=== PATIENT | male | born 1950 | race Caucasian/White ===

== ENCOUNTER → 2020-06-23 10:06 | Outpatient (BNVA) | payer OTHER, MEDICARE, SELFPAY | PROVIDERS: PCP Family Medicine; Visit Provider Internal Medicine Endocrinology, Diabetes & Metabolism | DX: E11.65 Type 2 diabetes mellitus with hyperglycemia (principal); E11.21 Type 2 diabetes mellitus with diabetic nephropathy; E11.42 Type 2 diabetes mellitus with diabetic polyneuropathy; Z79.4 Long term (current) use of insulin; E78.5 Hyperlipidemia, unspecified; I10 Essential (primary) hypertension; E66.3 Overweight | CPT/HCPCS: 82947 ==

== ENCOUNTER → 2020-07-08 10:27 | Outpatient (BNVA) | payer OTHER, MEDICARE, SELFPAY | PROVIDERS: PCP Family Medicine; Referring Provider Family Medicine; Visit Provider Hospitalist | DX: Z76.89 Persons encountering health services in other specified circumstances (principal) ==

== ENCOUNTER → 2020-08-26 10:03 | Outpatient (BNVA) | payer OTHER, MEDICARE, SELFPAY | PROVIDERS: PCP Family Medicine; Visit Provider Internal Medicine Cardiovascular Disease | DX: I25.10 Atherosclerotic heart disease of native coronary artery without angina pectoris (principal); I10 Essential (primary) hypertension | CPT/HCPCS: 93005 ==

== ENCOUNTER 2020-08-26 11:45 | Outpatient (REF) | payer OTHER, MEDICARE, SELFPAY ==
[2020-08-26 14:54] LABS: Prostate Specific Antigen < 0.05 ng/mL (<0.05-4.0)
== END 2020-08-26 11:46 | disposition home or self-care (01) ==
LOC: HO.10HDL 11:45
PROVIDERS: Visit Provider Urology
DX: C61 Malignant neoplasm of prostate (principal)
CPT/HCPCS: 36415; 84153

== ENCOUNTER → 2020-09-24 09:38 | Outpatient (BNVA) | payer OTHER, MEDICARE, SELFPAY | PROVIDERS: PCP Family Medicine; Visit Provider Internal Medicine Endocrinology, Diabetes & Metabolism ==

== ENCOUNTER → 2020-12-23 14:05 | Outpatient (BNVA) | payer OTHER, MEDICARE, SELFPAY | PROVIDERS: PCP Family Medicine; Visit Provider Hospitalist ==

== ENCOUNTER → 2021-02-26 11:00 | Outpatient (BNVA) | payer OTHER, MEDICARE, SELFPAY | PROVIDERS: PCP Family Medicine; Visit Provider Urology | DX: N32.81 Overactive bladder (principal); C61 Malignant neoplasm of prostate | CPT/HCPCS: 51798 ==

== ENCOUNTER 2021-03-30 14:15 | Observation (INO) | payer OTHER, MEDICARE, SELFPAY ==
[2021-03-30] VITALS (8 sets, daily range): BP systolic 103–163; BP diastolic 55–81; PULSE 78–113; RESP 16–22; TEMP 36.3–36.8; O2SAT 94–98; BMI 25.2
--- NOTE | ~2021-03-30 | CT_ITS ---
EXAMINATION: CT HEAD WITHOUT CONTRAST CLINICAL INFORMATION: Altered mental status. COMPARISON: MR brain noncontrast 10/12/2018 TECHNIQUE: Contiguous axial imaging was performed from the skull base to vertex without intravenous administration of contrast. Additional 2-D coronal and sagittal reformatted images are generated on the CT workstation and uploaded to PACS. This CT examination was performed using dose optimization techniques as appropriate, variously including the following: *Automated exposure control *Adjustment of mA and/or kV according to patient size (this includes techniques or standardized protocols for targeted exams where dose is matched to indication/reason for exam; i.e. extremities or head) *Use of iterative reconstruction technique DLP: 735 mGy-cm FINDINGS: There is no intracranial hemorrhage, hematoma, or extra-axial fluid collection. The ventricles are normal in size. There is no hydrocephalus, edema, or mass effect. The vásquez-white matter differentiation appears symmetric. There is no visible acute territorial infarct or mass lesion. The calvarium appears intact. There is no pneumocephalus or orbital emphysema. The visualized sinuses and middle ears and mastoid air cells show no significant mucosal thickening. There are no air-fluid levels. CT/CT head/brain wo con IMPRESSION: No acute intracranial abnormality.
--- NOTE | ~2021-03-30 | US_ITS ---
EXAMINATION: US EXTRACRANIAL CAROTID DUPLEX, BILATERAL CLINICAL INFORMATION: Dizziness COMPARISON: None TECHNIQUE: Real-time ultrasound and Doppler techniques (integrating B-mode 2-D vascular images, Doppler spectral analysis and color-flow Doppler imaging) were utilized to interrogate the extracranial carotid arteries, the vertebral arteries and proximal subclavian arteries bilaterally. The degree of stenosis is determined by criteria similar to NASCET. FINDINGS: Right Side: 1. There is calcified atherosclerotic plaque seen in the bifurcation/proximal ICA region. 2. The common carotid artery PSV proximally is 56.0 cm/s and distally 108 cm/s. 3. The proximal internal carotid artery velocities are 139 cm/s systolic and 17.3 cm/s diastolic. 4. The proximal external carotid artery PSV is 63.4 cm/s. 5. The vertebral artery shows antegrade flow. 6. The subclavian artery waveforms are normal. Left Side: 1. There is calcified atherosclerotic plaque seen in the bifurcation/proximal ICA region. 2. The common carotid artery PSV proximally is 76.8 cm/s and distally 68.6 cm/s. 3. The proximal internal carotid artery velocities are 141.1 cm/s systolic and 15.6 cm/s diastolic. 4. The proximal external carotid artery PSV is 80.7 cm/s. 5. The vertebral artery shows antegrade flow. 6. The subclavian artery waveforms are normal. US/US carotid duplex BI IMPRESSION: 1. RIGHT: Minimal, non-hemodynamically significant stenosis of the proximal right internal carotid artery corresponding to a 0-49% stenosis by velocity criteria. 2. LEFT: Moderate, hemodynamically significant stenosis of the proximal left internal carotid artery corresponding to a 50-79% stenosis by velocity criteria.
--- NOTE | ~2021-03-30 | XR_ITS ---
EXAMINATION: XR CHEST CLINICAL INFORMATION: Altered mental status COMPARISON: 12/17/2019 TECHNIQUE: 2 views of the chest were obtained. FINDINGS: The cardiomediastinal silhouette is within normal limits and stable compared to prior. No vascular congestion or edema. No focal consolidation or effusion. Tiny calcified granuloma left lung base unchanged. Mild degenerative changes in the spine. XR/XR chest 2V IMPRESSION: Stable chest x-ray. No acute findings.
--- NOTE | 2021-03-30 15:02 | ECG_ITS ---
Test Reason : AMS Blood Pressure : / mmHG Vent. Rate : 101 BPM Atrial Rate : 101 BPM P-R Int : 184 ms QRS Dur : 082 ms QT Int : 342 ms P-R-T Axes : 077 070 072 degrees QTc Int : 443 ms Sinus tachycardia Abnormal ECG When compared with ECG of 18-FEB-2020 10:10, Heart rate has increased Referred By: Rosa Grubbs Electronically Signed By:LAURA GARCIA
--- NOTE | 2021-03-30 15:04 | ED_ITS ---
HPI - Altered Mental Status General Chief Complaint: Altered Mental Status Stated Complaint: CONFUSED DIZZY Time Seen by Provider: 03/30/21 14:42 Source: patient and family Mode of arrival: ambulatory Limitations: no limitations History of Present Illness HPI narrative: 70-year-old male with a past medical history of insulin-dependent diabetes, hypertension, coronary artery disease with 5 stents on Plavix, COPD, h yperlipidemia here with complaints of confusion and dizziness. Per patient he has had dizziness for several days. Per the at around 10:00 the patient was found to be staring into the distance and was incontinent of urine. She denies any shaking activity. She tells me for approximately 1 hour the patient seemed confused and not himself. She tells me since being here the patient does seem to be at his baseline. The patient reports dizziness which is described as feeling like his body is off balance. He denies any vision changes. No headache or neck pain. He does have some speech difficulty which his and him tell me is not a new thing and his secondary to his Parkinson's disease. Denies weakness, paresthesias.. No chest or abdominal pain. H/o juvenile epilepsy. Related Data Home Medications Medication Instructions Recorded Confirmed pramipexole 0.25 mg tablet 0.25 mg PO TID 06/19/20 12/23/20 carbidopa 25 mg-levodopa 100 mg 1 tab PO QID 06/23/20 12/05/20 tablet aspirin 81 mg tablet,delayed 81 mg PO DAILY 08/26/20 12/23/20 release (Adult Low Dose Aspirin) cholecalciferol (vitamin D3) 10 10 mcg PO DAILY 08/26/20 12/23/20 mcg (400 unit) capsule vitamin B complex (B 1 tab PO DAILY 08/26/20 12/23/20 Complex-Vitamin B12) gabapentin 300 mg capsule 300 mg PO DAILY 12/23/20 12/23/20 memantine 10 mg tablet 10 mg PO DAILY 12/23/20 12/23/20 trazodone 100 mg tablet 100 mg PO BEDTIME 12/23/20 12/23/20 Previous Rx's Medication Instructions Recorded umeclidinium 62.5 mcg-vilanterol 1 inh INHALATION DAILY #60 ea 06/17/20 25 mcg/actuation powdr for inhalation (Anoro Ellipta) insulin glargine 100 unit/mL (3 45 unit SUBCUT BEDTIME 90 Days #45 09/24/20 mL) subcutaneous pen ml dulaglutide 1.5 mg/0.5 mL 1.5 mg SUBCUT QWEEK 90 Days #6.5 ml 11/06/20 subcutaneous pen injector (Trulicity) clopidogrel 75 mg tablet 75 mg PO DAILY #90 tab 12/12/20 metformin 500 mg tablet,extended 1,000 mg PO BID 90 Days #360 tab 01/02/21 release 24 hr fluticasone propionate 50 2 spray INTRANASAL BID 90 Days #3 01/06/21 mcg/actuation nasal ea spray,suspension montelukast 10 mg tablet 10 mg PO QPM #90 tab 02/22/21 tamsulosin 0.4 mg capsule 0.4 mg PO BEDTIME 30 Days #30 cap 02/26/21 rosuvastatin 40 mg tablet 40 mg PO DAILY 90 Days #90 tab 03/16/21 solifenacin 10 mg tablet 10 mg PO DAILY 90 Days #90 tab 03/17/21 metoprolol succinate 25 mg 25 mg PO DAILY 30 Days #30 tab 03/24/21 tablet,extended release 24 hr Allergies Allergy/AdvReac Type Severity Reaction Status Date / Time Iodinated Contrast Media Allergy Mild RASH AT IV Verified 03/24/21 10:30 [CONTRAST, IV] SITE. BENEDRYL GIVEN WITH GOOD EFFECT Review of Systems Review of Systems: Yes all other systems are reviewed and are negative Constitutional: Constitutional: Reports no additional constitutional complaints, Denies body ache(s), Denies chills, Denies fever(s), Denies headache(s) and Denies weakness Eyes: Eyes: Reports no additional eye complaints and Denies change in vision ENT: Reports system reviewed and no additional complaints, except as documented, Reports dizziness, Denies headache(s), Denies nasal congestion, Denies nasal discharge and Denies neck pain Cardiovascular: Cardiovascular: Reports no additional cardiovascular complaints, Denies chest pain, Denies leg edema and Denies dyspnea Respiratory: Respiratory: Reports no additional respiratory complaints, Denies cough and Denies dyspnea Gastrointestinal: Gastrointestinal: Reports no additional gastrointestinal complaints, Denies abdominal pain, Denies diarrhea, Denies nausea and Denies vomiting Genitourinary: Genitourinary: Denies urinary incontinence Musculoskeletal: Musculoskeletal: Reports no additional musculoskeletal complaints, Denies back pain, Denies arthralgias, Denies joint swelling, Denies neck pain, Denies numbness and Denies tingling Integumentary/Breasts: Skin/Breast: Reports system reviewed and no additional complaints, except as docu and Denies rash Neurologic: Reports system reviewed and no additional complaints, except as do cumented, Denies Abnormal speech present, Reports dizziness, Denies headache(s), Denies numbness, Denies tingling and Denies weakness PMF Past Medical History Attestation statement: The following information was validated with the patient. Source: old records reviewed and nursing notes reviewed Medical History CAD (coronary artery disease) COPD (chronic obstructive pulmonary disease) Diabetes type 2, uncontrolled Diabetic nephropathy associated with type 2 diabetes mellitus Diabetic polyneuropathy associated with type 2 diabetes mellitus Dyslipidemia Dyspnea 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 long-term (current) use of insulin Overweight (BMI 25.0-29.9) Surgical History History of prostate surgery Hx of cardiac cath Hx of cataract surgery Hx of colonoscopy Stented coronary artery Family History Family History Father Sudden cardiac CVD (cardiovascular disease) Mother Hx of heart surgery CVD (cardiovascular disease) Social History Social History Household Members: Spouse Housing: House Alcohol intake: never Patient Tobacco Use Status: Never used Tobacco Advance Directives: Yes Advance Directives Information Provided: Yes Advance Directives on File: No Current occupational status: retired Physical Exam Vital Signs: Vital Signs: Last Vital Signs Temp 97.5 F 03/30/21 14:25 Pulse 90 03/30/21 16:46 Resp 16 03/30/21 16:46 BP 126/61 03/30/21 16:46 Pulse Ox 96 03/30/21 16:46 Body Mass Index 25.2 Const: Orientation/consciousness: oriented to person, oriented to place and oriented to time Limitations: no limitations HENMT: Head: Yes normal to inspection Ears: hearing grossly normal bilaterally General nose exam: Normal external nose present Face and sinus: Yes normal facial exam Mouth: Normal oral and palatal mucosa present Throat: Yes posterior oropharynx normal Eyes: General: appearance normal, both eyes and all related structures Pupils: Equal, round and reactive pupils present Neck: Neck: Yes normal visual inspection Chest: Chest palpation & inspection: normal inspection of the chest Resp: Effort & Inspection: normal respiratory effort Auscultation: clear to auscultation bilaterally Cardio: Rate: regular rate Rhythm: regular rhythm Peripheral pulses: Peripheral pulses 2+ throughout GI: Inspection: Yes normal to inspection Palpation (GI): Soft to palpation and nontender Auscultation: normal bowel sounds Back/Spine/Pelvis: Thoracic/Lumbar Spine: thoracic and lumbar spine normal to inspection Skin: General skin exam: no rashes or lesions noted Neuro: Other: requires frequent re-direction for task performance General: oriented to person, oriented to place, oriented to time, moves all extremities, Normal light touch and pain sensation and Unable to assess gait Cranial ne rves: Yes CN's II-XII intact bilaterally, Yes Equal, round and reactive pupils present, Yes Bilaterally intact EOM present, Yes Nystagmus not present, Yes Normal facial strength present and Yes Midline tongue present Cognition (Neuro): normal cognition Speech: No Abnormal speech present Gait exam (Neuro): Unable to assess gait Motor exam (neuro): 5/5 motor strength present throughout Sensory Exam: Normal double simultaneous stimulation for sensation Coordination: [id number] test normal and [id number] test normal Extrem: General: Yes normal to inspection NIH Stroke Scale Internal: Initial- Upon Arrival Level of Consciousness: Alert Level of Consciousness Questions: Answers both questions correctly Level of Consciousness Commands: Performs both tasks correctly Best Gaze: Normal Visual: No visual loss Facial Palsy: Normal Motor Arm (Right): No drift Motor Arm (Left): No drift Motor Leg (Right): No drift Motor Leg (Left): No drift Limb Ataxia: Present in two limbs (difficult to assess as patient unable to ambulate d/t dizziness ) Sensory: Normal Best Language: No aphasia Dysarthia: Normal Extinction and Inattention: No abnormality Score: 2 Course Course Course Narrative: 70-year-old male here with complaints of dizziness for the last few days with an episode of confusion today in which he was confused for about an hour was less responsive to family and had incontinence of urine. On arrival to the emergency department he is complaining of dizziness and unsteady gait. His family seems to think he is more at his baseline and is less confused than he was earlier. He has a history of seizures as a child but has not had a seizure since then. He is not on any antiepileptics. He does have a history of Parkinson's disease with some speech difficulty at baseline but no history of dementia or confusion or similar episodes. Unable to ambulate patient due to his complaints of dizziness. Otherwise his neurological exam is normal. He does require frequent redirection as he seems forgetful of tasks asked of this patient. Hemodynamically stable. Will check labs, EKG, chest x-ray, CT head, UA. 1745-labs are unremarkable. The patient's EKG are negative so low concern for ACS. Patient's chest x-ray and a CT of the head are negative. The patient has a very unsteady gait and is unable to ambulate due to complaints of dizziness and unsteadiness. He has had these symptoms for 2 days. Consider cerebellar infarct. Should be admitted for MRI. Not a tPA candidate as he is outside of the window based on the length of his symptoms and additionally he is on Plavix. The patient also had an episode of decreased responsiveness and incontinence today with some confusion after this. ?absent seizure versus TIA. These symptoms seem to have resolved. I did discuss the case with . He tells me the patient will be admitted to the night team service at 7pm. MDM - Altered Mental Status MDM Narrative Medical decision making narrative: Consider cerebellar infarct with complaints of dizziness and unsteady gait-not in window for tpa additionally on plavix less likely acs with negative troponin and ekg Consider absent seizure vs tia today with episode of decreased responsiveness today, urinary incontinence with confusion following episode. Medical Records Attestation: I reviewed the patient's medical records. Lab Data Attestation: I reviewed the patient's lab results. Result diagrams: 03/30/21 15:22 03/30/21 15:22 Labs: Lab Results 03/30/21 03/30/21 03/30/21 Range/Units 15:22 15:22 15:22 WBC 13.7 H (4.8-10.8) X10*3/uL RBC 4.12 L (4.60-5.80) X10*6/uL Hgb 12.6 L (14.0-18.0) g/dl Hct 38.1 L (42-52) % MCV 92.5 (80-98) fL MCH 30.6 (27.0-33.0) pg MCHC 33.1 (31.0-36.0) g/dl RDW 13.3 (11.0-16.0) % Plt Count 194 (160-400) X10*3/uL MPV 10.2 (9.4-12.4) fL Immature Gran % (Auto) 0.4 (0.0-0.4) % Neut % (Auto) 86.6 H (45-73) % Lymph % (Auto) 3.1 L (20-40) % [place] % (Auto) 9.7 (2-11) % Eos % (Auto) 0.1 (0-4) % Baso % (Auto) 0.1 (0-2) % Lymph # (Auto) 0.4 L (1.2-4.9) X10*3/uL [place] # (Auto) 1.3 H (0.1-1.2) X10*3/uL Eos # (Auto) 0.0 (0.0-0.4) X10*3/uL Baso # (Auto) 0.0 (0.0-0.2) X10*3/uL Abs Immat Gran (auto) 0.06 H (0.00-0.03) X10*3/uL Absolute Neuts (auto) 11.8 H (2.0-8.3) X10*3/uL Absolute Nucleated RBC 0.000 (0.0-0.012) X10*3/uL Nucleated RBC % (auto) 0.0 (0.0-0.2) /100WBC PT 12.3 (9.9-13.0) SEC INR 1.1 (0.9-1.1) APTT 32.4 (24.1-38.0) SEC Sodium (135-145) mmol/L Potassium (3.3-5.1) mmol/L Chloride (96-108) mmol/L Carbon Dioxide (22-29) mmol/L Anion Gap (12-20) BUN (9-16) mg/dL Creatinine (0.5-1.4) mg/dL Estim Creat Clear Calc Estimated GFR Random Glucose (60-115) mg/dL Calcium (8.4-10.2) mg/dL Phosphorus 2.9 (2.7-4.5) mg/dL Magnesium 2.2 (1.6-2.6) mg/dL Total Creatine Kinase (38-174) U/L Troponin I High Sens (<3.5-35.0) ng/L TSH 1.09 (0.32-4.0) uIU/mL Urine Color Urine Appearance Urine pH (5.0-8.0) Ur Specific [place] (1.005-1.025) Urine Protein (NEG-TRACE) MG/DL Urine Glucose (UA) (NEG) MG/DL Urine Ketones (NEG) MG/DL Urine Blood (NEG) Urine Nitrite (NEG) Ur Leukocyte Esterase (NEG) Urine RBC (0) /HPF Urine WBC (0-4) /HPF Ur Squamous Epith Cells /LPF Urine Bacteria /LPF COVID-19 (SEMAJ) (Negative) COVID-19 Clin Com 03/30/21 03/30/21 03/30/21 Range/Units 15:22 15:22 15:22 WBC (4.8-10.8) X10*3/uL RBC (4.60-5.80) X10*6/uL Hgb (14.0-18.0) g/dl Hct (42-52) % MCV (80-98) fL MCH (27.0-33.0) pg MCHC (31.0-36.0) g/dl RDW (11.0-16.0) % Plt Count (160-400) X10*3/uL MPV (9.4-12.4) fL Immature Gran % (Auto) (0.0-0.4) % Neut % (Auto) (45-73) % Lymph % (Auto) (20-40) % [place] % (Auto) (2-11) % Eos % (Auto) (0-4) % Baso % (Auto) (0-2) % Lymph # (Auto) (1.2-4.9) X10*3/uL [place] # (Auto) (0.1-1.2) X10*3/uL Eos # (Auto) (0.0-0.4) X10*3/uL Baso # (Auto) (0.0-0.2) X10*3/uL Abs Immat Gran (auto) (0.00-0.03) X10*3/uL Absolute Neuts (auto) (2.0-8.3) X10*3/uL Absolute Nucleated RBC (0.0-0.012) X10*3/uL Nucleated RBC % (auto) (0.0-0.2) /100WBC PT (9.9-13.0) SEC INR (0.9-1.1) APTT (24.1-38.0) SEC Sodium 140 (135-145) mmol/L Potassium 4.1 (3.3-5.1) mmol/L Chloride 107 (96-108) mmol/L Carbon Dioxide 22 (22-29) mmol/L Anion Gap 15 (12-20) BUN 24 H (9-16) mg/dL Creatinine 1.50 H (0.5-1.4) mg/dL Estim Creat Clear Calc 42.5 Estimated GFR 47 Random Glucose 94 (60-115) mg/dL Calcium 9.9 (8.4-10.2) mg/dL Phosphorus (2.7-4.5) mg/dL Magnesium (1.6-2.6) mg/dL Total Creatine Kinase 234 H (38-174) U/L Troponin I High Sens 4.8 (<3.5-35.0) ng/L TSH (0.32-4.0) uIU/mL Urine Color Urine Appearance Urine pH (5.0-8.0) Ur Specific [place] (1.005-1.025) Urine Protein (NEG-TRACE) MG/DL Urine Glucose (UA) (NEG) MG/DL Urine Ketones (NEG) MG/DL Urine Blood (NEG) Urine Nitrite (NEG) Ur Leukocyte Esterase (NEG) Urine RBC (0) /HPF Urine WBC (0-4) /HPF Ur Squamous Epith Cells /LPF Urine Bacteria /LPF COVID-19 (SEMAJ) Negative (Negative) COVID-19 Clin Com See Note 03/30/21 Range/Units 15:22 WBC (4.8-10.8) X10*3/uL RBC (4.60-5.80) X10*6/uL Hgb (14.0-18.0) g/dl Hct (42-52) % MCV (80-98) fL MCH (27.0-33.0) pg MCHC (31.0-36.0) g/dl RDW (11.0-16.0) % Plt Count (160-400) X10*3/uL MPV (9.4-12.4) fL Immature Gran % (Auto) (0.0-0.4) % Neut % (Auto) (45-73) % Lymph % (Auto) (20-40) % [place] % (Auto) (2-11) % Eos % (Auto) (0-4) % Baso % (Auto) (0-2) % Lymph # (Auto) (1.2-4.9) X10*3/uL [place] # (Auto) (0.1-1.2) X10*3/uL Eos # (Auto) (0.0-0.4) X10*3/uL Baso # (Auto) (0.0-0.2) X10*3/uL Abs Immat Gran (auto) (0.00-0.03) X10*3/uL Absolute Neuts (auto) (2.0-8.3) X10*3/uL Absolute Nucleated RBC (0.0-0.012) X10*3/uL Nucleated RBC % (auto) (0.0-0.2) /100WBC PT (9.9-13.0) SEC INR (0.9-1.1) APTT (24.1-38.0) SEC Sodium (135-145) mmol/L Potassium (3.3-5.1) mmol/L Chloride (96-108) mmol/L Carbon Dioxide (22-29) mmol/L Anion Gap (12-20) BUN (9-16) mg/dL Creatinine (0.5-1.4) mg/dL Estim Creat Clear Calc Estimated GFR Random Glucose (60-115) mg/dL Calcium (8.4-10.2) mg/dL Phosphorus (2.7-4.5) mg/dL Magnesium (1.6-2.6) mg/dL Total Creatine Kinase (38-174) U/L Troponin I High Sens (<3.5-35.0) ng/L TSH (0.32-4.0) uIU/mL Urine Color YELLOW Urine Appearance CLEAR Urine pH 6.0 (5.0-8.0) Ur Specific [place] 1.010 (1.005-1.025) Urine Protein 2+ H (NEG-TRACE) MG/DL Urine Glucose (UA) NEG (NEG) MG/DL Urine Ketones NEG (NEG) MG/DL Urine Blood 1+ H (NEG) Urine Nitrite NEG (NEG) Ur Leukocyte Esterase NEG (NEG) Urine RBC 1-4 (0) /HPF Urine WBC 0-2 (0-4) /HPF Ur Squamous Epith Cells TRACE /LPF Urine Bacteria TRACE /LPF COVID-19 (SEMAJ) (Negative) COVID-19 Clin Com Imaging Data Chest x-ray: Attestation: I personally reviewed and interpreted this imaging study as follows: Radiologist's impression: [address] [id number] XRay Report Signed Patient: Nir Leon MR#: [id number] : 1950 Acct:[id number] Age/Sex: 70 / M ADM Date: 03/30/21 Loc: .ED Attending Dr: Ordering Physician: Rosa Grubbs NP Date of Service: 03/30/21 Procedure(s): XR chest 2V Accession Number(s): [id number] cc: Rosa Grubbs NP~ EXAMINATION: XR CHEST CLINICAL INFORMATION: Altered mental status COMPARISON: 12/17/2019 TECHNIQUE: 2 views of the chest were obtained. FINDINGS: The cardiomediastinal silhouette is within normal limits and stable compared to prior. No vascular congestion or edema. No focal consolidation or effusion. Tiny calcified granuloma left lung base unchanged. Mild degenerative changes in the spine. XR/XR chest 2V IMPRESSION: Stable chest x-ray. No acute findings. CT scan - head: Attestation: I personally reviewed and interpreted this imaging study as follows: Radiologist's impression: FINDINGS: There is no intracranial hemorrhage, hematoma, or extra-axial fluid collection.? The ventricles are normal in size. There is no hydrocephalus, edema, or mass effect.? The vásquez-white matter differentiation appears symmetric.? There is no visible acute territorial infarct or mass lesion. The calvarium appears intact. There is no pneumocephalus or orbital emphysema.? The visualized sinuses and middle ears and mastoid air cells show no significant mucosal thickening. There are no air-fluid levels. CT/CT head/brain wo con IMPRESSION: No acute intracranial abnormality. ECG Data ECG #1: Attestation: I personally reviewed and interpreted this ECG as follows: ECG interpretation date: 03/30/21 ECG interpretation time: 15:33 Interpretation: Sinus tachycardia with a rate of 101, normal Pr, normal QRS, QTC Discharge Plan Discharge Clinical Impression: Dizziness Patient Disposition: Admitted As Inpatient Prescriptions: No Action Anoro Ellipta 62.5-25 mcg/actuation blister with device 1 inh inhalation DAILY Qty: 60 RF: 3 Trulicity 1.5 mg/0.5 mL pen injector 1.5 mg subcut QWEEK 90 Days Qty: 6.5 RF: 1 clopidogrel 75 mg tablet 75 mg PO DAILY Qty: 90 RF: 1 metformin 500 mg tablet extended release 24 hr 1,000 mg PO BID 90 Days Qty: 360 RF: 1 fluticasone propionate 50 mcg/actuation spray,suspension 2 spray intranasal BID 90 Days Qty: 3 RF: 4 montelukast 10 mg tablet 10 mg PO QPM Qty: 90 RF: 3 rosuvastatin 40 mg tablet 40 mg PO DAILY 90 Days Qty: 90 RF: 0 solifenacin 10 mg tablet 10 mg PO DAILY 90 Days Qty: 90 RF: 0 pramipexole 0.25 mg tablet 0.25 mg PO TID RF: 0 metoprolol succinate 25 mg tablet extended release 24 hr 25 mg PO DAILY 30 Days Qty: 30 RF: 1 carbidopa-levodopa 25-100 mg tablet 1 tab PO QID RF: 0 insulin glargine 100 unit/mL (3 mL) insulin pen 45 unit subcut BEDTIME 90 Days Qty: 45 RF: 1 aspirin [Adult Low Dose Aspirin] 81 mg tablet,delayed release (DR/EC) 81 mg PO DAILY RF: 0 vitamin B complex [B Complex-Vitamin B12] Tablet 1 tab PO DAILY RF: 0 cholecalciferol (vitamin D3) 10 mcg (400 unit) capsule 10 mcg PO DAILY RF: 0 tamsulosin 0.4 mg capsule 0.4 mg PO BEDTIME 30 Days Qty: 30 RF: 1 gabapentin 300 mg capsule 300 mg PO DAILY RF: 0 memantine 10 mg tablet 10 mg PO DAILY RF: 0 trazodone 100 mg tablet 100 mg PO BEDTIME RF: 0
[2021-03-30 15:31] LABS: MANUAL DIFF FLAG NO
[2021-03-30 15:34] LABS: Basophils Percent Auto 0.1 % (0-2); Eosinophils Percent Auto 0.1 % (0-4); Hematocrit 38.1 % (42-52); Hemoglobin 12.6 g/dl (14.0-18.0); Imm Gran Abs Auto 0.06 X10*3/uL (0.00-0.03); Imm Gran Pct Auto 0.4 % (0.0-0.4); Lymphocytes Absolute Auto 0.4 X10*3/uL (1.2-4.9); Lymphocytes Percent Auto 3.1 % (20-40); Mean Corpuscular HGB Conc 33.1 g/dl (31.0-36.0); Mean Corpuscular Hemoglobin 30.6 pg (27.0-33.0); Mean Corpuscular Volume 92.5 fL (80-98); Mean Platelet Volume 10.2 fL (9.4-12.4); Monocytes Absolute Auto 1.3 X10*3/uL (0.1-1.2); Monocytes Percent Auto 9.7 % (2-11); Neutrophils Absolute Auto 11.8 X10*3/uL (2.0-8.3); Neutrophils Percent Auto 86.6 % (45-73); Platelet Count 194 X10*3/uL (160-400); Red Blood Count 4.12 X10*6/uL (4.60-5.80); Red Cell Distribution Width 13.3 % (11.0-16.0); White Blood Count 13.7 X10*3/uL (4.8-10.8)
[2021-03-30 15:46] LABS: INTERNATIONAL NORM RATIO 1.1 (0.9-1.1); Prothrombin Time 12.3 SEC (9.9-13.0)
[2021-03-30 15:48] LABS: Anion Gap 15 (12-20); Blood Urea Nitrogen 24 mg/dL (9-16); Calcium 9.9 mg/dL (8.4-10.2); Carbon Dioxide 22 mmol/L (22-29); Chloride 107 mmol/L (96-108); Creatinine Clr Calc Pharmacy 42.5; Estimated Glomerular Filt Rate 47; Glucose Random 94 mg/dL (60-115); Magnesium 2.2 mg/dL (1.6-2.6); Partial Thromboplastin Time 32.4 SEC (24.1-38.0); Phosphorus 2.9 mg/dL (2.7-4.5); Potassium 4.1 mmol/L (3.3-5.1); Sodium 140 mmol/L (135-145)
[2021-03-30 15:53] LABS: Troponin-I High Sensitivity 4.8 ng/L (<3.5-35.0)
[2021-03-30 15:54] LABS: Stroke Lab Use COMPLETE
[2021-03-30 15:55] LABS: COVID-19 Test Negative (Negative)
[2021-03-30 16:04] LABS: Glucose Urine UA NEG (NEG); Leukocyte Esterase Urine NEG (NEG); Nitrite Urine NEG (NEG); UACC Culture Trigger NO; Urine Blood 1+ (NEG); Urine Ketones NEG (NEG); Urine Protein 2+ MG/DL (NEG-TRACE)
[2021-03-30 16:09] LABS: Appearance Urine CLEAR; Color Urine YELLOW; Thyroid Stimulating Hormone 1.09 uIU/mL (0.32-4.0)
[2021-03-30] MEDS: 0.9 % Sodium Chloride 1,000 ML 999 ML IV (16:26)
[2021-03-30 16:49] LABS: Bacteria Urine TRACE /LPF; Squamous Epithelial Cell Urine TRACE /LPF; WBC Urine 0-2 /HPF (0-4)
[2021-03-30 18:33] LABS: Glucose, Whole Blood 86 mg/dL (60-115)
--- NOTE | 2021-03-30 19:44 | P.HPHOSP_ITS ---
History of Present Illness Date of Service: 03/30/21 Chief Complaint: Dizziness 70-year-old male with a past medical history of hypertension, hyperlipidemia, diabetes, coronary artery disease, diabetic neuropathy, Parkinson disease, COPD presented to the hospital with a chief complaint of dizziness/confusion. Patient currently alert or oriented x3. Reports that he had dizziness this morning; still feels dizzy. Denies any fall. Denies any loss of consciousness. Denies any symptoms of room spinning. Patient reported has intermittent episodes of urinary incontinence and has been scheduled for outpatient cystoscopy. Denies any signs of infection. Reports he is unsteady on the gait. Patient reports that he takes gabapentin for long time and does not think it is contributing to his current symptoms. Denies any chest pain palpitations. Denies any fever chills cough. Denies any GI or symptoms. Review of all other systems is negative except mentioned above ER course: Per ER team patient's exam was nonfocal; EKG was nonischemic; CT head showed no acute findings; chest x-ray showed no evidence of pneumonia. Gait was unsteady; labs were essentially benign. Admitted to the hospital for further management. [facility] Medical History CAD (coronary artery disease) COPD (chronic obstructive pulmonary disease) Diabetes type 2, uncontrolled Diabetic nephropathy associated with type 2 diabetes mellitus Diabetic polyneuropathy associated with type 2 diabetes mellitus Dyslipidemia Dyspnea 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 jail (current) use of insulin Overweight (BMI 25.0-29.9) Family History Father Sudden cardiac CVD (cardiovascular disease) Mother Hx of heart surgery CVD (cardiovascular disease) Surgical History History of prostate surgery Hx of cardiac cath Hx of cataract surgery Hx of colonoscopy Stented coronary artery Social History Household Members: Spouse Housing: House Alcohol intake: never Patient Tobacco Use Status: Never used Tobacco Advance Directives: Yes Advance Directives Information Provided: Yes Advance Directives on File: No Current occupational status: retired Meds Allergies Allergy/AdvReac Type Severity Reaction Status Date / Time Iodinated Contrast Media Allergy Mild RASH AT IV Verified 03/24/21 10:30 [CONTRAST, IV] SITE. BENEDRYL GIVEN WITH GOOD EFFECT Active Medications: Current Medications Generic Name Dose Route Start Last Admin Trade Name Trav PRN Reason Stop Dose Admin Aspirin 81 mg 03/31/21 09:00 Aspirin Enteric Coated 81 Mg Tablet.Dr PO DAILY [facility] Carbidopa/Levodopa 1 tab 03/31/21 09:00 Carbidopa/Levodopa 25/100 Tablet PO TID@0900,1200,1600 [facility] Carbidopa/Levodopa 1 tab 03/30/21 21:00 Carbidopa/Levodopa Cr 50/200 Tablet.Er PO BEDTIME [facility] Clopidogrel Bisulfate 75 mg 03/31/21 16:00 Clopidogrel Bisulfate 75 Mg Tablet PO DAILY@1600 [facility] Dextrose 25 gm 03/30/21 19:41 Dextrose 50 % 25 Gm/50 Ml Vial IVPUSH Q15M PRN per Hypoglycemia Standing Ord. Protocol Fluticasone Propionate 1 spray 03/30/21 19:39 Fluticasone Propionate Nasal 16 Gm [place] NOSTRIL-B BID PRN Allergy Symptoms Gabapentin 300 mg 03/30/21 21:00 Gabapentin 300 Mg Capsule PO BEDTIME [facility] Glucose 15 gm 03/30/21 19:41 Glucose Gel 15 Gm Gel..Gram. PO Q15M PRN per Hypoglycemia Standing Ord. Protocol Insulin Glargine 30 unit 03/30/21 21:00 Insulin Glargine,Hum.Rec.Anlog 100 Unit/Ml 10 Ml Vial SUBCUT BEDTIME [facility] Insulin Human Lispro 0 unit 03/30/21 21:00 Insulin Lispro 100 Unit/Ml 3 Ml Vial SUBCUT QIDACHS [facility] Protocol Memantine 10 mg 03/31/21 09:00 Memantine Hcl 10 Mg Tablet PO DAILY [facility] Metoprolol Succinate 25 mg 03/31/21 09:00 Metoprolol Succinate Er 25 Mg Tab.Er.24h PO DAILY [facility] Protocol Montelukast Sodium 10 mg 03/30/21 19:45 Montelukast Sodium 10 Mg Tablet PO QPM [facility] Non-Formulary Medication 40 mg 03/30/21 21:00 Rosuvastatin PO BEDTIME [facility] Non-Formulary Medication 10 mg 03/31/21 09:00 Solifenacin PO DAILY [facility] Pharmacy Consult 1 each 03/30/21 17:11 Consult Rx Perform Med Rec MISCELLANE ONCE PRN Consult order Pramipexole Dihydrochloride 0.25 mg 03/30/21 21:00 Pramipexole Di-Hcl 0.25 Mg Tablet PO TID [facility] Tamsulosin HCl 0.4 mg 03/30/21 21:00 Tamsulosin Hcl 0.4 Mg Capsule PO BEDTIME [facility] Trazodone HCl 100 mg 03/30/21 21:00 Trazodone Hcl 100 Mg Tablet PO BEDTIME [facility] Vitamin D 10 mcg 03/31/21 09:00 Cholecalciferol (Vitamin D3) 10 Mcg Tablet PO DAILY [facility] Home Medications Medication Instructions Recorded Confirmed Last Taken Type pramipexole 0.25 mg tablet 0.25 mg PO TID 06/19/20 03/30/21 03/30/21 History carbidopa 25 mg-levodopa 100 mg 1 tab PO TID@0900,1200,1600 06/23/20 03/30/21 03/30/21 History tablet aspirin 81 mg tablet,delayed 81 mg PO DAILY 08/26/20 03/30/21 03/30/21 History release (Adult Low Dose Aspirin) cholecalciferol (vitamin D3) 10 10 mcg PO DAILY 08/26/20 03/30/21 03/29/21 History mcg (400 unit) capsule vitamin B complex (B 1 tab PO DAILY 08/26/20 03/30/21 03/30/21 History Complex-Vitamin B12) gabapentin 300 mg capsule 300 mg PO BEDTIME 12/23/20 03/30/21 03/30/21 History memantine 10 mg tablet 10 mg PO DAILY 12/23/20 03/30/21 03/30/21 History trazodone 100 mg tablet 100 mg PO BEDTIME 12/23/20 03/30/21 03/30/21 History carbidopa ER 50 mg-levodopa 200 mg 1 tab PO BEDTIME 03/30/21 03/30/21 03/29/21 History tablet,extended release clopidogrel 75 mg tablet 75 mg PO DAILY@1600 03/30/21 03/30/21 03/30/21 History dulaglutide 1.5 mg/0.5 mL 1.5 mg SUBCUT SA 03/30/21 03/30/21 03/28/21 History subcutaneous pen injector (Trulicity) fluticasone propionate 50 1 spray INTRANASAL BID PRN 03/30/21 03/30/2103/30/21 History mcg/actuation nasal spray,suspension insulin glargine 100 unit/mL (3 40 unit SUBCUT BEDTIME 03/30/21 03/30/21 03/29/21 History mL) subcutaneous pen rosuvastatin 40 mg tablet 40 mg PO BEDTIME 03/30/21 03/30/21 03/30/21 History Physical Exam Vital Signs and Narrative: Vital Signs: Last Vital Signs Temp 97.6 F 03/30/21 18:22 Pulse 83 03/30/21 18:22 Resp 22 H 03/30/21 18:22 BP 133/70 03/30/21 18:22 Pulse Ox 98 03/30/21 18:22 Body Mass Index 25.2 Gen: Appears be in no acute distress HEENT: NCAT, Moist mucosa. Pulmonary: Vesicular breath sounds, fair air entry CVS: Normal S1-S2 Abdomen: BS+, Soft, Nontender Extremities: Warm well perfused Neuro: Alert and awake. Results Labs CBC and Chem 7: 03/30/21 15:22 03/30/21 15:22 Labs: Laboratory Results - last 24 hr 03/30/21 03/30/21 03/30/21 15:22 15:22 15:22 MCV 92.5 MCH 30.6 MCHC 33.1 RDW 13.3 Plt Count 194 MPV 10.2 Immature Gran % (Auto) 0.4 Neut % (Auto) 86.6 H Lymph % (Auto) 3.1 L Taylor % (Auto) 9.7 Eos % (Auto) 0.1 Baso % (Auto) 0.1 Lymph # (Auto) 0.4 L Taylor # (Auto) 1.3 H Eos # (Auto) 0.0 Baso # (Auto) 0.0 Abs Immat Gran (auto) 0.06 H Absolute Neuts (auto) 11.8 H Absolute Nucleated RBC 0.000 Nucleated RBC % (auto) 0.0 PT 12.3 INR 1.1 APTT 32.4 Anion Gap Estim Creat Clear Calc Estimated GFR POC Glucose Random Glucose Calcium Phosphorus 2.9 Magnesium 2.2 Total Creatine Kinase Troponin I High Sens TSH 1.09 Urine Color Urine Appearance Urine pH Ur Specific [place] Urine Protein Urine Glucose (UA) Urine Ketones Urine Blood Urine Nitrite Ur Leukocyte Esterase Urine RBC Urine WBC Ur Squamous Epith Cells Urine Bacteria COVID-19 (SEMAJ) COVID-19 Clin Com 03/30/21 03/30/21 03/30/21 15:22 15:22 15:22 MCV MCH MCHC RDW Plt Count MPV Immature Gran % (Auto) Neut % (Auto) Lymph % (Auto) Taylor % (Auto) Eos % (Auto) Baso % (Auto) Lymph # (Auto) Taylor # (Auto) Eos # (Auto) Baso # (Auto) Abs Immat Gran (auto) Absolute Neuts (auto) Absolute Nucleated RBC Nucleated RBC % (auto) PT INR APTT Anion Gap 15 Estim Creat Clear Calc 42.5 Estimated GFR 47 POC Glucose Random Glucose 94 Calcium 9.9 Phosphorus Magnesium Total Creatine Kinase 234 H Troponin I High Sens 4.8 TSH Urine Color Urine Appearance Urine pH Ur Specific [place] Urine Protein Urine Glucose (UA) Urine Ketones Urine Blood Urine Nitrite Ur Leukocyte Esterase Urine RBC Urine WBC Ur Squamous Epith Cells Urine Bacteria COVID-19 (SEMAJ) Negative COVID-19 Clin Com See Note 03/30/21 03/30/21 15:22 18:27 MCV MCH MCHC RDW Plt Count MPV Immature Gran % (Auto) Neut % (Auto) Lymph % (Auto) Taylor % (Auto) Eos % (Auto) Baso % (Auto) Lymph # (Auto) Taylor # (Auto) Eos # (Auto) Baso # (Auto) Abs Immat Gran (auto) Absolute Neuts (auto) Absolute Nucleated RBC Nucleated RBC % (auto) PT INR APTT Anion Gap Estim Creat Clear Calc Estimated GFR POC Glucose 86 Random Glucose Calcium Phosphorus Magnesium Total Creatine Kinase Troponin I High Sens TSH Urine Color YELLOW Urine Appearance CLEAR Urine pH 6.0 Ur Specific [place] 1.010 Urine Protein 2+ H Urine Glucose (UA) NEG Urine Ketones NEG Urine Blood 1+ H Urine Nitrite NEG Ur Leukocyte Esterase NEG Urine RBC 1-4 Urine WBC 0-2 Ur Squamous Epith Cells TRACE Urine Bacteria TRACE COVID-19 (SEMAJ) COVID-19 Clin Com Imaging Radiologist's Impressions: Impressions Chest X-Ray 03/30/21 15:01 IMPRESSION: Stable chest x-ray. No acute findings. Head CT 03/30/21 15:01 IMPRESSION: No acute intracranial abnormality. Assessment and Plan (1) Dizziness: Status: Acute 70-year-old male with a past medical history of hypertension, hyperlipidemia, diabetes, diabetic neuropathy, coronary artery disease, Parkinso n disease, COPD presented to the hospital with a chief complaint of dizziness/confusion/unsteady gait/episode of urinary incontinence. Dizziness/unsteady gait: Patient also had an episode of brief decreased responsiveness. Currently improved. But continued to have dizziness. CT head showed no acute findings Exam grossly nonfocal Cannot obtain CT angio head and neck as patient is allergic to contrast. Will defer to the further recommendations -Neurology in regarding MRI brain/MRA head and neck. Fall precautions Orthostatic vitals Telemetry Cycle cardiac enzymes Echocardiogram Urinary incontinence: Patient reports he has intermittent episodes of urinary incontinence and has been scheduled for outpatient follow-up for cystoscopy. Diabetes: Insulin sliding scalePlus Lantus 30 units. Monitor fingerstick glucose. 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/hyperlipidemia: Continue home medications. History of Parkinson disease: Continue home carbidopa levodopa; pramipexole 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: Continue home metoprolol. Hyperlipidemia: Continue home dose of statin DVT prophylaxis: SCD boots Code status: Full code Quality Stroke Does the patient have a stroke diagnosis?: No VTE Prior VTE?: No VTE Risk Level:: Medical - moderate - high VTE Device Contraindication: N/A - Device Ordered VTE Drug Contraindication: Treatment Not Indicated
[2021-03-30 20:18] LABS: Glucose, Whole Blood 137 mg/dL (60-115)
[2021-03-30 20:52] LABS: Troponin-I High Sensitivity 4.7 ng/L (<3.5-35.0)
[2021-03-30] MEDS: Tamsulosin HCL 0.4 MG CAPSULE PO (20:57)
[2021-03-30] MEDS: Montelukast Sodium 10 MG TABLET PO (20:57)
[2021-03-30] MEDS: traZODone HCL 100 MG TABLET PO (20:57)
[2021-03-30] MEDS: Insulin Glargine,Hum.rec.anlog 100 UNIT/ML 10 ML VIAL 30 UNIT SUBCUT (20:58)
[2021-03-30] MEDS: Atorvastatin Calcium 80 MG TABLET PO (20:58)
[2021-03-30] MEDS: Gabapentin 300 MG CAPSULE PO (20:58)
[2021-03-30] MEDS: Carbidopa/Levodopa CR 50/200 TABLET.ER 1 TAB PO (21:00)
[2021-03-30] MEDS: Pramipexole Di-HCL 0.25 MG TABLET PO (21:00)
[2021-03-31] VITALS (11 sets, daily range): BP systolic 120–205; BP diastolic 60–88; PULSE 75–90; RESP 16–20; TEMP 36.1–36.6; O2SAT 96–98
[2021-03-31 00:02] LABS: Glucose, Whole Blood 95 mg/dL (60-115)
[2021-03-31 06:06] LABS: MANUAL DIFF FLAG NO
[2021-03-31 06:14] LABS: Basophils Percent Auto 0.2 % (0-2); Eosinophils Absolute Auto 0.2 X10*3/uL (0.0-0.4); Eosinophils Percent Auto 2.9 % (0-4); Hematocrit 36.4 % (42-52); Imm Gran Abs Auto 0.02 X10*3/uL (0.00-0.03); Imm Gran Pct Auto 0.2 % (0.0-0.4); Lymphocytes Absolute Auto 1.2 X10*3/uL (1.2-4.9); Lymphocytes Percent Auto 13.8 % (20-40); Mean Corpuscular Hemoglobin 30.5 pg (27.0-33.0); Mean Corpuscular Volume 92.6 fL (80-98); Mean Platelet Volume 10.4 fL (9.4-12.4); Monocytes Absolute Auto 0.8 X10*3/uL (0.1-1.2); Monocytes Percent Auto 9.6 % (2-11); Neutrophils Absolute Auto 6.2 X10*3/uL (2.0-8.3); Neutrophils Percent Auto 73.3 % (45-73); Platelet Count 190 X10*3/uL (160-400); Red Blood Count 3.93 X10*6/uL (4.60-5.80); Red Cell Distribution Width 13.7 % (11.0-16.0); White Blood Count 8.4 X10*3/uL (4.8-10.8)
[2021-03-31 06:31] LABS: Anion Gap 10 (12-20); Blood Urea Nitrogen 24 mg/dL (9-16); Calcium 9.4 mg/dL (8.4-10.2); Carbon Dioxide 24 mmol/L (22-29); Chloride 108 mmol/L (96-108); Creatinine Clr Calc Pharmacy 52.2; Estimated Glomerular Filt Rate 59; Glucose Random 90 mg/dL (60-115); Potassium 3.9 mmol/L (3.3-5.1); Sodium 138 mmol/L (135-145)
[2021-03-31 07:07] LABS: Glucose, Whole Blood 99 mg/dL (60-115)
--- NOTE | 2021-03-31 07:30 | CA_ITS ---
Transthoracic Echocardiogram Patient (Last, First, Middle): Nir Leon A Gender: Male Date of : 1950 Age: 70 Procedure Date: 03/31/2021 Procedure Type: Transthoracic Echocardiogram Location: [facility] [place] Height: 167.64 cm Weight: 70.76 kg BSA: 1.80 m2 Heart Rate: bpm BP: 125 / 65 mmHg Fretted Instrument Maker Hand: Yumiko MD: Yordy Savage MD Basket Sorter: Tim Moreno MD Symptoms: dizziness Study Quality: Good ECG Rhythm: Sinus Conclusions: - 1. Normal LV systolic function with impaired relaxation filling pattern 2. Normal cardiac valvular Doppler 3. No gross pericardial effusion Findings Left Ventricle Normal left ventricular size, thickness, and systolic function. The visually estimated ejection fraction is between 55-60%. Spectral Doppler is indicative of an impaired relaxation filling pattern. E/E prime ratio is between 8 and 15 consistent with indeterminate filling pressures. Wall Motion Rest Echo Findings The basal inferior segment is hypokinetic. All other scored wall segments showed normal motion. Right Ventricle Normal right ventricular cavity size and systolic function. Atria The left atrium is normal in size. There is a mobile atrial septum noted. There is no evidence of interatrial shunt. The right atrium is normal in size. Aortic Valve The aortic valve structure and function is likely normal. There is no aortic valve stenosis. There is no aortic valve regurgitation. Mitral Valve Normal mitral valve structure and function. There is trace mitral valve regurgitation. There is no mitral valve stenosis. Pulmonic Valve The pulmonic valve was not well visualized. Tricuspid Valve Likely normal tricuspid valve structure and function. Tricuspid regurgitation envelope is inadequate for calculation of right ventricular systolic pressure. Great Vessels All visible segments of the aorta are normal in size. The pulmonary artery was not well visualized. Venous The inferior vena cava is normal in size and collapses greater than 50% with inspiration. Pericardium/Pleural There is no evidence of pericardial effusion. Prior Study Comparison No significant change compared to prior study dated: 02/27/2020. Measurements 2D Linear Measurements RVIDd: 3.10 RVIDd Index: 1.72 IVSd: 1.16 0.6-0.9/0.6-1.0 cm LVIDd: 4.19 3.9-5.3/4.2-5.9 cm LVIDd Index: 2.33 2.4-3.2/2.2-3.1 cm/m2 LVIDs: 3.25 2.0-3.6 cm LVPWd: 1.34 0.7-1.1 cm Ao Root: 2.70 2.1-3.5 cm LA Diam: 3.70 2.7-3.8/3.0-4.0 cm LAIDs Index: 2.06 1.5-2.3 cm/m2 LV Mass: 234.89 67-162/88-224 g LV Mass Index: 130.50 43-95/49-115 g/m2 LVOT Diam: 2.10 3.0+(-)1.3 cm 2D Systolic Function EF 4C: 44.80 >55% EF 2C: 62.80 >55% Mitral Valve MV Pk E: 0.68 MV PK A: 0.59 MV Decel Time: 211.00 E/A: 1.20 E'Lateral: 5.87 E'Medial: 6.31 E/E' Med: 10.80 E/E' Lat: 11.60 PHT: 74.00 MVA PHT: 2.97 Decel Mcdowell: 2.31 Aortic Valve AoV Pk Jesu: 1.45 AoV Mn Jesu: 1.01 AoV VTI: 0.30 AoV Pk Grad: 8.00 Aov Mn Grad: 5.00 DIONE Cont.VTI: 2.14 LVOT LVOT Pk Jesu: 0.83 LVOT Mn Jesu: 0.55 LVOT VTI: 0.19 LVOT Pk Grad: 3.00 LVOT Mn Grad: 1.00 LVOT Diam: 2.10 LVOT Area: 3.46 Diastolic Function MV Pk E: 0.68 MV Pk A: 0.59 E/A: 1.20 E'Medial: 6.31 E/E' Med: 10.80 E' Laterial: 5.87 E/E' Lat: 11.60 Right Ventricle TAPSE (mm): 25.00 TVS' Jesu: 11.10 Tricuspid Valve RA Press: 3.00 Great Vessels Aorta Ao Root-2D: 2.70 2.0-3.7 cm Ao Asc: 2.70 2.1-3.4 cm Updated in Other Vendor System with Status of Final Tim Moreno MD electronically signed on 03/31/2021 11:44:20 AM with status of Final
--- NOTE | 2021-03-31 09:01 | MHC.CM.PN ---
Patient came in with c/o dizziness/confusion; CM met with Patient at bedside and addressed the TAN (Also addressed TAN with /HCP/Sherita @ [phone]) providing the Patient with the original, per Sherita's request and placing a copy on the chart. Patient lives in a house with his and Meeoby-ia-Hlw and he requires no DME to assist with mobility. Patient's goal is to return home/no services and CM has initiated and will follow for dc planning.PCP is Dr. Deonte Claudio.
[2021-03-31] MEDS: Cholecalciferol (Vitamin D3) 10 MCG TABLET PO (09:05)
[2021-03-31] MEDS: Metoprolol Succinate ER 25 MG TAB.ER.24H PO (09:05)
[2021-03-31] MEDS: Pramipexole Di-HCL 0.25 MG TABLET PO ×3 (09:05→21:32)
[2021-03-31] MEDS: Tolterodine Tartrate LA 4 MG CAP.ER.24H PO (09:05)
[2021-03-31] MEDS: Memantine HCl 10 MG TABLET PO (09:05)
[2021-03-31] MEDS: Aspirin Enteric Coated 81 MG TABLET.DR PO (09:05)
[2021-03-31] MEDS: 0.9 % Sodium Chloride Flush 3 ML SYRINGE IVFLUSH ×4 (09:06→21:38)
[2021-03-31] MEDS: Carbidopa/Levodopa 25/100 TABLET 1 TAB PO ×3 (09:07→16:16)
[2021-03-31] MEDS: Fluticasone Propionate Nasal 16 GM SPRAY 1 SPRAY NOSTRIL-B (10:10)
[2021-03-31] MEDS: Acetaminophen 325 MG TABLET 650 MG PO ×3 (10:11→22:29)
[2021-03-31 11:01] LABS: Glucose, Whole Blood 159 mg/dL (60-115)
[2021-03-31] MEDS: Insulin Lispro 100 UNIT/ML 3 ML VIAL SUBCUT ×3 (11:58→21:32)
--- NOTE | 2021-03-31 12:06 | PM.NEUROCN ---
History of Present Illness Data of Consult Service Date: 03/31/21 Primary Care Provider: Deonte Claudio MD HPI Reason for consult: Lightheaded dizziness for the last few days and slightly unsteady gait This is a 70-year-old man with a history of hypertension, hyperlipidemia, coronary artery disease, COPD and diabetic neuropathy who was diagnosed with parkinsonism in the end of [address] Dudley because of some decrease in facial expression and stooped posture he and are possibly slightly decreased arm swing on one side. At no point did he develop any tremors or rigidity. He was started on carbidopa levodopa which she has continuued to take 25 100 3 times a day and carbidopa levodopa CR 50/200 at bedtime, along with pramipexole 0.25 mg daily. He also has mild cognitive problems and was on memantine 10 mg twice a day.He is now admitted with a few days of lightheaded dizziness without vertigo or falls. At times there is a question of whether he is confused. His gait it's not as good and steady as it was. Sometimes he has urinary incontinence and is scheduled to see a urologist. Review of Systems Review of Systems: Yes all other systems are reviewed and are negative Constitutional: Constitutional: Reports no additional constitutional complaints, Denies body ache(s), Denies chills, Denies fever(s), Denies headache(s) and Denies weakness Eyes: Eyes: Reports no additional eye complaints and Denies change in vision ENT: Reports system reviewed and no additional complaints, except as documented, Reports dizziness, Denies headache(s), Denies nasal congestion, Denies nasal discharge and Denies neck pain Cardiovascular: Cardiovascular: Reports no additional cardiovascular complaints, Denies chest pain, Denies leg edema and Denies dyspnea Respiratory: Respiratory: Reports no additional respiratory complaints, Denies cough and Denies dyspnea Gastrointestinal: Gastrointestinal: Reports no additional gastrointestinal complaints, Denies abdominal pain, Denies diarrhea, Denies nausea and Denies vomiting Genitourinary: Genitourinary: Denies urinary incontinence Musculoskeletal: Musculoskeletal: Reports no additional musculoskeletal complaints, Denies back pain, Denies arthralgias, Denies joint swelling, Denies neck pain, Denies numbness and Denies tingling Integumentary/Breasts: Skin/Breast: Reports system reviewed and no additional complaints, except as docu and Denies rash Neurologic: Reports system reviewed and no additional complaints, except as documented, Denies Abnormal speech present, Reports dizziness, Denies headache(s), Denies numbness, Denies tingling and Denies weakness PMFSH Past Medical History Medical History CAD (coronary artery disease) COPD (chronic obstructive pulmonary disease) Diabetes type 2, uncontrolled Diabetic nephropathy associated with type 2 diabetes mellitus Diabetic polyneuropathy associated with type 2 diabetes mellitus Dyslipidemia Dyspnea 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 Overweight (BMI 25.0-29.9) Family History Family History Father Sudden cardiac CVD (cardiovascular disease) Mother Hx of heart surgery CVD (cardiovascular disease) Surgical History Surgical History History of prostate surgery Hx of cardiac cath Hx of cataract surgery Hx of colonoscopy Stented coronary artery Social History Social History Household Members: Spouse Housing: House Do you presently have visiting nurse or other home services: No Alcohol intake: never Patient Tobacco Use Status: Never used Tobacco Use of substances other than those prescribed or required for medical reasons: No Currently Displaying Signs/Symptoms of Drug Intoxication Withdrawal: No Have you been hit, kicked, punched, or otherwise hurt by someone within the past year? If so, by whom?: No Do you feel safe in your current relationship?: Yes Is there a partner from a previous relationship who is making you feel unsafe now?: No Are you made to feel afraid or neglected: No Advance Directives: Yes Advance Directives Information Provided: Yes Advance Directives on File: No Advance Directives Date on File: 03/31/21 Do you have thoughts of harming others: None Do you have a plan to hurt others: No Plan Recently lost weight without trying: Yes How much weight loss: 2-13 pounds Eating poorly because of decreased appetite: Yes Nutrition screen score: 4 Nutrition Risks: No Nutritional Risk Poor oral hygiene: No service: Yes Current occupational status: retired Meds Allergies Allergy/AdvReac Type Severity Reaction Status Date / Time Iodinated Contrast Media Allergy Mild RASH AT IV Verified 03/24/21 10:30 [CONTRAST, IV] SITE. BENEDRYL GIVEN WITH GOOD EFFECT Active Medications: Current Medications Generic Name Dose Route Start Last Admin Trade Name Trav PRN Reason Stop Dose Admin Acetaminophen 650 mg 03/30/21 19:41 03/31/21 10:11 Acetaminophen 325 Mg Tablet PO 650 mg Q6H PRN Administration Pain, Mild (Pain Scale 1-3) Aspirin 81 mg 03/31/21 09:00 03/31/21 09:05 Aspirin Enteric Coated 81 Mg Tablet.Dr PO 81 mg DAILY FANNY Administration Atorvastatin Calcium 80 mg 03/30/21 21:00 03/30/21 20:58 Atorvastatin Calcium 80 Mg Tablet PO 80 mg BEDTIME FANNY Administration Carbidopa/Levodopa 1 tab 03/31/21 09:00 03/31/21 11:58 Carbidopa/Levodopa 25/100 Tablet PO 1 tab TID@0900,1200,1600 FANNY Administration Carbidopa/Levodopa 1 tab 03/30/21 21:00 03/30/21 21:00 Carbidopa/Levodopa Cr 50/200 Tablet.Er PO 1 tab BEDTIME FANNY Administration Clopidogrel Bisulfate 75 mg 03/31/21 16:00 Clopidogrel Bisulfate 75 Mg Tablet PO DAILY@1600 FANNY Dextrose 25 gm 03/30/21 19:41 Dextrose 50 % 25 Gm/50 Ml Vial IVPUSH Q15M PRN per Hypoglycemia Standing Ord. Protocol Fluticasone Propionate 1 spray 03/30/21 19:39 03/31/21 10:10 Fluticasone Propionate Nasal 16 Gm [place] NOSTRIL-B 1 spray BID PRN Administration Allergy Symptoms Gabapentin 300 mg 03/30/21 21:00 03/30/21 20:58 Gabapentin 300 Mg Capsule PO 300 mg BEDTIME FANNY Administration Glucose 15 gm 03/30/21 19:41 Glucose Gel 15 Gm Gel..Gram. PO Q15M PRN per Hypoglycemia Standing Ord. Protocol Insulin Glargine 30 unit 03/30/21 21:00 03/30/21 20:58 Insulin Glargine,Hum.Rec.Anlog 100 Unit/Ml 10 Ml Vial SUBCUT 30 unit BEDTIME FANNY Administration Insulin Human Lispro 0 unit 03/30/21 21:00 03/31/21 11:58 Insulin Lispro 100 Unit/Ml 3 Ml Vial SUBCUT 2 unit QIDACHS FANNY Administration Protocol Melatonin 6 mg 03/30/21 19:41 Melatonin 3 Mg Tablet PO BEDTIME PRN Insomnia Melatonin 3 mg 03/31/21 11:08 Melatonin 3 Mg Tablet PO BEDTIME PRN Insomnia Memantine 10 mg 03/31/21 09:00 03/31/21 09:05 Memantine Hcl 10 Mg Tablet PO 10 mg DAILY FANNY Administration Metoprolol Succinate 25 mg 03/31/21 09:00 03/31/21 09:05 Metoprolol Succinate Er 25 Mg Tab.Er.24h PO 25 mg DAILY FANNY Administration Protocol Montelukast Sodium 10 mg 03/30/21 21:00 03/30/21 20:57 Montelukast Sodium 10 Mg Tablet PO 10 mg BEDTIME [facility] Administration Pharmacy Consult 1 each 03/30/21 17:11 Consult Rx Perform Med Rec MISCELLANE ONCE PRN Consult order Pramipexole Dihydrochloride 0.25 mg 03/31/21 12:00 03/31/21 11:59 Pramipexole Di-Hcl 0.25 Mg Tablet PO 0.25 mg TID@0900,1200,1600 [facility] Administration Sodium Chloride 3 ml 03/31/21 00:00 03/31/21 09:06 0.9 % Sodium Chloride Flush 3 Ml Syringe IVFLUSH 3 ml QSHIFT [facility] Administration Tamsulosin HCl 0.4 mg 03/30/21 21:00 03/30/21 20:57 Tamsulosin Hcl 0.4 Mg Capsule PO 0.4 mg BEDTIME FANNY Administration Tolterodine Tartrate 4 mg 03/31/21 09:00 03/31/21 09:05 Tolterodine Tartrate La 4 Mg Cap.Er.24h PO 4 mg DAILY FANNY Administration Vitamin D 10 mcg 03/31/21 09:00 03/31/21 09:05 Cholecalciferol (Vitamin D3) 10 Mcg Tablet PO 10 mcg DAILY FANNY Administration Home Medications Medication Instructions Recorded Confirmed Last Taken Type pramipexole 0.25 mg tablet 0.25 mg PO TID 06/19/20 03/30/21 03/30/21 History carbidopa 25 mg-levodopa 100 mg 1 tab PO TID@0900,1200,1600 06/23/20 03/30/21 03/30/21 History tablet aspirin 81 mg tablet,delayed 81 mg PO DAILY 01/03/30/21 03/30/21 History release (Adult Low Dose Aspirin) cholecalciferol (vitamin D3) 10 10 mcg PO DAILY 08/26/20 03/30/21 03/29/21 History mcg (400 unit) capsule vitamin B complex (B 1 tab PO DAILY 08/26/20 03/30/21 03/30/21 History Complex-Vitamin B12) gabapentin 300 mg capsule 300 mg PO BEDTIME 12/23/20 03/30/21 03/30/21 History memantine 10 mg tablet 10 mg PO DAILY 12/23/20 03/30/21 03/30/21 History trazodone 100 mg tablet 100 mg PO BEDTIME 12/23/20 03/30/21 03/30/21 History carbidopa ER 50 mg-levodopa 200 mg 1 tab PO BEDTIME 03/30/21 03/30/21 03/29/21 History tablet,extended release clopidogrel 75 mg tablet 75 mg PO DAILY@1600 03/30/21 03/30/21 03/30/21 History dulaglutide 1.5 mg/0.5 mL 1.5 mg SUBCUT SA 03/30/21 03/30/21 03/28/21 History subcutaneous pen injector (Trulicity) fluticasone propionate 50 1 spray INTRANASAL BID PRN 03/30/21 03/30/21 03/30/21 History mcg/actuation nasal spray,suspension insulin glargine 100 unit/mL (3 40 unit SUBCUT BEDTIME 03/30/21 03/30/21 03/29/21 History mL) subcutaneous pen rosuvastatin 40 mg tablet 40 mg PO BEDTIME 03/30/21 03/30/21 03/30/21 History Physical Exam Vital Signs: Vital Signs: Last Vital Signs Temp 97.3 F 03/31/21 11:21 Pulse 75 03/31/21 11:21 Resp 20 03/31/21 11:21 BP 171/78 H 03/31/21 11:21 Pulse Ox 96 03/31/21 11:21 Body Mass Index 25.2 Const: Orientation/consciousness: oriented to person, oriented to place and oriented to time Limitations: no limitations HENMT: Head: Yes normal to inspection Ears: hearing grossly normal bilaterally General nose exam: Normal external nose present Face and sinus: Yes normal facial exam Mouth: Normal oral and palatal mucosa present Throat: Yes posterior oropharynx normal Eyes: General: appearance normal, both eyes and all related structures Pupils: Equal, round and reactive pupils present Neck: Neck: Yes normal visual inspection Chest: Chest palpation & inspection: normal inspection of the chest Resp: Effort & Inspection: normal respiratory effort Auscultation: clear to auscultation bilaterally Cardio: Rate: regular rate Rhythm: regular rhythm Peripheral pulses: Peripheral pulses 2+ throughout GI: Inspection: Yes normal to inspection Palpation (GI): Soft to palpation and nontender Auscultation: normal bowel sounds Back/Spine/Pelvis: Thoracic/Lumbar Spine: thoracic and lumbar spine normal to inspection Skin: General skin exam: no rashes or lesions noted Neuro: Other: requires frequent re-direction for task performance General: oriented to person, oriented to place, oriented to time, moves all extremities, Normal light touch and pain sensation and Unable to assess gait Cranial nerves: Yes CN's II-XII intact bilaterally, Yes Equal, round and reactive pupils present, Yes Bilaterally intact EOM present, Yes Nystagmus not present, Yes Normal facial strength present and Yes Midline tongue present Cognition (Neuro): normal cognition Speech: No Abnormal speech present Gait exam (Neuro): Normal gait present (Slightly stooped posture with reasonably good arm swing and stride. ) and Unable to assess gait Motor exam (neuro): 5/5 motor strength present throughout Sensory Exam: Normal double simultaneous stimulation for sensation Coordination: [id number] test normal and [id number] test normal Extrem: General: Yes normal to inspection Results Labs CBC & Chem 7: 03/31/21 05:57 03/31/21 05:57 Labs: Short CBC 03/30/21 03/31/21 Range/Units 15:22 05:57 WBC 13.7 H 8.4 (4.8-10.8) X10*3/uL Hgb 12.6 L 12.0 L (14.0-18.0) g/dl Hct 38.1 L 36.4 L (42-52) % Plt Count 194 190 (160-400) X10*3/uL BMP 03/30/21 03/31/21 15:22 05:57 Sodium 140 138 Potassium 4.1 3.9 Chloride 107 108 Carbon Dioxide 22 24 BUN 24 H 24 H Creatinine 1.50 H 1.22 Calcium 9.9 9.4 Cardiac Enzymes 03/30/21 Range/Units 15:22 Total Creatine Kinase 234 H (38-174) U/L Urine 03/30/21 Range/Units 15:22 Urine Color YELLOW Urine Appearance CLEAR Urine pH 6.0 (5.0-8.0) Ur Specific [place] 1.010 (1.005-1.025) Urine Protein 2+ H (NEG-TRACE) MG/DL Urine Glucose (UA) NEG (NEG) MG/DL Assessment and Plan (1) Dizziness: Status: Acute Nonvertiginous lightheaded dizziness. Rule out orthostatic hypotension. Rule out side effects of medications. Rule out cerebrovascular disease. Recommendation: Check blood pressure sitting and standing for orthostatic hypotension. Carotid Doppler. Cardiac monitoring. We'll discontinue carbidopa levodopa CR 50/200 at bedtime and reduce pramipexole to 0.25 milligrams twice a day (2) Parkinsonism: Status: Acute Reduced dose of his parkinsonian medications as recommended above. Outpatient followup with Dr. Dudley 70-year-old male with a past medical history of hypertension, hyperlipidemia, diabetes, diabetic neuropathy, coronary artery disease, Parkinson disease, COPD presented to the hospital with a chief complaint of dizziness/confusion/unsteady gait/episode of urinary incontinence. Dizziness/unsteady gait: Patient also had an episode of brief decreased responsiveness. Currently improved. But continued to have dizziness. CT head showed no acute findings Exam grossly nonfocal Cannot obtain CT angio head and neck as patient is allergic to contrast. Will defer to the further recommendations -Neurology in regarding MRI brain/MRA head and neck. Fall precautions Orthostatic vitals Telemetry Cycle cardiac enzymes Echocardiogram Urinary incontinence: Patient reports he has intermittent episodes of urinary incontinence and has been scheduled for outpatient follow-up for cystoscopy. Diabetes: Insulin sliding scalePlus Lantus 30 units. Monitor fingerstick glucose. 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/hyperlipidemia: Continue home medications. History of Parkinson disease: Continue home carbidopa levodopa; pramipexole 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: Continue home metoprolol. Hyperlipidemia: Continue home dose of statin DVT prophylaxis: SCD boots Code status: Full code Procedures Date of Service Date of Service: 03/31/21
--- NOTE | 2021-03-31 12:21 | P.PNIM_ITS ---
Subjective Subjective Date of Service: 03/31/21 Interval History: no further episodes today Cardiovascular Cardiovascular: Reports no additional cardiovascular complaints Respiratory Respiratory: Reports no additional respiratory complaints Physical Exam Vital Signs: Vital Signs: Last Vital Signs Temp 97.3 F 03/31/21 11:21 Pulse 75 03/31/21 11:21 Resp 20 03/31/21 11:21 BP 171/78 H 03/31/21 11:21 Pulse Ox 96 03/31/21 11:21 Body Mass Index 25.2 General: AO X 3, no acute distress Resp: CTA bilateral CVS: S1,S2,RRR GI: soft, non tender, non distended Neuro: bradykinesia Psych: appropriate affect Objective Data Current Medications Generic Name Dose Route Start Last Admin Trade Name Freq PRN Reason Stop Dose Admin Acetaminophen 650 mg 03/30/21 19:41 03/31/21 10:11 Acetaminophen 325 Mg Tablet PO 650 mg Q6H PRN Administration Pain, Mild (Pain Scale 1-3) Aspirin 81 mg 03/31/21 09:00 03/31/21 09:05 Aspirin Enteric Coated 81 Mg Tablet. PO 81 mg DAILY FANNY Administration Atorvastatin Calcium 80 mg 03/30/21 21:00 03/30/21 20:58 Atorvastatin Calcium 80 Mg Tablet PO 80 mg BEDTIME FANNY Administration Carbidopa/Levodopa 1 tab 03/31/21 09:00 03/31/21 11:58 Carbidopa/Levodopa 25/100 Tablet PO 1 tab TID@0900,1200,1600 FANNY Administration Carbidopa/Levodopa 1 tab 03/30/21 21:00 03/30/21 21:00 Carbidopa/Levodopa Cr 50/200 Tablet.Er PO 1 tab BEDTIME FANNY Administration Clopidogrel Bisulfate 75 mg 03/31/21 16:00 Clopidogrel Bisulfate 75 Mg Tablet PO DAILY@1600 FANNY Dextrose 25 gm 03/30/21 19:41 Dextrose 50 % 25 Gm/50 Ml Vial IVPUSH Q15M PRN per Hypoglycemia Standing Ord. Protocol Fluticasone Propionate 1 spray 03/30/21 19:39 03/31/21 10:10 Fluticasone Propionate Nasal 16 Gm [place] NOSTRIL-B 1 spray BID PRN Administration Allergy Symptoms Gabapentin 300 mg 03/30/21 21:00 03/30/21 20:58 Gabapentin 300 Mg Capsule PO 300 mg BEDTIME FANNY Administration Glucose 15 gm 03/30/21 19:41 Glucose Gel 15 Gm Gel..Gram. PO Q15M PRN per Hypoglycemia Standing Ord. Protocol Insulin Glargine 30 unit 03/30/21 21:00 03/30/21 20:58 Insulin Glargine,Hum.Rec.Anlog 100 Unit/Ml 10 Ml Vial SUBCUT 30 unit BEDTIME FANNY Administration Insulin Human Lispro 0 unit 03/30/21 21:00 03/31/21 11:58 Insulin Lispro 100 Unit/Ml 3 Ml Vial SUBCUT 2 unit QIDACHS FANNY Administration Protocol Melatonin 6 mg 03/30/21 19:41 Melatonin 3 Mg Tablet PO BEDTIME PRN Insomnia Melatonin 3 mg 03/31/21 11:08 Melatonin 3 Mg Tablet PO BEDTIME PRN Insomnia Memantine 10 mg 03/31/21 09:00 03/31/21 09:05 Memantine Hcl 10 Mg Tablet PO 10 mg DAILY FANNY Administration Metoprolol Succinate 25 mg 03/31/21 09:00 03/31/21 09:05 Metoprolol Succinate Er 25 Mg Tab.Er.24h PO 25 mg DAILY FANNY Administration Protocol Montelukast Sodium 10 mg 03/30/21 21:00 03/30/21 20:57 Montelukast Sodium 10 Mg Tablet PO 10 mg BEDTIME FANNY Administration Pharmacy Consult 1 each 03/30/21 17:11 Consult Rx Perform Med Rec MISCELLANE ONCE PRN Consult order Pramipexole Dihydrochloride 0.25 mg 03/31/21 12:00 03/31/21 11:59 Pramipexole Di-Hcl 0.25 Mg Tablet PO 0.25 mg TID@0900,1200,1600 FANNY Administration Sodium Chloride 3 ml 03/31/21 00:00 03/31/21 09:06 0.9 % Sodium Chloride Flush 3 Ml Syringe IVFLUSH 3 ml QSHIFT FANNY Administration Tamsulosin HCl 0.4 mg 03/30/21 21:00 03/30/21 20:57 Tamsulosin Hcl 0.4 Mg Capsule PO 0.4 mg BEDTIME FANNY Administration Tolterodine Tartrate 4 mg 03/31/21 09:00 03/31/21 09:05 Tolterodine Tartrate La 4 Mg Cap.Er.24h PO 4 mg DAILY FANNY Administration Vitamin D 10 mcg 03/31/21 09:00 03/31/21 09:05 Cholecalciferol (Vitamin D3) 10 Mcg Tablet PO 10 mcg DAILY FANNY Administration Labs CBC & Chem 7: 03/31/21 05:57 03/31/21 05:57 Labs: Laboratory Results - last 24 hr 03/30/21 03/30/21 03/30/21 15:22 15:22 15:22 MCV 92.5 MCH 30.6 MCHC 33.1 RDW 13.3 Plt Count 194 MPV 10.2 Immature Gran % (Auto) 0.4 Neut % (Auto) 86.6 H Lymph % (Auto) 3.1 L [place] % (Auto) 9.7 Eos % (Auto) 0.1 Baso % (Auto) 0.1 Lymph # (Auto) 0.4 L [place] # (Auto) 1.3 H Eos # (Auto) 0.0 Baso # (Auto) 0.0 Abs Immat Gran (auto) 0.06 H Absolute Neuts (auto) 11.8 H Absolute Nucleated RBC 0.000 Nucleated RBC % (auto) 0.0 PT 12.3 INR 1.1 APTT 32.4 Anion Gap Estim Creat Clear Calc Estimated GFR POC Glucose Random Glucose Calcium Phosphorus 2.9 Magnesium 2.2 Total Creatine Kinase Troponin I High Sens TSH 1.09 Urine Color Urine Appearance Urine pH Ur Specific [place] Urine Protein Urine Glucose (UA) Urine Ketones Urine Blood Urine Nitrite Ur Leukocyte Esterase Urine RBC Urine WBC Ur Squamous Epith Cells Urine Bacteria COVID-19 (SEMAJ) COVID-19 Clin Com 03/30/21 03/30/21 03/30/21 15:22 15:22 15:22 MCV MCH MCHC RDW Plt Count MPV Immature Gran % (Auto) Neut % (Auto) Lymph % (Auto) [place] % (Auto) Eos % (Auto) Baso % (Auto) Lymph # (Auto) [place] # (Auto) Eos # (Auto) Baso # (Auto) Abs Immat Gran (auto) Absolute Neuts (auto) Absolute Nucleated RBC Nucleated RBC % (auto) PT INR APTT Anion Gap 15 Estim Creat Clear Calc 42.5 Estimated GFR 47 POC Glucose Random Glucose 94 Calcium 9.9 Phosphorus Magnesium Total Creatine Kinase 234 H Troponin I High Sens 4.8 TSH Urine Color Urine Appearance Urine pH Ur Specific [place] Urine Protein Urine Glucose (UA) Urine Ketones Urine Blood Urine Nitrite Ur Leukocyte Esterase Urine RBC Urine WBC Ur Squamous Epith Cells Urine Bacteria COVID-19 (SEMAJ) Negative COVID-19 Clin Com See Note 03/30/21 03/30/21 03/30/21 15:22 18:27 20:11 MCV MCH MCHC RDW Plt Count MPV Immature Gran % (Auto) Neut % (Auto) Lymph % (Auto) [place] % (Auto) Eos % (Auto) Baso % (Auto) Lymph # (Auto) [place] # (Auto) Eos # (Auto) Baso # (Auto) Abs Immat Gran (auto) Absolute Neuts (auto) Absolute Nucleated RBC Nucleated RBC % (auto) PT INR APTT Anion Gap Estim Creat Clear Calc Estimated GFR POC Glucose 86 137 H Random Glucose Calcium Phosphorus Magnesium Total Creatine Kinase Troponin I High Sens TSH Urine Color YELLOW Urine Appearance CLEAR Urine pH 6.0 Ur Specific [place] 1.010 Urine Protein 2+ H Urine Glucose (UA) NEG Urine Ketones NEG Urine Blood 1+ H Urine Nitrite NEG Ur Leukocyte Esterase NEG Urine RBC 1-4 Urine WBC 0-2 Ur Squamous Epith Cells TRACE Urine Bacteria TRACE COVID-19 (SEMAJ) COVID-[employer] 03/30/21 03/30/21 03/31/21 20:26 23:57 05:57 MCV 92.6 MCH 30.5 MCHC 33.0 RDW 13.7 Plt Count 190 MPV 10.4 Immature Gran % (Auto) 0.2 Neut % (Auto) 73.3 H Lymph % (Auto) 13.8 L [place] % (Auto) 9.6 Eos % (Auto) 2.9 Baso % (Auto) 0.2 Lymph # (Auto) 1.2 [place] # (Auto) 0.8 Eos # (Auto) 0.2 Baso # (Auto) 0.0 Abs Immat Gran (auto) 0.02 Absolute Neuts (auto) 6.2 Absolute Nucleated RBC 0.000 Nucleated RBC % (auto) 0.0 PT INR APTT Anion Gap Estim Creat Clear Calc Estimated GFR POC Glucose 95 Random Glucose Calcium Phosphorus Magnesium Total Creatine Kinase Troponin I High Sens 4.7 TSH Urine Color Urine Appearance Urine pH Ur Specific [place] Urine Protein Urine Glucose (UA) Urine Ketones Urine Blood Urine Nitrite Ur Leukocyte Esterase Urine RBC Urine WBC Ur Squamous Epith Cells Urine Bacteria COVID-19 (SEMAJ) COVID-19 [employer] 03/31/21 03/31/21 03/31/21 05:57 07:02 10:54 MCV MCH MCHC RDW Plt Count MPV Immature Gran % (Auto) Neut % (Auto) Lymph % (Auto) [place] % (Auto) Eos % (Auto) Baso % (Auto) Lymph # (Auto) [place] # (Auto) Eos # (Auto) Baso # (Auto) Abs Immat Gran (auto) Absolute Neuts (auto) Absolute Nucleated RBC Nucleated RBC % (auto) PT INR APTT Anion Gap 10 L Estim Creat Clear Calc 52.2 Estimated GFR 59 POC Glucose 99 159 H Random Glucose 90 Calcium 9.4 Phosphorus Magnesium Total Creatine Kinase Troponin I High Sens TSH Urine Color Urine Appearance Urine pH Ur Specific [place] Urine Protein Urine Glucose (UA) Urine Ketones Urine Blood Urine Nitrite Ur Leukocyte Esterase Urine RBC Urine WBC Ur Squamous Epith Cells Urine Bacteria COVID-19 (SEMAJ) COVID-19 Clin Com Assessment and Plan (1) Dizziness: Status: Acute Assessment and Plan: 70M presented with staring spells staring spells likely toxic encephalopathy from medications dc sinemet 50 at bedtime, decreased pramiprexole per neuro recs carotid doppler orthostatics stop trazodone tele urinary incontinence outpatient DM insulin CAD DAPL, statin Quality Stroke Does the patient have a stroke diagnosis?: No VTE Prior VTE?: No VTE Risk Level:: Medical - moderate - high VTE Device Contraindication: N/A - Device Ordered VTE Drug Contraindication: Treatment Not Indicated
--- NOTE | 2021-03-31 15:30 | PC.NURSE ---
Pt refusing bed alarm. Pt stated he has had no more episodes of dizziness. Camera left in room to monitor patients safety
[2021-03-31 16:10] LABS: Glucose, Whole Blood 155 mg/dL (60-115)
[2021-03-31] MEDS: Clopidogrel Bisulfate 75 MG TABLET PO (16:16)
[2021-03-31 20:00] LABS: Glucose, Whole Blood 155 mg/dL (60-115)
[2021-03-31] MEDS: Tamsulosin HCL 0.4 MG CAPSULE PO (21:32)
[2021-03-31] MEDS: Melatonin 3 MG TABLET 6 MG PO (21:32)
[2021-03-31] MEDS: Montelukast Sodium 10 MG TABLET PO (21:32)
[2021-03-31] MEDS: Gabapentin 300 MG CAPSULE PO (21:32)
[2021-03-31] MEDS: Atorvastatin Calcium 80 MG TABLET PO (21:32)
[2021-03-31] MEDS: Insulin Glargine,Hum.rec.anlog 100 UNIT/ML 10 ML VIAL 30 UNIT SUBCUT (21:36)
[2021-04-01] VITALS (7 sets, daily range): BP systolic 123–171; BP diastolic 72–86; PULSE 80–85; RESP 16–20; TEMP 36.1–36.4; O2SAT 96–97
[2021-04-01] MEDS: Acetaminophen 325 MG TABLET 650 MG PO (04:05)
[2021-04-01] MEDS: oxyCODONE HCl Immed Release 5 MG TABLET PO (06:45)
[2021-04-01 07:52] LABS: Glucose, Whole Blood 122 mg/dL (60-115)
--- NOTE | 2021-04-01 10:16 | P.DS_ITS ---
DS: Providers Provider Date of Service: 04/01/21 Date of admission: 03/30/21 19:41 Primary care physician: Deonte Claudio MD Consults: 03/30/21 19:39 Consult to Neurology Routine Consulting Provider: [facility] Reason for consultation: dizziness/unsteady gait/ urine incontinance DS: Diagnosis Discharge Diagnosis (1) Dizziness: Status: Acute DS: Medications Discharge Medications Home Medications: Home Medications Medication Instructions Recorded Confirmed carbidopa 25 mg-levodopa 100 mg 1 tab PO TID@0900,1200,1600 06/23/20 03/30/21 tablet aspirin 81 mg tablet,delayed 81 mg PO DAILY 08/26/20 03/30/21 release (Adult Low Dose Aspirin) cholecalciferol (vitamin D3) 10 10 mcg PO DAILY 08/26/20 03/30/21 mcg (400 unit) capsule vitamin B complex (B 1 tab PO DAILY 08/26/20 03/30/21 Complex-Vitamin B12) gabapentin 300 mg capsule 300 mg PO BEDTIME 12/23/20 03/30/21 memantine 10 mg tablet 10 mg PO DAILY 12/23/20 03/30/21 clopidogrel 75 mg tablet 75 mg PO DAILY@1600 03/30/21 03/30/21 dulaglutide 1.5 mg/0.5 mL 1.5 mg SUBCUT SA 03/30/21 03/30/21 subcutaneous pen injector (Trulicity) fluticasone propionate 50 1 spray INTRANASAL BID PRN 03/30/21 03/30/21 mcg/actuation nasal spray,suspension insulin glargine 100 unit/mL (3 40 unit SUBCUT BEDTIME 03/30/21 03/30/21 mL) subcutaneous pen rosuvastatin 40 mg tablet 40 mg PO BEDTIME 03/30/21 03/30/21 Previous Rx's Medication Instructions Recorded umeclidinium 62.5 mcg-vilanterol 1 inh INHALATION DAILY #60 ea 06/17/20 25 mcg/actuation powdr for inhalation (Anoro Ellipta) metformin 500 mg tablet,extended 1,000 mg PO BID 90 Days #360 tab 01/02/21 release 24 hr montelukast 10 mg tablet 10 mg PO QPM #90 tab 02/22/21 tamsulosin 0.4 mg capsule 0.4 mg PO BEDTIME 30 Days #30 cap 02/26/21 solifenacin 10 mg tablet 10 mg PO DAILY 90 Days #90 tab 03/17/21 metoprolol succinate 25 mg 25 mg PO DAILY 30 Days #30 tab 03/24/21 tablet,extended release 24 hr pramipexole 0.25 mg tablet 0.25 mg PO BID #0 tab 04/01/21 DS: Summary Hospital Course Hospital Course: Patient was admitted for staring spells. This was likely toxic encephalopathy from his medications. He was seen by neurology recommended discontinuing his 50 mg Sinemet at bedtime and decreasing his pramipexole to b.i.d. down from t.i.d. we have also discontinued his nighttime trazodone. He had no further spells and appears to be more awake. Orthostatics were negative. Left-sided 50-79% stenosis, this will be treated with dual antiplatelet and statin therapy the patient is already on. Right-sided showed 0-49%. Patient is now back to baseline will be discharged home. He will follow up outpatient with Neurology. Time Spent with Patient Time attestation: Total time spent providing and/or coordinating discharge services: Discharge coordination time: Greater than 30 minutes Quality: Stroke Does the patient have a stroke diagnosis?: No Physical Exam Vital Signs: Vital Signs: Last Vital Signs Temp 97 F 04/01/21 03:57 Pulse 80 04/01/21 04:10 Resp 16 04/01/21 03:57 BP 171/79 H 04/01/21 04:10 Pulse Ox 97 04/01/21 03:57 Body Mass Index 25.2 General: AO X 3, no acute distress Resp: CTA bilateral CVS: S1,S2,RRR GI: soft, non tender, non distended Neuro: bradykinesia Psych: appropriate affect DS: Data Data Completed and Pending Labs on day of discharge: Laboratory Results - last 24 hr 03/31/21 03/31/21 03/31/21 10:54 16:02 19:49 POC Glucose 159 H 155 H 155 H 04/01/21 07:21 POC Glucose 122 H Discharge Plan Discharge Patient Disposition: Home, Self-Care Discharge Diagnosis: toxic encephalopathy Referrals: Deonte Claudio MD [Primary Care Provider] - 1 Week Stephan Mcguire MD [Physician] - 1 Week Discharge Medications: Continued Anoro Ellipta 62.5-25 mcg/actuation blister with device 1 inh inhalation DAILY Qty: 60 RF: 3 metformin 500 mg tablet extended release 24 hr 1,000 mg PO BID 90 Days Qty: 360 RF: 1 montelukast 10 mg tablet 10 mg PO QPM Qty: 90 RF: 3 solifenacin 10 mg tablet 10 mg PO DAILY 90 Days Qty: 90 RF: 0 clopidogrel 75 mg tablet 75 mg PO DAILY@1600 RF: 0 fluticasone propionate 50 mcg/actuation spray,suspension 1 spray intranasal BID PRN (Reason: Allergy Symptoms) RF: 0 rosuvastatin 40 mg tablet 40 mg PO BEDTIME RF: 0 insulin glargine 100 unit/mL (3 mL) insulin pen 40 unit subcut BEDTIME RF: 0 Trulicity 1.5 mg/0.5 mL pen injector 1.5 mg subcut SA RF: 0 metoprolol succinate 25 mg tablet extended release 24 hr 25 mg PO DAILY 30 Days Qty: 30 RF: 1 carbidopa-levodopa 25-100 mg tablet 1 tab PO TID@0900,1200,1600 RF: 0 aspirin [Adult Low Dose Aspirin] 81 mg tablet,delayed release (DR/EC) 81 mg PO DAILY RF: 0 vitamin B complex [B Complex-Vitamin B12] Tablet 1 tab PO DAILY RF: 0 cholecalciferol (vitamin D3) 10 mcg (400 unit) capsule 10 mcg PO DAILY RF: 0 tamsulosin 0.4 mg capsule 0.4 mg PO BEDTIME 30 Days Qty: 30 RF: 1 gabapentin 300 mg capsule 300 mg PO BEDTIME RF: 0 memantine 10 mg tablet 10 mg PO DAILY RF: 0 Changed pramipexole 0.25 mg tablet 0.25 mg PO BID Qty: 0 RF: 0 Discontinued carbidopa-levodopa 50-200 mg tablet extended release 1 tab PO BEDTIME RF: 0 trazodone 100 mg tablet 100 mg PO BEDTIME RF: 0 Discharge Orders: Discharge Order (Routine); Ordered 04/01/21 Ordered By: Yeyo Machado Diet: advance to usual diet Activity on Discharge: As tolerated Stand Alone Forms: Patient Portal Discharge page Care Plan Goals: reocvery Health Concerns: staring spells Plan of Treatment: adjust medications as directed, follow up with neuro Assessment: see above
[2021-04-01] MEDS: Aspirin Enteric Coated 81 MG TABLET.DR PO (10:18)
[2021-04-01] MEDS: 0.9 % Sodium Chloride Flush 3 ML SYRINGE IVFLUSH (10:18)
[2021-04-01] MEDS: Memantine HCl 10 MG TABLET PO (10:19)
[2021-04-01] MEDS: Cholecalciferol (Vitamin D3) 10 MCG TABLET PO (10:19)
[2021-04-01] MEDS: Metoprolol Succinate ER 25 MG TAB.ER.24H PO (10:19)
[2021-04-01] MEDS: Pramipexole Di-HCL 0.25 MG TABLET PO (10:19)
[2021-04-01] MEDS: Tolterodine Tartrate LA 4 MG CAP.ER.24H PO (10:20)
[2021-04-01] MEDS: Carbidopa/Levodopa 25/100 TABLET 1 TAB PO (10:21)
--- NOTE | 2021-04-01 10:22 | MHC.CM.PN ---
Patient has been medically cleared for dc to home today, no services.
[2021-04-01] MEDS: Albuterol Sulfate (0.083%) 2.5 MG/3 ML VIAL.NEB INHALE (11:01)
[2021-04-01 11:33] LABS: Glucose, Whole Blood 193 mg/dL (60-115)
--- NOTE | 2021-04-01 12:42 | PC.NURSE ---
Skin assessment completed today. No skin issues noted at this time. Will continue to monitor.
== END 2021-04-01 13:45 | disposition home or self-care (01) ==
LOC: HO.ED 18:01 → HO.EDOVER 19:55 → HO.IMC 23:24
PROVIDERS: Nurse Practitioner Family; Admitting Provider Hospitalist; Emergency Provider Emergency Medicine; PCP Family Medicine; Visit Provider Internal Medicine
DX: R42 Dizziness and giddiness (principal); G20 Parkinson's disease; R41.82 Altered mental status, unspecified; G92 Toxic encephalopathy; I10 Essential (primary) hypertension; E78.5 Hyperlipidemia, unspecified; I25.10 Atherosclerotic heart disease of native coronary artery without angina pectoris; J44.9 Chronic obstructive pulmonary disease, unspecified; E11.40 Type 2 diabetes mellitus with diabetic neuropathy, unspecified; E11.65 Type 2 diabetes mellitus with hyperglycemia; R32 Unspecified urinary incontinence; Z20.822 Contact with and (suspected) exposure to COVID-19; Z91.041 Radiographic dye allergy status; Z79.4 Long term (current) use of insulin; Z79.899 Other long term (current) drug therapy
CPT/HCPCS: 36415; 70450; 71046; 80048; 81001; 81003; 82550; 82947; 83735; 84100; 84443; 84484; 85025; 85610; 85730; 87635; 93005; 93306; 93880; 94640; 96361; 96374; 99219; 99285

== ENCOUNTER 2021-04-06 16:41 | Emergency (ER) | payer OTHER, MEDICARE, SELFPAY ==
[2021-04-06 17:31] VITALS: BP 146/79; PULSE 100; RESP 20; TEMP 37.2; O2SAT 95; BMI 26.4
--- NOTE | 2021-04-06 18:58 | ED_ITS ---
HPI - General Adult General Chief complaint: General Medical Stated complaint: confusion Time Seen by Provider: 04/06/21 18:58 Source: patient and family Mode of arrival: ambulatory Limitations: no limitations History of Present Illness HPI narrative: Patient is 70 years old with history of hypertension, hyperlipide britni, coronary artery disease, COPD, diabetic neuropathy and Parkinson disease was seen here on 03/31 for staring episode and confusion seen by neurologist diagnose symptoms secondary to medication side effect advised to stop Sinemet in the nighttime and reduce pramipaxole and stop trazodone brought by his for increased confusion since AM today unable to sleep for last few days feels very anxious restless Related Data Home Medications Medication Instructions Recorded Confirmed carbidopa 25 mg-levodopa 100 mg 1 tab PO TID@0900,1200,1600 06/23/20 03/30/21 tablet aspirin 81 mg tablet,delayed 81 mg PO DAILY 08/26/20 03/30/21 release (Adult Low Dose Aspirin) cholecalciferol (vitamin D3) 10 10 mcg PO DAILY 08/26/20 03/30/21 mcg (400 unit) capsule vitamin B complex (B 1 tab PO DAILY 08/26/20 03/30/21 Complex-Vitamin B12) gabapentin 300 mg capsule 300 mg PO BEDTIME 12/23/20 03/30/21 memantine 10 mg tablet 10 mg PO DAILY 12/23/20 03/30/21 clopidogrel 75 mg tablet 75 mg PO DAILY@1600 03/30/21 03/30/21 dulaglutide 1.5 mg/0.5 mL 1.5 mg SUBCUT SA 03/30/21 03/30/21 subcutaneous pen injector (Trulicity) fluticasone propionate 50 1 spray INTRANASAL BID PRN 03/30/21 03/30/21 mcg/actuation nasal spray,suspension insulin glargine 100 unit/mL (3 40 unit SUBCUT BEDTIME 03/30/21 03/30/21 mL) subcutaneous pen rosuvastatin 40 mg tablet 40 mg PO BEDTIME 03/30/21 03/30/21 Previous Rx's Medication Instructions Recorded umeclidinium 62.5 mcg-vilanterol 1 inh INHALATION DAILY #60 ea 06/17/20 25 mcg/actuation powdr for inhalation (Anoro Ellipta) metformin 500 mg tablet,extended 1,000 mg PO BID 90 Days #360 tab 01/02/21 release 24 hr montelukast 10 mg tablet 10 mg PO QPM #90 tab 02/22/21 tamsulosin 0.4 mg capsule 0.4 mg PO BEDTIME 30 Days #30 cap 02/26/21 solifenacin 10 mg tablet 10 mg PO DAILY 90 Days #90 tab 03/17/21 metoprolol succinate 25 mg 25 mg PO DAILY 30 Days #30 tab 03/24/21 tablet,extended release 24 hr pramipexole 0.25 mg tablet 0.25 mg PO BID #0 tab 04/01/21 Allergies Allergy/AdvReac Type Severity Reaction Status Date / Time Iodinated Contrast Media Allergy Mild RASH AT IV Verified 03/24/21 10:30 [CONTRAST, IV] SITE. BENEDRYL GIVEN WITH GOOD EFFECT Review of Systems Review of Systems: Constitutional : No Weight loss, No Fever, No Chills ENT/Mouth : No sore throat, No Rhinorrhea Eyes: No Eye Pain, No Swelling Cardiovascular : No Chest Pain, no palpitations Respiratory : No Cough, No Sputum, no shortness of breath Gastrointestinal : no Nausea, No Vomiting, No Diarrhea, No abdominal Pain, no black stools Genitourinary : No Dysuria, No Urinary Frequency Musculoskeletal : No joint pain, No Myalgias, No Joint Swelling Skin : No Skin Lesions, No rash Neuro : No Weakness, No Numbness, No Dizziness, No Headache Psych : No Anxiety/Panic, No Depression Heme/Lymph: No Bruising, No Lymphadenopathy Endocrine : No Polyuria, No Polydipsia All other systems reviewed and are negative [facility] Past Medical History Medical History CAD (coronary artery disease) COPD (chronic obstructive pulmonary disease) Diabetes type 2, uncontrolled Diabetic nephropathy associated with type 2 diabetes mellitus Diabetic polyneuropathy associated with type 2 diabetes mellitus Dyslipidemia Dyspnea 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 Overweight (BMI 25.0-29.9) Surgical History History of prostate surgery Hx of cardiac cath Hx of cataract surgery Hx of colonoscopy Stented coronary artery Family History Family History Father Sudden cardiac CVD (cardiovascular disease) Mother Hx of heart surgery CVD (cardiovascular disease) Social History Social History Household Members: Spouse Housing: House Do you presently have visiting nurse or other home services: No Alcohol intake: never Patient Tobacco Use Status: Never used Tobacco Advance Directives: Yes Advance Directives Information Provided: No Advance Directives on File: No Advance Directives Date on File: 03/31/21 service: Yes Current occupational status: retired Physical Exam Vital Signs: Vital Signs: Last Vital Signs Temp 99.0 F 04/06/21 17:31 Pulse 100 04/06/21 17:31 Resp 20 04/06/21 17:31 BP 146/79 H 04/06/21 17:31 Pulse Ox 95 04/06/21 17:31 Body Mass Index 26.4 Appearance: Alert. Oriented X3. Feels foggy in his mind,No acute distress. Anxious Eyes: PERRLA, No Nystagmus ENT: Pharynx normal. Oral Mucosa moist Neck: Normal inspection. Neck supple. CVS: Normal heart rate and rhythm. Pulses normal. Respiratory: No respiratory distress. Equal air entry bilateral, no wheezing/rales/rhonchi Abdomen: Soft and nontender. Bowel sounds are present, no mass palpable, no CVA tenderness Skin: Skin warm and dry. Normal skin color. Normal skin turgor. Extremities: No lower extremity edema. No calf tenderness Neuro: Oriented X 3. No motor deficit. No sensory deficit.No cerebellar signs , cranial nerves II-XII intact Medical Decision Making MDM Narrative Medical decision making narrative: Patient with confusion used to be on trazodone which was stopped few days ago unable to sleep and feels very restless no focal deficit noticed will restart patient's trazodone advised to see the neurologist as scheduled in next 2 days patient's creatinine is slightly elevated was given 1 L of IV fluids Lab Data Lab results reviewed: Yes I reviewed the patient's lab results. Result diagrams: 04/06/21 19:42 04/06/21 19:42 Labs: Lab Results 04/06/21 04/06/21 04/06/21 Range/Units 19:42 19:42 19:42 WBC 8.4 (4.8-10.8) X10*3/uL RBC 4.33 L (4.60-5.80) X10*6/uL Hgb 13.4 L (14.0-18.0) g/dl Hct 40.2 L (42-52) % MCV 92.8 (80-98) fL MCH 30.9 (27.0-33.0) pg MCHC 33.3 (31.0-36.0) g/dl RDW 13.3 (11.0-16.0) % Plt Count 249 D (160-400) X10*3/uL MPV 9.6 (9.4-12.4) fL Immature Gran % (Auto) 0.5 H (0.0-0.4) % Neut % (Auto) 71.7 (45-73) % Lymph % (Auto) 14.2 L (20-40) % [place] % (Auto) 11.9 H (2-11) % Eos % (Auto) 1.3 (0-4) % Baso % (Auto) 0.4 (0-2) % Lymph # (Auto) 1.2 (1.2-4.9) X10*3/uL [place] # (Auto) 1.0 (0.1-1.2) X10*3/uL Eos # (Auto) 0.1 (0.0-0.4) X10*3/uL Baso # (Auto) 0.0 (0.0-0.2) X10*3/uL Abs Immat Gran (auto) 0.04 H (0.00-0.03) X10*3/uL Absolute Neuts (auto) 6.0 (2.0-8.3) X10*3/uL Absolute Nucleated RBC 0.000 (0.0-0.012) X10*3/uL Nucleated RBC % (auto) 0.0 (0.0-0.2) /100WBC Sodium 141 (135-145) mmol/L Potassium 4.2 (3.3-5.1) mmol/L Chloride 107 (96-108) mmol/L Carbon Dioxide 25 (22-29) mmol/L Anion Gap 13 (12-20) BUN 21 H (9-16) mg/dL Creatinine 1.46 H (0.5-1.4) mg/dL Estim Creat Clear Calc 45.2 Estimated GFR 48 Random Glucose 112 (60-115) mg/dL Calcium 9.8 (8.4-10.2) mg/dL Magnesium 2.3 (1.6-2.6) mg/dL Total Bilirubin 0.4 (0.0-1.0) mg/dL AST 16 (5-37) U/L ALT 33 (0-40) U/L Alkaline Phosphatase 87 (39-117) U/L Ammonia 34 (13-55) umol/L Total Protein 7.5 (6.5-8.0) g/dL Albumin 4.5 (3.5-5.0) g/dL Urine Color Urine Appearance Urine pH (5.0-8.0) Ur Specific [place] (1.005-1.025) Urine Protein (NEG-TRACE) MG/DL Urine Glucose (UA) (NEG) MG/DL Urine Ketones (NEG) MG/DL Urine Blood (NEG) Urine Nitrite (NEG) Ur Leukocyte Esterase (NEG) Urine RBC (0) /HPF Urine WBC (0-4) /HPF Ur Squamous Epith Cells /LPF Urine Bacteria /LPF Urine Mucus /LPF 04/06/21 Range/Units 21:13 WBC (4.8-10.8) X10*3/uL RBC (4.60-5.80) X10*6/uL Hgb (14.0-18.0) g/dl Hct (42-52) % MCV (80-98) fL MCH (27.0-33.0) pg MCHC (31.0-36.0) g/dl RDW (11.0-16.0) % Plt Count (160-400) X10*3/uL MPV (9.4-12.4) fL Immature Gran % (Auto) (0.0-0.4) % Neut % (Auto) (45-73) % Lymph % (Auto) (20-40) % [place] % (Auto) (2-11) % Eos % (Auto) (0-4) % Baso % (Auto) (0-2) % Lymph # (Auto) (1.2-4.9) X10*3/uL [place] # (Auto) (0.1-1.2) X10*3/uL Eos # (Auto) (0.0-0.4) X10*3/uL Baso # (Auto) (0.0-0.2) X10*3/uL Abs Immat Gran (auto) (0.00-0.03) X10*3/uL Absolute Neuts (auto) (2.0-8.3) X10*3/uL Absolute Nucleated RBC (0.0-0.012) X10*3/uL Nucleated RBC % (auto) (0.0-0.2) /100WBC Sodium (135-145) mmol/L Potassium (3.3-5.1) mmol/L Chloride (96-108) mmol/L Carbon Dioxide (22-29) mmol/L Anion Gap (12-20) BUN (9-16) mg/dL Creatinine (0.5-1.4) mg/dL Estim Creat Clear Calc Estimated GFR Random Glucose (60-115) mg/dL Calcium (8.4-10.2) mg/dL Magnesium (1.6-2.6) mg/dL Total Bilirubin (0.0-1.0) mg/dL AST (5-37) U/L ALT (0-40) U/L Alkaline Phosphatase (39-117) U/L Ammonia (13-55) umol/L Total Protein (6.5-8.0) g/dL Albumin (3.5-5.0) g/dL Urine Color YELLOW Urine Appearance CLEAR Urine pH 7.0 (5.0-8.0) Ur Specific [place] 1.015 (1.005-1.025) Urine Protein 2+ H (NEG-TRACE) MG/DL Urine Glucose (UA) NEG (NEG) MG/DL Urine Ketones NEG (NEG) MG/DL Urine Blood 1+ H (NEG) Urine Nitrite NEG (NEG) Ur Leukocyte Esterase NEG (NEG) Urine RBC 0-2 (0) /HPF Urine WBC 0-2 (0-4) /HPF Ur Squamous Epith Cells TRACE /LPF Urine Bacteria NONE /LPF Urine Mucus TRACE /LPF Discharge Plan Discharge Clinical Impression: Acute confusion Patient Disposition: Home, Self-Care Instructions: Altered Mental Status (ED) Additional Instructions: Patient confusion is likely from anxiety/Parkinson disease ? Early dementia Continue trazodone for now for sleep and relaxation and follow with neurologist as scheduled about medication Prescriptions: No Action Anoro Ellipta 62.5-25 mcg/actuation blister with device 1 inh inhalation DAILY Qty: 60 RF: 3 metformin 500 mg tablet extended release 24 hr 1,000 mg PO BID 90 Days Qty: 360 RF: 1 montelukast 10 mg tablet 10 mg PO QPM Qty: 90 RF: 3 solifenacin 10 mg tablet 10 mg PO DAILY 90 Days Qty: 90 RF: 0 clopidogrel 75 mg tablet 75 mg PO DAILY@1600 RF: 0 fluticasone propionate 50 mcg/actuation spray,suspension 1 spray intranasal BID PRN (Reason: Allergy Symptoms) RF: 0 rosuvastatin 40 mg tablet 40 mg PO BEDTIME RF: 0 insulin glargine 100 unit/mL (3 mL) insulin pen 40 unit subcut BEDTIME RF: 0 Trulicity 1.5 mg/0.5 mL pen injector 1.5 mg subcut SA RF: 0 pramipexole 0.25 mg tablet 0.25 mg PO BID Qty: 0 RF: 0 metoprolol succinate 25 mg tablet extended release 24 hr 25 mg PO DAILY 30 Days Qty: 30 RF: 1 carbidopa-levodopa 25-100 mg tablet 1 tab PO TID@0900,1200,1600 RF: 0 aspirin [Adult Low Dose Aspirin] 81 mg tablet,delayed release (DR/EC) 81 mg PO DAILY RF: 0 vitamin B complex [B Complex-Vitamin B12] Tablet 1 tab PO DAILY RF: 0 cholecalciferol (vitamin D3) 10 mcg (400 unit) capsule 10 mcg PO DAILY RF: 0 tamsulosin 0.4 mg capsule 0.4 mg PO BEDTIME 30 Days Qty: 30 RF: 1 gabapentin 300 mg capsule 300 mg PO BEDTIME RF: 0 memantine 10 mg tablet 10 mg PO DAILY RF: 0
--- NOTE | 2021-04-06 19:42 | PC.NURSE ---
PT TO ROOM, CHG INTO GOWN AND AWAITING FOR MD'S EVAL. IV PLACED TO LAC, LABS DRAWN TO LAB. AT BEDSIDE WITH PT. PT DENIES ANY COMPLAINTS AT THIS TIME. WILL CONTINUE TO MONITOR PT.
[2021-04-06 19:57] LABS: MANUAL DIFF FLAG NO
[2021-04-06 19:58] LABS: Basophils Percent Auto 0.4 % (0-2); Eosinophils Absolute Auto 0.1 X10*3/uL (0.0-0.4); Eosinophils Percent Auto 1.3 % (0-4); Hematocrit 40.2 % (42-52); Hemoglobin 13.4 g/dl (14.0-18.0); Imm Gran Abs Auto 0.04 X10*3/uL (0.00-0.03); Imm Gran Pct Auto 0.5 % (0.0-0.4); Lymphocytes Absolute Auto 1.2 X10*3/uL (1.2-4.9); Lymphocytes Percent Auto 14.2 % (20-40); Mean Corpuscular HGB Conc 33.3 g/dl (31.0-36.0); Mean Corpuscular Hemoglobin 30.9 pg (27.0-33.0); Mean Corpuscular Volume 92.8 fL (80-98); Mean Platelet Volume 9.6 fL (9.4-12.4); Monocytes Percent Auto 11.9 % (2-11); Neutrophils Percent Auto 71.7 % (45-73); Platelet Count 249 X10*3/uL (160-400); Red Blood Count 4.33 X10*6/uL (4.60-5.80); Red Cell Distribution Width 13.3 % (11.0-16.0); White Blood Count 8.4 X10*3/uL (4.8-10.8)
[2021-04-06 20:05] LABS: Ammonia 34 umol/L (13-55)
[2021-04-06 20:17] LABS: Alanine Aminotransferase 33 U/L (0-40); Albumin Level 4.5 g/dL (3.5-5.0); Alkaline Phosphatase 87 U/L (39-117); Anion Gap 13 (12-20); Aspartate Amino Transferase 16 U/L (5-37); Bilirubin Total 0.4 mg/dL (0.0-1.0); Blood Urea Nitrogen 21 mg/dL (9-16); Calcium 9.8 mg/dL (8.4-10.2); Carbon Dioxide 25 mmol/L (22-29); Chloride 107 mmol/L (96-108); Creatinine Clr Calc Pharmacy 45.2; Estimated Glomerular Filt Rate 48; Glucose Random 112 mg/dL (60-115); Magnesium 2.3 mg/dL (1.6-2.6); Potassium 4.2 mmol/L (3.3-5.1); Sodium 141 mmol/L (135-145); Total Protein 7.5 g/dL (6.5-8.0)
[2021-04-06 21:33] LABS: Glucose Urine UA NEG (NEG); Leukocyte Esterase Urine NEG (NEG); Nitrite Urine NEG (NEG); Specific Gravity - Urine 1.015 (1.005-1.025); UACC Culture Trigger NO; Urine Blood 1+ (NEG); Urine Ketones NEG (NEG); Urine Protein 2+ MG/DL (NEG-TRACE)
[2021-04-06 21:38] LABS: Appearance Urine CLEAR; Color Urine YELLOW
[2021-04-06 22:01] LABS: Mucus Urine TRACE /LPF; RBC Urine 0-2 /HPF (0); Squamous Epithelial Cell Urine TRACE /LPF; WBC Urine 0-2 /HPF (0-4)
[2021-04-06] MEDS: 0.9 % Sodium Chloride 1,000 ML 999 ML IVCONT (22:08)
[2021-04-06] MEDS: LORazepam 2 MG/ML VIAL 1 MG IVPUSH (22:08)
--- NOTE | 2021-04-06 23:26 | PC.NURSE ---
1ST ENCOUNTER WITH PATIENT FOR DC PURPOSES. PT AWAKE, ALERT AND INTERACTIVE WITH FAMILY. ORIENTED TO NAME/PLACE. SKIN WARM AND DRY. RESP UNLABORED. DENIES N/V. NO C/O PAIN. PT AMBULATORY TO BR WITH FAMILY MEMBER. GAIT STEADY. PLAN IS FOR DC HOME AND F/U WITH NEURO. PT AND FAMILY MEMBER AWARE AND AGREEABLE TO PLAN.
== END 2021-04-06 23:31 | disposition home or self-care (01) ==
PROVIDERS: Emergency Provider Internal Medicine; PCP Family Medicine
DX: R41.0 Disorientation, unspecified (principal); G20 Parkinson's disease; I10 Essential (primary) hypertension; E11.9 Type 2 diabetes mellitus without complications; E78.5 Hyperlipidemia, unspecified; Z79.02 Long term (current) use of antithrombotics/antiplatelets; Z79.4 Long term (current) use of insulin; Z79.82 Long term (current) use of aspirin; Z79.899 Other long term (current) drug therapy
CPT/HCPCS: 36415; 80053; 81001; 82140; 83735; 85025; 96361; 96374; 99283; 99284; J2060

== ENCOUNTER → 2021-04-09 10:48 | Outpatient (BNVA) | payer OTHER, MEDICARE, SELFPAY | PROVIDERS: PCP Family Medicine; Visit Provider Urology | DX: R35.1 Nocturia (principal); C61 Malignant neoplasm of prostate | CPT/HCPCS: 52000 ==

== ENCOUNTER 2021-04-20 10:24 | Outpatient (REF) | payer OTHER, MEDICARE, SELFPAY ==
[2021-04-20 10:34] VITALS: BMI 26.1
[2021-04-20 10:35] VITALS: BP 149/83; PULSE 97; RESP 16; TEMP 36.3; O2SAT 97
== END 2021-04-20 10:25 | disposition home or self-care (01) ==
LOC: HO.MS 10:24
PROVIDERS: PCP Family Medicine; Visit Provider Ophthalmology
DX: L98.9 Disorder of the skin and subcutaneous tissue, unspecified (principal); Z53.8 Procedure and treatment not carried out for other reasons; Z96.1 Presence of intraocular lens; I10 Essential (primary) hypertension; G20 Parkinson's disease; J44.9 Chronic obstructive pulmonary disease, unspecified; E11.9 Type 2 diabetes mellitus without complications; Z79.4 Long term (current) use of insulin; Z79.899 Other long term (current) drug therapy; Z79.51 Long term (current) use of inhaled steroids; Z87.891 Personal history of nicotine dependence

== ENCOUNTER 2021-04-27 07:18 | Outpatient (REF) | payer OTHER, MEDICARE, SELFPAY ==
--- NOTE | ~2021-04-27 | XR_ITS ---
EXAMINATION: XR HIP, RIGHT CLINICAL INFORMATION: Pain COMPARISON: None TECHNIQUE: Two views of the right hip. FINDINGS: Bone alignment is normal. No fracture or dislocation is seen. The joint space is normal. There is a small soft tissue ossification or calcification adjacent to the greater trochanter. There is a penile implant. Soft tissues are otherwise normal. XR/XR hip RT min 2V IMPRESSION: Small soft tissue calcification or ossification adjacent to the greater trochanter otherwise unremarkable exam.
== END 2021-04-27 07:19 | disposition home or self-care (01) ==
LOC: HO.HOSX 07:18
PROVIDERS: Visit Provider Physician Assistant
DX: M54.16 Radiculopathy, lumbar region (principal)
CPT/HCPCS: 73502

== ENCOUNTER 2021-05-05 10:54 | Outpatient (REF) | payer OTHER, MEDICARE, SELFPAY ==
[2021-05-05 14:16] LABS: Anion Gap 14 (12-20); Blood Urea Nitrogen 22 mg/dL (9-16); Calcium 9.9 mg/dL (8.4-10.2); Carbon Dioxide 24 mmol/L (22-29); Chloride 104 mmol/L (96-108); Estimated Glomerular Filt Rate 41; Glucose Random 89 mg/dL (60-115); Potassium 4.7 mmol/L (3.3-5.1); Sodium 137 mmol/L (135-145)
[2021-05-05 14:28] LABS: Estimated Average Glucose 126 mg/dL
== END 2021-05-05 10:55 | disposition home or self-care (01) ==
LOC: HO.WFDLDS 10:54
PROVIDERS: PCP Family Medicine; Visit Provider Family Medicine
DX: Z00.00 Encounter for general adult medical examination without abnormal findings (principal); E11.65 Type 2 diabetes mellitus with hyperglycemia
CPT/HCPCS: 36415; 80048; 83036

== ENCOUNTER → 2021-05-12 10:19 | Outpatient (BNVA) | payer OTHER, MEDICARE, SELFPAY | PROVIDERS: PCP Family Medicine; Visit Provider Urology ==

== ENCOUNTER 2021-05-13 07:31 | Day surgery (SDC) | payer OTHER, MEDICARE, SELFPAY ==
[2021-04-10 07:36] LABS: Alpha Fetoprotein 1.2 ng/mL (<6.1)
[2021-05-06 09:37] VITALS: BMI 26.4
[2021-05-06 14:49] VITALS: BMI 25.8
--- NOTE | 2021-05-12 09:27 | HO.ANESPROP2 ---
Documented by User: Dilcia Andrade NP 05/12/21 09:35 HPI - Anesthesia Eval Consult details Narrative: 70yo M for Upper Endoscopy and Colonoscopy 03/20[place] [facility] [place]iness r/t med toxicity and dehydration. Resolved with med adjustment by neurology. DAPT for CAD (s/t 2015) and carotid ds (ok to hold per cardiology) [facility] Active Problems Active Problems: All Active Problems (Updated 05/05/21 @ 10:22 by Karsten Chilel) Right hip pain (Acute) Lumbar radiculopathy (Acute) Nocturia more than twice per night (Acute) Dizziness (Acute) Parkinsonism (Acute) Essential hypertension (Acute) Prostate cancer (Acute) Chest pain (Acute) Bronchitis (Acute) Constipation (Acute) Overactive bladder (Acute) Insomnia (Acute) CAD (coronary artery disease) (Acute) Dyspnea (Acute) COPD (chronic obstructive pulmonary disease) (Acute) Overweight (BMI 25.0-29.9) (Acute) 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 (Acute) Dyslipidemia (Acute) Diabetic polyneuropathy associated with type 2 diabetes mellitus (Acute) Diabetic nephropathy associated with type 2 diabetes mellitus (Acute) MCC (current) use of insulin (Acute) Irritation of right ear (Acute) Diabetes type 2, uncontrolled (Acute) Past Medical History Medical History CAD (coronary artery disease) COPD (chronic obstructive pulmonary disease) Diabetes type 2, uncontrolled Diabetic nephropathy associated with type 2 diabetes mellitus Diabetic polyneuropathy associated with type 2 diabetes mellitus Dyslipidemia Dyspnea 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 Overweight (BMI 25.0-29.9) Family History Family History Father Sudden cardiac CVD (cardiovascular disease) Mother Hx of heart surgery CVD (cardiovascular disease) Surgical History Surgical History History of cystoscopy (~04/09/21) History of prostate surgery Hx of cardiac cath Hx of cataract surgery Hx of colonoscopy Stented coronary artery Social History Social History Household Members: Spouse Housing: House Do you presently have visiting nurse or other home services: No Alcohol intake: never Patient Tobacco Use Status: Never used Tobacco Use of substances other than those prescribed or required for medical reasons: No Are you DNR?: No Advance Directives: Yes Advance Directives Information Provided: No (on file) Advance Directives on File: Yes Advance Directives Date on File: 03/31/21 service: Yes Current occupational status: retired Current occupation: rt handed Meds Allergies Allergy/AdvReac Type Severity Reaction Status Date / Time Iodinated Contrast Media Allergy Intermediate RASH AT IV Verified 05/12/21 10:21 [CONTRAST, IV] SITE. BENEDRYL GIVEN WITH GOOD EFFECT Home Medications Medication Instructions Recorded Confirmed Last Taken Type carbidopa 25 mg-levodopa 100 mg 1 tab PO TID@0900,1200,1600 06/23/20 05/12/21 03/30/21 History tablet aspirin 81 mg tablet,delayed 81 mg PO DAILY 08/26/20 05/12/21 03/30/21 History release (Adult Low Dose Aspirin) cholecalciferol (vitamin D3) 10 10 mcg PO DAILY 08/26/20 05/12/21 03/29/21 History mcg (400 unit) capsule vitamin B complex (B 1 tab PO DAILY 08/26/20 05/12/21 03/30/21 History Complex-Vitamin B12) gabapentin 300 mg capsule 300 mg PO BEDTIME 12/23/20 05/12/21 03/30/21 History memantine 10 mg tablet 10 mg PO DAILY 12/23/20 05/12/21 03/30/21 History clopidogrel 75 mg tablet 75 mg PO DAILY@1600 03/30/21 05/12/21 03/30/21 History fluticasone propionate 50 1 spray INTRANASAL BID PRN 03/30/21 05/12/21 03/30/21 History mcg/actuation nasal spray,suspension rosuvastatin 40 mg tablet 40 mg PO BEDTIME 03/30/21 05/12/21 03/30/21 History blood sugar diagnostic (FreeStyle #10 ea 04/09/21 05/12/21 Unknown History Lite Strips) carbidopa ER 50 mg-levodopa 200 mg 1 tab PO BEDTIME 04/09/21 05/12/21 Unknown History tablet,extended release Exam Exam Date and Time: May 12, [id number] Height,Weight and Vital Signs: Height 5 ft 6 in Weight 72.575 kg Pertinent Lab Results Pertinent Lab Results: Laboratory Tests 04/07/21 15:00 Alpha Fetoprotein 1.2 Laboratory Tests 04/06/21 05/05/21 19:42 11:05 WBC 8.4 RBC 4.33 L Hgb 13.4 L Hct 40.2 L Plt Count 249 D Sodium 137 Potassium 4.7 Chloride 104 Carbon Dioxide 24 BUN 22 H Creatinine 1.69 H Narrative Narrative: EKG 03/2021 Vent. Rate : 101 BPM ? ? Atrial Rate : 101 BPM ?? P-R Int : 184 ms? QRS Dur : 082 ms ? ? QT Int : 342 ms ? ? ? P-R-T Axes : 077 070 072 degrees ?? QTc Int : 443 ms ? Sinus tachycardia Abnormal ECG When compared with ECG of 18-FEB-2020 10:10, Heart rate has increased ? ECHO 03/2021 Conclusions: - 1. Normal LV systolic function with impaired relaxation filling pattern? 2. Normal cardiac valvular Doppler ? 3. No gross pericardial effusion ? ? ? US carotid duplex BI 03/2021 IMPRESSION: 1. RIGHT: Minimal, non-hemodynamically significant stenosis of the proximal right internal carotid artery corresponding to a 0-49% stenosis by velocity criteria. ? 2. LEFT: Moderate, hemodynamically significant stenosis of the proximal left internal carotid artery corresponding to a 50-79% stenosis by velocity criteria. ? 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 Overweight (BMI 25.0-29.9) Functional capacity: independent ambulation Family History Family History Father Sudden cardiac CVD (cardiovascular disease) Mother Hx of heart surgery CVD (cardiovascular disease) Surgical History Surgical History History of cystoscopy (~04/09/21) History of prostate surgery Hx of cardiac cath Hx of cataract surgery Hx of colonoscopy Stented coronary artery History of Problems with Anesthesia: No Social History Social History Household Members: Spouse Housing: House Do you presently have visiting nurse or other home services: No Alcohol intake: never Patient Tobacco Use Status: Never used Tobacco Use of substances other than those prescribed or required for medical reasons: No Are you DNR?: No Advance Directives: Yes Advance Directives Information Provided: No (on file) Advance Directives on File: Yes Advance Directives Date on File: 03/31/21 service: Yes Current occupational status: retired Current occupation: rt handed Meds Allergies Allergy/AdvReac Type Severity Reaction Status Date / Time Iodinated Contrast Media Allergy Intermediate RASH AT IV Verified 05/12/21 10:21 [CONTRAST, IV] SITE. BENEDRYL GIVEN WITH GOOD EFFECT Home Medications Medication Instructions Recorded Confirmed Last Taken Type carbidopa 25 mg-levodopa 100 mg 1 tab PO TID@0900,1200,1600 06/23/20 05/12/21 03/30/21 History tablet aspirin 81 mg tablet,delayed 81 mg PO DAILY 08/26/20 05/12/21 03/30/21 History release (Adult Low Dose Aspirin) cholecalciferol (vitamin D3) 10 10 mcg PO DAILY 08/26/20 05/12/21 03/29/21 History mcg (400 unit) capsule vitamin B complex (B 1 tab PO DAILY 08/26/20 05/12/21 03/30/21 History Complex-Vitamin B12) gabapentin 300 mg capsule 300 mg PO BEDTIME 12/23/20 05/12/21 03/30/21 History memantine 10 mg tablet 10 mg PO DAILY 12/23/20 05/12/21 03/30/21 History clopidogrel 75 mg tablet 75 mg PO DAILY@1600 03/30/21 05/12/21 03/30/21 History fluticasone propionate 50 1 spray INTRANASAL BID PRN 03/30/21 05/12/21 03/30/21 History mcg/actuation nasal spray,suspension rosuvastatin 40 mg tablet 40 mg PO BEDTIME 03/30/21 05/12/21 03/30/21 History blood sugar diagnostic (Ludwinyle #10 ea 04/09/21 05/12/21 Unknown History Lite Strips) carbidopa ER 50 mg-levodopa 200 mg 1 tab PO BEDTIME 04/09/21 05/12/21 Unknown History tablet,extended release Exam Airway Mallampati Class: II TM Dist: >3cm Neck ROM: Full Heart: RRR Lungs: CTA Assessment and Plan Final Anesthetic Review History of Problems with Anesthesia: No
[2021-05-13 07:54] LABS: Glucose, Whole Blood 86 mg/dL (60-115)
[2021-05-13] MEDS: Lactated Ringers 1,000 ML 100 ML IVCONT (08:02)
[2021-05-13] MEDS: Sodium Phosphate,Mono-Dibasic 133 ML ENEMA PR (08:02)
[2021-05-13 08:07] VITALS: BP 186/97; PULSE 83; RESP 20; TEMP 36.3; O2SAT 97
[2021-05-13 09:33] VITALS: BP 153/66; PULSE 76; RESP 16; TEMP 36.2; O2SAT 98
--- NOTE | 2021-05-13 09:38 | PM.OP ---
Brief Operative Note Date of Service: 05/13/21 Pre-op diagnosis: GERD, Change in Bowel habits Post-op diagnosis: other (Hiatal hernia, GERD, Gastritis, Diverticulosis) Procedure: EGD with biopsies, Colonoscopy to the cecum Surgeon: Jay Francis Anesthesia: MAC Was an Computer Systems Design Analyst used for this Procedure?: No Estimated blood loss (mL): 3.0 Pathology: other (A. Gastric antrum B. EG JUnction at 39cm) Condition: stable Disposition: PACU
[2021-05-13 09:48] VITALS: BP 133/76; PULSE 77; RESP 17; TEMP 36.2; O2SAT 98
--- NOTE | 2021-05-13 10:15 | HO.POSTANES ---
Post Anesthesia Evaluation Post Anesthesia Evaluation Vital Signs: Vital Signs Temp Pulse Resp BP Pulse Ox 05/13/21 09:48 97.2 F 77 17 133/76 98 05/13/21 09:33 97.2 F 76 16 153/66 H 98 05/13/21 08:07 97.4 F 83 20 186/97 H 97 Anesthesia: Monitored Mental Status: Awake Pain Control: Satisfactory Nausea/Vomiting: None Hydration: Adequate Anesthesia-Related Issues: No Anes. Related Issues
--- NOTE | 2021-05-13 20:59 | OP_ITS ---
SURGEON: Jay Francis MD INDICATIONS: The patient presents for evaluation of gastroesophageal reflux, change in bowel habits, and constipation. Full consent has been obtained from him for both procedures, including risks of bleeding and perforation. PREOPERATIVE DIAGNOSIS: POSTOPERATIVE DIAGNOSIS: PROCEDURE PERFORMED: Esophagogastroduodenoscopy with biopsies and colonoscopy to cecum. ESTIMATED BLOOD LOSS: COMPLICATIONS: ANESTHESIA: Monitored anesthesia care. ASSISTANTS: SPECIMENS: PREOPERATIVE DIAGNOSES: Gastroesophageal reflux, change in bowel habits, and constipation. POSTOPERATIVE DIAGNOSES: Gastroesophageal reflux, change in bowel habits, constipation, small hiatal hernia, gastritis, diverticulosis, and internal hemorrhoids. DESCRIPTION OF PROCEDURE: The patient was placed in the left lateral decubitus position. The Olympus video gastroscope was passed in the posterior oropharynx and upper esophagus under direct vision. The scope was passed slowly into the distal esophagus. The gastroesophageal junction appeared at 39 cm. This area was notable for some erythema, a single 5 mm erosion, and some friability. There was no gross evidence of Velasquez's esophagus, ulceration, nor mass. The scope entered into the stomach. There was a small hiatal hernia. The scope was advanced to the pylorus and the duodenum was cannulated to the descending portion. The duodenum including the bulb appeared normal without mass or ulceration. The scope was withdrawn back in the stomach. The gastric antrum and body had some changes of erythema and edema, but no erosions or ulceration. There was good peristalsis. Biopsies were obtained from the antrum. The scope was retroflexed visualizing the proximal stomach carefully, which appeared normal, without any mass or ulceration, other than some mild changes of gastritis. The scope was straightened and withdrawn back to the esophagus. Biopsies were obtained at the EG junction at 39 cm. Proximal to this, the esophageal mucosa appeared normal. The scope was withdrawn from the patient. He was turned around for the colonoscopy. The digital rectal exam revealed no abnormalities. The Olympus video pediatric colonoscope was entered into the rectum and advanced easily to the cecum. Once in the cecum, I did identify cecal pouch with appendiceal orifice and a normal-appearing ileocecal valve. There were small areas of retained pill fragments, but the remainder of the cecum was well visualized and appeared normal. The scope was slowly withdrawn assessing all mucosal surfaces carefully. Preparation was good for the most part throughout the colon, although there was some small areas of liquid stool with some solid stool component. However, the majority of the prep was very good. I did not visualize any sign of polyps, colitis, nor angiodysplasia. There was a mild amount of sigmoid diverticulosis. In the rectum, scope was retroflexed visualizing small internal hemorrhoids, but no other pathology. The rectal mucosa appeared normal. The scope was straightened and withdrawn from the patient. He tolerated the procedure well and was returned to recovery area in stable condition. IMPRESSION: 1. Gastroesophageal reflux, reflux esophagitis. 2. Small hiatal hernia. 3. Gastritis. 4. Diverticulosis. 5. Internal hemorrhoids. PLAN: The results of the biopsies will be checked. I would recommend a repeat colonoscopy in 10 years for further screening. He was advised to use omeprazole on a daily basis rather than just p.r.n. He was also advised to use MiraLAX at least once or twice a day to help decrease his constipation. He was advised to resume his aspirin and clopidogrel by tomorrow. He was advised to see me in several months for a followup visit as well. MD YADI Calderon/YASMANY / [id number]
== END 2021-05-13 10:45 | disposition home or self-care (01) ==
PROVIDERS: PCP Family Medicine; Visit Provider Internal Medicine
PROC: (CPT 45378; principal; 2021-05-13 07:30)
DX: K59.00 Constipation, unspecified (principal); R19.4 Change in bowel habit; K57.30 Diverticulosis of large intestine without perforation or abscess without bleeding; K64.8 Other hemorrhoids; K21.9 Gastro-esophageal reflux disease without esophagitis; K29.70 Gastritis, unspecified, without bleeding; K44.9 Diaphragmatic hernia without obstruction or gangrene; I10 Essential (primary) hypertension; E11.9 Type 2 diabetes mellitus without complications; J44.9 Chronic obstructive pulmonary disease, unspecified; I25.10 Atherosclerotic heart disease of native coronary artery without angina pectoris; Z79.4 Long term (current) use of insulin; Z79.82 Long term (current) use of aspirin; Z79.899 Other long term (current) drug therapy; Z86.19 Personal history of other infectious and parasitic diseases
CPT/HCPCS: 45378; 43239; 36415; 82105; 82947; 88305; 88342

== ENCOUNTER → 2021-05-20 10:42 | Outpatient (BNVA) | payer OTHER, MEDICARE, SELFPAY | PROVIDERS: PCP Family Medicine; Visit Provider Nurse Practitioner Gerontology | DX: E11.65 Type 2 diabetes mellitus with hyperglycemia (principal); E11.21 Type 2 diabetes mellitus with diabetic nephropathy; E11.42 Type 2 diabetes mellitus with diabetic polyneuropathy; E78.5 Hyperlipidemia, unspecified; I10 Essential (primary) hypertension; E66.3 Overweight; Z79.4 Long term (current) use of insulin | CPT/HCPCS: 82947 ==

== ENCOUNTER → 2021-06-05 11:41 | Outpatient (BNVA) | payer OTHER, MEDICARE, SELFPAY | PROVIDERS: PCP Family Medicine; Visit Provider Nurse Practitioner Gerontology ==

== ENCOUNTER → 2021-06-15 10:07 | Outpatient (BNVA) | payer OTHER, MEDICARE, SELFPAY | PROVIDERS: PCP Family Medicine; Visit Provider Internal Medicine | DX: M70.61 Trochanteric bursitis, right hip (principal) | CPT/HCPCS: 20610; J3300 ==

== ENCOUNTER → 2021-07-02 09:39 | Outpatient (BNVA) | payer OTHER, MEDICARE, SELFPAY | PROVIDERS: PCP Family Medicine; Visit Provider Hospitalist | DX: J44.9 Chronic obstructive pulmonary disease, unspecified (principal); R06.00 Dyspnea, unspecified ==

== ENCOUNTER 2021-07-17 12:07 | Outpatient (REF) | payer OTHER, MEDICARE, SELFPAY ==
[2021-07-17 13:02] LABS: Ammonia 30 umol/L (13-55)
[2021-07-17 13:10] LABS: Alanine Aminotransferase 42 U/L (0-40); Albumin Level 4.2 g/dL (3.5-5.0); Alkaline Phosphatase 101 U/L (39-117); Anion Gap 10 (12-20); Aspartate Amino Transferase 101 U/L (5-37); Bilirubin Total 0.4 mg/dL (0.0-1.0); Blood Urea Nitrogen 24 mg/dL (9-16); Calcium 9.8 mg/dL (8.4-10.2); Carbon Dioxide 23 mmol/L (22-29); Chloride 107 mmol/L (96-108); Estimated Glomerular Filt Rate 43; Glucose Random 105 mg/dL (60-115); Sodium 136 mmol/L (135-145); Total Protein 6.8 g/dL (6.5-8.0)
[2021-07-17 13:14] LABS: Appearance Urine CLEAR; Color Urine YELLOW; Glucose Urine UA NEG (NEG); Leukocyte Esterase Urine NEG (NEG); Nitrite Urine NEG (NEG); Specific Gravity - Urine 1.015 (1.005-1.025); Urine Blood 3+ (NEG); Urine Ketones NEG (NEG); Urine Protein 2+ MG/DL (NEG-TRACE)
[2021-07-17 13:23] LABS: Amorphous Sediment Urine TRACE /LPF; Squamous Epithelial Cell Urine TRACE /LPF
[2021-07-17 13:24] LABS: RBC Urine 0-2 /HPF (0); WBC Urine 0 /HPF (0-4)
[2021-07-17 13:29] LABS: TSH reflex Free T4 1.76 uIU/mL (0.32-4.0)
== END 2021-07-17 12:08 | disposition home or self-care (01) ==
LOC: HO.WFDLDS 12:07
PROVIDERS: Visit Provider Family Medicine
DX: R41.0 Disorientation, unspecified (principal)
CPT/HCPCS: 36415; 80053; 81001; 82140; 84443

== ENCOUNTER → 2021-09-08 12:52 | Outpatient (BNVA) | payer OTHER, MEDICARE, SELFPAY | PROVIDERS: PCP Family Medicine; Visit Provider Hospitalist ==

== ENCOUNTER → 2021-09-25 09:24 | Outpatient (BNVA) | payer MEDICARE, OTHER, SELFPAY | PROVIDERS: PCP Family Medicine; Visit Provider Nurse Practitioner Gerontology | DX: Z13.89 Encounter for screening for other disorder (principal) | CPT/HCPCS: Q3014 ==

== ENCOUNTER → 2021-10-02 10:19 | Outpatient (BNVA) | payer OTHER, MEDICARE, SELFPAY | PROVIDERS: PCP Family Medicine; Referring Provider Family Medicine; Visit Provider Internal Medicine Cardiovascular Disease | DX: I25.119 Atherosclerotic heart disease of native coronary artery with unspecified angina pectoris (principal) | CPT/HCPCS: 93005; 99212 ==

== ENCOUNTER → 2021-10-12 12:16 | Outpatient (REF) | payer OTHER, MEDICARE, SELFPAY | LOC: HO.SL 12:16 | PROVIDERS: PCP Family Medicine; Visit Provider Hospitalist | DX: G47.33 Obstructive sleep apnea (adult) (pediatric) (principal) | CPT/HCPCS: 95806 ==

== ENCOUNTER → 2021-10-20 08:31 | Outpatient (REF) | payer OTHER, MEDICARE, SELFPAY ==
--- NOTE | ~2021-10-20 | NM_ITS ---
Lexiscan Myocardial perfusion study Indication: Chest pain, assess for coronary disease and ischemia Technique: The patient was brought in for a Lexiscan perfusion study on 10/20/2021 and was injected 0.4 mg of Lexiscan intravenously. Within a minute of this injection 25 mCi of sestamibi was given intravenously. Images were obtained using the SPECT gamma camera interlaced with the gating device. Images were obtained in supine position. Resting perfusion study was performed on 10/21/2021. Patient was administered 25 mCi of sestamibi intravenously at rest. Images were then obtained in supine position. Total DLP 111mGy-cm. Images were processed with the software and compared side to side in short axis, horizontal long axis and vertical long axis views. Findings: Raw acquisition was reviewed. Both arms are by the patient's side. The stress perfusion study showed mildly diminished tracer uptake along the inferolateral wall. With CT attenuation correction, there is good improvement suggesting diaphragmatic attenuation artifact. The gated study shows normal LV systolic function with calculated LVEF of 70%. LV cavity is normal in size. The gated study shows normal wall thickening and contraction of segments. Resting study shows diminished tracer uptake along the inferior/inferolateral wall. There is improvement with CT attenuation correction, suggestive of diaphragmatic attenuation artifact. Gating at rest reveals normal wall motion with ejection fraction at 43%, but visually appears higher. The findings are consistent with no clear reversible defects. Fixed inferior/inferolateral defect suspected to be from diaphragmatic attenuation artifact. NM/NM oleg perf SPECT rest & str Impression: 1. Myocardial perfusion imaging study shows no definitive evidence of any ischemia or infarction. Likely normal perfusion. 2. Gated LVEF is 70% during stress. Resting LVEF 43% but visually appears higher. Correlate with echocardiogram. 3. Transient ischemic dilatation not present. EKG component of the test reported separately.
--- NOTE | 2021-10-20 08:41 | CA_ITS ---
Acquisition Time: 2021-10-20 09:24:40 Total Exercise Time: 00:02:00 Test Indications: CAD Medications: SEE CHART Protocol: LEXISCAN Max HR: 109 BPM 72% of Pred: 151 BPM Max BP: 138/078 mmHG Max Work Load: 1.0 METS Pharmacological stress test with Lexiscan injection, while sitting and kicking his legs, without anginal symptoms, without arrythmia, with normotensive response to injection, with nondiagnostic EKG for ischemia. Nuclear images pending. Test review with Dr Arenas. Referred By: Tim Moreno Overread By: MAXIMILIAN NARVAEZ
[2021-10-20 09:51] LABS: Estimated Average Glucose 151 mg/dL; Hemoglobin A1c % 6.9 %
[2021-10-20 10:02] LABS: Alanine Aminotransferase 14 U/L (0-40); Albumin Level 4.3 g/dL (3.5-5.0); Alkaline Phosphatase 95 U/L (39-117); Anion Gap 16 (12-20); Aspartate Amino Transferase 19 U/L (5-37); Bilirubin Total 0.4 mg/dL (0.0-1.0); Blood Urea Nitrogen 29 mg/dL (9-16); Calcium 10.1 mg/dL (8.4-10.2); Carbon Dioxide 23 mmol/L (22-29); Chloride 105 mmol/L (96-108); Cholesterol 108 mg/dL; Estimated Glomerular Filt Rate 43; Glucose Fasting 188 mg/dL (60-99); HDL Cholesterol 41 mg/dL; LDL Cholesterol Calculated 42 mg/dl; Potassium 4.6 mmol/L (3.3-5.1); Sodium 139 mmol/L (135-145); Triglycerides 126 mg/dL
[2021-10-20 10:34] LABS: Prostate Specific Antigen < 0.05 ng/mL (<0.05-4.0)
[2021-10-20 12:23] LABS: Creatinine Urine 102.23 mg/dL; Microalbum/Creatinine Ratio Ur 47.9 ug/mg cr
[2021-10-21 16:01] LABS: LDL Cholesterol Direct 43 mg/dL (<100)
[2021-10-22 14:08] LABS: Vitamin D 25-OH Total 52.1 ng/mL (>30)
== END ==
LOC: HO.CARD 08:31
PROVIDERS: Urology; Absent Provider Nurse Practitioner Gerontology; PCP Family Medicine; Visit Provider Internal Medicine Cardiovascular Disease
DX: I20.9 Angina pectoris, unspecified (principal); E11.42 Type 2 diabetes mellitus with diabetic polyneuropathy; E11.65 Type 2 diabetes mellitus with hyperglycemia; E55.9 Vitamin D deficiency, unspecified; R35.1 Nocturia
CPT/HCPCS: 36415; 78452; 80053; 80061; 82043; 82306; 83036; 83721; 84153; 93017; A9500; J0280; J2785

== ENCOUNTER → 2021-10-29 13:54 | Outpatient (BNVA) | payer OTHER, MEDICARE, SELFPAY | PROVIDERS: PCP Family Medicine; Visit Provider Hospitalist | DX: Z13.89 Encounter for screening for other disorder (principal) ==

== ENCOUNTER → 2021-11-04 13:32 | Outpatient (BNVA) | payer OTHER, MEDICARE, SELFPAY | PROVIDERS: PCP Family Medicine; Referring Provider Family Medicine; Visit Provider Nurse Practitioner Family | DX: Z13.89 Encounter for screening for other disorder (principal) ==

== ENCOUNTER → 2021-11-10 08:27 | Outpatient (BNVA) | payer OTHER, MEDICARE, SELFPAY | PROVIDERS: PCP Family Medicine; Visit Provider Urology | DX: N32.81 Overactive bladder (principal); C61 Malignant neoplasm of prostate | CPT/HCPCS: 51798 ==

== ENCOUNTER → 2021-11-19 11:06 | Outpatient (BNVA) | payer OTHER, MEDICARE, SELFPAY | PROVIDERS: PCP Family Medicine; Visit Provider Surgery Vascular Surgery | DX: Z13.89 Encounter for screening for other disorder (principal) ==

== ENCOUNTER 2021-11-25 14:46 | Outpatient (REF) | payer OTHER, MEDICARE, SELFPAY ==
--- NOTE | ~2021-11-25 | US_ITS ---
EXAMINATION: US EXTRACRANIAL CAROTID DUPLEX, BILATERAL CLINICAL INFORMATION: This is a 71-year-old male with bilateral carotid artery disease. COMPARISON: Comparison is made to a previous study dated 03/31/2021 which demonstrated 0-49% right internal carotid artery stenosis and 50-79% left internal carotid artery stenosis. TECHNIQUE: Real-time ultrasound and Doppler techniques (integrating B-mode 2-D vascular images, Doppler spectral analysis and color-flow Doppler imaging) were utilized to interrogate the extracranial carotid arteries, the vertebral arteries and proximal subclavian arteries bilaterally. The degree of stenosis is determined by criteria similar to NASCET. FINDINGS: Right Side: 1. There is mild atherosclerotic plaque seen in the bifurcation/proximal ICA region. 2. The common carotid artery PSV proximally is 67 cm/s and distally 61 cm/s. 3. The proximal internal carotid artery velocities are 52 cm/s systolic and 11 cm/s diastolic. 4. The proximal external carotid artery PSV is 153 cm/s. 5. The vertebral artery shows antegrade flow. 6. The subclavian artery waveforms are normal. Left Side: 1. There is minimal atherosclerotic plaque seen in the bifurcation/proximal ICA region. 2. The common carotid artery PSV proximally is 81 cm/s and distally 77 cm/s. 3. The proximal internal carotid artery velocities are 42 cm/s systolic and 15 cm/s diastolic. 4. The proximal external carotid artery PSV is 168 cm/s. 5. The vertebral artery shows antegrade flow. 6. The subclavian artery waveforms are normal. US/US carotid duplex BI IMPRESSION: 1. RIGHT: Minimal, non-hemodynamically significant stenosis of the proximal right internal carotid artery corresponding to a 0-49% stenosis by velocity criteria. 2. LEFT: Minimal, non-hemodynamically significant stenosis of the proximal left internal carotid artery corresponding to a 0-49% stenosis by velocity criteria. 3. The category severity of disease appears less severe when compared to the previous study dated 03/31/2021.
== END 2021-11-25 14:47 | disposition home or self-care (01) ==
LOC: HO.US 14:46
PROVIDERS: Visit Provider Surgery Vascular Surgery
DX: I65.22 Occlusion and stenosis of left carotid artery (principal); R42 Dizziness and giddiness
CPT/HCPCS: 93880

== ENCOUNTER 2021-12-07 13:42 | Emergency (ER) | payer OTHER, MEDICARE, SELFPAY ==
--- NOTE | 2021-12-07 | ECG_ITS ---
Test Reason : CHEST PAIN Blood Pressure : / mmHG Vent. Rate : 081 BPM Atrial Rate : 081 BPM P-R Int : 196 ms QRS Dur : 082 ms QT Int : 360 ms P-R-T Axes : 081 062 067 degrees QTc Int : 418 ms Normal sinus rhythm Anterior infarct (cited on or before 07-DEC-2021) Abnormal ECG When compared with ECG of 30-MAR-2021 15:33, No significant change was found Referred By: Generic ED Physician Electronically Signed By:HARLEY ALVAREZ MD
--- NOTE | ~2021-12-07 | US_ITS ---
EXAMINATION: US ABDOMEN LIMITED, gallbladder only CLINICAL INFORMATION: Abdominal pain.. COMPARISON: None TECHNIQUE: Real-time imaging of the gallbladder. FINDINGS: GALLBLADDER: Normal. The gallbladder is physiologically distended without evidence of stones, sludge, polyps, wall thickening or pericholecystic fluid. Positive ultrasound Chen's sign. COMMON BILE DUCT: Normal in caliber measuring 0.4 cm in diameter. US/US abdomen limited IMPRESSION: Normal ultrasound of the gallbladder. No bile duct dilatation.
--- NOTE | ~2021-12-07 | US_ITS ---
EXAMINATION: ULTRASOUND RIGHT LOWER QUADRANT CLINICAL INFORMATION: Right lower quadrant pain. Abdominal pain COMPARISON: None. TECHNIQUE: Grayscale ultrasound, color Doppler performed right lower quadrant. FINDINGS: The appendix is not seen. Appendicitis cannot be excluded. No focal fluid collection. No inflammatory change. There are fluid-filled bowel loops with peristalsis. Right kidney is normal. No fluid in Morison's pouch. US/US appendix IMPRESSION: The appendix is not identified. Appendicitis cannot be excluded. No focal inflammatory change.
--- NOTE | ~2021-12-07 | XR_ITS ---
EXAMINATION: XR CHEST CLINICAL INFORMATION: Chest pain COMPARISON: Chest x-ray 03/30/2021. CT of chest 04/06/2017 TECHNIQUE: 2 views of the chest were obtained. FINDINGS: Biapical pleural parenchymal thickening. Faint nodular opacity left lung apex measuring about 1 cm projecting over the anterior right second rib. This is similar to the prior chest x-ray of 03/30/2021, chronic finding. No acute airspace disease. No pleural effusion or pneumothorax. Heart size is normal. There are vascular calcifications of thoracic aorta. Cardiac and mediastinal contours are normal. Multilevel degenerative spondylosis spine. XR/XR chest 2V IMPRESSION: No acute abnormality of chest.
[2021-12-07 13:48] VITALS: BP 133/67; PULSE 87; RESP 18; TEMP 36.4; O2SAT 97; BMI 26.6
[2021-12-07 14:10] LABS: MANUAL DIFF FLAG NO
[2021-12-07 14:12] LABS: Basophils Percent Auto 0.3 % (0-2); Eosinophils Absolute Auto 0.2 X10*3/uL (0.0-0.4); Eosinophils Percent Auto 2.6 % (0-4); Hematocrit 35.6 % (42.0-52.0); Hemoglobin 11.8 g/dl (14.0-18.0); Imm Gran Abs Auto 0.03 X10*3/uL (0.00-0.03); Imm Gran Pct Auto 0.4 % (0.0-0.4); Mean Corpuscular HGB Conc 33.1 g/dl (31.0-36.0); Mean Corpuscular Hemoglobin 30.5 pg (27.0-33.0); Mean Platelet Volume 10.4 fL (9.4-12.4); Monocytes Absolute Auto 0.7 X10*3/uL (0.1-1.2); Monocytes Percent Auto 9.7 % (2-11); Neutrophils Absolute Auto 5.6 x10*3/uL (2.0-8.3); Platelet Count 196 X10*3/uL (160-400); Red Blood Count 3.87 X10*6/uL (4.60-5.80); Red Cell Distribution Width 13.4 % (11.0-16.0); White Blood Count 7.6 X10*3/uL (4.8-10.8)
--- NOTE | 2021-12-07 14:17 | ECG_ITS ---
Test Reason : REPEAT Blood Pressure : / mmHG Vent. Rate : 083 BPM Atrial Rate : 083 BPM P-R Int : 192 ms QRS Dur : 082 ms QT Int : 358 ms P-R-T Axes : 070 061 075 degrees QTc Int : 420 ms Normal sinus rhythm Possible Anterior infarct (cited on or before 07-DEC-2021) Abnormal ECG When compared with ECG of 07-DEC-2021 13:51, No significant change was found Referred By: Rosa Grubbs Electronically Signed By:HARLEY ALVAREZ MD
--- NOTE | 2021-12-07 14:21 | ED.CHESTPAIN ---
HPI - Chest Pain General Chief Complaint: Chest Pain Stated Complaint: Chest pain Time Seen by Provider: 12/07/21 14:14 Source: patient and family Limitations: no limitations History of Present Illness HPI narrative: 70-year-old male with a past medical history of insulin-dependent diabetes, hypertension, coronary artery disease with 5 stents on Plavix, COPD, hyperlipidemia here with chest pain which began around 12 30 while the patient was walking outside. Tells me he started to feel hot all over, nauseous and felt short of breath. He tells me he sat down and took nitroglycerin x3 which improved his pain. He tells me he has a history of exertional chest pain and does take nitroglycerin at times. Tells me he normally uses it about once a month. However he does not normally require 3 doses of nitroglycerin for improvement of his pain. This made him worried today and brought him into the emergency department. On arrival he is pain free. He does tell me that at 12:00 o'clock this afternoon he did eat [place] rice and pork which was quite greasy and fatty. He does report that he has some nausea and upper abdominal discomfort. Related Data Home Medications Medication Instructions Recorded Confirmed carbidopa 25 mg-levodopa 100 mg 1 tab PO TID@0900,1200,1600 06/23/20 11/06/21 tablet aspirin 81 mg tablet,delayed 81 mg PO DAILY 08/26/20 11/06/21 release (Adult Low Dose Aspirin) vitamin B complex (B 1 tab PO DAILY 08/26/20 11/06/21 Complex-Vitamin B12) fluticasone propionate 50 1 spray INTRANASAL BID PRN 03/30/21 11/06/21 mcg/actuation nasal spray,suspension cholecalciferol (vitamin D3) 25 25 mcg PO DAILY 05/20/21 11/06/21 mcg (1,000 unit) capsule blood sugar diagnostic (FreeStyle #10 ea 06/05/21 11/06/21 Lite Strips) fluoride (sodium) 1.1 % dental gel PO 06/05/21 11/06/21 (Sodium Fluoride 5000 Dry Mouth) gabapentin 300 mg capsule 300 mg PO DAILY 09/08/21 11/06/21 pramipexole 0.25 mg tablet 0.25 mg PO BID 09/08/21 11/06/21 solifenacin 10 mg tablet 10 mg PO DAILY 10/26/21 11/06/21 carbidopa ER 50 mg-levodopa 200 mg 1 tab PO BEDTIME 11/10/21 tablet,extended release gabapentin 100 mg capsule mg PO 11/10/21 trazodone 50 mg tablet 75 mg PO BEDTIME 11/10/21 Previous Rx's Medication Instructions Recorded montelukast 10 mg tablet 10 mg PO QPM #90 tab 04/27/21 lidocaine 5 % topical patch 1 patch TOPICAL DAILY 30 Days #30 05/05/21 (Lidoderm) ea umeclidinium 62.5 mcg-vilanterol 1 inh INHALATION DAILY #60 ea 07/02/21 25 mcg/actuation powdr for inhalation (Anoro Ellipta) albuterol sulfate 2.5 mg (3 mL) INHALATION BID 30 08/18/21 Days #180 ml trazodone 100 mg tablet 100 mg PO BEDTIME #90 tab 09/21/21 dulaglutide 1.5 mg/0.5 mL 1.5 mg (0.5 mL) SUBCUT SA #6 ml 09/25/21 subcutaneous pen injector (Trulicity) insulin glargine 100 unit/mL (3 20 unit (0.2 mL) SUBCUT QPM 90 09/25/21 mL) subcutaneous pen (Lant #30 ml Solostar U-100 Insulin) nitroglycerin 0.4 mg sublingual 0.4 mg SUBLINGUAL Q5M PRN #20 tab 10/02/21 tablet tamsulosin 0.4 mg capsule 0.4 mg PO BEDTIME 90 Days #90 cap 10/26/21 clopidogrel 75 mg tablet 75 mg PO DAILY #90 tab 11/06/21 metoprolol succinate 25 mg 25 mg PO DAILY #90 tab 11/06/21 tablet,extended release 24 hr rosuvastatin 40 mg tablet 40 mg PO BEDTIME 90 Days #90 tab 11/06/21 mirabegron 25 mg tablet,extended 25 mg PO DAILY 30 Days #30 tab 11/10/21 release 24 hr (Myrbetriq) amlodipine 2.5 mg tablet 2.5 mg PO QPM #90 tab 11/23/21 metformin 500 mg tablet,extended 500 mg PO BID #180 tab 11/26/21 release 24 hr Allergies Allergy/AdvReac Type Severity Reaction Status Date / Time Iodinated Contrast Media Allergy Intermediate RASH AT IV Verified 11/19/21 11:11 [CONTRAST, IV] SITE. BENEDRYL GIVEN WITH GOOD EFFECT adhesive tape AdvReac Rash Verified 11/19/21 11:11 Review of Systems Review of Systems: Yes all other systems are reviewed and are negative Constitutional: Constitutional: Reports no additional constitutional complaints, Denies body ache(s), Denies chills, Reports excessive sweating, Denies fever(s), Denies headache(s) and Denies weakness Eyes: Eyes: Reports no additional eye complaints and Denies change in vision ENT: Reports system reviewed and no additional complaints, except as documented, Denies dizziness, Denies headache(s), Denies nasal congestion, Denies nasal discharge and Denies neck pain Cardiovascular: Cardiovascular: Reports no additional cardiovascular complaints, Reports chest pain, Denies leg edema and Reports dyspnea Respiratory: Respiratory: Reports no additional respiratory complaints, Denies cough and Reports dyspnea Gastrointestinal: Gastrointestinal: Reports no additional gastrointestinal complaints, Reports abdominal pain, Denies diarrhea, Reports nausea and Denies vomiting Genitourinary: Genitourinary: Denies urinary incontinence Musculoskeletal: Musculoskeletal: Reports no additional musculoskeletal complaints, Denies back pain, Denies arthralgias, Denies joint swelling, Denies neck pain, Denies numbness and Denies tingling Integumentary/Breasts: Skin/Breast: Reports system reviewed and no additional complaints, except as docu and Denies rash Neurologic: Reports system reviewed and no additional complaints, except as documented, Denies Abnormal speech present, Denies dizziness, Denies headache(s), Denies numbness, Denies tingling and Denies weakness Endocrine: Endocrine: Reports excessive sweating PMFSH Past Medical History Attestation statement: The following information was validated with the patient. Source: old records reviewed and nursing notes reviewed Medical History CAD (coronary artery disease) Carotid artery disease COPD (chronic obstructive pulmonary disease) Diabetes type 2, uncontrolled (~1999) Diabetic nephropathy associated with type 2 diabetes mellitus Diabetic polyneuropathy associated with type 2 diabetes mellitus Dyslipidemia Dyspnea History of hepatitis C History of [place] (myocardial infarction) History of prostate cancer (~2017) 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 [facility] (current) use of insulin Nocturnal hypoxia Overweight (BMI 25.0-29.9) Stented coronary artery Surgical History History of cataract surgery (~2019) History of colonoscopy History of cystoscopy (~2020) History of esophagogastroduodenoscopy (EGD) History of heart artery stent History of prostatectomy Hx of cardiac cath Family History Family History Father Sudden cardiac CVD (cardiovascular disease) Mother Hx of heart surgery CVD (cardiovascular disease) Social History Social History Household Members: Spouse Housing: House Do you presently have visiting nurse or other home services: No Alcohol intake: former Patient Tobacco Use Status: Former Tobacco user e-Cigarette/Vaping Use: Never Used Second Hand Smoke Exposure: No Advance Directives: Yes Advance Directives on File: Yes Advance Directives Date on File: 03/31/21 service: Yes Current occupational status: retired Current occupation: rt handed Current occupational exposures/hazards: No Cognitive needs: No Hearing needs: No Vision needs: Yes (reading glasses) Physical Exam Vital Signs: Vital Signs: Last Vital Signs Temp 98.6 F 12/07/21 14:58 Pulse 86 12/07/21 14:58 Resp 18 12/07/21 14:58 BP 136/81 12/07/21 14:58 Pulse Ox 98 12/07/21 14:58 BMI result Body Mass Index 26.6 Const: General: cooperative, healthy appearing, comfortable and no acute distress Orientation/consciousness: patient oriented x3 Limitations: no limitations HEENT: Head: Yes normal to inspection Ears: hearing grossly normal bilaterally and TM's normal bilaterally General nose exam: Normal external nose present Face and sinus: Yes normal facial exam Mouth: Normal oral and palatal mucosa present Throat: Yes posterior oropharynx normal, Yes tonsils normal and Yes uvula midline Eyes: General: appearance normal, both eyes and all related structures Pupils: Equal, round and reactive pupils present Neck: Neck: Yes normal visual inspection, Yes full ROM, Yes no lymphadenopathy and Yes no meningeal signs Chest: Chest palpation & inspection: normal inspection of the chest Resp: Effort & Inspection: normal respiratory effort Auscultation: clear to auscultation bilaterally Cardio: Rate: regular rate Rhythm: regular rhythm Peripheral pulses: Peripheral pulses 2+ throughout GI: Inspection: Yes normal to inspection Palpation (GI): Soft to palpation and Tenderness to palpation present (GI) (TTP epigastric/RUQ) Auscultation: normal bowel sounds Back/Spine/Pelvis: Thoracic/Lumbar Spine: thoracic and lumbar spine normal to inspection Skin: General skin exam: no rashes or lesions noted Neuro: General: patient oriented x3, no meningeal signs, no focal motor deficits and normal sensation to monofilament Cranial nerves: Yes Equal, round and reactive pupils present Cognition (Neuro): normal cognition Speech: No Abnormal speech present Gait exam (Neuro): Normal gait present Motor exam (neuro): 5/5 motor strength present throughout Extrem: General: Yes normal to inspection, Yes no pedal edema and Yes no calf tenderness Course Course Course Narrative: 71 year old male here with episode of exertional chest pain with associated nausea, diaphoresis and shortness of breath which improved with nitro. Will need labs, EKG, CXR, covid screen -this did occur after eating some fatty/greasy foods for lunch. Has some mild upper AP to palp with no rebound or guarding. Will obtain abdominal US. 1540-Reviewed cardiology notes from last visit 11/04/21 -History of CAD with multivessel PCI.? On dual anti-platelet therapy.?Has complained of intermittent CP. Nuclear stress test on 10/21/2021 showing no infarct or ischemia, EF 70% with stress and 43% with rest however looked higher.? Last echo done 03/31/2021 showed EF 55-60%, no valve abnormalities and basal inferior hypokinesis.? Reevaluation(s) Reevaluation #1: Serial EKGs show no ischemic changes. Troponin x2 are unremarkable. Additional labs are normal. Chest x-ray shows no acute finding. Gallbladder visualized on ultrasound and is unremarkable. Patient feels better. He has had no pain since being here in the chest. I did discuss his case with Dr. Moreno. He feels like the patient can be managed outpatient on his anti-anginal therapies and does not need admission. I spoke to the patient his . I recommended the return for any change in his symptoms or persistent symptoms. Reviewed worrisome signs and symptoms of when to return to the emergency department. Comfortable discharge home. Time: 18:00 MDM - Chest Pain MDM Narrative Medical decision making narrative: acs, acute ro, pancreatitis, gerd Medical Records Data Attestation: I reviewed the patient's medical records. Lab Data Attestation: I reviewed the patient's lab results. Result diagrams: 12/07/21 14:03 12/07/21 14:03 Labs: Lab Results 12/07/21 12/07/21 12/07/21 Range/Units 14:03 14:03 14:03 WBC 7.6 (4.8-10.8) X10*3/uL RBC 3.87 L (4.60-5.80) X10*6/uL Hgb 11.8 L (14.0-18.0) g/dl Hct 35.6 L (42.0-52.0) % MCV 92.0 (80.0-98.0) fL MCH 30.5 (27.0-33.0) pg MCHC 33.1 (31.0-36.0) g/dl RDW 13.4 (11.0-16.0) % Plt Count 196 (160-400) X10*3/uL MPV 10.4 (9.4-12.4) fL Immature Gran % (Auto) 0.4 (0.0-0.4) % Neut % (Auto) 74.0 H (45-73) % Lymph % (Auto) 13.0 L (20-40) % [place] % (Auto) 9.7 (2-11) % Eos % (Auto) 2.6 (0-4) % Baso % (Auto) 0.3 (0-2) % Lymph # (Auto) 1.0 L (1.2-4.9) X10*3/uL [place] # (Auto) 0.7 (0.1-1.2) X10*3/uL Eos # (Auto) 0.2 (0.0-0.4) X10*3/uL Baso # (Auto) 0.0 (0.0-0.2) X10*3/uL Abs Immat Gran (auto) 0.03 (0.00-0.03) X10*3/uL Absolute Neuts (auto) 5.6 (2.0-8.3) x10*3/uL Absolute Nucleated RBC 0.000 (0.0-0.012) X10*3/uL Nucleated RBC % (auto) 0.0 (0.0-0.2) /100WBC Sodium 136 (135-145) mmol/L Potassium 4.4 (3.3-5.1) mmol/L Chloride 102 (96-108) mmol/L Carbon Dioxide 25 (22-29) mmol/L Anion Gap 13 (12-20) BUN 27 H (9-16) mg/dL Creatinine 1.53 H (0.5-1.4) mg/dL Estim Creat Clear Calc 41.1 Estimated GFR 45 Random Glucose 171 H D (60-115) mg/dL Calcium 9.5 (8.4-10.2) mg/dL Magnesium 1.8 (1.6-2.6) mg/dL Total Bilirubin 0.2 (0.0-1.0) mg/dL Direct Bilirubin 0.2 (0.0-0.5) mg/dL AST 23 (5-37) U/L ALT 34 (0-40) U/L Alkaline Phosphatase 121 H D (39-117) U/L Troponin I High Sens < 3.5 (<3.5-35.0) ng/L Total Protein 6.7 (6.5-8.0) g/dL Albumin 4.1 (3.5-5.0) g/dL Lipase 10 (8-78) U/L COVID-19 (SEMAJ) (Negative) COVID-19 Clin Com 12/07/21 12/07/21 Range/Units 16:36 17:09 WBC (4.8-10.8) X10*3/uL RBC (4.60-5.80) X10*6/uL Hgb (14.0-18.0) g/dl Hct (42.0-52.0) % MCV (80.0-98.0) fL MCH (27.0-33.0) pg MCHC (31.0-36.0) g/dl RDW (11.0-16.0) % Plt Count (160-400) X10*3/uL MPV (9.4-12.4) fL Immature Gran % (Auto) (0.0-0.4) % Neut % (Auto) (45-73) % Lymph % (Auto) (20-40) % [place] % (Auto) (2-11) % Eos % (Auto) (0-4) % Baso % (Auto) (0-2) % Lymph # (Auto) (1.2-4.9) X10*3/uL [place] # (Auto) (0.1-1.2) X10*3/uL Eos # (Auto) (0.0-0.4) X10*3/uL Baso # (Auto) (0.0-0.2) X10*3/uL Abs Immat Gran (auto) (0.00-0.03) X10*3/uL Absolute Neuts (auto) (2.0-8.3) x10*3/uL Absolute Nucleated RBC (0.0-0.012) X10*3/uL Nucleated RBC % (auto) (0.0-0.2) /100WBC Sodium (135-145) mmol/L Potassium (3.3-5.1) mmol/L Chloride (96-108) mmol/L Carbon Dioxide (22-29) mmol/L Anion Gap (12-20) BUN (9-16) mg/dL Creatinine (0.5-1.4) mg/dL Estim Creat Clear Calc Estimated GFR Random Glucose (60-115) mg/dL Calcium (8.4-10.2) mg/dL Magnesium (1.6-2.6) mg/dL Total Bilirubin (0.0-1.0) mg/dL Direct Bilirubin (0.0-0.5) mg/dL AST (5-37) U/L ALT (0-40) U/L Alkaline Phosphatase (39-117) U/L Troponin I High Sens < 3.5 (<3.5-35.0) ng/L Total Protein (6.5-8.0) g/dL Albumin (3.5-5.0) g/dL Lipase (8-78) U/L COVID-19 (SEMAJ) Negative (Negative) COVID-19 Clin Com See Note Imaging Data Chest x-ray: Attestation: I personally reviewed and interpreted this imaging study as follows: Radiologist's impression: [address] [address] XRay Report Signed Patient: Nir Leon MR#: [id number] : 1950 Acct:[id number] Age/Sex: 71 / M ADM Date: 12/07/21 Loc: HO.ED Attending Dr: Ordering Physician: Rosa Grubbs NP Date of Service: 12/07/21 Procedure(s): XR chest 2V Accession Number(s): [id number] cc: Rosa Grubbs SALVAGE GRINDER~ EXAMINATION: XR CHEST CLINICAL INFORMATION: Chest pain COMPARISON: Chest x-ray 03/30/2021. CT of chest 04/06/2017 TECHNIQUE: 2 views of the chest were obtained. FINDINGS: Biapical pleural parenchymal thickening. Faint nodular opacity left lung apex measuring about 1 cm projecting over the anterior right second rib. This is similar to the prior chest x-ray of 03/30/2021, chronic finding. No acute airspace disease. No pleural effusion or pneumothorax. Heart size is normal. There are vascular calcifications of thoracic aorta. Cardiac and mediastinal contours are normal. Multilevel degenerative spondylosis spine. XR/XR chest 2V IMPRESSION: No acute abnormality of chest. US - abdomen: Attestation: I personally reviewed and interpreted this imaging study as follows: Radiologist's impression: FINDINGS: GALLBLADDER: Normal. The gallbladder is physiologically distended without evidence of stones, sludge, polyps, wall thickening or pericholecystic fluid. Positive ultrasound Chen's sign. COMMON BILE DUCT: Normal in caliber measuring 0.4 cm in diameter. US/US abdomen limited IMPRESSION: Normal ultrasound of the gallbladder. No bile duct dilatation. ECG Data ECG #1: Attestation: I personally reviewed and interpreted this ECG as follows: ECG interpretation date: 12/07/21 ECG interpretation time: 13:51 Interpretation: Normal sinus rhythm with rate of 81, normal SD, normal QRS, normal QT 1416-repeat unchanged with normal sinus rhythm with rate 83, normal SD, normal QRS, normal QT Discharge Plan Discharge Clinical Impression: Chest pain Patient Disposition: Home, Self-Care Instructions: Chest Pain (DC) Additional Instructions: Your blood work, EKG and imaging looked reassuring. We have determined your low risk at this time. We did discuss her case with her area director of home health sales and he recommended following up with him in the office. Please use her nitroglycerin as needed. Do not hesitate to return or seek additional care or any chest pain, or change in symptoms Prescriptions: No Action montelukast 10 mg tablet 10 mg PO QPM Qty: 90 3RF albuterol sulfate 2.5 mg /3 mL (0.083 %) solution for nebulization 2.5 mg inhalation BID 30 Days Qty: 180 11RF trazodone 100 mg tablet 100 mg PO BEDTIME Qty: 90 1RF tamsulosin 0.4 mg capsule 0.4 mg PO BEDTIME 90 Days Qty: 90 1RF amlodipine 2.5 mg tablet 2.5 mg PO QPM Qty: 90 3RF metformin 500 mg tablet extended release 24 hr 500 mg PO BID Qty: 180 2RF fluticasone propionate 50 mcg/actuation spray,suspension 1 spray intranasal BID PRN (Reason: Allergy Symptoms) 0RF lidocaine [Lidoderm] 5 % adhesive patch,medicated 1 patch topical DAILY 30 Days Qty: 30 2RF Rx Instructions: leave on most painful area for up to 12 hrs solifenacin 10 mg tablet 10 mg PO DAILY 0RF carbidopa-levodopa 25-100 mg tablet 1 tab PO TID@0900,1200,1600 0RF aspirin [Adult Low Dose Aspirin] 81 mg tablet,delayed release (DR/EC) 81 mg PO DAILY 0RF vitamin B complex [B Complex-Vitamin B12] Tablet 1 tab PO DAILY 0RF (DME) FreeStyle Lite Strips Strip See Rx Instructions ea Not Applicable TID Qty: 10 0RF Rx Instructions: As directed two times a day cholecalciferol (vitamin D3) 25 mcg (1,000 unit) capsule 25 mcg PO DAILY 0RF Anoro Ellipta 62.5-25 mcg/actuation blister with device 1 inh inhalation DAILY Qty: 60 11RF fluoride (sodium) [Sodium Fluoride 5000 Dry Mouth] 1.1 % gel PO 0RF Trulicity 1.5 mg/0.5 mL pen injector 1.5 mg subcut SA Qty: 6 2RF Lantus Solostar U-100 Insulin 100 unit/mL (3 mL) insulin pen 20 unit subcut QPM 90 Days Qty: 30 1RF nitroglycerin 0.4 mg tablet, sublingual 0.4 mg sublingual Q5M PRN (Reason: chest pain) Qty: 20 1RF Rx Instructions: do not exceed 3 doses per episode carbidopa-levodopa 50-200 mg tablet extended release 1 tab PO BEDTIME 0RF gabapentin 100 mg capsule PO 0RF trazodone 50 mg tablet 75 mg PO BEDTIME 0RF Myrbetriq 25 mg tablet extended release 24 hr 25 mg PO DAILY 30 Days Qty: 30 1RF pramipexole 0.25 mg tablet 0.25 mg PO BID 0RF gabapentin 300 mg capsule 300 mg PO DAILY 0RF clopidogrel 75 mg tablet 75 mg PO DAILY Qty: 90 3RF metoprolol succinate 25 mg tablet extended release 24 hr 25 mg PO DAILY Qty: 90 3RF rosuvastatin 40 mg tablet 40 mg PO BEDTIME 90 Days Qty: 90 3RF Referrals: Tim Moreno MD [Physician] - 5 days
[2021-12-07 14:35] LABS: Anion Gap 13 (12-20); Blood Urea Nitrogen 27 mg/dL (9-16); Calcium 9.5 mg/dL (8.4-10.2); Carbon Dioxide 25 mmol/L (22-29); Chloride 102 mmol/L (96-108); Creatinine Clr Calc Pharmacy 41.1; Estimated Glomerular Filt Rate 45; Glucose Random 171 mg/dL (60-115); Potassium 4.4 mmol/L (3.3-5.1); Sodium 136 mmol/L (135-145)
[2021-12-07 14:43] LABS: Troponin-I High Sensitivity < 3.5 ng/L (<3.5-35.0)
[2021-12-07 14:51] LABS: Alanine Aminotransferase 34 U/L (0-40); Albumin Level 4.1 g/dL (3.5-5.0); Alkaline Phosphatase 121 U/L (39-117); Aspartate Amino Transferase 23 U/L (5-37); Bilirubin Direct 0.2 mg/dL (0.0-0.5); Bilirubin Total 0.2 mg/dL (0.0-1.0); Magnesium 1.8 mg/dL (1.6-2.6); Total Protein 6.7 g/dL (6.5-8.0)
[2021-12-07 14:58] VITALS: BP 136/81; PULSE 86; RESP 18; TEMP 37; O2SAT 98
[2021-12-07 15:26] LABS: Lipase 10 U/L (8-78)
[2021-12-07 17:00] LABS: COVID-19 Test Negative (Negative); IDNOW Serial# 55D5AD1C
[2021-12-07 17:38] LABS: Troponin-I High Sensitivity < 3.5 ng/L (<3.5-35.0)
== END 2021-12-07 18:14 | disposition home or self-care (01) ==
PROVIDERS: Nurse Practitioner Family; Emergency Provider Emergency Medicine; PCP Family Medicine
DX: R07.9 Chest pain, unspecified (principal); I10 Essential (primary) hypertension; I25.10 Atherosclerotic heart disease of native coronary artery without angina pectoris; E11.9 Type 2 diabetes mellitus without complications; J44.9 Chronic obstructive pulmonary disease, unspecified; I25.2 Old myocardial infarction; Z79.02 Long term (current) use of antithrombotics/antiplatelets; Z79.4 Long term (current) use of insulin; Z95.5 Presence of coronary angioplasty implant and graft; Z20.822 Contact with and (suspected) exposure to COVID-19
CPT/HCPCS: 36415; 71046; 76705; 80048; 80076; 83690; 83735; 84484; 85025; 87635; 93005; 99284; 99285

== ENCOUNTER → 2021-12-10 09:57 | Outpatient (BNVA) | payer OTHER, MEDICARE, SELFPAY | PROVIDERS: PCP Family Medicine; Visit Provider Surgery Vascular Surgery | DX: I77.9 Disorder of arteries and arterioles, unspecified (principal) ==

== ENCOUNTER → 2022-01-19 13:35 | Outpatient (REF) | payer OTHER, MEDICARE, SELFPAY ==
--- NOTE | 2022-01-19 13:44 | CA_ITS ---
Transthoracic Echocardiogram Patient (Last, First, Middle): Nir Leon A Gender: Male Date of : 1950 Age: 71 Procedure Date: 01/19/2022 Procedure Type: Transthoracic Echocardiogram Location: OP Height: 167.64 cm Weight: 73.03 kg BSA: 1.82 m2 Heart Rate: 58 bpm BP: 138 / 64 mmHg Mucker [place]: BRODY Referring MD: Tim Moreno MD Propulsion Engineer: Tim Moreno MD Symptoms: R06.00 - Dyspnea, unspecified Study Quality: Adequate ECG Rhythm: Bradycardia Conclusions: - 1. Mildly reduced LV systolic function with impaired relaxation filling pattern 2. Normal cardiac valvular Doppler 3. No gross pericardial effusion Findings Left Ventricle Normal left ventricular cavity size. There is normal left ventricular wall thickness. The left ventricular systolic function is mildly decreased. The visually estimated ejection fraction is between 45-50%. Spectral Doppler is indicative of an impaired relaxation filling pattern. E/E prime ratio is between 8 and 15 consistent with indeterminate filling pressures. Wall Motion Rest Echo Findings The basal inferior and basal inferoseptal segments are hypokinetic. All other scored wall segments showed normal motion. Right Ventricle Normal right ventricular cavity size and systolic function. Atria The left atrium is normal in size. There is no evidence of interatrial shunt. The right atrium is normal in size. Aortic Valve The aortic valve structure and function is likely normal. There is no aortic valve stenosis. There is no aortic valve regurgitation. Mitral Valve Normal mitral valve structure and function. There is trace mitral valve regurgitation. There is no mitral valve stenosis. Pulmonic Valve The pulmonic valve was not well visualized. Tricuspid Valve Likely normal tricuspid valve structure and function. Tricuspid regurgitation envelope is inadequate for calculation of right ventricular systolic pressure. Normal right atrial pressure. Great Vessels All visible segments of the aorta are normal in size. The pulmonary artery was not well visualized. Venous The inferior vena cava is normal in size and collapses greater than 50% with inspiration. Pericardium/Pleural There is no evidence of pericardial effusion. Prior Study Comparison Changes noted compared to prior study dated: 03/31/2021. LV systolic function is mildly depressed Measurements 2D Linear Measurements IVSd: 1.09 0.6-0.9/0.6-1.0 cm LVIDd: 4.59 3.9-5.3/4.2-5.9 cm LVIDd Index: 2.52 2.4-3.2/2.2-3.1 cm/m2 LVIDs: 3.19 2.0-3.6 cm LVPWd: 0.85 0.7-1.1 cm LA Diam: 3.50 2.7-3.8/3.0-4.0 cm LAIDs Index: 1.92 1.5-2.3 cm/m2 LV Mass: 189.15 67-162/88-224 g LV Mass Index: 103.93 43-95/49-115 g/m2 LVOT Diam: 2.10 3.0+(-)1.3 cm 2D Systolic Function EF 4C: 53.00 >55% EF 2C: 31.40 >55% Mitral Valve MV Pk E: 0.82 MV PK A: 0.95 MV Decel Time: 199.00 E/A: 0.90 E'Lateral: 5.55 E'Medial: 6.42 E/E' Med: 12.80 E/E' Lat: 14.80 PHT: 58.00 MVA PHT: 3.79 Decel [place]: 4.13 Aortic Valve AoV Pk Jesu: 1.13 AoV Mn Jesu: 0.83 AoV VTI: 0.23 AoV Pk Grad: 5.00 Aov Mn Grad: 3.00 DIONE Cont.VTI: 2.20 LVOT LVOT Pk Jesu: 0.69 LVOT Mn Jesu: 0.51 LVOT VTI: 0.15 LVOT Pk Grad: 2.00 LVOT Mn Grad: 1.00 LVOT Diam: 2.10 LVOT Area: 3.46 Diastolic Function MV Pk E: 0.82 MV Pk A: 0.95 E/A: 0.90 E'Medial: 6.42 E/E' Med: 12.80 E' Laterial: 5.55 E/E' Lat: 14.80 Right Ventricle TAPSE (mm): 18.90 TVS' Jesu: 9.68 Tricuspid Valve RA Press: 3.00 Great Vessels Aorta Sinus of Valsalva: 2.90 2.0-3.5 cm Ao Asc: 2.70 2.1-3.4 cm Pulmonary Veins Pulm Vein S/D 1.80 Pulmonary Valve PV Pk Jesu: 1.08 Peak PV Grad: 5.00 Updated in Other Vendor System with Status of Final Tim Moreno MD electronically signed on 01/20/2022 4:34:16 PM with status of Final
== END ==
LOC: HO.CARD 13:35
PROVIDERS: Visit Provider Internal Medicine Cardiovascular Disease
DX: R06.00 Dyspnea, unspecified (principal)
CPT/HCPCS: 93306

== ENCOUNTER 2022-06-16 10:26 | Outpatient (REF) | payer OTHER, MEDICARE, SELFPAY ==
--- NOTE | ~2022-06-16 | XR_ITS ---
EXAMINATION: XR CHEST CLINICAL INFORMATION: R91.1 - Solitary pulmonary nodule COMPARISON: Chest radiographs 12/07/2021, 03/30/2021, 12/17/2019, 03/27/2019, CTA chest 04/06/2017. TECHNIQUE: 2 views of the chest were obtained. FINDINGS: There is a subtle opacity overlying the central apical upper lobe adjacent to the anterior second rib, similar to prior chest radiographs 12/07/2021 and 03/30/2021. There is old stable nodular pleural thickening left apex and a small calcified granuloma left base stable from CT chest 2017. The remainder the lungs are clear. There is no lobar or segmental airspace consolidation, groundglass opacity, or effusion. The heart is normal in size. The hilar and mediastinal contours and bony structures are unremarkable. XR/XR chest 2V IMPRESSION: 1. Subtle opacity central apical upper lobe similar to prior chest radiographs 12/07/2021 and 03/30/2021. 2. Old calcified granuloma left base and nodular pleural thickening left apex, similar to CT 2017.
[2022-06-16 12:08] LABS: Cholesterol 78 mg/dL; HDL Cholesterol 35 mg/dL; LDL Cholesterol Calculated 35 mg/dl; Triglycerides 42 mg/dL
[2022-06-16 12:35] LABS: Prostate Specific Antigen < 0.10 ng/mL (<0.05-4.0)
== END 2022-06-16 10:27 | disposition home or self-care (01) ==
LOC: HO.LAB 10:26
PROVIDERS: Absent Provider Internal Medicine Cardiovascular Disease; PCP Family Medicine; Visit Provider Urology
DX: N32.81 Overactive bladder (principal); R91.1 Solitary pulmonary nodule; I25.10 Atherosclerotic heart disease of native coronary artery without angina pectoris; Z12.5 Encounter for screening for malignant neoplasm of prostate
CPT/HCPCS: 36415; 71046; 80061; 84153

== ENCOUNTER 2022-07-14 13:41 | Outpatient (REF) | payer OTHER, MEDICARE, SELFPAY ==
[2022-07-14 18:00] LABS: Urine Cytology See Pathology rpt
== END 2022-07-14 13:42 | disposition home or self-care (01) ==
LOC: HO.LAB 13:41
PROVIDERS: Visit Provider Urology
DX: R31.29 Other microscopic hematuria (principal); C61 Malignant neoplasm of prostate; N32.81 Overactive bladder
CPT/HCPCS: 51798; 88112

== ENCOUNTER → 2022-08-30 13:42 | Outpatient (BNVA) | payer OTHER, MEDICARE, SELFPAY | PROVIDERS: PCP Family Medicine; Visit Provider Hospitalist | DX: Z13.89 Encounter for screening for other disorder (principal) ==

== ENCOUNTER → 2022-09-14 09:21 | Outpatient (BNVA) | payer OTHER, MEDICARE, SELFPAY | PROVIDERS: PCP Family Medicine; Referring Provider Family Medicine; Visit Provider Internal Medicine Cardiovascular Disease | DX: I25.10 Atherosclerotic heart disease of native coronary artery without angina pectoris (principal); I10 Essential (primary) hypertension; I42.9 Cardiomyopathy, unspecified | CPT/HCPCS: 93005 ==

== ENCOUNTER → 2022-10-01 10:07 | Outpatient (BNVA) | payer OTHER, MEDICARE, SELFPAY | PROVIDERS: PCP Family Medicine; Visit Provider Internal Medicine | DX: Z13.89 Encounter for screening for other disorder (principal) ==

== ENCOUNTER → 2022-10-12 14:09 | Outpatient (BNVA) | payer OTHER, MEDICARE, SELFPAY | PROVIDERS: PCP Family Medicine; Visit Provider Urology | DX: Z13.89 Encounter for screening for other disorder (principal) ==

== ENCOUNTER 2022-10-20 10:04 | Outpatient (REF) | payer OTHER, MEDICARE, SELFPAY ==
[2022-10-20 11:45] LABS: Appearance Urine Clear; Color Urine Yellow; Glucose Urine UA Negative (Negative); Leukocyte Esterase Urine Negative (Negative); Nitrite Urine Negative (Negative); UMIC TRIGGER UA YES; Urine Blood Negative (Negative); Urine Ketones Negative (Negative); Urine Protein 100 (2+) mg/dL (Neg-Trace)
[2022-10-20 11:48] LABS: MANUAL DIFF FLAG NO
[2022-10-20 11:53] LABS: Bacteria Urine None Seen (None Seen); Hyaline Casts Urine 0-2 /LPF (0-2); RBC Urine 0-2 /HPF (0-2); Squamous Epithelial Cell Urine 0-2 /HPF (0-2); WBC Urine 0-5 /HPF (0-5)
[2022-10-20 12:04] LABS: Basophils Percent Auto 0.3 % (0-2); Eosinophils Absolute Auto 0.2 X10*3/uL (0.0-0.4); Eosinophils Percent Auto 2.3 % (0-4); Hematocrit 39.4 % (42.0-52.0); Hemoglobin 12.8 g/dl (14.0-18.0); Imm Gran Abs Auto 0.04 X10*3/uL (0.00-0.03); Imm Gran Pct Auto 0.6 % (0.0-0.4); Lymphocytes Absolute Auto 1.3 X10*3/uL (1.2-4.9); Lymphocytes Percent Auto 19.5 % (20-40); Mean Corpuscular HGB Conc 32.5 g/dl (31.0-36.0); Mean Corpuscular Volume 92.3 fL (80.0-98.0); Mean Platelet Volume 10.5 fL (9.4-12.4); Monocytes Absolute Auto 0.8 X10*3/uL (0.1-1.2); Monocytes Percent Auto 12.4 % (2-11); Neutrophils Absolute Auto 4.3 x10*3/uL (2.0-8.3); Neutrophils Percent Auto 64.9 % (45-73); Platelet Count 209 X10*3/uL (160-400); Red Blood Count 4.27 X10*6/uL (4.60-5.80); Red Cell Distribution Width 13.5 % (11.0-16.0); White Blood Count 6.6 X10*3/uL (4.8-10.8)
[2022-10-20 12:12] LABS: Creatinine Urine 81.73 mg/dL
[2022-10-20 12:13] LABS: Microalbum/Creatinine Ratio Ur 122.3 ug/mg cr
[2022-10-20 12:53] LABS: Estimated Average Glucose 146 mg/dL; Hemoglobin A1c % 6.7 %
[2022-10-20 13:06] LABS: Alanine Aminotransferase 8 U/L (0-40); Albumin Level 4.1 g/dL (3.5-5.0); Alkaline Phosphatase 85 U/L (39-117); Anion Gap 16 (12-20); Aspartate Amino Transferase 20 U/L (5-37); Bilirubin Total 0.4 mg/dL (0.0-1.0); Blood Urea Nitrogen 32 mg/dL (9-16); Calcium 9.2 mg/dL (8.4-10.2); Carbon Dioxide 23 mmol/L (22-29); Chloride 106 mmol/L (96-108); Cholesterol 98 mg/dL; Estimated Glomerular Filt Rate 42; Glucose Random 105 mg/dL (60-115); HDL Cholesterol 38 mg/dL; LDL Cholesterol Calculated 47 mg/dl; Potassium 4.4 mmol/L (3.3-5.1); Sodium 141 mmol/L (135-145); TSH reflex Free T4 1.89 uIU/mL (0.32-4.0); Total Protein 6.5 g/dL (6.5-8.0); Triglycerides 69 mg/dL
[2022-10-20 16:05] LABS: Prostate Specific Antigen Scr < 0.10 ng/mL (<0.05-4.0)
== END 2022-10-20 10:05 | disposition home or self-care (01) ==
LOC: HO.WFDLDS 10:04
PROVIDERS: Visit Provider Family Medicine
DX: Z00.00 Encounter for general adult medical examination without abnormal findings (principal); Z12.5 Encounter for screening for malignant neoplasm of prostate; M48.062 Spinal stenosis, lumbar region with neurogenic claudication; R73.01 Impaired fasting glucose; I10 Essential (primary) hypertension; N19 Unspecified kidney failure
CPT/HCPCS: 36415; 80053; 80061; 81001; 82043; 83036; 84153; 84443; 85025

== ENCOUNTER → 2022-10-22 08:23 | Outpatient (BNVA) | payer OTHER, MEDICARE, SELFPAY | PROVIDERS: PCP Family Medicine; Visit Provider Internal Medicine | DX: M79.18 Myalgia, other site (principal); M54.16 Radiculopathy, lumbar region; M48.062 Spinal stenosis, lumbar region with neurogenic claudication | CPT/HCPCS: 20552; 20553; J2795 ==

== ENCOUNTER 2022-11-22 09:42 | Outpatient (REF) | payer OTHER, MEDICARE, SELFPAY ==
--- NOTE | ~2022-11-22 | XR_ITS ---
EXAMINATION: XR CHEST CLINICAL INFORMATION: J18.0 - Bronchopneumonia, unspecified organism COMPARISON: Chest radiographs 06/16/2022, 12/07/2021 TECHNIQUE: Chest is imaged in 2 frontal views and a lateral projection for a total of 3 views. FINDINGS: There is borderline hyperinflation similar to prior studies. No airspace consolidation or groundglass opacity or effusion. The costophrenic sulci are clear. Heart size normal. Vascularity normal. The hilar and mediastinal contours and visualized bony structures are unremarkable. XR/XR chest 2V IMPRESSION: Unremarkable examination.
== END 2022-11-22 09:43 | disposition home or self-care (01) ==
LOC: HO.XRAY 09:42
PROVIDERS: PCP Family Medicine; Visit Provider Hospitalist
DX: R91.1 Solitary pulmonary nodule (principal); J44.9 Chronic obstructive pulmonary disease, unspecified; R06.00 Dyspnea, unspecified; J18.0 Bronchopneumonia, unspecified organism
CPT/HCPCS: 71046

== ENCOUNTER 2022-12-31 10:00 | Outpatient (RCR) | payer OTHER, MEDICARE, SELFPAY ==
[2022-11-08 09:10] VITALS: BP 140/80; PULSE 78; O2SAT 96
--- NOTE | 2022-12-31 12:02 | MHC.PT.OD ---
[facility] [place] Office [place] Office [place] Office [address] Sourav Mcgregor 140 [facility] [phone] F: [phone] F: [phone] F: [phone] F: [phone] Physical Therapy Daily Note Diagnosis: R29.898 Other symptoms and signs involving the musculoskeletal system, R26.81 Unsteadiness on feet, Unsteadiness of feet, other symptoms and signs involving the musculoskeletal system, Parkinsons disease signed by Jaylon Montelongo date of script 10/29/22 Date of Surgery: Date of Evaluation: 11/08/22 Date of Treatment: 12/31/22 Treatments to Date: Cancellations to Date: No Shows to Date: Authorized Visits: 2 Insurance End Date: Precautions/ Contraindications:Fall risk, cardiac stent x5, DMII, HTN, expressive speech difficulties secondary to Parkinsons Subjective: Pt presents to office after not being seen since 11/23. Had episode of chest pain and was in the ER. Pt was seen by PCP yesterday (see notes). Pt expressing he is sleepy today Trazadone makes me sleep but doesn't take the pain away. Pt reports his appetite is poor. Upcoming appt with oncology on 01/21/23. Pt rates back pain as 10/10. No upcoming appt with pain management is noted in the system therapist to check with front desk monitor regarding this. Pain Score and Location: Objective Flowsheet: Tests & Measures Sp02 97%, HR 83 bpm, BP L UE 110/70mmHg Sp02 post therex: Sp02 98%, HR 84 bom, 98/78mmHG. [facility] [address] [place] [address] Primary Care Office Visit Signed with Sarai Patient: Nir Leon [facility]#: [id number] : 1950cct:[id number] Age/Sex: 72 / MADM/SER Date: 12/30/22 Loc: HO.HMGFMADM/SER Time:1022 Attending Provider: Deonte Claudio MD cc: Deonte Claudio MD~ ADDENDUM He will return in 1 month to follow-up chronic back pain from spinal stenosis. Followed by pain management and has MRI awaiting completion/failure of physical therapy. Currently treating with tramadol as we are avoiding NSAIDs due to CRF. Addendum Documented By:Deonte Claudio MD12/30/22 1201 Addendum Signed By:<Electronically signed by Deonte Claudio MD>12/30/22 1201 Vital Signs 12/30/22 10:38 Height 5 ft 6 in Weight 151 lb 2 oz BMI 24.4 BP 132/74 Blood Pressure Location Lt brachial Position Sitting Pulse 81 Pulse Source Pulse Oximeter Pulse Oximetry (%) 97 Oxygen Delivery Method Room Air Intake Visit Reasons: f/u back pain Intake Note: Patient is here with back pain follow up, and patient's would like to discuss concerns of losing memory, losing weight. Allergies Iodinated Contrast Media [CONTRAST, IV] Allergy (Intermediate, Verified 12/30/22 10:40) RASH AT IV SITE. BENEDRYL GIVEN WITH GOOD EFFECT adhesive tape Adverse Reaction (Verified 12/30/22 10:40) Rash Tobacco use date assessed: 10/20/22 Fall risk assessment: 1 Fall in past year HPI f/u back pain HPI Details Patient is here with back pain follow up, and patient's would like to discuss concerns of losing memory, losing weight. 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 Nocturnal hypoxia Overweight (BMI 25.0-29.9) Pulmonary nodule Stented coronary artery Surgical History History of cataract surgery (~2019) History of colonoscopy History of cystoscopy (~2020) History of esophagogastroduodenoscopy (EGD) History of heart artery stent History of prostatectomy Hx of cardiac cath Family History Father Sudden cardiac CVD (cardiovascular disease) Mother Hx of heart surgery CVD (cardiovascular disease) Social History Household Members: Spouse Housing: House Do you presently have visiting nurse or other home services: No Alcohol intake: former Patient Tobacco Use Status: Former Tobacco user e-Cigarette/Vaping Use: Never Used Second Hand Smoke Exposure: No Advance Directives Date on File: 03/31/21 service: Yes Current occupational status: retired Current occupation: rt handed Current occupational exposures/hazards: No Cognitive needs: No Hearing needs: No Vision needs: Yes (reading glasses) Questionnaire Thrive Questionnaire Date Thrive assessed: 03/24/21 ROXIE-7 AMB Questionnaire ROXIE-7 Date ROXIE - 7 assessed: 04/16/22 Source: Developed by Drs. Jay Raymond, Yamel Camacho, Jose Francisco Garcia and colleagues, with an educational jonathan from [employer]. Review of Systems Const Details: Weight loss Denies chills, Denies fatigue, Denies fever(s), Denies headache(s) and Denies weakness ENT Denies dizziness and Denies headache(s) Card Denies dyspnea Resp Denies cough, Denies dyspnea, Denies wheezing and Denies other (shortness of breath) Musc Denies numbness and Denies tingling Neuro Details: memory loss Denies dizziness, Denies headache(s), Denies numbness, Denies tingling and Denies weakness Psych Denies anxiety and Denies depression Endo Denies fatigue Aller/Immun Denies wheezing Physical exam (Primary Care) Vital Signs: Last Vital Signs Pulse 81 12/30/22 10:38 BP 132/74 12/30/22 10:38 Pulse Ox 97 12/30/22 10:38 Oxygen Delivery Method Room Air 12/30/22 10:38 BMI result Body Mass Index 24.4 Tobacco/Smoking Status: Tobacco use Status Tobacco use date assessed 10/20/22 12/30/22 10:42 Patient Tobacco Use Status Former Tobacco user 12/30/22 10:42 e-Cigarette/Vaping Use Never Used 12/30/22 10:42 Thrive Assessment: Date of Thrive Assessment Date Thrive assessed 03/24/21 12/30/22 10:42 Const General: well developed; No acute distress Nutritional Appearance: well nourished Orientation/consciousness: patient oriented x3 [facility] Head: Yes normocephalic and Yes atraumatic Eyes General: appearance normal, both eyes and all related structures Pupils: Equal, round and reactive pupils present EOM: EOMs intact bilaterally Resp Effort & Inspection: normal respiratory effort Neuro Other: Parkinsonian gait General: patient oriented x3 and gait normal Cranial nerves: Yes Equal, round and reactive pupils present Psych Affect: normal affect Assessment and Plan Assessment & Plan (1) Spinal stenosis: Code(s): M48.00 - Spinal stenosis, site unspecified Qualifiers: Neurogenic claudication status: with neurogenic claudication Spinal region: lumbar Qualified Code(s): M48.062 - Spinal stenosis, lumbar region with neurogenic claudication Plan: Ongoing pain from spinal stenosis. Followed by pain management and they are planning injection therapy but awaiting MRI. MRI is delayed as patient needs to have completed or failed 6 weeks of physical therapy. Patient has begun physical therapy but notes significant pain while doing this. He will continue for now. Patient notes that tramadol is helping. History of chronic renal failure so avoiding NSAIDs. Will refill script for tramadol. Follow-up with physical therapy and pain management. (2) Back pain: Code(s): M54.9 - Dorsalgia, unspecified Plan: As above (3) Parkinsonism: Code(s): G20 - Parkinson's disease Plan: Parkinsonism and is managed by Neurology at [facility] He notes worsening memory loss. Advised he follow-up with his neurologist. (4) Chronic renal failure: Code(s): N18.9 - Chronic kidney disease, unspecified Plan: Followed by Nephrology but his is afraid he likely for got to go to his last appointment. Asking the front office to look into this and reschedule if possible. (5) Weight loss, non-intentional: Code(s): R63.4 - Abnormal weight loss Plan: Unintentional weight loss of 20 lb over the last 4 months. Patient notes some lack of appetite or early satiety. Recent chest x-ray was unremarkable. Will give him a script for glucerna as he is diabetic. If he continues to lose weight, will refer to GI for further investigation (6) Chronic anemia: Code(s): D64.9 - Anemia, unspecified Plan: Referred to Hematology-Oncology Orders: Orders Prostate Specific Antigen 6 Months C61 - Malignant neoplasm of prostate Referrals Hematology & Oncology Referral D64.9 - Anemia, unspecified Medications: New nut.tx.gluc.intol,lac-free,soy (Glucerna Advance oral liquid) 1 ea PO DAILY 21,330 mL 3RF 90 days E11.9 - Type 2 diabetes mellitus without complications, I25.10 - Atherosclerotic heart disease of [place] coronary artery without angina pectoris, J44.9 - Chronic obstructive pulmonary disease, unspecified, R63.4 - Abnormal weight loss Refilled tramadol [employer] verified. Partial refill upon request. 50 mg PO DAILY 30 days PRN 20 tabs 0RF pain Coding Level of Care Code Est Pt Level 4 (34558) Diagnoses Spinal stenosis M48.062 Neurogenic claudication status: with neurogenic claudication Spinal region: lumbar Back pain M54.9 Parkinsonism G20 Chronic renal failure N18.9 Weight loss, non-intentional R63.4 Chronic anemia D64.9 Documented By:Deonte Claudio MD12/30/22 1036 Signed By:<Electronically signed by Deonte Claudio MD>12/30/22 1200 Emergency Department Note Signed Patient: Nir Leon [facility]#: [id number] : 3Acct:[id number] Age/Sex: 71 / MADM Date: 12/07/21 Loc: HO.ED Date of Service: Attending Dr: cc: Deonte Claudio MD~ HPI - Chest Pain General Chief Complaint: Chest Pain Stated Complaint: Chest pain Time Seen by Provider: 12/07/21 14:14 Source: patient and family Limitations: no limitations History of Present Illness HPI narrative: 70-year-old male with a past medical history of insulin-dependent diabetes, hypertension, coronary artery disease with 5 stents on Plavix, COPD, hyperlipidemia here with chest pain which began around 12 30 while the patient was walking outside. Tells me he started to feel hot all over, nauseous and felt short of breath. He tells me he sat down and took nitroglycerin x3 which improved his pain. He tells me he has a history of exertional chest pain and does take nitroglycerin at times. Tells me he normally uses it about once a month. However he does not normally require 3 doses of nitroglycerin for improvement of his pain. This made him worried today and brought him into the emergency department. On arrival he is pain free. He does tell me that at 12:00 o'clock this afternoon he did eat Serbian rice and pork which was quite greasy and fatty. He does report that he has some nausea and upper abdominal discomfort. Related Data Home Medications Medication Instructions Recorded Confirmed carbidopa 25 mg-levodopa 100 mg 1 tab PO TID@0900,1200,1600 06/23/20 11/06/21 tablet aspirin 81 mg tablet,delayed 81 mg PO DAILY 08/26/20 11/06/21 release (Adult Low Dose Aspirin) vitamin B complex (B 1 tab PO DAILY 08/26/20 11/06/21 Complex-Vitamin B12) fluticasone propionate 50 1 spray INTRANASAL BID PRN 03/30/21 11/06/21 mcg/actuation nasal spray,suspension cholecalciferol (vitamin D3) 25 25 mcg PO DAILY 05/20/21 11/06/21 mcg (1,000 unit) capsule blood sugar diagnostic (FreeStyle #10 ea 06/05/21 11/06/21 Lite Strips) fluoride (sodium) 1.1 % dental gel PO 06/05/21 11/06/21 (Sodium Fluoride 5000 Dry Mouth) gabapentin 300 mg capsule 300 mg PO DAILY 09/08/21 11/06/21 pramipexole 0.25 mg tablet 0.25 mg PO BID 09/08/21 11/06/21 solifenacin 10 mg tablet 10 mg PO DAILY 10/26/21 11/06/21 carbidopa ER 50 mg-levodopa 200 mg 1 tab PO BEDTIME 11/10/21 tablet,extended release gabapentin 100 mg capsule mg PO 11/10/21 trazodone 50 mg tablet 75 mg PO BEDTIME 11/10/21 Previous Rx's Medication Instructions Recorded montelukast 10 mg tablet 10 mg PO QPM #90 tab 04/27/21 lidocaine 5 % topical patch 1 patch TOPICAL DAILY 30 Days #30 05/05/21 (Lidoderm) ea umeclidinium 62.5 mcg-vilanterol 1 inh INHALATION DAILY #60 ea 07/02/21 25 mcg/actuation powdr for inhalation (Anoro Ellipta) albuterol sulfate 2.5 mg (3 mL) INHALATION BID 30 08/18/21 Days #180 ml trazodone 100 mg tablet 100 mg PO BEDTIME #90 tab 09/21/21 dulaglutide 1.5 mg/0.5 mL 1.5 mg (0.5 mL) SUBCUT SA #6 ml 09/25/21 subcutaneous pen injector (Trulicity) insulin glargine 100 unit/mL (3 20 unit (0.2 mL) SUBCUT QPM 90 09/25/21 mL) subcutaneous pen (Lantus Days #30 ml Solostar U-100 Insulin) nitroglycerin 0.4 mg sublingual 0.4 mg SUBLINGUAL Q5M PRN #20 tab 10/02/21 tablet tamsulosin 0.4 mg capsule 0.4 mg PO BEDTIME 90 Days #90 cap 10/26/21 clopidogrel 75 mg tablet 75 mg PO DAILY #90 tab 11/06/21 metoprolol succinate 25 mg 25 mg PO DAILY #90 tab 11/06/21 tablet,extended release 24 hr rosuvastatin 40 mg tablet 40 mg PO BEDTIME 90 Days #90 tab 11/06/21 mirabegron 25 mg tablet,extended 25 mg PO DAILY 30 Days #30 tab 11/10/21 release 24 hr (Myrbetriq) amlodipine 2.5 mg tablet 2.5 mg PO QPM #90 tab 11/23/21 metformin 500 mg tablet,extended 500 mg PO BID #180 tab 11/26/21 release 24 hr Allergies Allergy/AdvReac Type Severity Reaction Status Date / Time Iodinated Contrast Media Allergy Intermediate RASH AT IV Verified 11/19/21 11:11 [CONTRAST, IV] SITE. BENEDRYL GIVEN WITH GOOD EFFECT adhesive tape AdvReac Rash Verified 11/19/21 11:11 Review of Systems Review of Systems: Yes all other systems are reviewed and are negative Constitutional: Constitutional: Reports no additional constitutional complaints, Denies body ache(s), Denies chills, Reports excessive sweating, Denies fever(s), Denies headache(s) and Denies weakness Eyes: Eyes: Reports no additional eye complaints and Denies change in vision ENT: Reports system reviewed and no additional complaints, except as documented, Denies dizziness, Denies headache(s), Denies nasal congestion, Denies nasal discharge and Denies neck pain Cardiovascular: Cardiovascular: Reports no additional cardiovascular complaints, Reports chest pain, Denies leg edema and Reports dyspnea Respiratory: Respiratory: Reports no additional respiratory complaints, Denies cough and Reports dyspnea Gastrointestinal: Gastrointestinal: Reports no additional gastrointestinal complaints, Reports abdominal pain, Denies diarrhea, Reports nausea and Denies vomiting Genitourinary: Genitourinary: Denies urinary incontinence Musculoskeletal: Musculoskeletal: Reports no additional musculoskeletal complaints, Denies back pain, Denies arthralgias, Denies joint swelling, Denies neck pain, Denies numbness and Denies tingling Integumentary/Breasts: Skin/Breast: Reports system reviewed and no additional complaints, except as docu and Denies rash Neurologic: Reports system reviewed and no additional complaints, except as documented, Denies Abnormal speech present, Denies dizziness, Denies headache(s), Denies numbness, Denies tingling and Denies weakness Endocrine: Endocrine: Reports excessive sweating PMFSH Past Medical History Attestation statement: The following information was validated with the patient. Source: old records reviewed and nursing notes reviewed Medical History CAD (coronary artery disease) Carotid artery disease COPD (chronic obstructive pulmonary disease) Diabetes type 2, uncontrolled (~1999) Diabetic nephropathy associated with type 2 diabetes mellitus Diabetic polyneuropathy associated with type 2 diabetes mellitus Dyslipidemia Dyspnea History of hepatitis C History of ME (myocardial infarction) History of prostate cancer (~2016) 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 care home (current) use of insulin Nocturnal hypoxia Overweight (BMI 25.0-29.9) Stented coronary artery Surgical History History of cataract surgery (~2019) History of colonoscopy History of cystoscopy (~2020) History of esophagogastroduodenoscopy (EGD) History of heart artery stent History of prostatectomy Hx of cardiac cath Family History Family History Father Sudden cardiac CVD (cardiovascular disease) Mother Hx of heart surgery CVD (cardiovascular disease) Social History Social History Household Members: Spouse Housing: House Do you presently have visiting nurse or other home services: No Alcohol intake: former Patient Tobacco Use Status: Former Tobacco user e-Cigarette/Vaping Use: Never Used Second Hand Smoke Exposure: No Advance Directives: Yes Advance Directives on File: Yes Advance Directives Date on File: 03/31/21 service: Yes Current occupational status: retired Current occupation: rt handed Current occupational exposures/hazards: No Cognitive needs: No Hearing needs: No Vision needs: Yes (reading glasses) Physical Exam Vital Signs: Vital Signs: Last Vital Signs Temp 98.6 F 12/07/21 14:58 Pulse 86 12/07/21 14:58 Resp 18 12/07/21 14:58 BP 136/81 12/07/21 14:58 Pulse Ox 98 12/07/21 14:58 BMI result Body Mass Index 26.6 Const: General: cooperative, healthy appearing, comfortable and no acute distress Orientation/consciousness: patient oriented x3 Limitations: no limitations HEENT: Head: Yes normal to inspection Ears: hearing grossly normal bilaterally and TM's normal bilaterally General nose exam: Normal external nose present Face and sinus: Yes normal facial exam Mouth: Normal oral and palatal mucosa present Throat: Yes posterior oropharynx normal, Yes tonsils normal and Yes uvula midline Eyes: General: appearance normal, both eyes and all related structures Pupils: Equal, round and reactive pupils present Neck: Neck: Yes normal visual inspection, Yes full ROM, Yes no lymphadenopathy and Yes no meningeal signs Chest: Chest palpation & inspection: normal inspection of the chest Resp: Effort & Inspection: normal respiratory effort Auscultation: clear to auscultation bilaterally Cardio: Rate: regular rate Rhythm: regular rhythm Peripheral pulses: Peripheral pulses 2+ throughout GI: Inspection: Yes normal to inspection Palpation (GI): Soft to palpation and Tenderness to palpation present (GI) (TTP epigastric/RUQ) Auscultation: normal bowel sounds Back/Spine/Pelvis: Thoracic/Lumbar Spine: thoracic and lumbar spine normal to inspection Skin: General skin exam: no rashes or lesions noted Neuro: General: patient oriented x3, no meningeal signs, no focal motor deficits and normal sensation to monofilament Cranial nerves: Yes Equal, round and reactive pupils present Cognition (Neuro): normal cognition Speech: No Abnormal speech present Gait exam (Neuro): Normal gait present Motor exam (neuro): 5/5 motor strength present throughout Extrem: General: Yes normal to inspection, Yes no pedal edema and Yes no calf tenderness Course Course Course Narrative: 71 year old male here with episode of exertional chest pain with associated nausea, diaphoresis and shortness of breath which improved with nitro. Will need labs, EKG, CXR, covid screen -this did occur after eating some fatty/greasy foods for lunch. Has some mild upper AP to palp with no rebound or guarding. Will obtain abdominal US. 1540-Reviewed cardiology notes from last visit 11/04/21 -History of CAD with multivessel PCI.? On dual anti-platelet therapy.?Has complained of intermittent CP. Nuclear stress test on 10/21/2021 showing no infarct or ischemia, EF 70% with stress and 43% with rest however looked higher.? Last echo done 03/31/2021 showed EF 55-60%, no valve abnormalities and basal inferior hypokinesis.? Reevaluation(s) Reevaluation #1: Serial EKGs show no ischemic changes. Troponin x2 are unremarkable. Additional labs are normal. Chest x-ray shows no acute finding. Gallbladder visualized on ultrasound and is unremarkable. Patient feels better. He has had no pain since being here in the chest. I did discuss his case with Dr. Moreno. He feels like the patient can be managed outpatient on his anti-anginal therapies and does not need admission. I spoke to the patient his . I recommended the return for any change in his symptoms or persistent symptoms. Reviewed worrisome signs and symptoms of when to return to the emergency department. Comfortable discharge home. Time: 18:00 MDM - Chest Pain MDM Narrative Medical decision making narrative: acs, acute ro, pancreatitis, gerd Medical Records Data Attestation: I reviewed the patient's medical records. Lab Data Attestation: I reviewed the patient's lab results. Result diagrams: 12/07/21 14:03 12/07/21 14:03 Labs: Lab Results 12/07/21 12/07/21 12/07/21 Range/Units 14:03 14:03 14:03 WBC 7.6 (4.8-10.8) X10*3/uL RBC 3.87 L (4.60-5.80) X10*6/uL Hgb 11.8 L (14.0-18.0) g/dl Hct 35.6 L (42.0-52.0) % MCV 92.0 (80.0-98.0) fL MCH 30.5 (27.0-33.0) pg MCHC 33.1 (31.0-36.0) g/dl RDW 13.4 (11.0-16.0) % Plt Count 196 (160-400) X10*3/uL MPV 10.4 (9.4-12.4) fL Immature Gran % (Auto) 0.4 (0.0-0.4) % Neut % (Auto) 74.0 H (45-73) % Lymph % (Auto) 13.0 L (20-40) % [place] % (Auto) 9.7 (2-11) % Eos % (Auto) 2.6 (0-4) % Baso % (Auto) 0.3 (0-2) % Lymph # (Auto) 1.0 L (1.2-4.9) X10*3/uL [place] # (Auto) 0.7 (0.1-1.2) X10*3/uL Eos # (Auto) 0.2 (0.0-0.4) X10*3/uL Baso # (Auto) 0.0 (0.0-0.2) X10*3/uL Abs Immat Gran (auto) 0.03 (0.00-0.03) X10*3/uL Absolute Neuts (auto) 5.6 (2.0-8.3) x10*3/uL Absolute Nucleated RBC 0.000 (0.0-0.012) X10*3/uL Nucleated RBC % (auto) 0.0 (0.0-0.2) /100WBC Sodium 136 (135-145) mmol/L Potassium 4.4 (3.3-5.1) mmol/L Chloride 102 (96-108) mmol/L Carbon Dioxide 25 (22-29) mmol/L Anion Gap 13 (12-20) BUN 27 H (9-16) mg/dL Creatinine 1.53 H (0.5-1.4) mg/dL Estim Creat Clear Calc 41.1 Estimated GFR 45 Random Glucose 171 H D (60-115) mg/dL Calcium 9.5 (8.4-10.2) mg/dL Magnesium 1.8 (1.6-2.6) mg/dL Total Bilirubin 0.2 (0.0-1.0) mg/dL Direct Bilirubin 0.2 (0.0-0.5) mg/dL AST 23 (5-37) U/L ALT 34 (0-40) U/L Alkaline Phosphatase 121 H D (39-117) U/L Troponin I High Sens < 3.5 (<3.5-35.0) ng/L Total Protein 6.7 (6.5-8.0) g/dL Albumin 4.1 (3.5-5.0) g/dL Lipase 10 (8-78) U/L COVID-19 (SEMAJ) (Negative) COVID-19 Clin Com 12/07/21 12/07/21 Range/Units 16:36 17:09 WBC (4.8-10.8) X10*3/uL RBC (4.60-5.80) X10*6/uL Hgb (14.0-18.0) g/dl Hct (42.0-52.0) % MCV (80.0-98.0) fL MCH (27.0-33.0) pg MCHC (31.0-36.0) g/dl RDW (11.0-16.0) % Plt Count (160-400) X10*3/uL MPV (9.4-12.4) fL Immature Gran % (Auto) (0.0-0.4) % Neut % (Auto) (45-73) % Lymph % (Auto) (20-40) % [place] % (Auto) (2-11) % Eos % (Auto) (0-4) % Baso % (Auto) (0-2) % Lymph # (Auto) (1.2-4.9) X10*3/uL [place] # (Auto) (0.1-1.2) X10*3/uL Eos # (Auto) (0.0-0.4) X10*3/uL Baso # (Auto) (0.0-0.2) X10*3/uL Abs Immat Gran (auto) (0.00-0.03) X10*3/uL Absolute Neuts (auto) (2.0-8.3) x10*3/uL Absolute Nucleated RBC (0.0-0.012) X10*3/uL Nucleated RBC % (auto) (0.0-0.2) /100WBC Sodium (135-145) mmol/L Potassium (3.3-5.1) mmol/L Chloride (96-108) mmol/L Carbon Dioxide (22-29) mmol/L Anion Gap (12-20) BUN (9-16) mg/dL Creatinine (0.5-1.4) mg/dL Estim Creat Clear Calc Estimated GFR Random Glucose (60-115) mg/dL Calcium (8.4-10.2) mg/dL Magnesium (1.6-2.6) mg/dL Total Bilirubin (0.0-1.0) mg/dL Direct Bilirubin (0.0-0.5) mg/dL AST (5-37) U/L ALT (0-40) U/L Alkaline Phosphatase (39-117) U/L Troponin I High Sens < 3.5 (<3.5-35.0) ng/L Total Protein (6.5-8.0) g/dL Albumin (3.5-5.0) g/dL Lipase (8-78) U/L COVID-19 (SEMAJ) Negative (Negative) COVID-19 Clin Com See Note Imaging Data Chest x-ray: Attestation: I personally reviewed and interpreted this imaging study as follows: Radiologist's impression: [place] [id number] XRay Report Signed Patient: Nir Leon MR#: [id number] : 1950 Acct:[id number] Age/Sex: 71 / M ADM Date: 12/07/21 Loc: .ED Attending Dr: Ordering Physician: Rosa Grubbs NP Date of Service: 12/07/21 Procedure(s): XR chest 2V Accession Number(s): [id number] cc: Rosa Grubbs NP~ EXAMINATION: XR CHEST CLINICAL INFORMATION: Chest pain COMPARISON: Chest x-ray 03/30/2021. CT of chest 04/06/2017 TECHNIQUE: 2 views of the chest were obtained. FINDINGS: Biapical pleural parenchymal thickening. Faint nodular opacity left lung apex measuring about 1 cm projecting over the anterior right second rib. This is similar to the prior chest x-ray of 03/30/2021, chronic finding. No acute airspace disease. No pleural effusion or pneumothorax. Heart size is normal. There are vascular calcifications of thoracic aorta. Cardiac and mediastinal contours are normal. Multilevel degenerative spondylosis spine. XR/XR chest 2V IMPRESSION: No acute abnormality of chest. US - abdomen: Attestation: I personally reviewed and interpreted this imaging study as follows: Radiologist's impression: FINDINGS: GALLBLADDER: Normal. The gallbladder is physiologically distended without evidence of stones, sludge, polyps, wall thickening or pericholecystic fluid. Positive ultrasound Chen's sign. COMMON BILE DUCT: Normal in caliber measuring 0.4 cm in diameter. US/US abdomen limited IMPRESSION: Normal ultrasound of the gallbladder. No bile duct dilatation. ECG Data ECG #1: Attestation: I personally reviewed and interpreted this ECG as follows: ECG interpretation date: 12/07/21 ECG interpretation time: 13:51 Interpretation: Normal sinus rhythm with rate of 81, normal CA, normal QRS, normal QT 1416-repeat unchanged with normal sinus rhythm with rate 83, normal CA, normal QRS, normal QT Discharge Plan Discharge Clinical Impression: Chest pain Patient Disposition: Home, Self-Care Instructions: Chest Pain (DC) Additional Instructions: Your blood work, EKG and imaging looked reassuring. We have determined your low risk at this time. We did discuss her case with her documentation clerk and he recommended following up with him in the office. Please use her nitroglycerin as needed. Do not hesitate to return or seek additional care or any chest pain, or change in symptoms Prescriptions: No Action montelukast 10 mg tablet 10 mg PO QPM Qty: 90 3RF albuterol sulfate 2.5 mg /3 mL (0.083 %) solution for nebulization 2.5 mg inhalation BID 30 Days Qty: 180 11RF trazodone 100 mg tablet 100 mg PO BEDTIME Qty: 90 1RF tamsulosin 0.4 mg capsule 0.4 mg PO BEDTIME 90 Days Qty: 90 1RF amlodipine 2.5 mg tablet 2.5 mg PO QPM Qty: 90 3RF metformin 500 mg tablet extended release 24 hr 500 mg PO BID Qty: 180 2RF fluticasone propionate 50 mcg/actuation spray,suspension 1 spray intranasal BID PRN (Reason: Allergy Symptoms) 0RF lidocaine [Lidoderm] 5 % adhesive patch,medicated 1 patch topical DAILY 30 Days Qty: 30 2RF Rx Instructions: leave on most painful area for up to 12 hrs solifenacin 10 mg tablet 10 mg PO DAILY 0RF carbidopa-levodopa 25-100 mg tablet 1 tab PO TID@0900,1200,1600 0RF aspirin [Adult Low Dose Aspirin] 81 mg tablet,delayed release (DR/EC) 81 mg PO DAILY 0RF vitamin B complex [B Complex-Vitamin B12] Tablet 1 tab PO DAILY 0RF (DME) FreeStyle Lite Strips Strip See Rx Instructions ea Not Applicable TID Qty: 10 0RF Rx Instructions: As directed two times a day cholecalciferol (vitamin D3) 25 mcg (1,000 unit) capsule 25 mcg PO DAILY 0RF Anoro Ellipta 62.5-25 mcg/actuation blister with device 1 inh inhalation DAILY Qty: 60 11RF fluoride (sodium) [Sodium Fluoride 5000 Dry Mouth] 1.1 % gel PO 0RF Trulicity 1.5 mg/0.5 mL pen injector 1.5 mg subcut SA Qty: 6 2RF Lantus Solostar U-100 Insulin 100 unit/mL (3 mL) insulin pen 20 unit subcut QPM 90 Days Qty: 30 1RF nitroglycerin 0.4 mg tablet, sublingual 0.4 mg sublingual Q5M PRN (Reason: chest pain) Qty: 20 1RF Rx Instructions: do not exceed 3 doses per episode carbidopa-levodopa 50-200 mg tablet extended release 1 tab PO BEDTIME 0RF gabapentin 100 mg capsule PO 0RF trazodone 50 mg tablet 75 mg PO BEDTIME 0RF Myrbetriq 25 mg tablet extended release 24 hr 25 mg PO DAILY 30 Days Qty: 30 1RF pramipexole 0.25 mg tablet 0.25 mg PO BID 0RF gabapentin 300 mg capsule 300 mg PO DAILY 0RF clopidogrel 75 mg tablet 75 mg PO DAILY Qty: 90 3RF metoprolol succinate 25 mg tablet extended release 24 hr 25 mg PO DAILY Qty: 90 3RF rosuvastatin 40 mg tablet 40 mg PO BEDTIME 90 Days Qty: 90 3RF Referrals: Tim Moreno MD [Physician] - 5 days Dictated By:Rosa Grubbs [employer] SCENE TECHNICIAN Signed By:<Electronically signed by Rosa Grubbs>12/07/21 1801 <Electronically signed by Daija Hardy DO>12/07/21 1811 DD/ 1421 Exercises SCIFIT bike level 1.0 x 10 minutes for warm-up with BP assessed at end Supine LBTR with cues for pace,goals of exercise. Supine for hip abd/add with slide-board x 2 sets 10R. Cues and encouragement for daily activity, SL open book for gentle trunk rotation x 5R x 10 sec hold, review of bridge with cues for hip activation (sx in lumbar so this was stopped). Sit<>stand with UE/ chair support x 2 sets 5R. Max verbal and tactile cues for technique with movement. Pt expressing increased thirst the past few weeks (history of DM, did not eat, no blood sugar screening at home) Dr. Claudio's chief medical technologist checked his blood sugar per therapist request: 118 during session. Discussion about potential benefit in of walker/rollator to ease back pain and promote greater tolerance for walking. Pt trialed with RW in the office, reports he does not wish to use or does not feel he is ready for this. Pt wearing suspenders on his pants with some relief reported. [facility] [place] [address] [place] [id number] Office Visit Report Signed Patient: Nir Leon [facility]#: [id number] : [id number]:[id number] Age/Sex: 72 / MADM/SER Date: 11/22/22 Loc: HO.HPSADM/SER Time:941 Attending Provider: Levon Mathias MD cc: Deonte Claudio MD~ Intake Vital Signs 11/22/22 09:52 Height 5 ft 6 in Weight 160 lb BMI 25.8 BP 132/78 Blood Pressure Location Rt brachial Position Sitting Pulse 80 Pulse Source Pulse Oximeter Pulse Oximetry (%) 98 Oxygen Delivery Method Room Air Intake Visit Reasons: Dyspnea Repair Service Dispatcher Required: No Allergies Iodinated Contrast Media [CONTRAST, IV] Allergy (Intermediate, Verified 11/22/22 09:54) RASH AT IV SITE. BENEDRYL GIVEN WITH GOOD EFFECT adhesive tape Adverse Reaction (Verified 11/22/22 09:54) Rash HPI HPI Comments History of Present Illness Details The patient is a 72-year-old gentleman known COPD. He also has a history of Parkinson's disease and diabetes. He has been stable on his current respiratory regimen. He has good adherence with his respiratory medications. I will make sure to send mother refills that he needs. In the meantime he does have some dyspnea on exertion. Pjhj-xh-[id number] severity. Does get better with rest. We did talk about pulmonary rehabilitation. We did review his imaging studies including a chest x-ray he had over the summer of 2018 which was without any acute disease. Also, CT scan of the chest that was done in 2017 demonstrating emphysematous changes and no nodular or parenchymal disease noted. 07/08/2020 the patient is a telephone visit. Overall he has been doing well. He has been using the Anoro. However, the Co pays very high. He does complaint of dyspnea on exertion mild in severity. The medication does help him. He has not had to use his rescue inhaler in he has not required any prednisone at this time. He is being careful with the COVID-19 infections. At this point I am will start him on nebulized therapy. Will have to provide him with nebulizer supplies at this time. 12/23/2020 the patient is here for pulmonary follow-up visit. Overall the patient has doing well until the last week or so. He started developing worsening cough moderate severity. Associated with chest discomfort. He does get some relief with the chest discomfort when he uses the nebulized therapy. The chest discomfort he describes a pressure, bandlike sensation that of the chest. Usually moderate in severity. Usually clears after about 10 minutes. At this point he does not have the symptoms. Patient does not have any nitroglycerin at home. At this point will maximize his respiratory therapy and will treated for bronchitis. If the chest pain returns he should seek medical attention in case is cardiac. 07/02/2021 the patient is here for a pulmonary follow-up visit. Overall he is doing well from a respiratory status. Still dealing with significant back and hip discomfort. Is affecting his ability to function specially in the morning. Unfortunately he has been relying on ibuprofen at high doses. Patient now has some renal insufficiency. I emphasized to him that he should not be using the NSAIDs at this time. He will be following up with his primary care doctor regarding that issue. He continues on the Trelegy inhaler. At this point the patient has been doing very well. But, I do think that he will do better off the steroid inhaler component. Therefore I will switch him over to Anoro. 10/29/2021 the patient is here for a pulmonary follow-up visit. He still complaining of daytime drowsiness in addition to headaches. The patient does have a history of Parkinson's and also COPD. He did undergo home sleep study which was personally by me. It appears that he has AHI was only about 1 event per hour. However, he did desaturate for a significant period of time, maintaining a pulse ox below 88% for about 20 minutes. Explained to the patient that he does not have any evidence of any sleep apnea but it appears that he does have nocturnal hypoxemia due to his underlying COPD. At this moment the patient will benefit from oxygen supplementation. We will arrange for him to start oxygen therapy at 2 L while sleeping with local [employer] company. In the meantime continues on the Anoro with good effect. 05/19/2022 the patient is here for a pulmonary follow-up visit. Overall the patient is doing well from a respiratory status. He stopped using the Anoro has he does not needed at this time. He does have a rescue inhaler that he rarely uses either. He would like to hold off on his maintenance inhalers at this time. He does use the oxygen at nighttime with good effect. It appears that his Parkinson's is stable. He is eating well without any choking episodes. We did review his most recent chest x-ray from November 2021 demonstrating a pulmonary nodular opacity. At this point the patient will continue with the oxygen at nighttime and with his rescue inhaler. If he has any worsening respiratory symptoms he will call in order to reinstitute his maintenance inhaler. 08/30/2022 the patient is here for a pulmonary follow-up visit. He has multiple complaints. Has not having worsening sinus congestion. Having significant drainage greenish in color from the nose. Specially when he is taking a shower he notices significant amount of drainage. He has been having hard time using the oxygen because of the nasal congestion. The patient has tried gwgf-vff-zmvzlcz therapies without any significant improvement. On examination he does have significant purulent secretions left naris more than the right side. Significant erythema also noted. Therefore he will need antibiotics. In the meantime the patient also complains of dyspnea on exertion. In the last visit he went to stop his maintenance inhaler. I do believe that he benefits from being on a maintenance inhaler at this time. I will send Patti to see if this is effective for him. He also has his rescue inhaler that he can use as needed. He is noticing a little more disability as far as his walking. He is being careful not to follow-up because of his underlying Parkinson's. He tries to stay active. We also reviewed his last chest x-ray demonstrating calcified pulmonary nodule consistent with granuloma. If he has any worsening respiratory symptoms will further request additional imaging studies. 11/22/2022 the patient is here for a pulmonary follow-up visit. The patient recently started developing a cough and had at chest cold. Currently still a little bit better. Sometimes has a hard time expectorating. During the last visit when I saw him he was having issues with sinusitis and that is all better. He denies choking when he eats. He does have a weakened cough because of the Parkinson's. In addition to this he is using the oxygen at nighttime. The oxygen therapy is affecting beneficial. I did recommend that he use it every night specially since he has Parkinson's. He continues uses respiratory therapy. On examination he does have some rhonchi in the right lung base which is new for him. Seems to be isolated and I am concerned with micro aspirations and bronchopneumonia. Therefore I will have him get a chest x-ray. I did review the chest x-ray he had back in June that was relatively stable. Will go ahead and give him a course of azithromycin. The patient is no better if he gets worse he needs to call the office. 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 Nocturnal hypoxia Overweight (BMI 25.0-29.9) Pulmonary nodule Stented coronary artery Surgical History History of cataract surgery (~2019) History of colonoscopy History of cystoscopy (~2020) History of esophagogastroduodenoscopy (EGD) History of heart artery stent History of prostatectomy Hx of cardiac cath Family History Father Sudden cardiac CVD (cardiovascular disease) Mother Hx of heart surgery CVD (cardiovascular disease) Social History Household Members: Spouse Housing: House Do you presently have visiting nurse or other home services: No Alcohol intake: former Patient Tobacco Use Status: Former Tobacco user e-Cigarette/Vaping Use: Never Used Second Hand Smoke Exposure: No Advance Directives Date on File: 03/31/21 service: Yes Current occupational status: retired Current occupation: rt handed Current occupatonal exposures/hazards: No Cognitive needs: No Hearing needs: No Vision needs: Yes (reading glasses) Review of Systems Const Denies chills, Denies fatigue, Denies fever(s) and Denies headache(s) ENT Denies dizziness and Denies headache(s) Card Denies chest pain, Denies lightheadedness, Denies dyspnea and Denies other (Palpitations) Resp Reports change in phlegm color, Reports chest congestion, Reports cough, Denies dyspnea, Denies wheezing and Denies other ( shortness of breath) Neuro Details: Mild achiness and mildly unsteady gait Denies dizziness and Denies headache(s) Psych Details: Mild anxiety and difficulty sleeping Denies depression Endo Denies fatigue Aller/Immun Denies wheezing Physical Exam Vital Signs: Last Vital Signs Pulse 80 11/22/22 09:52 BP 132/78 11/22/22 09:52 Pulse Ox 98 11/22/22 09:52 Oxygen Delivery Method Room Air 11/22/22 09:52 BMI result Body Mass Index 25.8 Const General: cooperative, comfortable, no acute distress, alert, awake and well groomed Nutritional Appearance: thin and other (Frail appearing) Orientation/consciousness: patient oriented x3 Limitations: no limitations Neck Neck: Yes trachea midline, Yes supple and Yes no JVD Chest Chest palpation & inspection: normal inspection of the chest Resp Effort & Inspection: normal respiratory effort Auscultation: clear to auscultation bilaterally, no rales, rhonchi right lower, no wheezes and diminished lung sounds Cardio Jugular venous distension: no JVD Palpation: normal PMI Rate: regular rate Rhythm: regular rhythm Heart sounds: S1 normal heart sound present and S2 normal heart sound present GI Auscultation: normal bowel sounds Skin General skin exam: no rashes or lesions noted Neuro General: patient oriented x3 and no focal motor deficits Extrem General: Yes no clubbing, cyanosis or edema Assessment & Plan Assessment & Plan (1) COPD (chronic obstructive pulmonary disease): Code(s): J44.9 - Chronic obstructive pulmonary disease, unspecified Qualifiers: COPD type: chronic bronchitis Chronic bronchitis type: mixed simple and mucopurulent Qualified Code(s): J41.8 - Mixed simple and mucopurulent chronic bronchitis (2) Insomnia: Code(s): G47.00 - Insomnia, unspecified (3) Dyspnea: Code(s): R06.00 - Dyspnea, unspecified (4) Nocturnal hypoxia: Code(s): G47.34 - Idiopathic sleep related nonobstructive alveolar hypoventilation (5) Pulmonary nodule: Comment: based on CXR Code(s): R91.1 - Solitary pulmonary nodule (6) Bronchopneumonia: Code(s): J18.0 - Bronchopneumonia, unspecified organism Plan continue Wixela Fluticasone nasal spray Continue Trazodone 50mg Continue gabapentin Qhs continue oxygen 2L via nasal cannula while sleeping Start Azithromycin CXR PRANEETH as needed F/U 6 months Orders: Orders XR chest 2V Today J18.0 - Bronchopneumonia, unspecified organism Medications: New azithromycin 500 mg PO DAILY 5 days 5 tabs 0RF Coding Level of Care Code Est Pt Level 4 (84647 Diagnoses COPD (chronic obstructive pulmonary disease) J41.8 COPD type: chronic bronchitis Chronic bronchitis type: mixed simple and mucopurulent Insomnia G47.00 Dyspnea R06.00 Nocturnal hypoxia G47.34 Pulmonary nodule R91.1 Bronchopneumonia J18. Time Spent (min) 22 Documented By:Levon Mathias MD11/22/22 0996 Encouragement for walking routine, pt not open to use of walker to ease back pain at with ambulation at this time. Modalities Assessment: 12/31/22: Pt attends therapy today after not being seen since 11/23/22. Since that time, patient has been seen his PCP (was prescribed lidocaine patches for his back pt inquires about these being sent to [facility] on [address]- therapist spoke with Dr. Claudio re: this as no info is present in the chart when MA checked on it). Pt reports his biggest obstacle is not being able to walk prolonged distances (ie: in the grocery store, more than a block.) Pt expressing his pain is 10/10 central lower back. He is depressed re: his complex medical history. He reports decreased appetite, with concern for increased weight loss. Pt has plateaued status with PT. He has attended 3 sessions but has been given activities to ease flexibility, increased strength of trunk/LE with limited gains reported. Upon checking PCP notes, pt is advised to follow up with pain management. No follow up is noted in the system. Therapist assisted in calling pain management and was given a follow up with pain management for 01/07/23 at 10:[address] Montelongo. 11/23/22: Pt introduced to SL open book and seated trunk rotation with good tolerance. Pt verbalized some relief in his back pain post session but was hesistant to schedule any more appts in the office, he requested to trial things at home. Pt was offered information about a Parkinson's group which meets locally in the area to provide some support however pt deferred this. Pt noted to exhibit some expressive aphasia and verbalized increased word finding difficulties. Pt encouraged to make a follow up with PCP and was strongly encouraged to continue with PT at least once a week. Pt encouraged to follow up with PCP regarding concern for report of new sx. Pt is a pleasant RHD 72 y/o male with PMH significant for cardiac stent x5, Parkinson's disease, DMII, HTN, COPD, CAD, diabetic neuropathy related to type DMII, history of hepatitis C, history of ME, history of prostate CA 2017, hx cardiac cath referred to PT from DR. Montelongo for treatment of unsteadiness/Parkinson disease with history of back pain. Currently Mr. Leon, expresses he lacks any form of formal exercise regimen and is not currently expressing interest in participating in PT session. He came to the intake and was educated in the benefit of regular consistent exercise in effort to improve strength, balance, and back pain. Pt currently does not use any form of AD and verbalizes he is overwhelmed with his medical appts, cost of copayments ($40/visit for PT), and attendance in keeping up with these medical needs. Mr. Leon expresses a passion for swimming and a history of belonging to the [facility]. He was encouraged to consider involving/researching options for himself. The [facility] in [place] runs a Parkinsons group 1x/weekly and I intend to inform him of this at our next meeting. Pt exhibits tight HS, impaired strength of erector spinae, poor strength of hip extensors, impaired movement patterns, and decreased motor control,. He exhibits some degree of expressive aphasia related to his Parkinsons and has poor endurance. Pt was not very open to attendance in therapy despite therapist educating in the widespread benefits of such. Pt was agreeable to attending another appt with the therapist's encouragement in which we can review some options for self care/lumbar stabilization, flexibility options to ease his sx. Prognosis is fair based on level of complexity of diverse medical needs, his willingness/compliance to perform a HEP, and current status. PT Plan: Await plan from pain management, limited gains at this time. Pt encouraged to keep moving, keep exercising, performing slow gentle activities as tolerated. Short Term Goals: 1. Bed mobility MOD I. (IR: Rolling supine<>R SL MOD A x 1) 2. Strength bridge improvement by 4/5. (Poor bridge with report of back pain). 3. Complete scooting with good control L>R and R>L. 4. Increase HS flexibility by 25%. Prison Goals: 1. I HEP for self care, flexibility, management of back pain sx. 2. Good eccentric control during transfers. 3. Strength hip abd 5/5. 4. Encourage daily exercise program. Electronically signed by: Theodora Rob, PT, DPT
== END 2023-07-19 11:17 | disposition home or self-care (01) ==
LOC: HO.PTWFD 10:00
PROVIDERS: PCP Family Medicine; Visit Provider Internal Medicine
DX: R29.898 Other symptoms and signs involving the musculoskeletal system (principal); R26.81 Unsteadiness on feet
CPT/HCPCS: 97110; 97163; 97535

== ENCOUNTER 2023-01-06 10:25 | Outpatient (REF) | payer OTHER, MEDICARE, SELFPAY ==
--- NOTE | ~2023-01-06 | US_ITS ---
EXAMINATION: US EXTRACRANIAL CAROTID DUPLEX, BILATERAL CLINICAL INFORMATION: Carotid artery disease. COMPARISON: Carotid ultrasound 11/25/2021. TECHNIQUE: Real-time ultrasound and Doppler techniques (integrating B-mode 2-D vascular images, Doppler spectral analysis and color-flow Doppler imaging) were utilized to interrogate the extracranial carotid arteries, the vertebral arteries and proximal subclavian arteries bilaterally. The degree of stenosis is determined by criteria similar to NASCET. FINDINGS: Right Side: 1. There is mild atherosclerotic plaque seen in the bifurcation/proximal ICA region. 2. The common carotid artery PSV proximally is 59 cm/s and distally 56 cm/s. 3. The proximal internal carotid artery velocities are 52 cm/s systolic and 19 cm/s diastolic. 4. The proximal external carotid artery PSV is 94 cm/s. 5. The vertebral artery shows antegrade flow. 6. The subclavian artery waveforms are normal. Left Side: 1. There is mild atherosclerotic plaque seen in the bifurcation/proximal ICA region. 2. The common carotid artery PSV proximally is 69 cm/s and distally 75 cm/s. 3. The proximal internal carotid artery velocities are 58 cm/s systolic and 18 cm/s diastolic. 4. The proximal external carotid artery PSV is 113 cm/s. 5. The vertebral artery shows antegrade flow. 6. The subclavian artery waveforms are normal. US/US carotid duplex BI IMPRESSION: 1. RIGHT: Minimal, non-hemodynamically significant stenosis of the proximal right internal carotid artery corresponding to a 0-49% stenosis by velocity criteria. 2. LEFT: Minimal, non-hemodynamically significant stenosis of the proximal left internal carotid artery corresponding to a 0-49% stenosis by velocity criteria. 3. There is no change in the category severity of disease when compared to the previous study dated 11/25/2021.
== END 2023-01-06 10:26 | disposition home or self-care (01) ==
LOC: HO.US 10:25
PROVIDERS: Visit Provider Surgery Vascular Surgery
DX: I65.23 Occlusion and stenosis of bilateral carotid arteries (principal)
CPT/HCPCS: 93880

== ENCOUNTER → 2023-01-07 10:28 | Outpatient (BNVA) | payer OTHER, MEDICARE, SELFPAY | PROVIDERS: PCP Family Medicine; Visit Provider Internal Medicine | DX: M70.61 Trochanteric bursitis, right hip (principal) | CPT/HCPCS: 20610; J2795; J3301 ==

== ENCOUNTER 2023-01-15 00:16 | Emergency (ER) | payer OTHER, MEDICARE, SELFPAY ==
[2023-01-15 00:23] VITALS: BP 118/63; BP 126/60; PULSE 68; RESP 18; TEMP 35.5; O2SAT 100; O2SAT 99; BMI 24.2
[2023-01-15 00:39] LABS: Glucose, Whole Blood 127 mg/dL (60-115)
--- NOTE | 2023-01-15 00:39 | ECG_ITS ---
Test Reason : DIABETES Blood Pressure : / mmHG Vent. Rate : 069 BPM Atrial Rate : 069 BPM P-R Int : 192 ms QRS Dur : 090 ms QT Int : 412 ms P-R-T Axes : 079 067 074 degrees QTc Int : 441 ms Normal sinus rhythm Normal ECG When compared with ECG of 07-DEC-2021 14:16, No significant change was found Referred By: Afsaneh Blanchard Electronically Signed By:HARLEY ALVAREZ MD
[2023-01-15 01:02] LABS: Glucose, Whole Blood 122 mg/dL (60-115)
[2023-01-15 01:13] LABS: MANUAL DIFF FLAG NO
[2023-01-15 01:15] LABS: Basophils Percent Auto 0.2 % (0-2); Eosinophils Percent Auto 0.5 % (0-4); Hematocrit 34.2 % (42.0-52.0); Hemoglobin 11.4 g/dl (14.0-18.0); Imm Gran Abs Auto 0.02 X10*3/uL (0.00-0.03); Imm Gran Pct Auto 0.2 % (0.0-0.4); Lymphocytes Absolute Auto 0.4 X10*3/uL (1.2-4.9); Lymphocytes Percent Auto 4.9 % (20-40); Mean Corpuscular HGB Conc 33.3 g/dl (31.0-36.0); Mean Corpuscular Hemoglobin 30.2 pg (27.0-33.0); Mean Corpuscular Volume 90.5 fL (80.0-98.0); Mean Platelet Volume 10.4 fL (9.4-12.4); Monocytes Absolute Auto 0.7 X10*3/uL (0.1-1.2); Monocytes Percent Auto 8.3 % (2-11); Neutrophils Absolute Auto 7.2 x10*3/uL (2.0-8.3); Neutrophils Percent Auto 85.9 % (45-73); Platelet Count 201 X10*3/uL (160-400); Red Blood Count 3.78 X10*6/uL (4.60-5.80); Red Cell Distribution Width 14.5 % (11.0-16.0); White Blood Count 8.4 X10*3/uL (4.8-10.8)
[2023-01-15 01:25] LABS: Lactic Acid 1.5 mmol/L (0.5-2.0)
[2023-01-15 01:30] LABS: Alanine Aminotransferase 117 U/L (0-40); Albumin Level 3.4 g/dL (3.5-5.0); Alkaline Phosphatase 78 U/L (39-117); Anion Gap 12 (12-20); Aspartate Amino Transferase 213 U/L (5-37); Bilirubin Total 0.5 mg/dL (0.0-1.0); Blood Urea Nitrogen 43 mg/dL (9-16); Calcium 9.4 mg/dL (8.4-10.2); Carbon Dioxide 19 mmol/L (22-29); Chloride 109 mmol/L (96-108); Creatinine Clr Calc Pharmacy 28.1; Estimated Glomerular Filt Rate 30; Glucose Random 130 mg/dL (60-115); Potassium 3.4 mmol/L (3.3-5.1); Sodium 137 mmol/L (135-145); Total Protein 5.9 g/dL (6.5-8.0)
[2023-01-15 01:34] LABS: Prothrombin Time 11.4 SEC (10.0-13.1)
--- NOTE | 2023-01-15 01:34 | ED.GENADULT ---
HPI - General Adult General Chief complaint: Recheck/Abnormal Lab/Rx Stated complaint: hypoglycemia; recovered Time Seen by Provider: 01/15/23 00:39 Source: family Mode of arrival: EMS History of Present Illness HPI narrative: 72-year-old male who has been significantly declining over the past few months, the history is provided primarily by the and daughter who were at bedside. Patient was diagnosed with Parkinson's in 2017, has CAD and is had prostate cancer with undetectable PSA levels over the past year. He is brought in tonight by EMS when family found him with a point of care of 30 with a noted that he was unresponsive. 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 Patient has been in consistent decline since September with unintentional weight loss likely secondary to decrease in caloric intake due to poor appetite. Related Data Home Medications Medication Instructions Recorded Confirmed carbidopa 25 mg-levodopa 100 mg 1 tab PO TID@0900,1200,1600 06/23/20 01/07/23 tablet aspirin 81 mg tablet,delayed 81 mg PO DAILY 08/26/20 01/07/23 release (Adult Low Dose Aspirin) vitamin B complex (B 1 tab PO DAILY 08/26/20 01/07/23 Complex-Vitamin B12 tablet) cholecalciferol (vitamin D3) 25 25 mcg PO DAILY 05/20/21 01/07/23 mcg (1,000 unit) capsule blood sugar diagnostic (FreeStyle #10 ea 06/05/21 10/20/22 Lite Strips) pramipexole 0.25 mg tablet 0.25 mg PO BID 09/08/21 01/07/23 carbidopa ER 50 mg-levodopa 200 mg 1 tab PO BEDTIME 11/10/21 01/07/23 tablet,extended release trazodone 50 mg tablet 50 mg PO BEDTIME 03/16/22 01/07/23 fluoride (sodium) 1.1 % dental PO 04/16/22 01/07/23 paste amlodipine 2.5 mg tablet 2.5 mg PO DAILY 10/12/22 01/07/23 nebulizers 11/22/22 Previous Rx's Medication Instructions Recorded nitroglycerin 0.4 mg sublingual 0.4 mg sublingual Q5M PRN chest 10/02/21 tablet pain #20 tabs metformin 500 mg tablet,extended 500 mg PO BID #180 tabs 11/26/21 release 24 hr omeprazole 20 mg capsule,delayed 20 mg PO DAILY 90 days #90 caps 04/16/22 release rosuvastatin 40 mg tablet 40 mg PO BEDTIME 90 days #90 tabs 04/23/22 albuterol sulfate 90 mcg/actuation 2 inh inhalation Q6H PRN shortness 05/19/22 aerosol inhaler of breath or wheezing 30 days #18 grams insulin glargine 100 unit/mL (3 20 unit (0.2 mL) subcut QPM #30 mL 06/11/22 mL) subcutaneous pen (Lantus Solostar U-100 Insulin) montelukast 10 mg tablet 10 mg PO QPM #90 tabs 06/17/22 pen needle, diabetic 32 gauge x #100 ea 07/19/22 (BD Ultra-Fine Estefany Pen Needle) clopidogrel 75 mg tablet 75 mg PO DAILY #90 tabs 08/03/22 tamsulosin 0.4 mg capsule 0.4 mg PO BEDTIME 90 days #90 caps 08/03/22 albuterol sulfate 2.5 mg/3 mL 2.5 mg (3 mL) inhalation BID #180 08/30/22 (0.083 %) solution for nebulization mL fluticasone 250 mcg-salmeterol 50 1 inh inhalation Q12H 30 days #60 08/30/22 mcg/dose blistr powdr for ea inhalation (Wixela Inhub) fluticasone propionate 50 2 spray intranasal DAILY Allergy 08/30/22 mcg/actuation nasal Symptoms 30 days #16 grams spray,suspension gabapentin 300 mg capsule 600 mg PO DAILY 90 days #180 caps 10/20/22 dulaglutide 1.5 mg/0.5 mL 1.5 mg (0.5 mL) subcut SA #6 mL 11/15/22 subcutaneous pen injector ([facility]) metoprolol succinate 25 mg 25 mg PO DAILY #90 tabs 12/20/22 tablet,extended release 24 hr solifenacin 10 mg tablet 10 mg PO DAILY 90 days #90 tabs 12/20/22 nut.tx.gluc.intol,lac-free,soy 1 ea PO DAILY 90 days #21,330 mL 06/01/23 (Glucerna Advance oral liquid) lidocaine 5 % topical patch 1 patch topical DAILY 30 days #30 12/31/22 (Lidoderm) ea Allergies Allergy/AdvReac Type Severity Reaction Status Date / Time Iodinated Contrast Media Allergy Intermediate RASH AT IV Verified 01/07/23 10:32 [CONTRAST, IV] SITE. BENEDRYL GIVEN WITH GOOD EFFECT ibuprofen Allergy Rash Verified 01/15/23 00:22 adhesive tape AdvReac Rash Verified 01/07/23 10:32 Review of Systems Review of Systems: Yes Unobtainable due to mental condition [facility] Past Medical History Source: nursing notes reviewed Medical History Anemia Bronchopneumonia CAD (coronary artery disease) Carotid artery disease COPD (chronic obstructive pulmonary disease) Diabetes type 2, uncontrolled (~1999) Diabetic nephropathy associated with type 2 diabetes mellitus Diabetic polyneuropathy associated with type 2 diabetes mellitus Dyslipidemia Dyspnea History of hepatitis C History of GA (myocardial infarction) History of prostate cancer (~2016) 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 Nocturnal hypoxia Overweight (BMI 25.0-29.9) Pulmonary nodule Stented coronary artery Surgical History History of cataract surgery (~2019) History of colonoscopy History of cystoscopy (~2020) History of esophagogastroduodenoscopy (EGD) History of heart artery stent History of prostatectomy Hx of cardiac cath Family History Family History Father Sudden cardiac CVD (cardiovascular disease) Mother Hx of heart surgery CVD (cardiovascular disease) Social History Social History Household Members: Spouse Housing: House Do you presently have visiting nurse or other home services: No Alcohol intake: former Patient Tobacco Use Status: Former Tobacco user e-Cigarette/Vaping Use: Never Used Second Hand Smoke Exposure: No Advance Directives: Yes Advance Directives Information Provided: Yes Advance Directives on File: No Advance Directives Date on File: 03/31/21 service: Yes Current occupational status: retired Current occupation: rt handed Current occupational exposures/hazards: No Cognitive needs: No Hearing needs: No Vision needs: Yes (reading glasses) Physical Exam ED Vital Signs: Vital Signs - 24 hr 01/15/23 00:23 01/15/23 01:35 01/15/23 01:45 Temperature 95.9 F L 96.3 F L 97.6 F Pulse Rate 68 Respiratory Rate 18 Blood Pressure 118/63 Pulse Oximetry 99 Oxygen Delivery Method Room Air BMI result Body Mass Index 24.2 VITAL SIGNS: Reviewed. GENERAL: Well developed, well nourished, in no acute distress. HEAD: Normocephalic/atraumatic EYES: PERRLA, EOMI EARS: Ext canals without abnormality NOSE: Nares patent bilateral OROPHARYNX: no oral lesions noted, posterior pharynx clear NECK: Supple, no adenopathy LUNGS: Normal breath sounds. No adventitious sounds or accessory muscle use. SpO2<99> CARDIOVASCULAR: Regular rate and rhythm without noted murmurs, no JVD or lower extremity edema. ABDOMEN: Soft, non-tender, non-distended with bowel sounds. MUSCULOSKELETAL: No tenderness, deformities, or effusions noted on gross inspection. EXTREMITIES: No cyanosis, clubbing or edema. SKIN: Inspection of the skin reveals no rashes NEUROLOGIC: Drowsy but arousable and oriented x 2. Strength and sensation to light touch were grossly intact x 4. Medications Administered Generic Name Dose Route Start Last Admin Trade Name Freq PRN Reason Stop Dose Admin Sodium Chloride 1,000 mls @ 999 mls/hr 01/15/23 01:45 01/15/23 01:40 Ns IV 01/15/23 02:45 999 mls/hr .Q1H1M FANNY Administration Medical Decision Making Medical Decision Making MDM Narrative: 72-year-old male who is been experiencing significant decline since the of the year but as per family at bedside who provide all of the history this has really escalated since the part november. The states that he is not eating much, I had an extensive conversation regarding had a list of verses hospice services given his significant Parkinson and cognitive decline. The states that he would not want to have any alternative nutritional support such is IVs, peg tube/gastrostomy tube. The family is not interested in placing him in a prison at this time. The is seems very adamant that she prefers to have him at home and that they will seek coordination with Dr. Claudio for palliative but more than likely hospice services. I discussed with the that he should not be given any insulin at this time as it is very likely he is not ingesting enough calories and he would likely experience another bout of low blood sugar. On review of all investigations I do note that there is an HOMERO which is new in this is likely reflective poor p.o. intake. Hematologic indices are chronically stable, chemistries demonstrated acute on chronic renal failure with a mild acidosis. At this time I will give patient 1 L of IV fluids. On re-evaluation patient is far more alert from accidental overuse of insulin. Family encouraged to keep an eye on him and is very involved in his care. He is otherwise stable for discharge to home. Differential Diagnosis Please see the discussion above Lab Data Please see the discussion above 01/15/23 01:07 01/15/23 01:07 Labs: Lab Results 01/15/23 01/15/23 01/15/23 Range/Units 00:36 00:58 01:06 WBC (4.8-10.8) X10*3/uL RBC (4.60-5.80) X10*6/uL Hgb (14.0-18.0) g/dl Hct (42.0-52.0) % MCV (80.0-98.0) fL MCH (27.0-33.0) pg MCHC (31.0-36.0) g/dl RDW (11.0-16.0) % Plt Count (160-400) X10*3/uL MPV (9.4-12.4) fL Immature Gran % (Auto) (0.0-0.4) % Neut % (Auto) (45-73) % Lymph % (Auto) (20-40) % [place] % (Auto) (2-11) % Eos % (Auto) (0-4) % Baso % (Auto) (0-2) % Lymph # (Auto) (1.2-4.9) X10*3/uL [place] # (Auto) (0.1-1.2) X10*3/uL Eos # (Auto) (0.0-0.4) X10*3/uL Baso # (Auto) (0.0-0.2) X10*3/uL Abs Immat Gran (auto) (0.00-0.03) X10*3/uL Absolute Neuts (auto) (2.0-8.3) x10*3/uL Absolute Nucleated RBC (0.0-0.012) X10*3/uL Nucleated RBC % (auto) (0.0-0.2) /100WBC PT (10.0-13.1) SEC INR (0.9-1.1) Sodium (135-145) mmol/L Potassium (3.3-5.1) mmol/L Chloride (96-108) mmol/L Carbon Dioxide (22-29) mmol/L Anion Gap (12-20) BUN (9-16) mg/dL Creatinine (0.5-1.4) mg/dL Estim Creat Clear Calc Estimated GFR POC Glucose 127 H 122 H (60-115) mg/dL Random Glucose (60-115) mg/dL Lactic Acid 1.5 (0.5-2.0) mmol/L Calcium (8.4-10.2) mg/dL Total Bilirubin (0.0-1.0) mg/dL AST (5-37) U/L ALT (0-40) U/L Alkaline Phosphatase (39-117) U/L Total Protein (6.5-8.0) g/dL Albumin (3.5-5.0) g/dL Urine Color Urine Appearance Urine pH (5.0-9.0) Ur Specific [place] (1.005-1.025) Urine Protein (Neg-Trace) mg/dL Urine Glucose (UA) (Negative) mg/dL Urine Ketones (Negative) mg/dL Urine Blood (Negative) Urine Nitrite (Negative) Ur Leukocyte Esterase (Negative) 01/15/23 01/15/23 01/15/23 Range/Units 01:07 01:07 01:24 WBC 8.4 (4.8-10.8) X10*3/uL RBC 3.78 L (4.60-5.80) X10*6/uL Hgb 11.4 L (14.0-18.0) g/dl Hct 34.2 L (42.0-52.0) % MCV 90.5 (80.0-98.0) fL MCH 30.2 (27.0-33.0) pg MCHC 33.3 (31.0-36.0) g/dl RDW 14.5 (11.0-16.0) % Plt Count 201 (160-400) X10*3/uL MPV 10.4 (9.4-12.4) fL Immature Gran % (Auto) 0.2 (0.0-0.4) % Neut % (Auto) 85.9 H (45-73) % Lymph % (Auto) 4.9 L (20-40) % [place] % (Auto) 8.3 (2-11) % Eos % (Auto) 0.5 (0-4) % Baso % (Auto) 0.2 (0-2) % Lymph # (Auto) 0.4 L (1.2-4.9) X10*3/uL [place] # (Auto) 0.7 (0.1-1.2) X10*3/uL Eos # (Auto) 0.0 (0.0-0.4) X10*3/uL Baso # (Auto) 0.0 (0.0-0.2) X10*3/uL Abs Immat Gran (auto) 0.02 (0.00-0.03) X10*3/uL Absolute Neuts (auto) 7.2 (2.0-8.3) x10*3/uL Absolute Nucleated RBC 0.000 (0.0-0.012) X10*3/uL Nucleated RBC % (auto) 0.0 (0.0-0.2) /100WBC PT 11.4 (10.0-13.1) SEC INR 1.0 (0.9-1.1) Sodium 137 (135-145) mmol/L Potassium 3.4 D (3.3-5.1) mmol/L Chloride 109 H (96-108) mmol/L Carbon Dioxide 19 L (22-29) mmol/L Anion Gap 12 (12-20) BUN 43 H (9-16) mg/dL Creatinine 2.20 H (0.5-1.4) mg/dL Estim Creat Clear Calc 28.1 Estimated GFR 30 POC Glucose (60-115) mg/dL Random Glucose 130 H (60-115) mg/dL Lactic Acid (0.5-2.0) mmol/L Calcium 9.4 (8.4-10.2) mg/dL Total Bilirubin 0.5 (0.0-1.0) mg/dL AST 213 H (5-37) U/L ALT 117 H (0-40) U/L Alkaline Phosphatase 78 (39-117) U/L Total Protein 5.9 L (6.5-8.0) g/dL Albumin 3.4 L (3.5-5.0) g/dL Urine Color Urine Appearance Urine pH (5.0-9.0) Ur Specific [place] (1.005-1.025) Urine Protein (Neg-Trace) mg/dL Urine Glucose (UA) (Negative) mg/dL Urine Ketones (Negative) mg/dL Urine Blood (Negative) Urine Nitrite (Negative) Ur Leukocyte Esterase (Negative) 01/15/23 Range/Units 01:52 WBC (4.8-10.8) X10*3/uL RBC (4.60-5.80) X10*6/uL Hgb (14.0-18.0) g/dl Hct (42.0-52.0) % MCV (80.0-98.0) fL MCH (27.0-33.0) pg MCHC (31.0-36.0) g/dl RDW (11.0-16.0) % Plt Count (160-400) X10*3/uL MPV (9.4-12.4) fL Immature Gran % (Auto) (0.0-0.4) % Neut % (Auto) (45-73) % Lymph % (Auto) (20-40) % [place] % (Auto) (2-11) % Eos % (Auto) (0-4) % Baso % (Auto) (0-2) % Lymph # (Auto) (1.2-4.9) X10*3/uL [place] # (Auto) (0.1-1.2) X10*3/uL Eos # (Auto) (0.0-0.4) X10*3/uL Baso # (Auto) (0.0-0.2) X10*3/uL Abs Immat Gran (auto) (0.00-0.03) X10*3/uL Absolute Neuts (auto) (2.0-8.3) x10*3/uL Absolute Nucleated RBC (0.0-0.012) X10*3/uL Nucleated RBC % (auto) (0.0-0.2) /100WBC PT (10.0-13.1) SEC INR (0.9-1.1) Sodium (135-145) mmol/L Potassium (3.3-5.1) mmol/L Chloride (96-108) mmol/L Carbon Dioxide (22-29) mmol/L Anion Gap (12-20) BUN (9-16) mg/dL Creatinine (0.5-1.4) mg/dL Estim Creat Clear Calc Estimated GFR POC Glucose (60-115) mg/dL Random Glucose (60-115) mg/dL Lactic Acid (0.5-2.0) mmol/L Calcium (8.4-10.2) mg/dL Total Bilirubin (0.0-1.0) mg/dL AST (5-37) U/L ALT (0-40) U/L Alkaline Phosphatase (39-117) U/L Total Protein (6.5-8.0) g/dL Albumin (3.5-5.0) g/dL Urine Color Yellow Urine Appearance Clear Urine pH 6.0 (5.0-9.0) Ur Specific [place] 1.010 (1.005-1.025) Urine Protein 100 (2+) H (Neg-Trace) mg/dL Urine Glucose (UA) Negative (Negative) mg/dL Urine Ketones Negative (Negative) mg/dL Urine Blood Large (3+) H (Negative) Urine Nitrite Negative (Negative) Ur Leukocyte Esterase Negative (Negative) Independent Interpretation I performed an independent interpretation of an: EKG Interpretation: Normal sinus rhythm, HR-69, no STEMI, NH/QRS/QTC is within normal limits. External Record Review External record reviewed: Office record and Prior outpatient labs Discharge Plan Discharge Clinical Impression: Cognitive decline, Parkinson's disease, Acute on chronic renal failure, Malnutrition, Hypoglycemia Patient Disposition: Home, Self-Care Instructions: Chronic Kidney Disease (ED), Parkinson Disease (ED), Malnutrition (DC) Additional Instructions: 1. Resume all home medications as prescribed. 2. Keep all appointments as scheduled. 3. Recommend holding off on insulin until patient increases caloric intake. Return to the ER for any worsening symptoms. Prescriptions: No Action metformin 500 mg tablet extended release 24 hr 500 mg PO BID Qty: 180 2RF rosuvastatin 40 mg tablet 40 mg PO BEDTIME 90 Days Qty: 90 3RF insulin glargine [Lantus Solostar U-100 Insulin] 100 unit/mL (3 mL) insulin pen 20 unit subcut QPM Qty: 30 3RF montelukast 10 mg tablet 10 mg PO QPM Qty: 90 3RF clopidogrel 75 mg tablet 75 mg PO DAILY Qty: 90 3RF tamsulosin 0.4 mg capsule 0.4 mg PO BEDTIME 90 Days Qty: 90 3RF Trulicity 1.5 mg/0.5 mL pen injector 1.5 mg subcut SA Qty: 6 2RF solifenacin 10 mg tablet 10 mg PO DAILY 90 Days Qty: 90 1RF metoprolol succinate 25 mg tablet extended release 24 hr 25 mg PO DAILY Qty: 90 3RF fluoride (sodium) 1.1 % paste PO omeprazole 20 mg capsule,delayed release(DR/EC) 20 mg PO DAILY 90 Days Qty: 90 3RF (DME) pen needle, diabetic [BD Ultra-Fine Estefany Pen Needle] 32 gauge x 5/32 needle See Rx Instructions .ROUTE .MEDSUPPLY Qty: 100 4RF Rx Instructions: As directed once daily gabapentin 300 mg capsule 600 mg PO DAILY 90 Days Qty: 180 2RF Glucerna Advance Liquid 1 ea PO DAILY 90 Days Qty: 03568 3RF lidocaine [Lidoderm] 5 % adhesive patch,medicated 1 patch topical DAILY 30 Days Qty: 30 4RF Rx Instructions: leave on most painful area for up to 12 hrs carbidopa-levodopa 25-100 mg tablet 1 tab PO TID@0900,1200,1600 aspirin [Adult Low Dose Aspirin] 81 mg tablet,delayed release (DR/EC) 81 mg PO DAILY vitamin B complex [B Complex-Vitamin B12] Tablet 1 tab PO DAILY (DME) FreeStyle Lite Strips Strip See Rx Instructions Not Applicable TID Qty: 10 Rx Instructions: As directed two times a day cholecalciferol (vitamin D3) 25 mcg (1,000 unit) capsule 25 mcg PO DAILY nitroglycerin 0.4 mg tablet, sublingual 0.4 mg sublingual Q5M PRN (Reason: chest pain) Qty: 20 1RF Rx Instructions: do not exceed 3 doses per episode albuterol sulfate 90 mcg/actuation HFA aerosol inhaler 2 inh inhalation Q6H PRN (Reason: shortness of breath or wheezing) 30 Days Qty: 18 12RF (DME) nebulizers Misc See Rx Instructions .ROUTE Rx Instructions: As directed carbidopa-levodopa 50-200 mg tablet extended release 1 tab PO BEDTIME pramipexole 0.25 mg tablet 0.25 mg PO BID trazodone 50 mg tablet 50 mg PO BEDTIME amlodipine 2.5 mg tablet 2.5 mg PO DAILY fluticasone propionate 50 mcg/actuation spray,suspension 2 spray intranasal DAILY 30 Days Qty: 16 6RF albuterol sulfate 2.5 mg /3 mL (0.083 %) solution for nebulization 2.5 mg inhalation BID Qty: 180 11RF fluticasone propion-salmeterol [Wixela Inhub] 250-50 mcg/dose blister with device 1 inh inhalation Q12H 30 Days Qty: 60 11RF Referrals: Deonte Claudio MD [Primary Care Provider] -
[2023-01-15 01:35] VITALS: TEMP 35.7
[2023-01-15] MEDS: 0.9 % Sodium Chloride 1,000 ML 999 ML IV (01:40)
[2023-01-15 01:45] VITALS: TEMP 36.4
[2023-01-15 01:59] LABS: Appearance Urine Clear; Color Urine Yellow; Glucose Urine UA Negative (Negative); Leukocyte Esterase Urine Negative (Negative); Nitrite Urine Negative (Negative); UMIC TRIGGER UACC YES; Urine Blood Large (3+) (Negative); Urine Ketones Negative (Negative); Urine Protein 100 (2+) mg/dL (Neg-Trace)
[2023-01-15 02:11] LABS: Bacteria Urine None Seen (None Seen); Other Crystals Urine Present; RBC Urine 0-2 /HPF (0-2); Squamous Epithelial Cell Urine 0-2 /HPF (0-2); WBC Urine 0-5 /HPF (0-5)
[2023-01-15 02:15] VITALS: BP 133/80; PULSE 88; RESP 18; TEMP 36.8; O2SAT 99
--- NOTE | 2023-01-15 02:20 | PC.NURSE ---
patient was given IV fluids and tolerated with no issues patient temperature is now 98.2 patient was able to void and had all labs to be drawn and sent to the lab patient will continue to be monitored for safety patient in the process of being discharged
== END 2023-01-15 02:34 | disposition home or self-care (01) ==
PROVIDERS: Emergency Provider Student in an Organized Health Care Education/Training Program; PCP Family Medicine
DX: E11.22 Type 2 diabetes mellitus with diabetic chronic kidney disease (principal); I12.9 Hypertensive chronic kidney disease with stage 1 through stage 4 chronic kidney disease, or unspecified chronic kidney disease; N18.9 Chronic kidney disease, unspecified; N17.9 Acute kidney failure, unspecified; E11.649 Type 2 diabetes mellitus with hypoglycemia without coma; G20 Parkinson's disease; E46 Unspecified protein-calorie malnutrition; Z68.24 Body mass index [BMI] 24.0-24.9, adult; E78.5 Hyperlipidemia, unspecified; B19.20 Unspecified viral hepatitis C without hepatic coma; Z85.46 Personal history of malignant neoplasm of prostate; Z79.82 Long term (current) use of aspirin; Z79.899 Other long term (current) drug therapy; Z79.02 Long term (current) use of antithrombotics/antiplatelets; Z79.4 Long term (current) use of insulin
CPT/HCPCS: 36415; 80053; 81001; 82947; 83605; 85025; 85610; 87040; 93005; 96360; 99284; 99285

== ENCOUNTER → 2023-01-18 13:02 | Outpatient (BNVA) | payer OTHER, MEDICARE, SELFPAY | PROVIDERS: PCP Family Medicine; Visit Provider Surgery Vascular Surgery ==

== ENCOUNTER 2023-01-26 13:08 | Outpatient (RCR) | payer OTHER, MEDICARE, SELFPAY ==
[2023-01-26 13:17] VITALS: BP 63/38; PULSE 97; RESP 15; TEMP 36.1; O2SAT 97; BMI 23.7
--- NOTE | 2023-01-26 13:20 | PM.HEMONCCN ---
Subjective - Subjective Chief complaint: Low blood pressure Patient: new to practice Consult date: 01/26/23 Primary Care Provider: Deonte Claudio MD HPI - Consult Narrative Reason for consult: Anemia Narrative: Nir Leon is a 72 year old male who was referred by his PCP for evaluation of mild normocytic anemia. Patient was accompanied by his today. According to his in the last 2-3 days his blood pressure has been running very low, this morning it was only in the 60s. She says patient experienced 4 episodes of seizures overnight. He was recently started on Keppra by his neurologist. He has a history of Parkinson's disease and has been on carbidopa/levodopa for a few years. The only new medication that was started this Keppra. Dose of metoprolol was reduced because of low blood pressure by his PCP. Patient reports right groin pain. He feels dizzy when he stands. He feels he needs a breathing treatment. He denies chest pain, wheezing, cough or shortness of breath. No fever or chills. He is aware of kidney problems but says that he is still waiting to see the cook box filler. He denies hematochezia melena. No change in urination. Review of Systems - Constitutional Reports as per HPI, Reports fatigue, Reports poor appetite - Cardiovascular Reports no additional cardiovascular complaints - Respiratory Reports no additional respiratory complaints - Gastrointestinal Reports no additional gastrointestinal complaints (b) [facility] Medical History: Medical History (Last Reviewed 01/26/23 @ 14:54 by Carolynn Zaidi MD) Anemia Bronchopneumonia CAD (coronary artery disease) Carotid artery disease COPD (chronic obstructive pulmonary disease) Diabetes type 2, uncontrolled Onset Date: ~1999 Diabetic nephropathy associated with type 2 diabetes mellitus Diabetic polyneuropathy associated with type 2 diabetes mellitus Dyslipidemia Dyspnea History of hepatitis C History of UT (myocardial infarction) History of prostate cancer Onset Date: ~2016 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 Nocturnal hypoxia Overweight (BMI 25.0-29.9) Pulmonary nodule Stented coronary artery Family History: Family History (Last Reviewed 01/26/23 @ 13:21 by Abbi Kohli) Father Sudden cardiac CVD (cardiovascular disease) Mother Hx of heart surgery CVD (cardiovascular disease) Surgical History: Surgical History (Last Reviewed 01/26/23 @ 13:21 by Abbi Kohli) History of cataract surgery Onset Date: ~2019 History of colonoscopy History of cystoscopy Onset Date: ~2020 History of esophagogastroduodenoscopy (EGD) History of heart artery stent History of prostatectomy Hx of cardiac cath Social History: Social History (Last Reviewed 01/26/23 @ 13:21 by Abbi Kohli) Living Situation History: Household Members: Spouse Housing: House Do you presently have visiting nurse or other home services: No Tobacco History: Patient Tobacco Use Status: Former Tobacco user Smoked in Last 30 Days: No e-Cigarette/Vaping Use: Never Used Second Hand Smoke Exposure: No Substance Use History: Use of substances other than those prescribed or required for medical reasons: No Advance Directives: Advance Directives: Yes Advance Directives on File: Yes Advance Directives Date on File: 03/31/21 Occupation Assessmet: service: Yes Current occupational status: retired Current occupation: rt handed Current occupational exposures/hazards: No Home Medications and Allergies Home Medications Medication Instructions Recorded Confirmed Type carbidopa 25 mg-levodopa 100 mg 1 tab PO TID@0900,1200,1600 06/23/20 01/07/23 History tablet aspirin 81 mg tablet,delayed 81 mg PO DAILY 08/26/20 01/07/23 History release (Adult Low Dose Aspirin) vitamin B complex (B 1 tab PO DAILY 08/26/20 01/07/23 History Complex-Vitamin B12 tablet) cholecalciferol (vitamin D3) 25 25 mcg PO DAILY 05/20/21 01/07/23 History mcg (1,000 unit) capsule blood sugar diagnostic (FreeStyle #10 ea 06/05/21 10/20/22 History Lite Strips) pramipexole 0.25 mg tablet 0.25 mg PO BID 09/08/21 01/07/23 History carbidopa ER 50 mg-levodopa 200 mg 1 tab PO BEDTIME 11/10/21 01/07/23 History tablet,extended release trazodone 50 mg tablet 50 mg PO BEDTIME 03/16/22 01/07/23 History fluoride (sodium) 1.1 % dental PO 04/16/22 01/07/23 History paste nebulizers 11/22/22 History levetiracetam 250 mg tablet 250 mg PO BID 01/26/23 01/26/23 History Allergies Allergy/AdvReac Type Severity Reaction Status Date / Time Iodinated Contrast Media Allergy Intermediate RASH AT IV Verified 01/26/23 14:12 [CONTRAST, IV] SITE. BENEDRYL GIVEN WITH GOOD EFFECT ibuprofen Allergy Rash Verified 01/26/23 14:12 adhesive tape AdvReac Rash Verified 01/26/23 14:12 Physical Exam Vital signs: Vital Signs - 24 hr 01/26/23 13:17 Temperature 97.0 F Pulse Rate 97 Respiratory Rate 15 Blood Pressure 63/38 L Pulse Oximetry 97 Oxygen Delivery Method Room Air - Constitutional Present: mild distress, thin - Routine HEENT Exam Head: Present: normal inspection Eye: Present: PERRL - Routine Neck Exam Present: supple. Absent: lymphadenopathy - Routine Respiratory Exam Present: CTAB. Absent: accessory muscle use, respiratory distress - Routine Cardiovascular Exam Cardiovascular: Present: RRR, S1, S2 - Routine Abdominal Exam Present: soft - Routine Skin Exam Present: intact - Routine Neurological Exam Present: alert, oriented X3 Hem/Onc Consult Result - Labs CBC & Chem 7: 01/26/23 13:58 01/26/23 13:58 Assessment and Plan Patient Active problem list reviewed?: Yes (1) Chronic anemia Status: Acute Assessment and plan: 1. This is a pleasant 72-year-old male with mild chronic anemia probably related to renal insufficiency. Unfortunately, he appears to have multiple other problems at this time including moderately severe hypotension and seizures that started about a week ago. It is unclear as to why he is so hypotensive. Other than Keppra he is not on any new medication. He denies any symptoms of infection. He also has worsening renal insufficiency. Submit SPEP/immunofixation and serum free kappa/lambda light chain assay. Consider workup for amyloidosis if above positive. He does report history of UT and stent placement in the past. He sees Cardiology at [facility]. I am sending him to the emergency department for further evaluation. Thank you for this consultation. - Time Spent With Patient Time Spent with Patient (in minutes): 25
[2023-01-26 14:00] LABS: MANUAL DIFF FLAG NO
[2023-01-26 14:09] LABS: Basophils Percent Auto 0.3 % (0-2); Eosinophils Absolute Auto 0.1 X10*3/uL (0.0-0.4); Eosinophils Percent Auto 1.2 % (0-4); Hematocrit 36.4 % (42.0-52.0); Hemoglobin 11.8 g/dl (14.0-18.0); Imm Gran Abs Auto 0.02 X10*3/uL (0.00-0.03); Imm Gran Pct Auto 0.3 % (0.0-0.4); Immature Retic Fraction 6.5 % (2.3-13.4); Lymphocytes Absolute Auto 0.8 X10*3/uL (1.2-4.9); Lymphocytes Percent Auto 13.5 % (20-40); Mean Corpuscular HGB Conc 32.4 g/dl (31.0-36.0); Mean Corpuscular Hemoglobin 30.2 pg (27.0-33.0); Mean Corpuscular Volume 93.1 fL (80.0-98.0); Mean Platelet Volume 10.1 fL (9.4-12.4); Monocytes Absolute Auto 0.5 X10*3/uL (0.1-1.2); Monocytes Percent Auto 8.3 % (2-11); Neutrophils Absolute Auto 4.5 x10*3/uL (2.0-8.3); Neutrophils Percent Auto 76.4 % (45-73); Platelet Count 206 X10*3/uL (160-400); Red Blood Count 3.91 X10*6/uL (4.60-5.80); Reticulocyte Percent 0.7 % (0.5-1.8); Reticulocytes Absolute 0.027 X10*6/uL (0.026-0.095); White Blood Count 5.9 X10*3/uL (4.8-10.8)
[2023-01-26 14:33] LABS: Alanine Aminotransferase 58 U/L (0-40); Albumin Level 3.5 g/dL (3.5-5.0); Alkaline Phosphatase 102 U/L (39-117); Anion Gap 14 (12-20); Aspartate Amino Transferase 99 U/L (5-37); Bilirubin Total 0.4 mg/dL (0.0-1.0); Blood Urea Nitrogen 46 mg/dL (9-16); Calcium 9.5 mg/dL (8.4-10.2); Carbon Dioxide 24 mmol/L (22-29); Chloride 107 mmol/L (96-108); Estimated Glomerular Filt Rate 27; Glucose Random 163 mg/dL (60-115); Iron 102 mcg/dL (45-160); Lactate Dehydrogenase 471 U/L (118-273); Percent Iron Saturation 43 % (15-50); Potassium 3.9 mmol/L (3.3-5.1); Sodium 141 mmol/L (135-145); Total Iron Binding Capacity 239 mcg/dL (228-428); Total Protein 6.1 g/dL (6.5-8.0); Unsaturated Iron Binding 137 ug/dL
[2023-01-26 14:46] LABS: Ferritin 199 ng/mL (20-250)
[2023-01-26 15:00] LABS: Erythrocyte Sedimentation Rate 36 MM/HR (0-15)
--- NOTE | 2023-01-26 17:05 | MHC.HEMONCMA ---
Patient seen today for new consult for anemia, VSS, labs, patient sent to ED from clinic.
[2023-01-28 14:04] LABS: Kappa Light Chain, Free Serum 83.8 mg/L (3.3-19.4); Kappa/Lambda Lt Ch Free Ratio 2.44 (0.26-1.65); Lambda Light Chain, Free Serum 34.3 mg/L (5.7-26.3)
[2023-02-02 12:18] LABS: Prot Elec - Albumin 4.5 g/dL (3.8-4.8); Prot Elec - Alpha1 0.3 g/dL (0.2-0.3); Prot Elec - Alpha2 1.6 g/dL (0.5-0.9); Prot Elec - Beta 1 0.5 g/dL (0.4-0.6); Prot Elec - Beta 2 0.3 g/dL (0.2-0.5); Prot Elec - Gamma 0.9 g/dL (0.8-1.7); Prot Elec - Total Protein 8.2 g/dL (6.1-8.1)
[2023-02-04 16:58] LABS: IgA 124 mg/dL (70-320); IgG 797 mg/dL (600-1540); IgM 54 mg/dL (50-300)
== END 2023-02-10 | disposition home or self-care (01) ==
LOC: HO.ONC 13:08
PROVIDERS: PCP Family Medicine; Visit Provider Internal Medicine
DX: D64.9 Anemia, unspecified (principal); N28.9 Disorder of kidney and ureter, unspecified; G20 Parkinson's disease; Z79.899 Other long term (current) drug therapy
CPT/HCPCS: 36415; 80053; 82728; 82784; 83521; 83540; 83615; 84165; 85025; 85045; 85652; 86334; 99204

== ENCOUNTER 2023-01-26 13:54 | Observation (INO) | payer OTHER, MEDICARE, SELFPAY ==
[2023-01-26] VITALS (14 sets, daily range): BP systolic 71–178; BP diastolic 36–84; PULSE 73–103; RESP 13–20; TEMP 36.4–36.8; O2SAT 97–99; BMI 23.0
--- NOTE | ~2023-01-26 | CT_ITS ---
EXAMINATION: CT CHEST without IV CONTRAST CT ABDOMEN AND PELVIS WITHOUT IV CONTRAST CLINICAL INFORMATION: Shortness of breath and hypotension. Right lower quadrant and inguinal pain. Rectal bleeding. History of prostate carcinoma. COMPARISON: Limited abdomen ultrasound from 12/07/2021. Chest CT from 04/06/2017. Abdomen-pelvis CT from 12/15/2012. TECHNIQUE: Noncontrast multidetector CT imaging examination of the chest, abdomen and pelvis was performed. Axial images are displayed at 0.6 mm and 5 mm slice thickness. Coronal and sagittal reformatted images were generated at the technologist's workstation and submitted for review. This CT examination was performed using dose optimization techniques as appropriate, variously including the following: *Automated exposure control *Adjustment of mA and/or kV according to patient size (this includes techniques or standardized protocols for targeted exams where dose is matched to indication/reason for exam; i.e. extremities or head) *Use of iterative reconstruction technique DLP: 638 mGy-cm FINDINGS: CHEST - LUNGS AND PLEURA: Trachea and central airways are unremarkable. Moderate centrilobular emphysema. Mild paraseptal emphysema. No pleural effusion or pneumothorax. An old calcified granuloma is present in the anterolateral left lower lobe. A few noncalcified nodules are detected, new since 04/06/2017, including the following: * 0.3 cm, posterior right upper lobe (175, series 13) * 0.3 cm, superior segment of left lower lobe (211, series 13) * 0.8 cm left apical nodule has a small central lucency/cavitation; a few small linear or nodular foci are seen at the lesion periphery, including a 0.3 cm focus (95, series 13). MEDIASTINUM/LOWER NECK: The heart size is normal. No pericardial effusion. Three-vessel coronary artery atherosclerotic calcification is present. There appears to be a stent of the left anterior descending coronary artery. Scattered atherosclerosis of thoracic aorta without aneurysm. Pulmonary arteries are normal in caliber. The esophagus and thyroid gland are unremarkable. LYMPHATICS: No pathologic sized axillary, hilar or mediastinal lymph nodes. CHEST WALL/BONES OF THORAX: No chest wall mass. Thoracic vertebra have normal height and alignment. No acute or suspicious osseous abnormality within the thorax. ABDOMEN AND PELVIS - HEPATOBILIARY: Liver has normal size, contour and attenuation. Gallbladder is unremarkable. No intrahepatic or extrahepatic bile duct dilatation. PANCREAS: No edema, mass or pancreatic ductal dilatation. SPLEEN: Normal. ADRENAL GLANDS: A solid homogeneous nodule of the apex of the left adrenal gland measures 1.3 cm AP and has density of - 2 HU consistent with lipid rich adenoma; it is unchanged in size compared to 12/15/2012. No adrenal imaging follow-up recommended. KIDNEYS AND URETERS: Kidneys are normal in size and attenuation. No nephrolithiasis, hydronephrosis or perinephric fluid collection. BOWEL AND PERITONEUM: No dilated loops of bowel. The appendix is normal. No overt bowel wall thickening. No mesenteric fat stranding, ascites or pneumoperitoneum. There are diverticula of the sigmoid colon without evidence of diverticulitis. A moderate amount fecal material is present within the colon. ABDOMINAL WALL: No acute abnormalities. There is chronic protrusion of extraperitoneal fat into each inguinal canal, unchanged compared to 12/15/2012. VESSELS: Atherosclerotic calcification of the abdominal aorta and iliac arteries without aneurysm. No retroperitoneal hematoma. LYMPH NODES: No pathologic sized lymph nodes in the abdomen or pelvis. No inguinal lymphadenopathy. BLADDER AND PELVIC VISCERA: Prostatectomy. No pelvic mass or pelvic free fluid. The reservoir for a penile prosthesis projects deep to the lower abdominal wall, anterior to the urinary bladder. OTHER MUSCULOSKELETAL: No acute or suspicious osseous abnormality. L1 vertebral body hemangioma. Severe facet arthropathy and vacuum disc degenerative change of L5-S1 with grade 1 anterolisthesis of L5 on S1. CT/CT abdomen pelvis wo IV con IMPRESSION: * Moderate pulmonary emphysema. * A few new pulmonary nodules are present, largest 0.8 cm at the left apex with central cavitation. It is uncertain whether nodules are sequela of infection/inflammation or neoplastic disease. Note that Fleischner Society guidelines would not be applied in a patient with a history of carcinoma. If deemed clinically appropriate, obtain chest CT follow-up in the next 3-6 months. * Atherosclerotic disease of coronary arteries. 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 * Diverticulosis of the sigmoid colon without diverticulitis. * No acute findings in the right lower quadrant or inguinal region
[2023-01-26] MEDS: Albuterol Sulfate (0.083%) 2.5 MG/3 ML VIAL.NEB 5 MG INHALE (14:36)
--- NOTE | 2023-01-26 14:43 | ED_ITS ---
HPI - General Adult General Chief complaint: General Medical Stated complaint: Low BP, seizures Time Seen by Provider: 01/26/23 14:16 Source: patient and family Mode of arrival: wheelchair Limitations: no limitations History of Present Illness HPI narrative: Patient comes emergency room from the oncology office. Patient and his and daughter at bedside, history obtained from the 3 of them. Patient states that he was sent to the emergency room from Oncology because he was complaining of shortness of breath, requested a nebulization treatment, vitals were checked and he was noted to have his blood pressure in the low 80s. Patient's explains that patient has been on metoprolol, last week his blood pressure was in the 60s, his dose was recently reduced. Patient denies chest pain, complaining of c hest tightness/shortness of breath, requesting a nebulization treatment. Patient states that he had a follow-up appointment with oncology today for anemia. Patient states that he has noted that he has blood in the stool. Patient states that he is usually very constipated and believes this is secondary to hemorrhoids. Patient states that he had a colonoscopy done in 2020 and was told that it was negative. Also, patient complaining of right inguinal pain. Patient states it has been present for about a month. Of note, I reviewed patient's chart. Patient was seen on 01/07/[address] Montelongo at the pain clinic, patient received a steroid injection in the right hip for right trochanteric bursitis Related Data Home Medications Medication Instructions Recorded Confirmed carbidopa 25 mg-levodopa 100 mg 1 tab PO TID@0900,1200,1600 06/23/20 01/07/23 tablet aspirin 81 mg tablet,delayed 81 mg PO DAILY 08/26/20 01/07/23 release (Adult Low Dose Aspirin) vitamin B complex (B 1 tab PO DAILY 08/26/20 01/07/23 Complex-Vitamin B12 tablet) cholecalciferol (vitamin D3) 25 25 mcg PO DAILY 05/20/21 01/07/23 mcg (1,000 unit) capsule blood sugar diagnostic (FreeStyle #10 ea 06/05/21 10/20/22 Lite Strips) pramipexole 0.25 mg tablet 0.25 mg PO BID 09/08/21 01/07/23 carbidopa ER 50 mg-levodopa 200 mg 1 tab PO BEDTIME 11/10/21 01/07/23 tablet,extended release trazodone 50 mg tablet 50 mg PO BEDTIME 03/16/22 01/07/23 fluoride (sodium) 1.1 % dental PO 04/16/22 01/07/23 paste nebulizers 11/22/22 levetiracetam 250 mg tablet 250 mg PO BID 01/26/23 01/26/23 Previous Rx's Medication Instructions Recorded nitroglycerin 0.4 mg sublingual 0.4 mg sublingual Q5M PRN chest 10/02/21 tablet pain #20 tabs metformin 500 mg tablet,extended 500 mg PO BID #180 tabs 11/26/21 release 24 hr omeprazole 20 mg capsule,delayed 20 mg PO DAILY 90 days #90 caps 04/16/22 release rosuvastatin 40 mg tablet 40 mg PO BEDTIME 90 days #90 tabs 04/23/22 albuterol sulfate 90 mcg/actuation 2 inh inhalation Q6H PRN shortness 05/19/22 aerosol inhaler of breath or wheezing 30 days #18 grams insulin glargine 100 unit/mL (3 20 unit (0.2 mL) subcut QPM #30 mL 06/11/22 mL) subcutaneous pen (Lantus Solostar U-100 Insulin) montelukast 10 mg tablet 10 mg PO QPM #90 tabs 06/17/22 pen needle, diabetic 32 gauge x #100 ea 07/19/22 (BD Ultra-Fine Estefany Pen Needle) clopidogrel 75 mg tablet 75 mg PO DAILY #90 tabs 08/03/22 tamsulosin 0.4 mg capsule 0.4 mg PO BEDTIME 90 days #90 caps 08/03/22 albuterol sulfate 2.5 mg/3 mL 2.5 mg (3 mL) inhalation BID #180 08/30/22 (0.083 %) solution for nebulization mL fluticasone 250 mcg-salmeterol 50 1 inh inhalation Q12H 30 days #60 08/30/22 mcg/dose blistr powdr for ea inhalation (Wixela Inhub) fluticasone propionate 50 2 spray intranasal DAILY Allergy 08/30/22 mcg/actuation nasal Symptoms 30 days #16 grams spray,suspension gabapentin 300 mg capsule 600 mg PO DAILY 90 days #180 caps 10/20/22 dulaglutide 1.5 mg/0.5 mL 1.5 mg (0.5 mL) subcut SA #6 mL 11/15/22 subcutaneous pen injector (Trulicity) solifenacin 10 mg tablet 10 mg PO DAILY 90 days #90 tabs 12/20/22 nut.tx.gluc.intol,lac-free,soy 1 ea PO DAILY 90 days #21,330 mL 12/30/22 (Glucerna Advance oral liquid) lidocaine 5 % topical patch 1 patch topical DAILY 30 days #30 12/31/22 (Lidoderm) ea metoprolol succinate 25 mg 12.5 mg PO DAILY #90 tabs 01/19/23 tablet,extended release 24 hr Allergies Allergy/AdvReac Type Severity Reaction Status Date / Time Iodinated Contrast Media Allergy Intermediate RASH AT IV Verified 01/26/23 14:12 [CONTRAST, IV] SITE. BENEDRYL GIVEN WITH GOOD EFFECT ibuprofen Allergy Rash Verified 01/26/23 14:12 adhesive tape AdvReac Rash Verified 01/26/23 14:12 Review of Systems Review of Systems: Constitutional : No Weight loss, No Fever, No Chills, No Night Sweats, No Fatigue, No Malaise ENT/Mouth : No Hearing loss, No Ear Pain, No Nasal Congestion, No Sinus Pain, No Hoarseness, No sore throat, No Rhinorrhea, No Swallowing Difficulty Eyes: No Eye Pain, No Swelling, No Redness, No Foreign Body, No Discharge, No Vision Changes Cardiovascular : No Chest Pain, complaining of dyspnea, no orthopnea Respiratory : No Cough, No Sputum, No Wheezing, No Smoke Exposure, complaining of Dyspnea Gastrointestinal : No Nausea, No Vomiting, No Diarrhea, No Constipation, No abdominal Pain, No Hematochezia, No Melena Genitourinary : no irregular bleeding, No Dysuria, No Urinary Frequency, No Hematuria, No Urinary Incontinence, No Urgency, No Flank Pain, No Urinary Flow Changes, No Hesitancy Musculoskeletal : Complaining of right inguinal pain, right hip pain, No joint pain, No Myalgias, No Joint Swelling Skin : No Skin Lesions, No rash Neuro : No Weakness, No Numbness, No Paresthesias, No Loss of Consciousness, No Dizziness, No Headache Psych : No Anxiety/Panic, No Depression, No SI/HI/AH/VH, No Social Issues, Heme/Lymph: No Bruising, No Bleeding,No Lymphadenopathy Endocrine : No Polyuria, No Polydipsia, No Temperature Intolerance [facility] Past Medical History Medical History Anemia Bronchopneumonia CAD (coronary artery disease) Carotid artery disease COPD (chronic obstructive pulmonary disease) Diabetes type 2, uncontrolled (~1999) Diabetic nephropathy associated with type 2 diabetes mellitus Diabetic polyneuropathy associated with type 2 diabetes mellitus Dyslipidemia Dyspnea History of hepatitis C History of MD (myocardial infarction) History of prostate cancer (~2016) 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 Nocturnal hypoxia Overweight (BMI 25.0-29.9) Pulmonary nodule Stented coronary artery Surgical History History of cataract surgery (~2019) History of colonoscopy History of cystoscopy (~2020) History of esophagogastroduodenoscopy (EGD) History of heart artery stent History of prostatectomy Hx of cardiac cath Family History Family History Father Sudden cardiac CVD (cardiovascular disease) Mother Hx of heart surgery CVD (cardiovascular disease) Social History Social History Household Members: Spouse Housing: House Do you presently have visiting nurse or other home services: No Alcohol intake: former Patient Tobacco Use Status: Former Tobacco user Smoked in Last 30 Days: No e-Cigarette/Vaping Use: Never Used Second Hand Smoke Exposure: No Use of substances other than those prescribed or required for medical reasons: No Advance Directives: Yes Advance Directives on File: Yes Advance Directives Date on File: 03/31/21 service: Yes Current occupational status: retired Current occupation: rt handed Current occupational exposures/hazards: No Cognitive needs: No Hearing needs: No Vision needs: Yes (reading glasses) Physical Exam ED Vital Signs: Vital Signs - 24 hr 01/26/23 14:03 01/26/23 14:17 01/26/23 14:36 Temperature 97.7 F Pulse Rate 78 79 73 Respiratory Rate 20 13 16 Blood Pressure 82/50 L 136/77 Pulse Oximetry 98 98 Oxygen Delivery Method Room Air Room Air 01/26/23 15:11 01/26/23 15:43 01/26/23 15:43 Temperature 97.6 F Pulse Rate 90 97 100 Respiratory Rate 17 Blood Pressure 130/58 L 121/64 121/71 Pulse Oximetry 98 Oxygen Delivery Method Room Air 01/26/23 15:44 01/26/23 16:05 01/26/23 17:26 Temperature Pulse Rate 103 H 95 88 Respiratory Rate 14 16 Blood Pressure 71/36 L 104/62 127/58 L Pulse Oximetry 97 Oxygen Delivery Method Room Air 01/26/23 18:44 01/26/23 18:44 01/26/23 18:46 Temperature Pulse Rate 88 95 94 Respiratory Rate Blood Pressure 139/64 132/60 102/47 L Pulse Oximetry Oxygen Delivery Method 01/26/23 20:53 01/26/23 21:35 01/26/23 21:43 Temperature 98.2 F Pulse Rate 87 89 86 Respiratory Rate 17 14 Blood Pressure 172/84 H 160/80 H 167/80 H Pulse Oximetry 97 Oxygen Delivery Method Room Air 01/26/23 21:43 01/26/23 21:43 01/26/23 22:25 Temperature Pulse Rate 88 90 92 Respiratory Rate 18 Blood Pressure 142/74 H 129/58 L 178/81 H Pulse Oximetry 99 Oxygen Delivery Method BMI result Body Mass Index 23.0 Const Other: Appearance: Alert. Oriented X3. No acute distress. Eyes: Pupils equal, round and reactive to light. ENT: Pharynx normal. Hoarse voice Neck: Normal inspection. Neck supple. No lymph nodes noted. No crepitus CVS: Normal heart rate and rhythm. Pulses normal. Normal S1 and S2 Respiratory: No respiratory distress. Breath sounds normal. No Wheezing. No rales : Penile implant present, pain to palpation in the inguinal canal/right hip Abdomen: Soft and nontender. No rigidity. No distention. Digital rectal exam showed brown stool Skin: Skin warm and dry. Normal skin color. Normal skin turgor. Extremities: No lower extremity edema. No Lacerations. No Rash Neuro: Oriented X 3. No motor deficit. No sensory deficit. Moving all extremities. No slurred speech. CN 2 through 12 grossly intact Psych: calm, cooperative, normal affect Medications Administered Discontinued Medications Generic Name Dose Route Start Last Admin Trade Name Freq PRN Reason Stop Dose Admin Albuterol Sulfate 5 mg 01/26/23 14:28 01/26/23 14:36 Albuterol Sulfate (0.083%) 2.5 Mg/3 Ml Vial.Neb INHALE 01/26/23 14:29 5 mg ONCE ONE Administration Sodium Chloride 1,000 mls @ 999 mls/hr 01/26/23 16:01 01/26/23 18:39 Ns IVCONT 01/26/23 17:01 Infused .Q1H1M ONE Infusion Sodium Chloride 1,000 mls @ 999 mls/hr 01/26/23 19:49 01/26/23 21:34 Ns IVCONT 01/26/23 20:49 Infused .Q1H1M ONE Infusion Medical Decision Making Medical Decision Making MDM Narrative: -patient's initial blood pressure 82 systolic, admission being considered -of patient's labs and imaging pending -patient is not wheezing. Oxygen saturation 98%. Patient states that he feels short of breath and requesting a nebulization treatment. Discussed with the patient that he might not help since he is not wheezing and he has clear lungs. For comfort reasons we will go ahead and ordered. However, the etiology of shortness of breath is unclear at this time. CT scan of the chest pending. Patient has elevated creatinine level. Cannot use contrast, also patient is allergic to IV contrast. D-dimer pending. If positive, patient will need a V/Q scan. -D-dimer is negative -CT scan of the chest/abdomen/pelvis pending -orthostatic vitals are significantly positive. From sitting position blood pressure 121/71 dropped when standing to 71/36. Patient receiving IV fluids -patient received 2 L of fluid, patient is still orthostatic, patient's blood pressure dropped from 167 to 142 systolic. Patient still feeling lightheaded. -patient may have autonomic dysfunction versus dehydration -patient has no fever, no signs of infection, sepsis not suspected. -shortness of breath likely secondary to chronic pulmonary disease. After breathing treatment, patient no longer short of breath, no chest tightness. -my interpretation of chest CT scan: No pneumonia -I discussed with the family the CT scan findings of the chest. 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 Patient will likely need repeat CT scan or more advanced imaging. Family understands the importance of close follow-up with pulmonology -patient was seen earlier today at the hematology/oncology clinic for chronic anemia -digital rectal exam was negative for occult blood in the stool -of note, after speaking more thoroughly with the patient's , patient was recently diagnosed with a seizure disorder and was started on Keppra. -patient's explains that when patient stands up, he feels very shaky and then has seizure-like activity and eye rolling. Seems that this seizures are triggered by orthostatic hypotension, it is possible that patient may not actually be having seizures but having seizure-like movements and eye rolling as it occurs with people to pass out from orthostatic hypotension -I discussed the patient with Dr. Ferris, patient will be admitted, we will try more fluid hydration. Differential Diagnosis Differential Diagnoses: The differential diagnosis associated with the presentation includes (Pneumonia, pneumothorax, COPD, pulmonary embolism, GI bleed, internal hemorrhoids, inguinal hernia. Orthostatic hypotension, dehydration, autonomic dysfunction) Admission/Observation Consideration of admission/observation: Escalation of care including admission/observation considered Consult Healthcare Provider Management of the patient was discussed with: Hospitalist Lab Data MDM Lab Attestation statement: I reviewed the patient's lab results. Labs: Lab Results 01/26/23 01/26/23 01/26/23 Range/Units 14:40 15:10 15:10 PT 10.8 (10.0-13.1) SEC INR 0.9 (0.9-1.1) APTT 26.2 (26.0-36.4) SEC D-Dimer High Sensitivty < 150 NG/ML POC Glucose 140 H (60-115) mg/dL Stool Occult Blood (NEGATIVE) 01/26/23 Range/Units 15:22 PT (10.0-13.1) SEC INR (0.9-1.1) APTT (26.0-36.4) SEC D-Dimer High Sensitivty NG/ML POC Glucose (60-115) mg/dL Stool Occult Blood NEGATIVE (NEGATIVE) Independent Interpretation I performed an independent interpretation of an: CT Scan Radiology Impression Discussion of test interpretation with radiology: I have reviewed the radiologist's reading. Radiologist Impression: CHEST - LUNGS AND PLEURA:? Trachea and central airways are unremarkable. Moderate centrilobular emphysema. Mild paraseptal emphysema. No pleural effusion or pneumothorax. An old calcified granuloma is present in the anterolateral left lower lobe. A few noncalcified nodules are detected, new since 04/06/2017, including the following: *? 0.3 cm, posterior right upper lobe (175, series 13) *? 0.3 cm, superior segment of left lower lobe (211, series 13) *? 0.8 cm left apical nodule has a small central lucency/cavitation; a few small linear or nodular foci are seen at the lesion periphery, including a 0.3 cm focus (95, series 13). MEDIASTINUM/LOWER NECK: The heart size is normal. No pericardial effusion. Three-vessel coronary artery atherosclerotic calcification is present. There appears to be a stent of the left anterior descending coronary artery. Scattered atherosclerosis of thoracic aorta without aneurysm. Pulmonary arteries are normal in caliber. The esophagus and thyroid gland are unremarkable. LYMPHATICS: No pathologic sized axillary, hilar or mediastinal lymph nodes. CHEST WALL/BONES OF THORAX: No chest wall mass. Thoracic vertebra have normal height and alignment. No acute or suspicious osseous abnormality within the thorax. ABDOMEN AND PELVIS - HEPATOBILIARY: Liver has normal size, contour and attenuation. Gallbladder is unremarkable. No intrahepatic or extrahepatic bile duct dilatation. PANCREAS: No edema, mass or pancreatic ductal dilatation. SPLEEN: Normal. ADRENAL GLANDS: A solid homogeneous nodule of the apex of the left adrenal gland measures 1.3 cm AP and has density of - 2 HU consistent with lipid rich adenoma; it is unchanged in size compared to 12/15/2012. No adrenal imaging follow-up recommended. KIDNEYS AND URETERS: Kidneys are normal in size and attenuation. No nephrolithiasis, hydronephrosis or perinephric fluid collection. BOWEL AND PERITONEUM: No dilated loops of bowel. The appendix is normal. No overt bowel wall thickening. No mesenteric fat stranding, ascites or pneumoperitoneum. There are diverticula of the sigmoid colon without evidence of diverticulitis. A moderate amount fecal material is present within the colon. ABDOMINAL WALL: No acute abnormalities. There is chronic protrusion of extraperitoneal fat into each inguinal canal, unchanged compared to 12/15/2012. VESSELS: Atherosclerotic calcification of the abdominal aorta and iliac arteries without aneurysm. No retroperitoneal hematoma. LYMPH NODES: No pathologic sized lymph nodes in the abdomen or pelvis. No inguinal lymphadenopathy. BLADDER AND PELVIC VISCERA: Prostatectomy. No pelvic mass or pelvic free fluid. The reservoir for a penile prosthesis projects deep to the lower abdominal wall, anterior to the urinary bladder. OTHER MUSCULOSKELETAL: No acute or suspicious osseous abnormality. L1 vertebral body hemangioma. Severe facet arthropathy and vacuum disc degenerative change of L5-S1 with grade 1 anterolisthesis of L5 on S1. CT/CT chest wo IV con IMPRESSION: *? Moderate pulmonary emphysema. *? A few new pulmonary nodules are present, largest 0.8 cm at the left apex with central cavitation. It is uncertain whether nodules are sequela of infection/inflammation or neoplastic disease. Note that Fleischner Society guidelines would not be applied in a patient with a history of carcinoma. If deemed clinically appropriate, obtain chest CT follow-up in the next 3-6 months.? *? Atherosclerotic disease of coronary arteries. *? 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 *? Diverticulosis of the sigmoid colon without diverticulitis. *? No acute findings in the right lower quadrant or inguinal region Independent Historian Clinical information obtained from an independent historian. History obtained from or confirmed by: Spouse External Record Review External record reviewed: Outpatient record I reviewed patient's outpatient records from pulmonology, pain clinic Critical Care Time Critical Care Time Critical Care Time: Yes Total Critical Care Time: 120 Attestation: I have personally provided critical care time. Time includes review of lab data, radiology results, discussion with consultants, and monitoring for potential decompensation. Intervention performed as documented. Discharge Plan Discharge Clinical Impression: Autonomic orthostatic hypotension Patient Disposition: Admitted As Inpatient
--- NOTE | 2023-01-26 15:16 | PC.NURSE ---
at bedside, blood drawn, in in place. no hypotension. talking well. neb tx done. no sob. aox4. marie equally. clear speech. no seizure activity. seiz precaut in place including padded rails
[2023-01-26 15:26] LABS: Glucose, Whole Blood 140 mg/dL (60-115)
[2023-01-26 15:31] LABS: OBS Int Ctl Valid YES; OBS1 NEGATIVE (NEGATIVE)
[2023-01-26 15:32] LABS: INTERNATIONAL NORM RATIO 0.9 (0.9-1.1); Prothrombin Time 10.8 SEC (10.0-13.1)
[2023-01-26 15:35] LABS: Partial Thromboplastin Time 26.2 SEC (26.0-36.4)
[2023-01-26 15:37] LABS: D Dimer High Sensitivity < 150 NG/ML
[2023-01-26] MEDS: 0.9 % Sodium Chloride 1,000 ML 999 ML IVCONT ×2 (16:19→19:59)
--- NOTE | 2023-01-26 16:19 | PC.NURSE ---
1L NS running, pt resting quietly, requesting food and coffee.
--- NOTE | 2023-01-26 20:52 | PC.NURSE ---
family looking to speak with provider about plan of care, provider notified.
--- NOTE | 2023-01-26 21:38 | PC.NURSE ---
aox4. no seizure activity this shift. talking well. pt reports he took one gabapentin approximately 1800 at the hospital from '[facility]. md starks notified. no sx rerpiratory depression. breathing normally.
--- NOTE | 2023-01-26 22:20 | PM.IMHP ---
History of Present Illness Date of Service: 01/26/23 Chief Complaint: dizziness 72-year-old male past medical history of normocytic anemia, CAD, Parkinson's, history of prostate cancer status post prostatectomy, diabetes, HTN, COPD comes into the hospital complaints of low blood pressure and dizziness. It appears the patient was seen at the oncology office today for consultation for evaluation of mild normocytic anemia. He was complaining of shortness of breath at the office, vitals were checked and he was noted to be hypotensive with systolic blood pressure in the 80s. Patient reports that he has been having low blood pressure readings ranging between 60 and 80s. He reports dizziness with no loss of consciousness. Reports chronic shortness of breath that has not worsened, no increased cough or sputum production. Denies any headache or change in vision, no chest pain, no palpitations, denies any nausea, no recent vomiting episodes or excessive diarrhea, he feels constipated, denies any urinary symptoms and no lower extremity edema. On arrival to the ED patient noted to have a blood pressure of 63/38, patient was given fluids with improvement in his blood pressure, orthostatic vitals were checked and were significantly positive. Despite IV replacement and hydration patient remain to be orthostatics positive therefore will be admitted for further management Labs reviewed show a hemoglobin of 11.8, hematocrit 36.4 which is around his baseline, creatinine of 2.38, recent readings around 1.62-2, UA negative, stool occult negative, Abdominal pelvic CT shows a few pulmonary nodules, largest 0.8 cm at the left apex with central cavitation possible sequelae of infectious versus neoplastic Patient started on IV fluids and will be admitted for further management Review of Systems Review of Systems: Yes all other systems are reviewed and are negative [facility] Medical History Anemia Bronchopneumonia CAD (coronary artery disease) Carotid artery disease COPD (chronic obstructive pulmonary disease) Diabetes type 2, uncontrolled (~1999) Diabetic nephropathy associated with type 2 diabetes mellitus Diabetic polyneuropathy associated with type 2 diabetes mellitus Dyslipidemia Dyspnea History of hepatitis C History of UT (myocardial infarction) History of prostate cancer (~2016) 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 intermediate (current) use of insulin Nocturnal hypoxia Overweight (BMI 25.0-29.9) Pulmonary nodule Stented coronary artery Family History Father Sudden cardiac CVD (cardiovascular disease) Mother Hx of heart surgery CVD (cardiovascular disease) Surgical History History of cataract surgery (~2019) History of colonoscopy History of cystoscopy (~2020) History of esophagogastroduodenoscopy (EGD) History of heart artery stent History of prostatectomy Hx of cardiac cath Social History Household Members: Spouse Housing: House Do you presently have visiting nurse or other home services: No Alcohol intake: former Patient Tobacco Use Status: Former Tobacco user Smoked in Last 30 Days: No e-Cigarette/Vaping Use: Never Used Second Hand Smoke Exposure: No Use of substances other than those prescribed or required for medical reasons: No Advance Directives: Yes Advance Directives on File: Yes Advance Directives Date on File: 03/31/21 Nutrition Risks: No Nutritional Risk service: Yes Current occupational status: retired Current occupation: rt handed Current occupational exposures/hazards: No Cognitive needs: No Hearing needs: No Vision needs: Yes (reading glasses) Meds Allergies Allergy/AdvReac Type Severity Reaction Status Date / Time Iodinated Contrast Media Allergy Intermediate RASH AT IV Verified 01/26/23 14:12 [CONTRAST, IV] SITE. BENEDRYL GIVEN WITH GOOD EFFECT ibuprofen Allergy Rash Verified 01/26/23 14:12 adhesive tape AdvReac Rash Verified 01/26/23 14:12 Active Medications: Current Medications Acetaminophen (Acetaminophen 325 Mg Tablet) 650 mg PO Q6H PRN PRN Reason: Pain, Mild (Pain Scale 1-3) Docusate Sodium (Docusate Sodium 100 Mg Capsule) 100 mg PO DAILY PRN PRN Reason: Constipation Lactated Ringer's (Lr) 1,000 mls @ 100 mls/hr IVCONT .Q10H FANNY Ondansetron HCl (Ondansetron Hcl 4 Mg/2 Ml Vial) 4 mg IVPUSH Q8H PRN PRN Reason: Nausea and Vomiting Pharmacy Consult (Consult Rx Perform Med Rec) 1 each MISCELLANE ONCE PRN PRN Reason: Consult order Sodium Chloride (0.9 % Sodium Chloride Flush 3 Ml Syringe) 3 ml IVFLUSH QSHIFT [facility] Home Medications Medication Instructions Recorded Confirmed Last Taken Type carbidopa 25 mg-levodopa 100 mg 1 tab PO TID@0900,1200,1600 06/23/20 01/07/23 03/30/21 History tablet aspirin 81 mg tablet,delayed 81 mg PO DAILY 08/26/20 01/07/23 05/10/21 16:00 History release (Adult Low Dose Aspirin) vitamin B complex (B 1 tab PO DAILY 08/26/20 01/07/23 03/30/21 History Complex-Vitamin B12 tablet) cholecalciferol (vitamin D3) 25 25 mcg PO DAILY 05/20/21 01/07/23 Unknown History mcg (1,000 unit) capsule blood sugar diagnostic (FreeStyle #10 ea 06/05/21 10/20/22 Unknown History Lite Strips) pramipexole 0.25 mg tablet 0.25 mg PO BID 09/08/21 01/26/23 Unknown History carbidopa ER 50 mg-levodopa 200 mg 1 tab PO BEDTIME 11/10/21 01/26/23 Unknown History tablet,extended release trazodone 50 mg tablet 50 mg PO BEDTIME 03/16/22 01/26/23 Unknown History fluoride (sodium) 1.1 % dental PO 04/16/22 01/07/23 Unknown History paste nebulizers 11/22/22 Unknown History levetiracetam 250 mg tablet 250 mg PO BID 01/26/23 01/26/23 Unknown History metformin 500 mg tablet,extended 500 mg PO BID PRN elevated blood 01/26/23 01/26/23 Unknown History release 24 hr glucose Physical Exam Vital Signs and Narrative: Vital Signs: Last Vital Signs Temp 98.2 F 01/26/23 21:35 Pulse 90 01/26/23 21:43 Resp 14 01/26/23 21:35 BP 129/58 L 01/26/23 21:43 Pulse Ox 97 01/26/23 21:35 O2 Del Method Room Air 01/26/23 21:35 BMI result Body Mass Index 23.0 Const: Other: Appears cachectic General: cooperative and no acute distress Orientation/consciousness: patient oriented x3 Eyes: General: appearance normal, both eyes and all related structures Resp: Effort & Inspection: normal respiratory effort Auscultation: clear to auscultation bilaterally Cardio: Rate: regular rate Rhythm: regular rhythm GI: Palpation (GI): Soft to palpation Auscultation: normal bowel sounds Skin: General skin exam: no rashes or lesions noted Neuro: General: patient oriented x3 Cognition (Neuro): normal cognition Extrem: General: Yes normal to inspection and Yes no pedal edema Results Labs Labs: Laboratory Results - last 24 hr 01/26/23 01/26/23 01/26/23 14:40 15:10 15:10 PT 10.8 INR 0.9 APTT 26.2 D-Dimer High Sensitivty < 150 POC Glucose 140 H Stool Occult Blood 01/26/23 15:22 PT INR APTT D-Dimer High Sensitivty POC Glucose Stool Occult Blood NEGATIVE Imaging Radiologist's Impressions: Impressions Abdomen/Pelvis CT 01/26/23 16:25 IMPRESSION: * Moderate pulmonary emphysema. * A few new pulmonary nodules are present, largest 0.8 cm at the left apex with central cavitation. It is uncertain whether nodules are sequela of infection/inflammation or neoplastic disease. Note that Fleischner Society guidelines would not be applied in a patient with a history of carcinoma. If deemed clinically appropriate, obtain chest CT follow-up in the next 3-6 months. * Atherosclerotic disease of coronary arteries. 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 * Diverticulosis of the sigmoid colon without diverticulitis. * No acute findings in the right lower quadrant or inguinal region Chest CT 01/26/23 16:25 IMPRESSION: * Moderate pulmonary emphysema. * A few new pulmonary nodules are present, largest 0.8 cm at the left apex with central cavitation. It is uncertain whether nodules are sequela of infection/inflammation or neoplastic disease. Note that Fleischner Society guidelines would not be applied in a patient with a history of carcinoma. If deemed clinically appropriate, obtain chest CT follow-up in the next 3-6 months. * Atherosclerotic disease of coronary arteries. 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 * Diverticulosis of the sigmoid colon without diverticulitis. * No acute findings in the right lower quadrant or inguinal region Assessment and Plan (1) Orthostatic hypotension: Status: Acute (2) Abnormal chest CT: Status: Acute (3) HOMERO (acute kidney injury): Status: Acute Plan 72-year-old male past medical history of CAD, hypertension, Parkinson's disease among others, presents the hospital with complaints of dizziness found to be hypotensive # acute orthostatic hypotension - possibly secondary to dehydration versus autonomic hypotension in the setting of Parkinson's disease - will hold antihypertensives at this time - continue IV fluids - if remains positive for the status, consider Nephrology consult # HOMERO - has increased creatinine - will treat with IV fluids - follow BMP # abnormal chest CT - chest CT showing multiple nodules - patient with history of prostate cancer status post prostatectomy - will need follow-up outpatient - at this time patient denies any cough, no increased sputum - no evidence of infection # chronic normocytic anemia - follow-up with Hematology-Oncology outpatient # diabetes - hold oral antihyperglycemics - will start low-dose sliding scale insulin - diabetic diet # CAD - no chest pain -continue aspirin, Plavix, metoprolol # history of seizure disorder - continue Keppra # Parkinson's - continue carbidopa levodopa DVT prophylaxis: Early ambulation Time Spent With Patient Time: Total time managing care of this patient today ____ minutes. Quality Stroke Does the patient have a stroke diagnosis?: No VTE Prior VTE?: No VTE Risk Level:: Medical - low VTE Device Contraindication: Treatment Not Indicated VTE Drug Contraindication: Treatment Not Indicated
[2023-01-26] MEDS: Lactated Ringers 1,000 ML 100 ML IVCONT (22:52)
--- NOTE | 2023-01-26 23:10 | PC.NURSE ---
nurse to nurse report called to Nichole LEE @[phone]
[2023-01-27] VITALS (10 sets, daily range): BP systolic 142–182; BP diastolic 60–88; PULSE 62–85; RESP 18–22; TEMP 36.1–36.6; O2SAT 95–98
[2023-01-27] MEDS: traZODone HCL 50 MG TABLET PO ×3 (00:27→22:13)
[2023-01-27] MEDS: Omeprazole 20 MG CAPSULE.DR PO (05:30)
[2023-01-27 06:13] LABS: Basophils Percent Auto 0.3 % (0-2); Eosinophils Absolute Auto 0.2 X10*3/uL (0.0-0.4); Eosinophils Percent Auto 2.7 % (0-4); Hematocrit 32.8 % (42.0-52.0); Hemoglobin 10.7 g/dl (14.0-18.0); Imm Gran Abs Auto 0.02 X10*3/uL (0.00-0.03); Imm Gran Pct Auto 0.3 % (0.0-0.4); Lymphocytes Absolute Auto 1.2 X10*3/uL (1.2-4.9); Lymphocytes Percent Auto 18.4 % (20-40); MANUAL DIFF FLAG NO; Mean Corpuscular HGB Conc 32.6 g/dl (31.0-36.0); Mean Corpuscular Hemoglobin 29.8 pg (27.0-33.0); Mean Corpuscular Volume 91.4 fL (80.0-98.0); Mean Platelet Volume 10.5 fL (9.4-12.4); Monocytes Absolute Auto 0.7 X10*3/uL (0.1-1.2); Monocytes Percent Auto 11.2 % (2-11); Neutrophils Absolute Auto 4.4 x10*3/uL (2.0-8.3); Neutrophils Percent Auto 67.1 % (45-73); Platelet Count 205 X10*3/uL (160-400); Red Blood Count 3.59 X10*6/uL (4.60-5.80); Red Cell Distribution Width 14.8 % (11.0-16.0); White Blood Count 6.6 X10*3/uL (4.8-10.8)
[2023-01-27 06:33] LABS: Anion Gap 11 (12-20); Blood Urea Nitrogen 35 mg/dL (9-16); Calcium 9.1 mg/dL (8.4-10.2); Carbon Dioxide 23 mmol/L (22-29); Chloride 112 mmol/L (96-108); Creatinine Clr Calc Pharmacy 31.8; Estimated Glomerular Filt Rate 34; Glucose Random 105 mg/dL (60-115); Potassium 3.4 mmol/L (3.3-5.1); Sodium 143 mmol/L (135-145)
[2023-01-27 07:41] LABS: Glucose, Whole Blood 109 mg/dL (60-115)
[2023-01-27] MEDS: Lactated Ringers 1,000 ML 100 ML IVCONT ×2 (07:58→17:59)
[2023-01-27] MEDS: Fluticasone Propionate Nasal 16 GM SPRAY 2 SPRAY NOSTRIL-B (07:59)
[2023-01-27] MEDS: Metoprolol Succinate ER 12.5 MG HALFTAB.ER.24H PO (08:01)
[2023-01-27] MEDS: levETIRAcetam 250 MG TABLET PO ×2 (08:01→20:42)
[2023-01-27] MEDS: Clopidogrel Bisulfate 75 MG TABLET PO (08:02)
[2023-01-27] MEDS: Tolterodine Tartrate LA 4 MG CAP.ER.24H PO (08:02)
[2023-01-27] MEDS: Gabapentin 300 MG CAPSULE 600 MG PO (08:02)
[2023-01-27] MEDS: Pramipexole Di-HCL 0.25 MG TABLET PO ×2 (08:02→20:42)
[2023-01-27] MEDS: Albuterol Sulfate (0.083%) 2.5 MG/3 ML VIAL.NEB INHALE ×2 (08:03→20:10)
--- NOTE | 2023-01-27 08:47 | PHA.MEDREC ---
Pharmacy Consult ? Medication Reconciliation Pharmacy has completed the medication reconciliation.
[2023-01-27 10:58] LABS: Glucose, Whole Blood 127 mg/dL (60-115)
--- NOTE | 2023-01-27 11:51 | MHC.CM.PN ---
DOMINICK DELIVERED PT LIVES WITH FAMILY IN A SF HOME. USES [facility] FOR MAJOR MOBILITY. + COVID VX + HCP PCP DR. FISHER AT [facility] [place] [facility] [place] DP: HOME, OPEN TO [facility] SERVICES IF RECOMMENDED. FAMILY WILL TRANSPORT HOME. CM WILL CONTINUE TO FOLLOW FOR DC NEEDS/PLAN
[2023-01-27] MEDS: Carbidopa/Levodopa 25/100 TABLET 1 TAB PO ×2 (12:49→16:26)
--- NOTE | 2023-01-27 12:55 | HO.PM.IMPN ---
Subjective Subjective Date of Service: 01/27/23 Interval History: seen and examined this morning follow up for low blood pressure and dizziness feeling better this am, was able to ambulate to the bathroom with minimal dizziness Review of Systems Review of Systems: Yes all other systems are reviewed and are negative Constitutional Constitutional: Denies chills and Denies fever(s) ENT Ears, Nose, Mouth, and Throat: Reports dizziness Cardiovascular Cardiovascular: Denies chest pain, Denies palpitations and Denies dyspnea Respiratory Respiratory: Denies cough and Denies dyspnea Gastrointestinal Gastrointestinal: Denies abdominal pain Neurologic Neurologic: Reports dizziness Endocrine Endocrine: Denies palpitations Physical Exam Vital Signs: Vital Signs: Last Vital Signs Temp 97.8 F 01/27/23 12:00 Pulse 77 01/27/23 12:00 Resp 20 01/27/23 12:00 BP 150/60 H 01/27/23 12:00 Pulse Ox 95 01/27/23 12:00 O2 Del Method Room Air 01/27/23 12:00 BMI result Body Mass Index 23.0 Const: General: cooperative, comfortable, no acute distress, alert and awake Nutritional Appearance: average body habitus Orientation/consciousness: patient oriented x3 Resp: Effort & Inspection: normal respiratory effort, able to speak in complete sentences, no respiratory distress and no use of accessory muscles Auscultation: clear to auscultation bilaterally Cardio: Rate: regular rate Heart sounds: S1 normal heart sound present and S2 normal heart sound present GI: Inspection: No distended Palpation (GI): Soft to palpation and nontender Neuro: General: patient oriented x3, moves all extremities and CN's II-XI intact bilaterally Extrem: General: Yes no pedal edema Objective Data Active Medications Acetaminophen (Acetaminophen 325 Mg Tablet) 650 mg PO Q6H PRN PRN Reason: Pain, Mild (Pain Scale 1-3) Albuterol Sulfate (Albuterol Sulfate (0.083%) 2.5 Mg/3 Ml Vial.Neb) 2.5 mg INHALE BID [facility] Last Admin: 01/27/23 08:03 Dose: 2.5 mg Documented By: SHAUNA Atorvastatin Calcium (Atorvastatin Calcium 80 Mg Tablet) 80 mg PO BEDTIME [facility] Carbidopa/Levodopa (Carbidopa/Levodopa Cr 50/200 Tablet.Er) 1 tab PO BEDTIME [facility] Last Admin: 01/27/23 00:29 Dose: Not Given Documented By: EVELYN Non-Admin Reason: pt state took already Carbidopa/Levodopa (Carbidopa/Levodopa 25/100 Tablet) 1 tab PO TID@0800,1200,1700 [facility] Last Admin: 01/27/23 12:49 Dose: 1 tab Documented By: JIMY Clopidogrel Bisulfate (Clopidogrel Bisulfate 75 Mg Tablet) 75 mg PO DAILY [facility] Last Admin: 01/27/23 08:02 Dose: 75 mg Documented By: JIMY Dextrose (Dextrose 50 % 25 Gm/50 Ml Syringe) 25 gm IVPUSH Q15M PRN; Protocol PRN Reason: per Hypoglycemia Standing Ord. Docusate Sodium (Docusate Sodium 100 Mg Capsule) 100 mg PO DAILY PRN PRN Reason: Constipation Fluticasone Propionate (Fluticasone Propionate Nasal 16 Gm [place]) 2 spray NOSTRIL-B DAILY [facility] Last Admin: 01/27/23 07:59 Dose: 2 spray Documented By: JIMY Gabapentin (Gabapentin 300 Mg Capsule) 600 mg PO DAILY [facility] Last Admin: 01/27/23 08:02 Dose: 600 mg Documented By: JIMY Glucose (Glucose Gel 15 Gm Gel..Gram.) 15 gm PO Q15M PRN; Protocol PRN Reason: per Hypoglycemia Standing Ord. Lactated Ringer's (Lr) 1,000 mls @ 100 mls/hr IVCONT .Q10H [facility] Last Admin: 01/27/23 07:58 Dose: 100 mls/hr Documented By: JIMY Insulin Human Lispro (Insulin Lispro 100 Unit/Ml 3 Ml Vial) 0 unit SUBCUT QIDACHS [facility]; Protocol Last Admin: 01/27/23 11:12 Dose: Not Given Documented By: JIMY Non-Admin Reason: No Insulin Coverage Levetiracetam (Levetiracetam 250 Mg Tablet) 250 mg PO BID [facility] Last Admin: 01/27/23 08:01 Dose: 250 mg Documented By: JIMY Metoprolol Succinate (Metoprolol Succinate Er 12.5 Mg Halftab.Er.24h) 12.5 mg PO DAILY [facility]; Protocol Last Admin: 01/27/23 08:01 Dose: 12.5 mg Documented By: JIMY Omeprazole (Omeprazole 20 Mg Capsule.Dr) 20 mg PO DAILY@0630 [facility] Last Admin: 01/27/23 05:30 Dose: 20 mg Documented By: EVELYN Ondansetron HCl (Ondansetron Hcl 4 Mg/2 Ml Vial) 4 mg IVPUSH Q8H PRN PRN Reason: Nausea and Vomiting Pharmacy Consult (Consult Rx Perform Med Rec) 1 each MISCELLANE ONCE PRN PRN Reason: Consult order Pramipexole Dihydrochloride (Pramipexole Di-Hcl 0.25 Mg Tablet) 0.25 mg PO BID [facility] Last Admin: 01/27/23 08:02 Dose: 0.25 mg Documented By: JIMY Sodium Chloride (0.9 % Sodium Chloride Flush 3 Ml Syringe) 3 ml IVFLUSH QSHIFT [facility] Last Admin: 01/27/23 07:49 Dose: Not Given Documented By: JIMY Non-Admin Reason: IV Running Tamsulosin HCl (Tamsulosin Hcl 0.4 Mg Capsule) 0.4 mg PO BEDTIME [facility] Last Admin: 01/27/23 00:30 Dose: Not Given Documented By: EVELYN Non-Admin Reason: pt states took already Tolterodine Tartrate (Tolterodine Tartrate La 4 Mg Cap.Er.24h) 4 mg PO DAILY [facility] Last Admin: 01/27/23 08:02 Dose: 4 mg Documented By: JIMY Trazodone HCl (Trazodone Hcl 50 Mg Tablet) 50 mg PO BEDTIME [facility] Last Admin: 01/27/23 00:27 Dose: 50 mg Documented By: EVELYN Labs 01/27/23 05:32 01/27/23 05:32 Labs: Laboratory Results - last 24 hr 01/26/23 01/26/23 01/26/23 14:40 15:10 15:10 MCV MCH MCHC RDW Plt Count MPV Immature Gran % (Auto) Neut % (Auto) Lymph % (Auto) [place] % (Auto) Eos % (Auto) Baso % (Auto) Lymph # (Auto) [place] # (Auto) Eos # (Auto) Baso # (Auto) Abs Immat Gran (auto) Absolute Neuts (auto) Absolute Nucleated RBC Nucleated RBC % (auto) PT 10.8 INR 0.9 APTT 26.2 D-Dimer High Sensitivty < 150 Anion Gap Estim Creat Clear Calc Estimated GFR POC Glucose 140 H Random Glucose Calcium Stool Occult Blood 01/26/23 01/27/23 01/27/23 15:22 05:32 05:32 MCV 91.4 MCH 29.8 MCHC 32.6 RDW 14.8 Plt Count 205 MPV 10.5 Immature Gran % (Auto) 0.3 Neut % (Auto) 67.1 Lymph % (Auto) 18.4 L [place] % (Auto) 11.2 H Eos % (Auto) 2.7 Baso % (Auto) 0.3 Lymph # (Auto) 1.2 [place] # (Auto) 0.7 Eos # (Auto) 0.2 Baso # (Auto) 0.0 Abs Immat Gran (auto) 0.02 Absolute Neuts (auto) 4.4 Absolute Nucleated RBC 0.000 Nucleated RBC % (auto) 0.0 PT INR APTT D-Dimer High Sensitivty Anion Gap 11 L Estim Creat Clear Calc 31.8 Estimated GFR 34 POC Glucose Random Glucose 105 Calcium 9.1 Stool Occult Blood NEGATIVE 01/27/23 01/27/23 07:24 10:54 MCV MCH MCHC RDW Plt Count MPV Immature Gran % (Auto) Neut % (Auto) Lymph % (Auto) [place] % (Auto) Eos % (Auto) Baso % (Auto) Lymph # (Auto) [place] # (Auto) Eos # (Auto) Baso # (Auto) Abs Immat Gran (auto) Absolute Neuts (auto) Absolute Nucleated RBC Nucleated RBC % (auto) PT INR APTT D-Dimer High Sensitivty Anion Gap Estim Creat Clear Calc Estimated GFR POC Glucose 109 127 H Random Glucose Calcium Stool Occult Blood Assessment and Plan (1) HOMERO (acute kidney injury): Status: Acute Plan 72-year-old male past medical history of CAD, hypertension, Parkinson's disease among others, presents the hospital with complaints of dizziness found to be hypotensive acute orthostatic hypotension possibly secondary to dehydration versus autonomic dysfunction related to Parkinson's disease pt reports intermittent dizziness over the past several months improving with IVF repeat orthostatic bp in am HOMERO creatinine improved from 2.38 to 1.95 continue IVF follow renal function pulmonary nodules chest CT showing multiple nodules patient with history of prostate cancer status post prostatectomy and given weight loss, concern for malignancy - will need follow-up outpatient at this time patient denies any cough, no increased sputum, no evidence of infection rec follow up with heme/onc and consider pulm referral outpatient chronic normocytic anemia H/H stable continue outpatient follow up with Hematology diabetes hold oral antihyperglycemics trulicity nonformulary Lantus on hold - continue low-dose sliding scale insulin - diabetic diet - check hba1c CAD - no chest pain -continue Plavix, metoprolol, statin history of seizure disorder - continue Keppra Parkinson's - continue carbidopa levodopa DVT prophylaxis: Early ambulation attending - dr. landa Time Spent With Patient Time: Total time managing care of this patient today ____ minutes. Quality Stroke Does the patient have a stroke diagnosis?: No VTE Prior VTE?: No VTE Risk Level:: Medical - low VTE Device Contraindication: Treatment Not Indicated VTE Drug Contraindication: Treatment Not Indicated
[2023-01-27 13:35] LABS: Estimated Average Glucose 131 mg/dL; Hemoglobin A1c % 6.2 %
[2023-01-27] MEDS: Gabapentin 300 MG CAPSULE PO ×2 (14:48→20:42)
[2023-01-27 16:14] LABS: Glucose, Whole Blood 162 mg/dL (60-115)
[2023-01-27] MEDS: Insulin Lispro 100 UNIT/ML 3 ML VIAL SUBCUT (16:27)
[2023-01-27 20:27] LABS: Glucose, Whole Blood 117 mg/dL (60-115)
[2023-01-27] MEDS: Carbidopa/Levodopa CR 50/200 TABLET.ER 1 TAB PO (20:42)
[2023-01-27] MEDS: Atorvastatin Calcium 80 MG TABLET PO (20:42)
[2023-01-27] MEDS: Tamsulosin HCL 0.4 MG CAPSULE PO (20:42)
[2023-01-28] VITALS: BP 172/88; PULSE 74; RESP 18; TEMP 37; O2SAT 97
[2023-01-28 02:58] VITALS: BP 150/82; PULSE 79; RESP 18; TEMP 36.2; O2SAT 96
[2023-01-28] MEDS: Lactated Ringers 1,000 ML 100 ML IVCONT (03:21)
[2023-01-28] MEDS: Omeprazole 20 MG CAPSULE.DR PO (05:54)
[2023-01-28 07:17] VITALS: BP 180/82; PULSE 81; RESP 18; TEMP 36.1
[2023-01-28 07:39] LABS: Glucose, Whole Blood 127 mg/dL (60-115)
[2023-01-28] MEDS: Fluticasone Propionate Nasal 16 GM SPRAY 2 SPRAY NOSTRIL-B (07:58)
[2023-01-28] MEDS: Clopidogrel Bisulfate 75 MG TABLET PO (07:58)
[2023-01-28] MEDS: Pramipexole Di-HCL 0.25 MG TABLET PO (07:58)
[2023-01-28] MEDS: Metoprolol Succinate ER 12.5 MG HALFTAB.ER.24H PO (07:58)
[2023-01-28] MEDS: Gabapentin 300 MG CAPSULE 600 MG PO (07:58)
[2023-01-28] MEDS: Carbidopa/Levodopa 25/100 TABLET 1 TAB PO ×2 (07:59→11:59)
[2023-01-28] MEDS: levETIRAcetam 250 MG TABLET PO (07:59)
[2023-01-28] MEDS: Gabapentin 300 MG CAPSULE PO (07:59)
[2023-01-28] MEDS: Tolterodine Tartrate LA 4 MG CAP.ER.24H PO (07:59)
[2023-01-28 08:34] LABS: Anion Gap 14 (12-20); Blood Urea Nitrogen 28 mg/dL (9-16); Calcium 9.1 mg/dL (8.4-10.2); Carbon Dioxide 22 mmol/L (22-29); Chloride 111 mmol/L (96-108); Creatinine Clr Calc Pharmacy 30.5; Estimated Glomerular Filt Rate 33; Glucose Random 124 mg/dL (60-115); Potassium 3.7 mmol/L (3.3-5.1); Sodium 143 mmol/L (135-145)
[2023-01-28] MEDS: Albuterol Sulfate (0.083%) 2.5 MG/3 ML VIAL.NEB INHALE (08:36)
[2023-01-28] MEDS: Fluticasone/Vilanterol 100/25 BLST.W.DEV 1 PUFF INHALE (08:36)
[2023-01-28 08:39] VITALS: PULSE 96; RESP 16; O2SAT 99
--- NOTE | 2023-01-28 11:45 | P.DS_ITS ---
DS: Providers Provider Date of Service: 01/28/23 Date of admission: 01/26/23 22:14 Date of discharge: 01/28/23 Primary care physician: Deonte Claudio MD Attending physician on discharge: Scar Damon Discharging clinician: Aida Wolfe DS: Diagnosis Discharge Diagnosis (1) HOMERO (acute kidney injury): Status: Acute (2) Orthostatic hypotension: Status: Acute (3) Pulmonary nodules: Status: Acute DS: Summary Hospital Course Hospital Course: From H&P on day of admission 72-year-old male past medical history of normocytic anemia, CAD, Parkinson's, history of prostate cancer status post prostatectomy, diabetes, HTN, COPD comes into the hospital complaints of low blood pressure and dizziness.? It appears the patient was seen at the oncology office today for consultation for evaluation of mild normocytic anemia.? He was complaining of shortness of breath at the office, vitals were checked and he was noted to be hypotensive with systolic blood pressure in the 80s.? Patient reports that he has been having low blood pressure readings ranging between 60 and 80s.? He reports dizziness with no loss of consciousness.? Reports chronic shortness of breath that has not worsened, no increased cough or sputum production.? Denies any headache or change in vision, no chest pain, no palpitations, denies any nausea, no recent vomiting episodes or excessive diarrhea, he feels constipated, denies any urinary symptoms and no lower extremity edema.? On arrival to the ED patient noted to have a blood pressure of 63/38, patient was given fluids with improvement in his blood pressure, orthostatic vitals were checked and were significantly positive.? Despite IV replacement and hydration patient remain to be orthostatics positive therefore will be admitted for further management Labs reviewed show a hemoglobin of 11.8, hematocrit 36.4 which is around his baseline, creatinine of 2.38, recent readings around 1.62-2, UA negative, stool occult negative, Abdominal pelvic CT shows a few pulmonary nodules, largest 0.8 cm at the left apex with central cavitation possible sequelae of infectious versus neoplastic Patient started on IV fluids and will be admitted for further management acute orthostatic hypotension possibly secondary to dehydration. treated with IVF and orthostatics resolved. patient has been ambulating in the hallway and denies any dizziness. No changes were made to blood pressure medication. May be secondary to decreased p.o. intake/ decreased appetite. Encourage adequate oral intake. HOMERO creatinine improved from 2.38 to around 2. seems stable over the past few days. likely new baseline. has outpatient nephrology appointment scheduled. pulmonary nodules chest CT showing multiple nodules. patient with history of prostate cancer. and given weight loss, possible malignancy. will need follow-up outpatient - discussed with patient and . has follow up with pulmonology and oncology. has cough, no increased sputum to suggest infection. diabetes Hba1c 6.2. blood sugar has been controlled and under 160 since admission without lantus. his states that lantus was previously discontinued. Recommended to stop metformin due to increasing renal function. Discussed with to monitor blood sugar before meals and at bedtime and keep a log blood sugars. [place] for now. Follow-up with PCP, he has an appointment scheduled in mid January. Time Spent with Patient Time attestation: Total time managing care of this patient today ____ minutes. Discharge coordination time: Greater than 30 minutes Quality: Safe Use of Opioids Does Pt have an Active Cancer Diagnosis on the Problem List?: No Quality: Stroke Does the patient have a stroke diagnosis?: No Physical Exam Vital Signs: Vital Signs: Last Vital Signs Temp 97.0 F 01/28/23 07:17 Pulse 96 01/28/23 08:39 Resp 16 01/28/23 08:39 BP 180/82 H 01/28/23 07:17 Pulse Ox 96 01/28/23 02:58 O2 Del Method Room Air 01/28/23 07:17 BMI result Body Mass Index 23.0 Const: General: cooperative, comfortable, no acute distress, alert and awake Orientation/consciousness: patient oriented x3 Resp: Effort & Inspection: normal respiratory effort, able to speak in complete sentences, no respiratory distress and no use of accessory muscles Auscultation: clear to auscultation bilaterally Cardio: Rate: regular rate Heart sounds: S1 normal heart sound present and S2 normal heart sound present GI: Inspection: No distended Palpation (GI): Soft to palpation and nontender Neuro: General: patient oriented x3, moves all extremities and CN's II-XI intact bilaterally Extrem: General: Yes no pedal edema DS: Data Data Completed and Pending Labs on day of discharge: Laboratory Results - last 24 hr 01/27/23 01/27/23 01/27/23 05:32 16:10 20:23 Sodium Potassium Chloride Carbon Dioxide Anion Gap BUN Creatinine Estim Creat Clear Calc Estimated GFR POC Glucose 162 H 117 H Random Glucose Estimat Average Glucose 131 Hemoglobin A1c % 6.2 Calcium 01/28/23 01/28/23 07:12 07:58 Sodium 143 Potassium 3.7 Chloride 111 H Carbon Dioxide 22 Anion Gap 14 BUN 28 H Creatinine 2.03 H Estim Creat Clear Calc 30.5 Estimated GFR 33 POC Glucose 127 H Random Glucose 124 H Estimat Average Glucose Hemoglobin A1c % Calcium 9.1 Discharge Plan Discharge Anticipated Discharge Date/Time: 01/28/23 11:44 Patient Disposition: Home, Self-Care Discharge Diagnosis: orthostatic hypotension pulmonary nodules Referrals: Deonte Claudio MD [Primary Care Provider] - 1 Week Discharge Medications: Continued rosuvastatin 40 mg tablet 40 mg PO BEDTIME 90 Days Qty: 90 3RF clopidogrel 75 mg tablet 75 mg PO DAILY Qty: 90 3RF tamsulosin 0.4 mg capsule 0.4 mg PO BEDTIME 90 Days Qty: 90 3RF Trulicity 1.5 mg/0.5 mL pen injector 1.5 mg subcut SA Qty: 6 2RF solifenacin 10 mg tablet 10 mg PO DAILY 90 Days Qty: 90 1RF gabapentin 300 mg Capsule 300 mg PO TID fluticasone propionate 50 mcg/actuation [place],Suspension 2 spray INTRANASAL DAILY PRN (Reason: Allergic Symptoms) Rx Instructions: administer into each nostril montelukast 10 mg tablet 10 mg PO DAILY levetiracetam 250 mg tablet 250 mg PO BID omeprazole 20 mg capsule,delayed release(DR/EC) 20 mg PO DAILY 90 Days Qty: 90 3RF metoprolol succinate 25 mg tablet extended release 24 hr 12.5 mg PO DAILY Qty: 90 3RF carbidopa-levodopa 25-100 mg tablet 1 tab PO TID@0800,1200,1700 vitamin B complex [B Complex-Vitamin B12] Tablet 1 tab PO DAILY nitroglycerin 0.4 mg tablet, sublingual 0.4 mg sublingual Q5M PRN (Reason: chest pain) Qty: 20 1RF Rx Instructions: do not exceed 3 doses per episode albuterol sulfate 90 mcg/actuation HFA aerosol inhaler 2 inh inhalation Q6H PRN (Reason: shortness of breath or wheezing) 30 Days Qty: 18 12RF carbidopa-levodopa 50-200 mg tablet extended release 1 tab PO BEDTIME pramipexole 0.25 mg tablet 0.25 mg PO BID trazodone 50 mg tablet 50 mg PO BEDTIME albuterol sulfate 2.5 mg /3 mL (0.083 %) solution for nebulization 2.5 mg inhalation BID Qty: 180 11RF fluticasone propion-salmeterol [Wixela Inhub] 250-50 mcg/dose blister with device 1 inh inhalation Q12H 30 Days Qty: 60 11RF Discontinued metformin 500 mg tablet extended release 24 hr 500 mg PO BID PRN (Reason: elevated blood glucose) insulin glargine [Lantus Solostar U-100 Insulin] 100 unit/mL (3 mL) insulin pen 35 unit subcut DAILY@1600 No Action (DME) pen needle, diabetic [BD Ultra-Fine Estefany Pen Needle] 32 gauge x 5/32 needle See Rx Instructions .ROUTE .MEDSUPPLY Qty: 100 4RF Rx Instructions: As directed once daily (DME) FreeStyle Lite Strips Strip See Rx Instructions Not Applicable TID Qty: 10 Rx Instructions: As directed two times a day (DME) nebulizers Misc See Rx Instructions .ROUTE Rx Instructions: As directed Discharge Orders: Discharge Order (Routine); Ordered 01/28/23 Ordered By: Aida Wolfe Activity on Discharge: As tolerated Stand Alone Forms: Patient Portal Discharge page Care Plan Goals: see below Health Concerns: orthostatic hypotension mild HOMERO on CKD3 Plan of Treatment: blood pressure/Orthostatic hypotension improved with IV fluid rehydration. recommend adequate oral intake due to increasing kidney function - stop taking metformin. 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 follow blood sugars before meals and at bedtime and keep a log recommend close follow up with PCP for pulmonary nodules - will need outpatient follow up and repeat imaging in the next 3-6 months Assessment: see discharge summary
[2023-01-28 11:50] LABS: Glucose, Whole Blood 127 mg/dL (60-115)
--- NOTE | 2023-01-28 12:00 | MHC.CM.PN ---
Patient is discharged to home today. Family will assist wit transport home.
== END 2023-01-28 12:30 | disposition home or self-care (01) ==
LOC: HO.ED 22:27 → HO.EDOVER 22:29 → HO.S3 22:48
PROVIDERS: Admitting Provider Internal Medicine; Emergency Provider Emergency Medicine; PCP Family Medicine; Visit Provider Physician Assistant Medical
DX: I95.1 Orthostatic hypotension (principal); N17.9 Acute kidney failure, unspecified; R91.8 Other nonspecific abnormal finding of lung field; R06.02 Shortness of breath; M25.551 Pain in right hip; E11.9 Type 2 diabetes mellitus without complications; I10 Essential (primary) hypertension; E78.5 Hyperlipidemia, unspecified; G20 Parkinson's disease; Z79.4 Long term (current) use of insulin; Z79.899 Other long term (current) drug therapy; Z87.891 Personal history of nicotine dependence; Z79.02 Long term (current) use of antithrombotics/antiplatelets
CPT/HCPCS: 36415; 71250; 74176; 80048; 82272; 82947; 83036; 85025; 85379; 85610; 85730; 94640; 96360; 96361; 99221; 99285

== ENCOUNTER 2023-01-30 10:55 | Inpatient (IN) | payer OTHER, MEDICARE, SELFPAY ==
[2023-01-30] VITALS (12 sets, daily range): BP systolic 97–190; BP diastolic 50–88; PULSE 72–90; RESP 14–18; TEMP 36.6–37.8; O2SAT 96–98; BMI 24.7; BMI 25.1
--- NOTE | 2023-01-30 11:27 | ED.GENADULT ---
HPI - General Adult General Chief complaint: Weakness Stated complaint: Weakness Time Seen by Provider: 01/30/23 11:46 Source: family ( and daughter) Mode of arrival: ambulatory Limitations: no limitations History of Present Illness HPI narrative: 72-year-old male who was brought to the emergency department by his family for evaluation of weakness, not eating, not drinking, 8 episodes of near-syncope with shaking. The patient was seen by Dr. Guadalupe on 01/26/2023 for mild normocytic anemia. I did review Dr. Guadalupe is note. Patient was having episodes of low blood pressure and the patient's metoprolol dose was lowered. Patient's systolic blood pressure pressure at the office day was in the 60s patient. T Dr. Almeida I will also noted that the patient had been started empirically on Keppra for possible seizures. I did speak to the and she states that the patient was started on Keppra by our neurologist and the patient was scheduled for an EEG and an MRI which is not been completed yet. The patient's blood pressure at that visit was 63/38 the patient was sent to the emergency department. The patient was found to to have orthostatic hypotension was treated with 3 L of normal saline IV. Patient's blood pressure did improved but he still has a 20 point drop in his systolic blood pressure from 167 to 142 and was feeling lightheaded. The patient was admitted for HOMERO, but it is unclear if the orthostatic hypotension was addressed. The states that the patient is still taking metoprolol and hydrochlorothiazide. According to the patient's , since being home the patient has gotten worse. He has been very weak. He has not been eating or drinking. Every time he tries to sit up he gets very tremulous and shaky. If he stands up, he becomes extremely disoriented and the shaking becomes worse. The patient has passed out several times since being home. He has had at least 2 falls with 1 fall bruising his knees. He has had no head injury from his falls According to the , the patient has had a slight cough but has had no fever, chills, rhinorrhea, nausea, vomiting or diarrhea. Related Data Home Medications Medication Instructions Recorded Confirmed carbidopa 25 mg-levodopa 100 mg 1 tab PO TID@0800,1200,1700 06/23/20 01/30/23 tablet vitamin B complex (B 1 tab PO DAILY 08/26/20 01/30/23 Complex-Vitamin B12 tablet) blood sugar diagnostic (FreeStyle #10 ea 06/05/21 01/27/23 Lite Strips) pramipexole 0.25 mg tablet 0.25 mg PO BID 09/08/21 01/30/23 carbidopa ER 50 mg-levodopa 200 mg 1 tab PO BEDTIME 11/10/21 01/30/23 tablet,extended release trazodone 50 mg tablet 50 mg PO BEDTIME 03/16/22 01/30/23 nebulizers 11/22/22 01/27/23 levetiracetam 250 mg tablet 250 mg PO BID 01/26/23 01/30/23 fluticasone propionate 50 2 spray intranasal DAILY PRN 01/27/23 01/30/23 mcg/actuation nasal Allergic Symptoms spray,suspension gabapentin 300 mg capsule 300 mg PO TID 01/27/23 01/30/23 montelukast 10 mg tablet 10 mg PO DAILY 01/27/23 01/30/23 omeprazole 20 mg capsule,delayed 20 mg PO DAILY@0630 01/30/23 01/30/23 release Previous Rx's Medication Instructions Recorded nitroglycerin 0.4 mg sublingual 0.4 mg sublingual Q5M PRN chest 10/02/21 tablet pain #20 tabs rosuvastatin 40 mg tablet 40 mg PO BEDTIME 90 days #90 tabs 04/23/22 albuterol sulfate 90 mcg/actuation 2 inh inhalation Q6H PRN shortness 05/19/22 aerosol inhaler of breath or wheezing 30 days #18 grams pen needle, diabetic 32 gauge x #100 ea 07/19/22 (BD Ultra-Fine Estefany Pen Needle) clopidogrel 75 mg tablet 75 mg PO DAILY #90 tabs 08/03/22 tamsulosin 0.4 mg capsule 0.4 mg PO BEDTIME 90 days #90 caps 08/03/22 albuterol sulfate 2.5 mg/3 mL 2.5 mg (3 mL) inhalation BID #180 08/30/22 (0.083 %) solution for nebulization mL fluticasone 250 mcg-salmeterol 50 1 inh inhalation Q12H 30 days #60 08/30/22 mcg/dose blistr powdr for ea inhalation ([facility]) dulaglutide 1.5 mg/0.5 mL 1.5 mg (0.5 mL) subcut SA #6 mL 11/15/22 [facility] solifenacin 10 mg tablet 10 mg PO DAILY 90 days #90 tabs 12/20/22 metoprolol succinate 25 mg 12.5 mg PO DAILY #90 tabs 01/19/23 tablet,extended release 24 hr Allergies Allergy/AdvReac Type Severity Reaction Status Date / Time Iodinated Contrast Media Allergy Intermediate RASH AT IV Verified 01/30/23 11:24 [CONTRAST, IV] SITE. BENEDRYL GIVEN WITH GOOD EFFECT ibuprofen Allergy Rash Verified 01/30/23 11:24 adhesive tape AdvReac Rash Verified 01/30/23 11:24 Review of Systems Review of Systems: Yes all other systems are reviewed and are negative [facility] Past Medical History [facility] Narrative: Social history: Patient lives at home with his his states that the patient has had progressive difficulty with his memory and decreased ability to do intellectual tasks such as pay bills. The patient does not smoke cigarettes, drink alcohol or use drugs. 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 Nocturnal hypoxia Overweight (BMI 25.0-29.9) Pulmonary nodule Stented coronary artery Surgical History History of cataract surgery (~2019) History of colonoscopy History of cystoscopy (~2020) History of esophagogastroduodenoscopy (EGD) History of heart artery stent History of prostatectomy Hx of cardiac cath Family History Family History Father Sudden cardiac CVD (cardiovascular disease) Mother Hx of heart surgery CVD (cardiovascular disease) Social History Social History Household Members: Spouse Housing: House Do you presently have visiting nurse or other home services: No Alcohol intake: former Patient Tobacco Use Status: Former Tobacco user Tobacco use type: Cigarette Years Smoked: 15 Smoked in Last 30 Days: No e-Cigarette/Vaping Use: Never Used Patient Interested in Nicotine Replacement: No Patient Given Instructions on How to Stop Smoking: No Second Hand Smoke Exposure: No Use of substances other than those prescribed or required for medical reasons: No Have you been hit, kicked, punched, or otherwise hurt by someone within the past year? If so, by whom?: No Do you feel safe in your current relationship?: Yes Is there a partner from a previous relationship who is making you feel unsafe now?: No Are you made to feel afraid or neglected: No Advance Directives: Yes Advance Directives on File: Yes Advance Directives Date on File: 03/31/21 Do you have thoughts of harming others: None Do you have a plan to hurt others: No Plan Recently lost weight without trying: Unsure service: No Current occupational status: retired Current occupation: rt handed Current occupational exposures/hazards: No Cognitive needs: No Hearing needs: No Vision needs: Yes (reading glasses) Physical Exam ED Vital Signs: Vital Signs - 24 hr 01/30/23 11:25 01/30/23 11:41 01/30/23 12:58 Temperature 100.1 F 97.9 F 97.9 F Pulse Rate 80 82 81 Respiratory Rate 18 14 18 Blood Pressure 111/61 166/82 H 180/84 H Pulse Oximetry 98 98 98 Oxygen Delivery Method Room Air Room Air Room Air 01/30/23 13:02 01/30/23 13:03 01/30/23 13:08 Temperature Pulse Rate 80 87 90 Respiratory Rate Blood Pressure 169/87 H 131/67 97/50 L Pulse Oximetry Oxygen Delivery Method 01/30/23 14:13 01/30/23 15:52 Temperature Pulse Rate 83 72 Respiratory Rate 14 14 Blood Pressure 133/74 185/88 H Pulse Oximetry 98 97 Oxygen Delivery Method Room Air Room Air BMI result Body Mass Index 24.7 Const Other: Awake, alert, elderly male, defers to his family to answer questions, oriented to person, does not appear to be in distress HENMT Head: Yes normal to inspection, Yes normocephalic and Yes atraumatic Ears: external ears normal General nose exam: Normal external nose present Face and sinus: Yes normal facial exam Mouth: Normal oral and palatal mucosa present Throat: Yes posterior oropharynx normal Eyes General: appearance normal, both eyes and all related structures Neck Neck: Yes normal visual inspection, Yes no lymphadenopathy, Yes trachea midline and Yes supple Chest Chest palpation & inspection: normal inspection of the chest and normal palpation of entire chest wall Resp Effort & Inspection: normal respiratory effort and able to speak in complete sentences Auscultation: clear to auscultation bilaterally Cardio Rate: regular rate Rhythm: regular rhythm Heart sounds: S1 normal heart sound present, S2 normal heart sound present and no murmurs GI Inspection: Yes normal to inspection Palpation (GI): Soft to palpation, nontender and no guarding Auscultation: normal bowel sounds General: Yes no CVA tenderness Back/Spine/Pelvis Back: no CVA tenderness Skin General skin exam: no rashes or lesions noted Neuro Other: Cranial nerves 2-12 are intact, strength diminished but symmetric bilaterally, is able to hold his arms up against gravity Valeria does legs up against gravity Extrem General: Yes normal to inspection Course Course Course Narrative: RME: 72 yold male with pmh of DM and parkisonsons presents to the ED for fever and weakness. patient febrile. labs, UA, blood culture ordered Medications Administered Generic Name Dose Route Start Last Admin Trade Name Freq PRN Reason Stop Dose Admin Acetaminophen 650 mg 01/30/23 16:43 01/30/23 21:41 Acetaminophen 325 Mg Tablet PO 650 mg Q6H PRN Administration Pain, Mild (Pain Scale 1-3) Albuterol Sulfate 2.5 mg 01/30/23 21:00 01/31/23 08:02 Albuterol Sulfate (0.083%) 2.5 Mg/3 Ml Vial.Neb INHALE 2.5 mg RBID FANNY Administration Atorvastatin Calcium 80 mg 01/30/23 21:00 01/30/23 21:34 Atorvastatin Calcium 80 Mg Tablet PO 80 mg BEDTIME FANNY Administration Carbidopa/Levodopa 1 tab 01/30/23 17:00 01/31/23 08:53 Carbidopa/Levodopa 25/100 Tablet PO 1 tab TID@0800,1200,1700 FANNY Administration Carbidopa/Levodopa 1 tab 01/30/23 21:00 01/30/23 21:34 Carbidopa/Levodopa Cr 50/200 Tablet.Er PO 1 tab BEDTIME FANNY Administration Clopidogrel Bisulfate 75 mg 01/31/23 09:00 01/31/23 08:53 Clopidogrel Bisulfate 75 Mg Tablet PO 75 mg DAILY FANNY Administration Enoxaparin Sodium 30 mg 01/30/23 18:00 01/30/23 17:21 Enoxaparin Sodium 30 Mg/0.3 Ml Syringe SUBCUT 30 mg Q24H FANNY Administration Fluticasone/Vilanterol 1 puff 01/30/23 17:00 01/31/23 08:02 Fluticasone/Vilanterol 100/25 Blst.W.Dev INHALE 1 puff DAILY FANNY Administration Gabapentin 300 mg 01/30/23 21:00 01/31/23 08:53 Gabapentin 300 Mg Capsule PO 300 mg TID FANNY Administration Insulin Human Lispro 0 unit 01/30/23 21:00 01/31/23 08:11 Insulin Lispro 100 Unit/Ml 3 Ml Vial SUBCUT Not Given QIDACHS [facility] Protocol Levetiracetam 250 mg 01/30/23 21:00 01/31/23 08:53 Levetiracetam 250 Mg Tablet PO 250 mg BID FANNY Administration Montelukast Sodium 10 mg 01/31/23 09:00 01/31/23 08:53 Montelukast Sodium 10 Mg Tablet PO 10 mg DAILY FANNY Administration Multivitamins/Vitamin C 1 tab 01/31/23 09:00 01/31/23 08:53 Multivitamin Tablet PO 1 tab DAILY FANNY Administration Omeprazole 20 mg 01/31/23 06:30 01/31/23 07:59 Omeprazole 20 Mg Capsule.Dr PO 20 mg DAILY@0630 FANNY Administration Senna 17.2 mg 01/30/23 21:00 01/30/23 21:35 Sennosides 8.6 Mg Tablet PO 17.2 mg BEDTIME FANNY Administration Sodium Chloride 3 ml 01/31/23 00:00 01/31/23 08:11 0.9 % Sodium Chloride Flush 3 Ml Syringe IVFLUSH Not Given QSHIFT [facility] Tolterodine Tartrate 2 mg 01/31/23 09:00 01/31/23 08:53 Tolterodine Tartrate La 2 Mg Cap.Er.24h PO 2 mg DAILY FANNY Administration Trazodone HCl 50 mg 01/30/23 21:00 01/30/23 21:35 Trazodone Hcl 50 Mg Tablet PO 50 mg BEDTIME FANNY Administration Discontinued Medications Generic Name Dose Route Start Last Admin Trade Name Trav PRN Reason Stop Dose Admin Sodium Chloride 1,000 mls @ 999 mls/hr 01/30/23 15:30 01/30/23 17:16 Ns IV 01/30/23 16:30 Infused .Q1H1M STA Infusion Lactated Ringer's 1,000 mls @ 100 mls/hr 01/30/23 16:45 01/31/23 08:53 Lr IVCONT Infused .Q10H FANNY Infusion Labetalol HCl 5 mg 01/31/23 08:28 01/31/23 09:29 Labetalol Hcl 100 Mg/20 Ml Vial IVPUSH 01/31/23 08:29 Not Given ONCE ONE Lorazepam 0.5 mg 01/30/23 14:28 01/30/23 14:35 Lorazepam 2 Mg/Ml Vial IVPUSH 01/30/23 14:29 0.5 mg STAT STA Administration Lorazepam 0.5 mg 01/31/23 06:38 01/31/23 07:59 Lorazepam 0.5 Mg Tablet PO 01/31/23 06:39 0.5 mg ONCE ONE Administration Potassium Chloride 40 meq 01/31/23 08:28 01/31/23 08:53 Potassium Chloride Packet 20 Meq Packet PO 01/31/23 08:29 40 meq ONCE ONE Administration Medical Decision Making Medical Decision Making [facility] Narrative: 72-year-old male who presents emergency department for evaluation decreased appetite, multiple episodes of shaking and altered mental status with sitting and standing, 2 episodes of syncope where he has fallen to the ground with no head injury. Patient has recently been hypotensive, his metoprolol was decreased but this did not improve his low blood pressure. Patient was seen on 01/26/2023 and found to be hypotensive and had orthostatic vital signs that did improve with IV fluid. He was admitted to the hospital secondary to Homero on but it is unclear if the orthostatic hypotension was addressed. Patient is still taking metoprolol and hydrochlorothiazide according to the . Patient's orthostatic vital signs in the emergency department was as follows: Lying : BP 169/87, pulse 80 Sitting: BP 131/67, pulse 87 Standing: BP 97/50, pulse 97 According to nursing staff the patient did not appear well when he was standing, he became tremulous. I ordered the following tests on the patient: Chest x-ray one view, EKG, CBC, CMP, lactic acid, PT/INR, PTT, urinalysis, COVID, flu, RSV, blood cultures x2 1531: Laboratory evaluation was consistent with his chronic renal insufficiency with a BUN of 30 creatinine of 2.48. Patient's anemia improved patient's AST and ALT were elevated but this was seen on his most recent labs. Chest x-ray revealed no acute disease EKG was unremarkable. I will discuss admission with the covering hospitalist to workup the patient's orthostatic hypotension, suspect that this may be autonomic dysfunction. 1551: The patient was accepted at for admission by Dr. Null. Patient will be admitted to the medical telemetry unit. Differential Diagnosis Differential Diagnoses: The differential diagnosis associated with the presentation includes Differential diagnosis includes was not limited to seizure disorder, orthostatic hypotension (volume depletion versus autonomic), anemia, electrolyte abnormality Admission/Observation Consideration of admission/observation: Escalation of care including admission/observation considered Consult Healthcare Provider Management of the patient was discussed with: Hospitalist (Dr. Null) Lab Data MDM Lab Attestation statement: I reviewed the patient's lab results. My interpretation patient's laboratory evaluation as follows: H&H is normal 13 and 40.2-this is improved compared to previous values. BUN creatinine are elevated 30 and 2.48 consistent with his chronic renal insufficiency. AST and ALT are elevated 157 and 52 with a normal bilirubin. Troponin was detectable but not elevated at 16.5 3 hour repeat is due at 15:30 hours. 01/30/23 12:24 01/30/23 12:24 Labs: Lab Results 01/30/23 01/30/23 01/30/23 Range/Units 11:53 12:24 12:24 WBC 7.7 (4.8-10.8) X10*3/uL RBC 4.35 L D (4.60-5.80) X10*6/uL Hgb 13.0 L D (14.0-18.0) g/dl Hct 40.2 L D (42.0-52.0) % MCV 92.4 (80.0-98.0) fL MCH 29.9 (27.0-33.0) pg MCHC 32.3 (31.0-36.0) g/dl RDW 15.2 (11.0-16.0) % Plt Count 202 (160-400) X10*3/uL MPV 10.5 (9.4-12.4) fL Immature Gran % (Auto) 0.4 (0.0-0.4) % Neut % (Auto) 74.1 H (45-73) % Lymph % (Auto) 15.4 L (20-40) % [place]oup % (Auto) 8.0 (2-11) % Eos % (Auto) 1.7 (0-4) % Baso % (Auto) 0.4 (0-2) % Lymph # (Auto) 1.2 (1.2-4.9) X10*3/uL [place] # (Auto) 0.6 (0.1-1.2) X10*3/uL Eos # (Auto) 0.1 (0.0-0.4) X10*3/uL Baso # (Auto) 0.0 (0.0-0.2) X10*3/uL Abs Immat Gran (auto) 0.03 (0.00-0.03) X10*3/uL Absolute Neuts (auto) 5.7 (2.0-8.3) x10*3/uL Absolute Nucleated RBC 0.000 (0.0-0.012) X10*3/uL Nucleated RBC % (auto) 0.0 (0.0-0.2) /100WBC PT (10.0-13.1) SEC INR (0.9-1.1) APTT (26.0-36.4) SEC Sodium 145 (135-145) mmol/L Potassium 3.6 (3.3-5.1) mmol/L Chloride 108 (96-108) mmol/L Carbon Dioxide 25 (22-29) mmol/L Anion Gap 16 (12-20) BUN 30 H (9-16) mg/dL Creatinine 2.48 H (0.5-1.4) mg/dL Estim Creat Clear Calc 23.2 Estimated GFR 26 POC Glucose 131 H (60-115) mg/dL Random Glucose 137 H (60-115) mg/dL Lactic Acid (0.5-2.0) mmol/L Calcium 10.1 D (8.4-10.2) mg/dL Total Bilirubin 0.5 (0.0-1.0) mg/dL AST 157 H (5-37) U/L ALT 52 H (0-40) U/L Alkaline Phosphatase 105 (39-117) U/L Troponin I High Sens (<3.5-35.0) ng/L Total Protein 7.1 (6.5-8.0) g/dL Albumin 3.9 (3.5-5.0) g/dL Urine Color Urine Appearance Urine pH (5.0-9.0) Ur Specific [place] (1.005-1.025) Urine Protein (Neg-Trace) mg/dL Urine Glucose (UA) (Negative) mg/dL Urine Ketones (Negative) mg/dL Urine Blood (Negative) Urine Nitrite (Negative) Ur Leukocyte Esterase (Negative) Urine RBC (0-2) /HPF Urine WBC (0-5) /HPF Ur Squamous Epith Cells (0-2) /HPF Urine Bacteria (None Seen) Hyaline Casts (0-2) /LPF Influenza Type A (PCR) (Negative) Influenza Type B (PCR) (Negative) RSV RNA Qual (PCR) (Negative) SARS-CoV-2 RNA (RT-PCR) (Negative) 01/30/23 01/30/23 01/30/23 Range/Units 12:24 12:24 12:30 WBC (4.8-10.8) X10*3/uL RBC (4.60-5.80) X10*6/uL Hgb (14.0-18.0) g/dl Hct (42.0-52.0) % MCV (80.0-98.0) fL MCH (27.0-33.0) pg MCHC (31.0-36.0) g/dl RDW (11.0-16.0) % Plt Count (160-400) X10*3/uL MPV (9.4-12.4) fL Immature Gran % (Auto) (0.0-0.4) % Neut % (Auto) (45-73) % Lymph % (Auto) (20-40) % Troup % (Auto) (2-11) % Eos % (Auto) (0-4) % Baso % (Auto) (0-2) % Lymph # (Auto) (1.2-4.9) X10*3/uL [place]oup # (Auto) (0.1-1.2) X10*3/uL Eos # (Auto) (0.0-0.4) X10*3/uL Baso # (Auto) (0.0-0.2) X10*3/uL Abs Immat Gran (auto) (0.00-0.03) X10*3/uL Absolute Neuts (auto) (2.0-8.3) x10*3/uL Absolute Nucleated RBC (0.0-0.012) X10*3/uL Nucleated RBC % (auto) (0.0-0.2) /100WBC PT 10.5 (10.0-13.1) SEC INR 0.9 (0.9-1.1) APTT 27.1 (26.0-36.4) SEC Sodium (135-145) mmol/L Potassium (3.3-5.1) mmol/L Chloride (96-108) mmol/L Carbon Dioxide (22-29) mmol/L Anion Gap (12-20) BUN (9-16) mg/dL Creatinine (0.5-1.4) mg/dL Estim Creat Clear Calc Estimated GFR POC Glucose (60-115) mg/dL Random Glucose (60-115) mg/dL Lactic Acid 0.9 (0.5-2.0) mmol/L Calcium (8.4-10.2) mg/dL Total Bilirubin (0.0-1.0) mg/dL AST (5-37) U/L ALT (0-40) U/L Alkaline Phosphatase (39-117) U/L Troponin I High Sens (<3.5-35.0) ng/L Total Protein (6.5-8.0) g/dL Albumin (3.5-5.0) g/dL Urine Color Urine Appearance Urine pH (5.0-9.0) Ur Specific [place] (1.005-1.025) Urine Protein (Neg-Trace) mg/dL Urine Glucose (UA) (Negative) mg/dL Urine Ketones (Negative) mg/dL Urine Blood (Negative) Urine Nitrite (Negative) Ur Leukocyte Esterase (Negative) Urine RBC (0-2) /HPF Urine WBC (0-5) /HPF Ur Squamous Epith Cells (0-2) /HPF Urine Bacteria (None Seen) Hyaline Casts (0-2) /LPF Influenza Type A (PCR) NEGATIVE (Negative) Influenza Type B (PCR) NEGATIVE (Negative) RSV RNA Qual (PCR) NEGATIVE (Negative) SARS-CoV-2 RNA (RT-PCR) NEGATIVE (Negative) 01/30/23 01/30/23 01/30/23 Range/Units 12:48 14:15 16:26 WBC (4.8-10.8) X10*3/uL RBC (4.60-5.80) X10*6/uL Hgb (14.0-18.0) g/dl Hct (42.0-52.0) % MCV (80.0-98.0) fL MCH (27.0-33.0) pg MCHC (31.0-36.0) g/dl RDW (11.0-16.0) % Plt Count (160-400) X10*3/uL MPV (9.4-12.4) fL Immature Gran % (Auto) (0.0-0.4) % Neut % (Auto) (45-73) % Lymph % (Auto) (20-40) % Troup % (Auto) (2-11) % Eos % (Auto) (0-4) % Baso % (Auto) (0-2) % Lymph # (Auto) (1.2-4.9) X10*3/uL [place]oup # (Auto) (0.1-1.2) X10*3/uL Eos # (Auto) (0.0-0.4) X10*3/uL Baso # (Auto) (0.0-0.2) X10*3/uL Abs Immat Gran (auto) (0.00-0.03) X10*3/uL Absolute Neuts (auto) (2.0-8.3) x10*3/uL Absolute Nucleated RBC (0.0-0.012) X10*3/uL Nucleated RBC % (auto) (0.0-0.2) /100WBC PT (10.0-13.1) SEC INR (0.9-1.1) APTT (26.0-36.4) SEC Sodium (135-145) mmol/L Potassium (3.3-5.1) mmol/L Chloride (96-108) mmol/L Carbon Dioxide (22-29) mmol/L Anion Gap (12-20) BUN (9-16) mg/dL Creatinine (0.5-1.4) mg/dL Estim Creat Clear Calc Estimated GFR POC Glucose (60-115) mg/dL Random Glucose (60-115) mg/dL Lactic Acid (0.5-2.0) mmol/L Calcium (8.4-10.2) mg/dL Total Bilirubin (0.0-1.0) mg/dL AST (5-37) U/L ALT (0-40) U/L Alkaline Phosphatase (39-117) U/L Troponin I High Sens 16.5 16.7 (<3.5-35.0) ng/L Total Protein (6.5-8.0) g/dL Albumin (3.5-5.0) g/dL Urine Color Yellow Urine Appearance Clear Urine pH 7.0 (5.0-9.0) Ur Specific [place] 1.010 (1.005-1.025) Urine Protein 100 (2+) H (Neg-Trace) mg/dL Urine Glucose (UA) 100 H (Negative) mg/dL Urine Ketones Negative (Negative) mg/dL Urine Blood Large (3+) H (Negative) Urine Nitrite Negative (Negative) Ur Leukocyte Esterase Negative (Negative) Urine RBC 0-2 (0-2) /HPF Urine WBC 0-5 (0-5) /HPF Ur Squamous Epith Cells 0-2 (0-2) /HPF Urine Bacteria None Seen (None Seen) Hyaline Casts 0-2 (0-2) /LPF Influenza Type A (PCR) (Negative) Influenza Type B (PCR) (Negative) RSV RNA Qual (PCR) (Negative) SARS-CoV-2 RNA (RT-PCR) (Negative) Independent Interpretation I performed an independent interpretation of an: EKG and Plain X-Ray Interpretation: Patient's 12 EKG done at 12:52 hours was interpreted by me as follows: Sinus rhythm with a rate of 81, prolonged QRS interval of 200 milliseconds, normal QRS and QTC intervals, baseline is irregular secondary to tremors which makes it difficult to interpret the T-waves on this EKG, no obvious ST segment elevation or depression, no PACs, no PVCs. My interpretation of the patient's one-view chest x-ray is as follows: No acute disease Radiology Impression Discussion of test interpretation with radiology: I have reviewed the radiologist's reading. Radiologist Impression: Radiology reading is no acute disease by Dr. Roman Independent Historian Clinical information obtained from an independent historian. History obtained from or confirmed by: Spouse and Other (Daughter) External Record Review External record reviewed: Inpatient record (Dr. Guadalupe oncology note 01/26/2023) Chronic Conditions Patient?s care impacted by: Diabetes and Other (Parkinson's disease) Discharge Plan Discharge Clinical Impression: Syncope, Orthostatic hypotension Patient Disposition: Admitted As Inpatient Interventions: Admission Worksheet (ED) Last Done: 01/30/23 20:31 Discharge Date/Time: 01/30/23 20:30
--- NOTE | 2023-01-30 11:47 | PC.NURSE ---
Addendum entered by Bridgette Pinto 01/30/23 12:29: neuros intact. iv established. Original Note: pt alert and oriented to self, responding to commands appropriately but slow to respond, family at bedside, seizure pads in place. skin color WNL, warm and dry. breathing even, unlabored. NSR on monitor, sats 97% on RA. family states pt experiencing increased weakness during ambulation and seizures, will have episodes of dissociation, increased anxiety at night, decreased po intake, increased confusion.
--- NOTE | 2023-01-30 16:07 | PHA.MEDREC ---
Pharmacy Consult ? Medication Reconciliation Pharmacy has completed the medication reconciliation. Patient recently discharged 01/28/23. Utilized discharge packet as no med changes outside of discharge med changes.
--- NOTE | 2023-01-30 16:08 | PC.NURSE ---
pt alert/oriented to self, continues to respond appropriately. family reporting increased agitation, exit seeking. md aware, additional ativan to be ordered. fluids infusing, plan for admission, awaiting further orders.
--- NOTE | 2023-01-30 16:56 | PM.IMHP ---
History of Present Illness Date of Service: 01/30/23 Attending physician on admission: Abisai Null Chief Complaint: lightheadedness, syncope, decreased po intake 72-year-old male past medical history of normocytic anemia, CAD, Parkinson's, HfrEF, history of prostate cancer status post prostatectomy, diabetes, HTN, COPD, and urinary incontinence comes into the hospital complaints of low blood pressure and dizziness.?He is here today with his and daughter who assist with history. Per pt and family for last 3 weeks, has been experiencing lighthededness, primarily with change in position but occasionally at rest as well. He has been generally weak but notes marked BLE weakness that has been present for several months but worsens during periods of lightheadedness. His reports multiple episodes of syncope that occur even when patient is sitting. She has noted tremulous/shaking movements during these times. Tells me he was just seen by neurology (Luis Enrique) earlier last week and was starte ten [place] for suspected seizure disorder though EEG and MRI have not been performed yet. He has also noted decreased PO intake and isnt drinking much as well as occassional sob. NO chest pain, palpitations, visual changes, focal weakness or paresthesias. He did have a near syncopal episode this morning where he did fall and hhit the back of his head but did not lose consciousness. . Pt was recently discharged on 01/28 with orthostasis resolving with IVF and improvement in renal function. On arrival, patient is hypertensive to 166/82, vitals otherwise stable. He did not take any medications yet this morning. Orthostatics were positive with significant drop in BP to 97/50 upon standing. No leukocytosis. Improved normocytic anemia with H/H 13.0/40.2%. Creat 2.48, baseline appears to be around 1.62 (on dc 01/28, creat 2.03), BUN 30. Lytes WNL. Total bili 0.5, AST 157, ALT 52. Trop WNL x2. UA with 3+ blood, 2+ protein, +glucose. Neg covid-19, rsv, flu. EKG shows new atrial flutter, rate 81, no jenna or depressions. In the ED, given 1 L IV NS and 0.5mg lorazpem. Review of Systems Review of Systems: General: No fevers, malaise HEENT: No blurred vision, diplopia Cardiovascular: No chest pain, palpitations, or leg edema Respiratory: +sob. No wheezing, cough GI: decreased PO intake. No abdominal pain, nausea, vomiting, diarrhea, constipation, melena, hematochezia : No dysuria, hematuria, increased urinary frequency, decreased urinary output MSK: No myalgia, back pain Neuro: No headaches, paresthesias. BLE weakness, lightheadedness, syncope, seizre-like activity Skin: No rashes or lesions [facility] Medical History Anemia Bronchopneumonia CAD (coronary artery disease) Carotid artery disease COPD (chronic obstructive pulmonary disease) Diabetes type 2, uncontrolled (~1999) Diabetic nephropathy associated with type 2 diabetes mellitus Diabetic polyneuropathy associated with type 2 diabetes mellitus Dyslipidemia Dyspnea History of hepatitis C History of OR (myocardial infarction) History of prostate cancer (~2016) 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 residential (current) use of insulin Nocturnal hypoxia Overweight (BMI 25.0-29.9) Pulmonary nodule Stented coronary artery Family History Father Sudden cardiac CVD (cardiovascular disease) Mother Hx of heart surgery CVD (cardiovascular disease) Surgical History History of cataract surgery (~2019) History of colonoscopy History of cystoscopy (~2020) History of esophagogastroduodenoscopy (EGD) History of heart artery stent History of prostatectomy Hx of cardiac cath Social History Household Members: Spouse Housing: House Do you presently have visiting nurse or other home services: No Alcohol intake: former Patient Tobacco Use Status: Former Tobacco user Tobacco use type: Cigarette Years Smoked: 15 Smoked in Last 30 Days: No e-Cigarette/Vaping Use: Never Used Patient Interested in Nicotine Replacement: No Patient Given Instructions on How to Stop Smoking: No Second Hand Smoke Exposure: No Use of substances other than those prescribed or required for medical reasons: No Have you been hit, kicked, punched, or otherwise hurt by someone within the past year? If so, by whom?: No Do you feel safe in your current relationship?: Yes Is there a partner from a previous relationship who is making you feel unsafe now?: No Are you made to feel afraid or neglected: No Advance Directives: Yes Advance Directives on File: Yes Advance Directives Date on File: 03/31/21 Do you have thoughts of harming others: None Do you have a plan to hurt others: No Plan Recently lost weight without trying: Unsure service: No Current occupational status: retired Current occupation: rt handed Current occupational exposures/hazards: No Cognitive needs: No Hearing needs: No Vision needs: Yes (reading glasses) Meds Allergies Allergy/AdvReac Type Severity Reaction Status Date / Time Iodinated Contrast Media Allergy Intermediate RASH AT IV Verified 01/30/23 11:24 [CONTRAST, IV] SITE. BENEDRYL GIVEN WITH GOOD EFFECT ibuprofen Allergy Rash Verified 01/30/23 11:24 adhesive tape AdvReac Rash Verified 01/30/23 11:24 Active Medications: Current Medications Acetaminophen (Acetaminophen 325 Mg Tablet) 650 mg PO Q6H PRN PRN Reason: Pain, Mild (Pain Scale 1-3) Albuterol Sulfate (Albuterol Sulfate (0.083%) 2.5 Mg/3 Ml Vial.Neb) 2.5 mg INHALE BID FANNY Albuterol Sulfate (Albuterol Sulfate 90 Mcg 8 Gm Inhaler) 2 puff INHALE Q6H PRN PRN Reason: shortness of breath or wheezing Carbidopa/Levodopa (Carbidopa/Levodopa 25/100 Tablet) 1 tab PO TID@0800,1200,1700 FANNY Carbidopa/Levodopa (Carbidopa/Levodopa Cr 50/200 Tablet.Er) 1 tab PO BEDTIME FANNY Clopidogrel Bisulfate (Clopidogrel Bisulfate 75 Mg Tablet) 75 mg PO DAILY FANNY Enoxaparin Sodium (Enoxaparin Sodium 30 Mg/0.3 Ml Syringe) 30 mg SUBCUT Q24H FANNY Fluticasone Propionate (Fluticasone Propionate Nasal 16 Gm Flushing) 2 spray NOSTRIL-B DAILY PRN PRN Reason: Allergic Symptoms Gabapentin (Gabapentin 300 Mg Capsule) 300 mg PO TID FANNY Lactated Ringer's (Lr) 1,000 mls @ 100 mls/hr IVCONT .Q10H FANNY Levetiracetam (Levetiracetam 250 Mg Tablet) 250 mg PO BID FANNY Montelukast Sodium (Montelukast Sodium 10 Mg Tablet) 10 mg PO DAILY [facility] Multivitamins/Vitamin C (Multivitamin Tablet) 1 tab PO DAILY [facility] Nitroglycerin (Nitroglycerin 0.4 Mg Tab.Subl) 0.4 mg SUBLINGUAL Q5M PRN PRN Reason: chest pain Non-Formulary Medication (Fluticasone Propion-Salmeterol [Wixela Inhub]) 1 inhalation INHALE Q12H [facility] Non-Formulary Medication (Rosuvastatin) 40 mg PO BEDTIME [facility] Non-Formulary Medication (Solifenacin) 10 mg PO DAILY [facility] Omeprazole (Omeprazole 20 Mg Capsule.Dr) 20 mg PO DAILY@0630 [facility] Ondansetron HCl (Ondansetron Hcl 4 Mg/2 Ml Vial) 4 mg IVPUSH Q8H PRN PRN Reason: Nausea and Vomiting Senna (Sennosides 8.6 Mg Tablet) 17.2 mg PO BEDTIME [facility] Sodium Chloride (0.9 % Sodium Chloride Flush 3 Ml Syringe) 3 ml IVFLUSH QSHIFT [facility] Trazodone HCl (Trazodone Hcl 50 Mg Tablet) 50 mg PO BEDTIME [facility] Home Medications Medication Instructions Recorded Confirmed Last Taken Type carbidopa 25 mg-levodopa 100 mg 1 tab PO TID@0800,1200,1700 06/23/20 01/30/23 01/26/23 History tablet vitamin B complex (B 1 tab PO DAILY 08/26/20 01/30/23 01/26/23 History Complex-Vitamin B12 tablet) blood sugar diagnostic (Ludwinyle #10 ea 06/05/21 01/27/23 01/26/23 History Lite Strips) pramipexole 0.25 mg tablet 0.25 mg PO BID 09/08/21 01/30/23 01/26/23 History carbidopa ER 50 mg-levodopa 200 mg 1 tab PO BEDTIME 11/10/21 01/30/23 01/26/23 History tablet,extended release trazodone 50 mg tablet 50 mg PO BEDTIME 03/16/22 01/30/23 01/26/23 History nebulizers 11/22/22 01/27/23 01/26/23 History levetiracetam 250 mg tablet 250 mg PO BID 01/26/23 01/30/23 01/26/23 History fluticasone propionate 50 2 spray intranasal DAILY PRN 01/27/23 01/30/23 01/26/23 History mcg/actuation nasal Allergic Symptoms spray,suspension gabapentin 300 mg capsule 300 mg PO TID 01/27/23 01/30/23 01/26/23 History montelukast 10 mg tablet 10 mg PO DAILY 01/27/23 01/30/23 01/26/23 History omeprazole 20 mg capsule,delayed 20 mg PO DAILY@0630 01/30/23 01/30/23 Unknown History release Physical Exam Vital Signs and Narrative: Vital Signs: Last Vital Signs Temp 97.9 F 01/30/23 12:58 Pulse 72 01/30/23 15:52 Resp 14 01/30/23 15:52 BP 185/88 H 01/30/23 15:52 Pulse Ox 97 01/30/23 15:52 O2 Del Method Room Air 01/30/23 15:52 BMI result Body Mass Index 24.7 Constitutional - Awake and Alert, No apparent distress Eyes - PERRLA, EOMI Cardiovascular - S1S2, RRR, No edema Respiratory - Normal lung expansion, Normal respiratory effort, No respiratory distress, CTA bilaterally Gastrointestinal - NT / ND; +BS; No rebound or guarding - No CVA tenderness Extremities - no calf tenderness bilaterally, no swelling Skin - Warm/Dry Neurological - Alert & oriented x3, CN II-XII in tact, 4/5 strength BLE 5/5 strength BUE Psychological - Appropriate affect Results Labs 01/30/23 12:24 01/30/23 12:24 Labs: Laboratory Results - last 24 hr 01/30/23 01/30/23 01/30/23 11:53 12:24 12:24 MCV 92.4 MCH 29.9 MCHC 32.3 RDW 15.2 Plt Count 202 MPV 10.5 Immature Gran % (Auto) 0.4 Neut % (Auto) 74.1 H Lymph % (Auto) 15.4 L Aiken % (Auto) 8.0 Eos % (Auto) 1.7 Baso % (Auto) 0.4 Lymph # (Auto) 1.2 Aiken # (Auto) 0.6 Eos # (Auto) 0.1 Baso # (Auto) 0.0 Abs Immat Gran (auto) 0.03 Absolute Neuts (auto) 5.7 Absolute Nucleated RBC 0.000 Nucleated RBC % (auto) 0.0 PT INR APTT Anion Gap 16 Estim Creat Clear Calc 23.2 Estimated GFR 26 POC Glucose 131 H Random Glucose 137 H Lactic Acid Calcium 10.1 D Total Bilirubin 0.5 AST 157 H ALT 52 H Alkaline Phosphatase 105 Troponin I High Sens Total Protein 7.1 Albumin 3.9 Urine Color Urine Appearance Urine pH Ur Specific [place] Urine Protein Urine Glucose (UA) Urine Ketones Urine Blood Urine Nitrite Ur Leukocyte Esterase Urine RBC Urine WBC Ur Squamous Epith Cells Urine Bacteria Hyaline Casts Influenza Type A (PCR) Influenza Type B (PCR) RSV RNA Qual (PCR) SARS-CoV-2 RNA (RT-PCR) 01/30/23 01/30/23 01/30/23 12:24 12:24 12:30 MCV MCH MCHC RDW Plt Count MPV Immature Gran % (Auto) Neut % (Auto) Lymph % (Auto) Aiken % (Auto) Eos % (Auto) Baso % (Auto) Lymph # (Auto) Aiken # (Auto) Eos # (Auto) Baso # (Auto) Abs Immat Gran (auto) Absolute Neuts (auto) Absolute Nucleated RBC Nucleated RBC % (auto) PT 10.5 INR 0.9 APTT 27.1 Anion Gap Estim Creat Clear Calc Estimated GFR POC Glucose Random Glucose Lactic Acid 0.9 Calcium Total Bilirubin AST ALT Alkaline Phosphatase Troponin I High Sens Total Protein Albumin Urine Color Urine Appearance Urine pH Ur Specific [place] Urine Protein Urine Glucose (UA) Urine Ketones Urine Blood Urine Nitrite Ur Leukocyte Esterase Urine RBC Urine WBC Ur Squamous Epith Cells Urine Bacteria Hyaline Casts Influenza Type A (PCR) NEGATIVE Influenza Type B (PCR) NEGATIVE RSV RNA Qual (PCR) NEGATIVE SARS-CoV-2 RNA (RT-PCR) NEGATIVE 01/30/23 01/30/23 12:48 14:15 MCV MCH MCHC RDW Plt Count MPV Immature Gran % (Auto) Neut % (Auto) Lymph % (Auto) Aiken % (Auto) Eos % (Auto) Baso % (Auto) Lymph # (Auto) Aiken # (Auto) Eos # (Auto) Baso # (Auto) Abs Immat Gran (auto) Absolute Neuts (auto) Absolute Nucleated RBC Nucleated RBC % (auto) PT INR APTT Anion Gap Estim Creat Clear Calc Estimated GFR POC Glucose Random Glucose Lactic Acid Calcium Total Bilirubin AST ALT Alkaline Phosphatase Troponin I High Sens 16.5 Total Protein Albumin Urine Color Yellow Urine Appearance Clear Urine pH 7.0 Ur Specific [place] 1.010 Urine Protein 100 (2+) H Urine Glucose (UA) 100 H Urine Ketones Negative Urine Blood Large (3+) H Urine Nitrite Negative Ur Leukocyte Esterase Negative Urine RBC 0-2 Urine WBC 0-5 Ur Squamous Epith Cells 0-2 Urine Bacteria None Seen Hyaline Casts 0-2 Influenza Type A (PCR) Influenza Type B (PCR) RSV RNA Qual (PCR) SARS-CoV-2 RNA (RT-PCR) Assessment and Plan (1) New onset atrial flutter: Status: Acute (2) Syncope: Status: Acute (3) Orthostatic hypotension: Status: Acute (4) HOMERO (acute kidney injury): Status: Acute Plan 72-year-old male past medical history of normocytic anemia, CAD, Parkinson's, HFrEF, history of prostate cancer status post prostatectomy, diabetes, HTN, COPD, and urinary incontinence to be observed for orthostatic hypotension and syncope with new onset atrial flutter. #Recurrent near syncope/syncope -Headt CT pending given head injury this am -No focal neuro deficits on exam -Suspect related to orthostatic hypotension but also consider cardiogenic given new onset atrial flutter vs neurogenic given new onset seizures -Monitor on telemetry -Cardiology and neuro consults #Orthostatic hypotension -suspect autonomic dysfunction r/t Parksinson's disease -Also consider hydration, though has hypertension when laying flat -Hold antihypertensives, flomax, mirapex -Continue IVF #New onset seizures -?r/t syncopal episodes -EEG orderd -Brain MRI to assess for structural abnormality -Continue kera -Neuro consult #Acute Kidney Injury -Urine studies pending -?r/t poor PO intake vs r/t hypoperfusion due to orthostatic hypotension -Nephrology consult -Avoid nephrotoxins -Continue IVF -Follow BMP, divalents #New onset atrial flutter- rate controlled -EKG showing atrial flutter , rate 81, no jenna or depressions -Echo ordered -Cardiac diet -Telemetry -Cardiology consult -[id number] score 4. Hold on anticoagulation at this time given recurrent falls/syncope #CAD -no anginal cp at this time -Trops WNL x2 -hold bb as above, continue statin #Parkinson's disease -continue simemet # [id number] type 2 diabetes-controlled -last hemoglobin A1c 6.2% -POC glucose -diabetic diet -Humalog on sliding scale DVT prophylaxis- lovenox Full code Patient requires inpatient stay at least 2 midnights for management of recurrent syncope with orthostatic hypotension, HOMERO, and new onset atrial flutter requiring close monitoring vitals to monitor for any decompensation, IV fluid resuscitation, and expert consultation which cannot take place in lower setting of care. Time Spent With Patient Time: Total time managing care of this patient today ____ minutes. Quality Stroke Does the patient have a stroke diagnosis?: No VTE Prior VTE?: No VTE Risk Level:: Medical - moderate - high VTE Device Contraindication: Treatment Not Indicated VTE Drug Contraindication: N/A - Med Ordered
[2023-01-30] MEDS: Enoxaparin Sodium 30 MG/0.3 ML SYRINGE SUBCUT (17:21)
[2023-01-30] MEDS: 0.9 % Sodium Chloride Flush 3 ML SYRINGE IVFLUSH (21:38)
[2023-01-31] VITALS (10 sets, daily range): BP systolic 109–210; BP diastolic 55–100; PULSE 70–93; RESP 12–20; TEMP 36.1–37; O2SAT 96–99
[2023-01-31 06:07] LABS: MANUAL DIFF FLAG NO
[2023-01-31 06:32] LABS: Anion Gap 12 (12-20); Blood Urea Nitrogen 28 mg/dL (9-16); Calcium 8.7 mg/dL (8.4-10.2); Carbon Dioxide 24 mmol/L (22-29); Chloride 111 mmol/L (96-108); Creatinine Clr Calc Pharmacy 28.7; Estimated Glomerular Filt Rate 33; Glucose Random 115 mg/dL (60-115); Potassium 2.9 mmol/L (3.3-5.1); Sodium 144 mmol/L (135-145)
[2023-01-31 06:33] LABS: Basophils Percent Auto 0.4 % (0-2); Eosinophils Absolute Auto 0.2 X10*3/uL (0.0-0.4); Eosinophils Percent Auto 4.2 % (0-4); Hemoglobin 10.3 g/dl (14.0-18.0); Imm Gran Abs Auto 0.02 X10*3/uL (0.00-0.03); Imm Gran Pct Auto 0.4 % (0.0-0.4); Lymphocytes Absolute Auto 1.2 X10*3/uL (1.2-4.9); Lymphocytes Percent Auto 20.6 % (20-40); Mean Corpuscular HGB Conc 33.2 g/dl (31.0-36.0); Mean Corpuscular Volume 93.4 fL (80.0-98.0); Mean Platelet Volume 10.9 fL (9.4-12.4); Monocytes Absolute Auto 0.6 X10*3/uL (0.1-1.2); Monocytes Percent Auto 10.8 % (2-11); Neutrophils Absolute Auto 3.6 x10*3/uL (2.0-8.3); Neutrophils Percent Auto 63.6 % (45-73); Platelet Count 189 X10*3/uL (160-400); Red Blood Count 3.32 X10*6/uL (4.60-5.80); Red Cell Distribution Width 14.9 % (11.0-16.0)
--- NOTE | 2023-01-31 06:39 | PM.EVENT ---
Event Note Date of Service: 01/31/23 Event Note: Patient feeling very anxious this morning to the point that he wants to go home. Was given 0.5 of Ativan Time Spent With Patient Time: Total time managing care of this patient today ____ minutes.
[2023-01-31 06:40] LABS: White Blood Count 5.7 X10*3/uL (4.8-10.8)
--- NOTE | 2023-01-31 08:55 | MHC.CM.PN ---
IMM DELIVERED PT LIVES IN A SF HOME WITH FAMILY. USES CANE FOR MAJOR MOBILITY AND USES A C-PAP AT NIGHT. + HCP (AT HOME, WILL HAVE FAMILY BRING IN COPY) + COVID VAX X4 PCP DR. FISHER AT [facility] [place]. DP: HOME, NO SERVICES ARE ANTICIPATED. [facility] WILL TRANSPORT AT DC. CM WILL CONTINUE TO FOLLOW FOR DC PLAN/NEEDS.
--- NOTE | 2023-01-31 10:55 | HO.PM.IMPN ---
Subjective Subjective Date of Service: 01/31/23 Interval History: Seen and evaluated this morning mildly anxious about hospital stay overnight denies fever, chills, pain or lightheadedness orthostatic positive No other overnight events Review of Systems Review of Systems: Yes all other systems are reviewed and are negative Physical Exam Vital Signs: Vital Signs: Last Vital Signs Temp 97.9 F 01/31/23 07:34 Pulse 93 01/31/23 08:59 Resp 16 01/31/23 08:05 BP 109/55 L 01/31/23 08:59 Pulse Ox 98 01/31/23 07:34 O2 Del Method Room Air 01/31/23 07:34 BMI result Body Mass Index 25.1 Const: Other: Constitutional : Awake, interactive, tremors, not in distress Neck : Normal inspection, Supple Cardiovascular : RRR, no JVP, no lower extremity edema Respiratory : good bilateral air entry, no crackles, wheezes or rhonchi Gastrointestinal: soft, lax, Normal bowel sounds, Non tender Skin : Warm, Dry Neurological : Alert & oriented to self and place, No focal deficit ,mild resting tremors Objective Data Active Medications Acetaminophen (Acetaminophen 325 Mg Tablet) 650 mg PO Q6H PRN PRN Reason: Pain, Mild (Pain Scale 1-3) Last Admin: 01/30/23 21:41 Dose: 650 mg Documented By: DEAN Albuterol Sulfate (Albuterol Sulfate (0.083%) 2.5 Mg/3 Ml Vial.Neb) 2.5 mg INHALE RBID [facility] Last Admin: 01/31/23 08:02 Dose: 2.5 mg Documented By: ELVIN Albuterol Sulfate (Albuterol Sulfate 90 Mcg 8 Gm Inhaler) 2 puff INHALE RQ6H PRN PRN Reason: shortness of breath or wheezing Atorvastatin Calcium (Atorvastatin Calcium 80 Mg Tablet) 80 mg PO BEDTIME [facility] Last Admin: 01/30/23 21:34 Dose: 80 mg Documented By: DEAN Carbidopa/Levodopa (Carbidopa/Levodopa 25/100 Tablet) 1 tab PO TID@0800,1200,1700 [facility] Last Admin: 01/31/23 08:53 Dose: 1 tab Documented By: DESTINYFAChristopher Carbidopa/Levodopa (Carbidopa/Levodopa Cr 50/200 Tablet.Er) 1 tab PO BEDTIME [facility] Last Admin: 01/30/23 21:34 Dose: 1 tab Documented By: DEAN Clopidogrel Bisulfate (Clopidogrel Bisulfate 75 Mg Tablet) 75 mg PO DAILY [facility] Last Admin: 01/31/23 08:53 Dose: 75 mg Documented By: CHAI Dextrose (Dextrose 50 % 25 Gm/50 Ml Syringe) 25 gm IVPUSH Q15M PRN; Protocol PRN Reason: per Hypoglycemia Standing Ord. Enoxaparin Sodium (Enoxaparin Sodium 30 Mg/0.3 Ml Syringe) 30 mg SUBCUT Q24H [facility] Last Admin: 01/30/23 17:21 Dose: 30 mg Documented By: YOVANI Fluticasone Propionate (Fluticasone Propionate Nasal 16 Gm Parnell) 2 spray NOSTRIL-B DAILY PRN PRN Reason: Allergic Symptoms Fluticasone/Vilanterol (Fluticasone/Vilanterol 100/25 Blst.W.Dev) 1 puff INHALE DAILY [facility] Last Admin: 01/31/23 08:02 Dose: 1 puff Documented By: ELVIN Gabapentin (Gabapentin 300 Mg Capsule) 300 mg PO TID [facility] Last Admin: 01/31/23 08:53 Dose: 300 mg Documented By: CHAI Glucose (Glucose Gel 15 Gm Gel..Gram.) 15 gm PO Q15M PRN; Protocol PRN Reason: per Hypoglycemia Standing Ord. Insulin Human Lispro (Insulin Lispro 100 Unit/Ml 3 Ml Vial) 0 unit SUBCUT QIDACHS [facility]; Protocol Last Admin: 01/31/23 08:11 Dose: Not Given Documented By: CHAI Non-Admin Reason: See Note Levetiracetam (Levetiracetam 250 Mg Tablet) 250 mg PO BID [facility] Last Admin: 01/31/23 08:53 Dose: 250 mg Documented By: CHAI Montelukast Sodium (Montelukast Sodium 10 Mg Tablet) 10 mg PO DAILY [facility] Last Admin: 01/31/23 08:53 Dose: 10 mg Documented By: CHAI Multivitamins/Vitamin C (Multivitamin Tablet) 1 tab PO DAILY [facility] Last Admin: 01/31/23 08:53 Dose: 1 tab Documented By: CHAI Nitroglycerin (Nitroglycerin 0.4 Mg Tab.Subl) 0.4 mg SUBLINGUAL Q5M PRN PRN Reason: chest pain Omeprazole (Omeprazole 20 Mg Capsule.Dr) 20 mg PO DAILY@0630 [facility] Last Admin: 01/31/23 07:59 Dose: 20 mg Documented By: DEAN Ondansetron HCl (Ondansetron Hcl 4 Mg/2 Ml Vial) 4 mg IVPUSH Q8H PRN PRN Reason: Nausea and Vomiting Senna (Sennosides 8.6 Mg Tablet) 17.2 mg PO BEDTIME [facility] Last Admin: 01/30/23 21:35 Dose: 17.2 mg Documented By: DEAN Sodium Chloride (0.9 % Sodium Chloride Flush 3 Ml Syringe) 3 ml IVFLUSH QSHIFT [facility] Last Admin: 01/31/23 08:11 Dose: Not Given Documented By: CHAI Non-Admin Reason: See Note Tolterodine Tartrate (Tolterodine Tartrate La 2 Mg Cap.Er.24h) 2 mg PO DAILY [facility] Last Admin: 01/31/23 08:53 Dose: 2 mg Documented By: CHAI Trazodone HCl (Trazodone Hcl 50 Mg Tablet) 50 mg PO BEDTIME [facility] Last Admin: 01/30/23 21:35 Dose: 50 mg Documented By: DEAN Labs 01/31/23 05:39 01/31/23 05:39 Labs: Laboratory Results - last 24 hr 01/30/23 01/30/23 01/30/23 11:53 12:24 12:24 MCV 92.4 MCH 29.9 MCHC 32.3 RDW 15.2 Plt Count 202 MPV 10.5 Immature Gran % (Auto) 0.4 Neut % (Auto) 74.1 H Lymph % (Auto) 15.4 L Metcalfe % (Auto) 8.0 Eos % (Auto) 1.7 Baso % (Auto) 0.4 Lymph # (Auto) 1.2 Metcalfe # (Auto) 0.6 Eos # (Auto) 0.1 Baso # (Auto) 0.0 Abs Immat Gran (auto) 0.03 Absolute Neuts (auto) 5.7 Absolute Nucleated RBC 0.000 Nucleated RBC % (auto) 0.0 PT INR APTT Anion Gap 16 Estim Creat Clear Calc 23.2 Estimated GFR 26 POC Glucose 131 H Random Glucose 137 H Lactic Acid Calcium 10.1 D Total Bilirubin 0.5 AST 157 H ALT 52 H Alkaline Phosphatase 105 Troponin I High Sens Total Protein 7.1 Albumin 3.9 Urine Color Urine Appearance Urine pH Ur Specific Kane Urine Protein Urine Glucose (UA) Urine Ketones Urine Blood Urine Nitrite Ur Leukocyte Esterase Urine RBC Urine WBC Ur Squamous Epith Cells Urine Bacteria Hyaline Casts Influenza Type A (PCR) Influenza Type B (PCR) RSV RNA Qual (PCR) SARS-CoV-2 RNA (RT-PCR) 01/30/23 01/30/23 01/30/23 12:24 12:24 12:30 MCV MCH MCHC RDW Plt Count MPV Immature Gran % (Auto) Neut % (Auto) Lymph % (Auto) [place]calfe % (Auto) Eos % (Auto) Baso % (Auto) Lymph # (Auto) Metcalfe # (Auto) Eos # (Auto) Baso # (Auto) Abs Immat Gran (auto) Absolute Neuts (auto) Absolute Nucleated RBC Nucleated RBC % (auto) PT 10.5 INR 0.9 APTT 27.1 Anion Gap Estim Creat Clear Calc Estimated GFR POC Glucose Random Glucose Lactic Acid 0.9 Calcium Total Bilirubin AST ALT Alkaline Phosphatase Troponin I High Sens Total Protein Albumin Urine Color Urine Appearance Urine pH Ur Specific Kane Urine Protein Urine Glucose (UA) Urine Ketones Urine Blood Urine Nitrite Ur Leukocyte Esterase Urine RBC Urine WBC Ur Squamous Epith Cells Urine Bacteria Hyaline Casts Influenza Type A (PCR) NEGATIVE Influenza Type B (PCR) NEGATIVE RSV RNA Qual (PCR) NEGATIVE SARS-CoV-2 RNA (RT-PCR) NEGATIVE 01/30/23 01/30/23 01/30/23 12:48 14:15 16:26 MCV MCH MCHC RDW Plt Count MPV Immature Gran % (Auto) Neut % (Auto) Lymph % (Auto) [place]calfe % (Auto) Eos % (Auto) Baso % (Auto) Lymph # (Auto) Metcalfe # (Auto) Eos # (Auto) Baso # (Auto) Abs Immat Gran (auto) Absolute Neuts (auto) Absolute Nucleated RBC Nucleated RBC % (auto) PT INR APTT Anion Gap Estim Creat Clear Calc Estimated GFR POC Glucose Random Glucose Lactic Acid Calcium Total Bilirubin AST ALT Alkaline Phosphatase Troponin I High Sens 16.5 16.7 Total Protein Albumin Urine Color Yellow Urine Appearance Clear Urine pH 7.0 Ur Specific Kane 1.010 Urine Protein 100 (2+) H Urine Glucose (UA) 100 H Urine Ketones Negative Urine Blood Large (3+) H Urine Nitrite Negative Ur Leukocyte Esterase Negative Urine RBC 0-2 Urine WBC 0-5 Ur Squamous Epith Cells 0-2 Urine Bacteria None Seen Hyaline Casts 0-2 Influenza Type A (PCR) Influenza Type B (PCR) RSV RNA Qual (PCR) SARS-CoV-2 RNA (RT-PCR) 01/30/23 01/31/23 01/31/23 20:38 05:39 05:39 MCV 93.4 MCH 31.0 MCHC 33.2 RDW 14.9 Plt Count 189 MPV 10.9 Immature Gran % (Auto) 0.4 Neut % (Auto) 63.6 Lymph % (Auto) 20.6 Metcalfe % (Auto) 10.8 Eos % (Auto) 4.2 H Baso % (Auto) 0.4 Lymph # (Auto) 1.2 Metcalfe # (Auto) 0.6 Eos # (Auto) 0.2 Baso # (Auto) 0.0 Abs Immat Gran (auto) 0.02 Absolute Neuts (auto) 3.6 Absolute Nucleated RBC 0.000 Nucleated RBC % (auto) 0.0 PT INR APTT Anion Gap 12 Estim Creat Clear Calc 28.7 Estimated GFR 33 POC Glucose 123 H Random Glucose 115 Lactic Acid Calcium 8.7 D Total Bilirubin AST ALT Alkaline Phosphatase Troponin I High Sens Total Protein Albumin Urine Color Urine Appearance Urine pH Ur Specific Kane Urine Protein Urine Glucose (UA) Urine Ketones Urine Blood Urine Nitrite Ur Leukocyte Esterase Urine RBC Urine WBC Ur Squamous Epith Cells Urine Bacteria Hyaline Casts Influenza Type A (PCR) Influenza Type B (PCR) RSV RNA Qual (PCR) SARS-CoV-2 RNA (RT-PCR) 01/31/23 07:52 MCV MCH MCHC RDW Plt Count MPV Immature Gran % (Auto) Neut % (Auto) Lymph % (Auto) Metcalfe % (Auto) Eos % (Auto) Baso % (Auto) Lymph # (Auto) Metcalfe # (Auto) Eos # (Auto) Baso # (Auto) Abs Immat Gran (auto) Absolute Neuts (auto) Absolute Nucleated RBC Nucleated RBC % (auto) PT INR APTT Anion Gap Estim Creat Clear Calc Estimated GFR POC Glucose 103 Random Glucose Lactic Acid Calcium Total Bilirubin AST ALT Alkaline Phosphatase Troponin I High Sens Total Protein Albumin Urine Color Urine Appearance Urine pH Ur Specific Kane Urine Protein Urine Glucose (UA) Urine Ketones Urine Blood Urine Nitrite Ur Leukocyte Esterase Urine RBC Urine WBC Ur Squamous Epith Cells Urine Bacteria Hyaline Casts Influenza Type A (PCR) Influenza Type B (PCR) RSV RNA Qual (PCR) SARS-CoV-2 RNA (RT-PCR) Assessment and Plan (1) Syncope: Status: Acute (2) Orthostatic hypotension: Status: Acute (3) HOMERO (acute kidney injury): Status: Acute (4) Seizures: Status: Acute Plan 72-year-old male past medical history of normocytic anemia, CAD, Parkinson's, HFrEF, history of prostate cancer status post prostatectomy, diabetes, HTN, COPD, and urinary incontinence to be observed for orthostatic hypotension and syncope with new onset atrial flutter. #Recurrent syncope Likely related to orthostatic hypotension\seizure activities no acute findings in Head CT No focal neuro deficits on exam telemetry Cardiology and neuro consult #Orthostatic hypotension 2/2 autonomic dysfunction r/t Parksinson's disease Hold antihypertensives, flomax, mirapex nephrology eval # Hx of seizures, concern of breakthrough seizure could be abnormal movements related to syncopal episodes EEG, Brain MRI to assess for structural abnormality Continue keppra Neuro consult # HOMERO on CKD 3 Urine studies pending Nephrology consult Avoid nephrotoxins IVF Follow BMP, I\O # Abnormal EKG question of new onset atrial flutter, seems sinus in EKG repeat EKG this morning showing sinus rhythm Echo ordered keep on Telemetry Cardiology consult hold AC forn now, elevated CHADVASC of 4 but history of falls #CAD continue statin to restart BB #Parkinson's disease continue simemet # [id number] type 2 diabetes-controlled last hemoglobin A1c 6.2% POC glucose diabetic diet Humalog on sliding scale DVT prophylaxis lovenox Full code Patient requires inpatient stay overnight for management of recurrent syncope with orthostatic hypotension, HOMERO, and new onset atrial flutter requiring close monitoring vitals to monitor for any decompensation, IV fluid resuscitation, and expert consultation Time Spent With Patient Time: Total time managing care of this patient today ____ minutes. Quality Stroke Does the patient have a stroke diagnosis?: No VTE Prior VTE?: No VTE Risk Level:: Medical - moderate - high VTE Device Contraindication: Treatment Not Indicated VTE Drug Contraindication: N/A - Med Ordered
--- NOTE | 2023-01-31 11:55 | PM.CNCAR ---
History of Present Illness History of Present Illness Date of Service: 01/31/23 Requesting physician: Abisai Null Chief complaint: Postural hypotension, syncope Narrative: 72-year-old gentleman with background history of Parkinson's disease, diabetes, coronary disease, mild LV dysfunction based on echocardiography in the past, carotid artery disease and orthostatic hypertension was presenting with syncope. He is saying that mostly is passing out at nighttime and he walks with his to go to bathroom. He is saying whenever he stands up he gets dizzy and passes out. He is somewhat poor historian and I think he has some degree of dementia present. He is denying any chest pain or shortness of breath. His blood pressure is a fluctuated between 200 and as low as 1 100s systolic. He has some tremors and his EKG she was thought to be atrial flutter but he does not have atrial flutter. He is on carbidopa levodopa for Parkinson disease, he also had seizure diagnosed and is on Keppra. He takes metoprolol succinate 25 mg half pill daily. He is laying in bed and has no complaints currently. [facility] Past Medical History Medical History (Updated 01/31/23 @ 12:08 by Satnam Arenas MD) Anemia Bronchopneumonia CAD (coronary artery disease) Carotid artery disease COPD (chronic obstructive pulmonary disease) Diabetes type 2, uncontrolled (~1999) Diabetic nephropathy associated with type 2 diabetes mellitus Diabetic polyneuropathy associated with type 2 diabetes mellitus Dyslipidemia Dyspnea History of hepatitis C History of MO (myocardial infarction) History of prostate cancer (~2016) 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 group home (current) use of insulin Nocturnal hypoxia Overweight (BMI 25.0-29.9) Pulmonary nodule Stented coronary artery Family History Family History Father Sudden cardiac CVD (cardiovascular disease) Mother Hx of heart surgery CVD (cardiovascular disease) Surgical History Surgical History History of cataract surgery (~2019) History of colonoscopy History of cystoscopy (~2020) History of esophagogastroduodenoscopy (EGD) History of heart artery stent History of prostatectomy Hx of cardiac cath Social History Social History Household Members: Spouse Housing: House Do you presently have visiting nurse or other home services: No Alcohol intake: former Patient Tobacco Use Status: Former Tobacco user Tobacco use type: Cigarette Years Smoked: 15 Smoked in Last 30 Days: No e-Cigarette/Vaping Use: Never Used Patient Interested in Nicotine Replacement: No Patient Given Instructions on How to Stop Smoking: No Second Hand Smoke Exposure: No Use of substances other than those prescribed or required for medical reasons: No Have you been hit, kicked, punched, or otherwise hurt by someone within the past year? If so, by whom?: No Do you feel safe in your current relationship?: Yes Is there a partner from a previous relationship who is making you feel unsafe now?: No Are you made to feel afraid or neglected: No Advance Directives: Yes Advance Directives on File: Yes Advance Directives Date on File: 03/31/21 Do you have thoughts of harming others: None Do you have a plan to hurt others: No Plan Recently lost weight without trying: Unsure service: No Current occupational status: retired Current occupation: rt handed Current occupational exposures/hazards: No Cognitive needs: No Hearing needs: No Vision needs: Yes (reading glasses) Meds Allergies Allergy/AdvReac Type Severity Reaction Status Date / Time Iodinated Contrast Media Allergy Intermediate RASH AT IV Verified 01/30/23 11:24 [CONTRAST, IV] SITE. BENEDRYL GIVEN WITH GOOD EFFECT ibuprofen Allergy Rash Verified 01/30/23 11:24 adhesive tape AdvReac Rash Verified 01/30/23 11:24 Active Medications: Current Medications Acetaminophen (Acetaminophen 325 Mg Tablet) 650 mg PO Q6H PRN PRN Reason: Pain, Mild (Pain Scale 1-3) Last Admin: 01/30/23 21:41 Dose: 650 mg Albuterol Sulfate (Albuterol Sulfate (0.083%) 2.5 Mg/3 Ml Vial.Neb) 2.5 mg INHALE RBID [facility] Last Admin: 01/31/23 08:02 Dose: 2.5 mg Albuterol Sulfate (Albuterol Sulfate 90 Mcg 8 Gm Inhaler) 2 puff INHALE RQ6H PRN PRN Reason: shortness of breath or wheezing Atorvastatin Calcium (Atorvastatin Calcium 80 Mg Tablet) 80 mg PO BEDTIME [facility] Last Admin: 01/30/23 21:34 Dose: 80 mg Carbidopa/Levodopa (Carbidopa/Levodopa 25/100 Tablet) 1 tab PO TID@0800,1200,1700 [facility] Last Admin: 01/31/23 08:53 Dose: 1 tab Carbidopa/Levodopa (Carbidopa/Levodopa Cr 50/200 Tablet.Er) 1 tab PO BEDTIME [facility] Last Admin: 01/30/23 21:34 Dose: 1 tab Clopidogrel Bisulfate (Clopidogrel Bisulfate 75 Mg Tablet) 75 mg PO DAILY [facility] Last Admin: 01/31/23 08:53 Dose: 75 mg Dextrose (Dextrose 50 % 25 Gm/50 Ml Syringe) 25 gm IVPUSH Q15M PRN; Protocol PRN Reason: per Hypoglycemia Standing Ord. Enoxaparin Sodium (Enoxaparin Sodium 30 Mg/0.3 Ml Syringe) 30 mg SUBCUT Q24H [facility] Last Admin: 01/30/23 17:21 Dose: 30 mg Fluticasone Propionate (Fluticasone Propionate Nasal 16 Gm [place]) 2 spray NOSTRIL-B DAILY PRN PRN Reason: Allergic Symptoms Fluticasone/Vilanterol (Fluticasone/Vilanterol 100/25 Blst.W.Dev) 1 puff INHALE DAILY [facility] Last Admin: 01/31/23 08:02 Dose: 1 puff Gabapentin (Gabapentin 300 Mg Capsule) 300 mg PO TID [facility] Last Admin: 01/31/23 08:53 Dose: 300 mg Glucose (Glucose Gel 15 Gm Gel..Gram.) 15 gm PO Q15M PRN; Protocol PRN Reason: per Hypoglycemia Standing Ord. Insulin Human Lispro (Insulin Lispro 100 Unit/Ml 3 Ml Vial) 0 unit SUBCUT QIDACHS [facility]; Protocol Last Admin: 01/31/23 08:11 Dose: Not Given Levetiracetam (Levetiracetam 250 Mg Tablet) 250 mg PO BID [facility] Last Admin: 01/31/23 08:53 Dose: 250 mg Montelukast Sodium (Montelukast Sodium 10 Mg Tablet) 10 mg PO DAILY [facility] Last Admin: 01/31/23 08:53 Dose: 10 mg Multivitamins/Vitamin C (Multivitamin Tablet) 1 tab PO DAILY [facility] Last Admin: 01/31/23 08:53 Dose: 1 tab Nitroglycerin (Nitroglycerin 0.4 Mg Tab.Subl) 0.4 mg SUBLINGUAL Q5M PRN PRN Reason: chest pain Omeprazole (Omeprazole 20 Mg Capsule.Dr) 20 mg PO DAILY@0630 [facility] Last Admin: 01/31/23 07:59 Dose: 20 mg Ondansetron HCl (Ondansetron Hcl 4 Mg/2 Ml Vial) 4 mg IVPUSH Q8H PRN PRN Reason: Nausea and Vomiting Senna (Sennosides 8.6 Mg Tablet) 17.2 mg PO BEDTIME [facility] Last Admin: 01/30/23 21:35 Dose: 17.2 mg Sodium Chloride (0.9 % Sodium Chloride Flush 3 Ml Syringe) 3 ml IVFLUSH QSHIFT [facility] Last Admin: 01/31/23 11:28 Dose: Not Given Tolterodine Tartrate (Tolterodine Tartrate La 2 Mg Cap.Er.24h) 2 mg PO DAILY [facility] Last Admin: 01/31/23 08:53 Dose: 2 mg Trazodone HCl (Trazodone Hcl 50 Mg Tablet) 50 mg PO BEDTIME [facility] Last Admin: 01/30/23 21:35 Dose: 50 mg Home Medications Medication Instructions Recorded Confirmed Last Taken Type carbidopa 25 mg-levodopa 100 mg 1 tab PO TID@0800,1200,1700 06/23/20 01/30/23 01/26/23 History tablet vitamin B complex (B 1 tab PO DAILY 08/26/20 01/30/23 01/26/23 History Complex-Vitamin B12 tablet) blood sugar diagnostic (FreeStyle #10 ea 06/05/21 01/27/23 01/26/23 History Lite Strips) pramipexole 0.25 mg tablet 0.25 mg PO BID 09/08/21 01/30/23 01/26/23 History carbidopa ER 50 mg-levodopa 200 mg 1 tab PO BEDTIME 11/10/21 01/30/23 01/26/23 History tablet,extended release trazodone 50 mg tablet 50 mg PO BEDTIME 03/16/22 01/30/23 01/26/23 History nebulizers 11/22/22 01/27/23 01/26/23 History levetiracetam 250 mg tablet 250 mg PO BID 01/26/23 01/30/23 01/26/23 History fluticasone propionate 50 2 spray intranasal DAILY PRN 01/27/23 01/30/23 01/26/23 History mcg/actuation nasal Allergic Symptoms spray,suspension gabapentin 300 mg capsule 300 mg PO TID 01/27/23 01/30/23 01/26/23 History montelukast 10 mg tablet 10 mg PO DAILY 01/27/23 01/30/23 01/26/23 History omeprazole 20 mg capsule,delayed 20 mg PO DAILY@0630 01/30/23 01/30/23 Unknown History release Physical Exam Vital Signs: Vital Signs: Last Vital Signs Temp 97.9 F 01/31/23 07:34 Pulse 93 01/31/23 08:59 Resp 16 01/31/23 08:05 BP 109/55 L 01/31/23 08:59 Pulse Ox 98 01/31/23 07:34 O2 Del Method Room Air 01/31/23 07:34 BMI result Body Mass Index 25.1 GENERAL APPEARANCE: in no acute distress, pleasant. NECK: no carotid bruit, no jugular venous distention. SKIN: no suspicious lesions, warm and dry. HEART: no murmurs, regular rate and rhythm. LUNGS: clear to auscultation bilaterally. ABDOMEN: soft, nontender. EXTREMITIES: no edema. PERIPHERAL PULSES: equal. Objective Labs and Meds 01/31/23 05:39 01/31/23 05:39 Lab results: Laboratory Results - last 24 hr 01/30/23 01/30/23 01/30/23 11:53 12:24 12:24 WBC 7.7 RBC 4.35 L D Hgb 13.0 L D Hct 40.2 L D MCV 92.4 MCH 29.9 MCHC 32.3 RDW 15.2 Plt Count 202 MPV 10.5 Immature Gran % (Auto) 0.4 Neut % (Auto) 74.1 H Lymph % (Auto) 15.4 L [place] % (Auto) 8.0 Eos % (Auto) 1.7 Baso % (Auto) 0.4 Lymph # (Auto) 1.2 [place] # (Auto) 0.6 Eos # (Auto) 0.1 Baso # (Auto) 0.0 Abs Immat Gran (auto) 0.03 Absolute Neuts (auto) 5.7 Absolute Nucleated RBC 0.000 Nucleated RBC % (auto) 0.0 PT INR APTT Sodium 145 Potassium 3.6 Chloride 108 Carbon Dioxide 25 Anion Gap 16 BUN 30 H Creatinine 2.48 H Estim Creat Clear Calc 23.2 Estimated GFR 26 POC Glucose 131 H Random Glucose 137 H Lactic Acid Calcium 10.1 D Total Bilirubin 0.5 AST 157 H ALT 52 H Alkaline Phosphatase 105 Troponin I High Sens Total Protein 7.1 Albumin 3.9 Urine Color Urine Appearance Urine pH Ur Specific [place] Urine Protein Urine Glucose (UA) Urine Ketones Urine Blood Urine Nitrite Ur Leukocyte Esterase Urine RBC Urine WBC Ur Squamous Epith Cells Urine Bacteria Hyaline Casts Influenza Type A (PCR) Influenza Type B (PCR) RSV RNA Qual (PCR) SARS-CoV-2 RNA (RT-PCR) 01/30/23 01/30/23 01/30/23 12:24 12:24 12:30 WBC RBC Hgb Hct MCV MCH MCHC RDW Plt Count MPV Immature Gran % (Auto) Neut % (Auto) Lymph % (Auto) [place] % (Auto) Eos % (Auto) Baso % (Auto) Lymph # (Auto) [place] # (Auto) Eos # (Auto) Baso # (Auto) Abs Immat Gran (auto) Absolute Neuts (auto) Absolute Nucleated RBC Nucleated RBC % (auto) PT 10.5 INR 0.9 APTT 27.1 Sodium Potassium Chloride Carbon Dioxide Anion Gap BUN Creatinine Estim Creat Clear Calc Estimated GFR POC Glucose Random Glucose Lactic Acid 0.9 Calcium Total Bilirubin AST ALT Alkaline Phosphatase Troponin I High Sens Total Protein Albumin Urine Color Urine Appearance Urine pH Ur Specific [place] Urine Protein Urine Glucose (UA) Urine Ketones Urine Blood Urine Nitrite Ur Leukocyte Esterase Urine RBC Urine WBC Ur Squamous Epith Cells Urine Bacteria Hyaline Casts Influenza Type A (PCR) NEGATIVE Influenza Type B (PCR) NEGATIVE RSV RNA Qual (PCR) NEGATIVE SARS-CoV-2 RNA (RT-PCR) NEGATIVE 01/30/23 01/30/23 01/30/23 12:48 14:15 16:26 WBC RBC Hgb Hct MCV MCH MCHC RDW Plt Count MPV Immature Gran % (Auto) Neut % (Auto) Lymph % (Auto) [place] % (Auto) Eos % (Auto) Baso % (Auto) Lymph # (Auto) [place] # (Auto) Eos # (Auto) Baso # (Auto) Abs Immat Gran (auto) Absolute Neuts (auto) Absolute Nucleated RBC Nucleated RBC % (auto) PT INR APTT Sodium Potassium Chloride Carbon Dioxide Anion Gap BUN Creatinine Estim Creat Clear Calc Estimated GFR POC Glucose Random Glucose Lactic Acid Calcium Total Bilirubin AST ALT Alkaline Phosphatase Troponin I High Sens 16.5 16.7 Total Protein Albumin Urine Color Yellow Urine Appearance Clear Urine pH 7.0 Ur Specific [place] 1.010 Urine Protein 100 (2+) H Urine Glucose (UA) 100 H Urine Ketones Negative Urine Blood Large (3+) H Urine Nitrite Negative Ur Leukocyte Esterase Negative Urine RBC 0-2 Urine WBC 0-5 Ur Squamous Epith Cells 0-2 Urine Bacteria None Seen Hyaline Casts 0-2 Influenza Type A (PCR) Influenza Type B (PCR) RSV RNA Qual (PCR) SARS-CoV-2 RNA (RT-PCR) 01/30/23 01/31/23 01/31/23 20:38 05:39 05:39 WBC 5.7 RBC 3.32 L D Hgb 10.3 L D Hct 31.0 L D MCV 93.4 MCH 31.0 MCHC 33.2 RDW 14.9 Plt Count 189 MPV 10.9 Immature Gran % (Auto) 0.4 Neut % (Auto) 63.6 Lymph % (Auto) 20.6 [place] % (Auto) 10.8 Eos % (Auto) 4.2 H Baso % (Auto) 0.4 Lymph # (Auto) 1.2 [place] # (Auto) 0.6 Eos # (Auto) 0.2 Baso # (Auto) 0.0 Abs Immat Gran (auto) 0.02 Absolute Neuts (auto) 3.6 Absolute Nucleated RBC 0.000 Nucleated RBC % (auto) 0.0 PT INR APTT Sodium 144 Potassium 2.9 L Chloride 111 H Carbon Dioxide 24 Anion Gap 12 BUN 28 H Creatinine 2.00 H Estim Creat Clear Calc 28.7 Estimated GFR 33 POC Glucose 123 H Random Glucose 115 Lactic Acid Calcium 8.7 D Total Bilirubin AST ALT Alkaline Phosphatase Troponin I High Sens Total Protein Albumin Urine Color Urine Appearance Urine pH Ur Specific [place] Urine Protein Urine Glucose (UA) Urine Ketones Urine Blood Urine Nitrite Ur Leukocyte Esterase Urine RBC Urine WBC Ur Squamous Epith Cells Urine Bacteria Hyaline Casts Influenza Type A (PCR) Influenza Type B (PCR) RSV RNA Qual (PCR) SARS-CoV-2 RNA (RT-PCR) 01/31/23 07:52 WBC RBC Hgb Hct MCV MCH MCHC RDW Plt Count MPV Immature Gran % (Auto) Neut % (Auto) Lymph % (Auto) [place] % (Auto) Eos % (Auto) Baso % (Auto) Lymph # (Auto) [place] # (Auto) Eos # (Auto) Baso # (Auto) Abs Immat Gran (auto) Absolute Neuts (auto) Absolute Nucleated RBC Nucleated RBC % (auto) PT INR APTT Sodium Potassium Chloride Carbon Dioxide Anion Gap BUN Creatinine Estim Creat Clear Calc Estimated GFR POC Glucose 103 Random Glucose Lactic Acid Calcium Total Bilirubin AST ALT Alkaline Phosphatase Troponin I High Sens Total Protein Albumin Urine Color Urine Appearance Urine pH Ur Specific [place] Urine Protein Urine Glucose (UA) Urine Ketones Urine Blood Urine Nitrite Ur Leukocyte Esterase Urine RBC Urine WBC Ur Squamous Epith Cells Urine Bacteria Hyaline Casts Influenza Type A (PCR) Influenza Type B (PCR) RSV RNA Qual (PCR) SARS-CoV-2 RNA (RT-PCR) Imaging Radiologist's impression: Impressions Chest X-Ray 01/30/23 14:10 IMPRESSION: Unremarkable chest examination. Head CT 01/31/23 02:16 IMPRESSION: No acute intracranial pathology. Assessment and Plan (1) Syncope: Status: Acute (2) Orthostatic hypotension: Status: Acute Plan 72-year-old gentleman Parkinson's disease presenting with syncope. He has orthostasis and has likely dysautonomia due to Parkinson disease. Blood pressure has been quite high when he is laying down but also fluctuates significantly. I think can be gently hydrated with 500 cc of fluid at 75 cc/hour. He can be given compression stockings. Nitropaste can be used if his blood pressure is quite high and this can be avoided with alcohol swab if blood pressure improves or he has hypotension. He should be sleeping at 30 degrees angle and should not lay flat in bed when sleeping. He has supine hypertension and he is not a good candidate to receive midodrine. Also with his LV dysfunction I am not sure he is going to tolerate Florinef very well and may get volume overload and dyspnea. I think this is a challenging situation and I have tried to explain this to her outpatient but I think he has poor understanding currently. We will follow along with you. Thank you for allowing me to participate in the care of your patient. Please feel free to contact me if you have any questions. Time Spent With Patient Time: Total time managing care of this patient today ____ minutes. Procedures Date of Service Date of Service: 01/31/23
--- NOTE | 2023-01-31 14:12 | PM.NEUROCN ---
History of Present Illness Data of Consult Service Date: 01/31/23 Primary Care Provider: Deonte Claudio MD HPI Reason for consult: Syncope 72 years old man with parkinsonism, recent suspicion of complex partial seizure disorder, and underlying coronary artery disease and diabetes. He was slowly getting worse and was seen in office recently when his reported symptoms suggestive of seizure disorder and my plan was to obtain an EEG and an MRI of brain. His symptoms got worse and he came to hospital. His reported that 1 time he was just unresponsive for half an hour and other times he would become unresponsive with eyes rolled over and this has happened while he was sitting. He was not aware of these episodes. Review of Systems Review of Systems: No recent cold or flu-like illness PMFSH Past Medical History Medical History (Updated 01/31/23 @ 12:08 by Satnam Arenas MD) Anemia Bronchopneumonia CAD (coronary artery disease) Carotid artery disease COPD (chronic obstructive pulmonary disease) Diabetes type 2, uncontrolled (~1999) Diabetic nephropathy associated with type 2 diabetes mellitus Diabetic polyneuropathy associated with type 2 diabetes mellitus Dyslipidemia Dyspnea History of hepatitis C History of ND (myocardial infarction) History of prostate cancer (~2016) 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 FPC (current) use of insulin Nocturnal hypoxia Overweight (BMI 25.0-29.9) Pulmonary nodule Stented coronary artery Family History Family History Father Sudden cardiac CVD (cardiovascular disease) Mother Hx of heart surgery CVD (cardiovascular disease) Surgical History Surgical History History of cataract surgery (~2019) History of colonoscopy History of cystoscopy (~2020) History of esophagogastroduodenoscopy (EGD) History of heart artery stent History of prostatectomy Hx of cardiac cath Social History Social History Household Members: Spouse Housing: House Do you presently have visiting nurse or other home services: No Alcohol intake: former Patient Tobacco Use Status: Former Tobacco user Tobacco use type: Cigarette Years Smoked: 15 Smoked in Last 30 Days: No e-Cigarette/Vaping Use: Never Used Patient Interested in Nicotine Replacement: No Patient Given Instructions on How to Stop Smoking: No Second Hand Smoke Exposure: No Use of substances other than those prescribed or required for medical reasons: No Have you been hit, kicked, punched, or otherwise hurt by someone within the past year? If so, by whom?: No Do you feel safe in your current relationship?: Yes Is there a partner from a previous relationship who is making you feel unsafe now?: No Are you made to feel afraid or neglected: No Advance Directives: Yes Advance Directives on File: Yes Advance Directives Date on File: 03/31/21 Do you have thoughts of harming others: None Do you have a plan to hurt others: No Plan Recently lost weight without trying: Unsure service: No Current occupational status: retired Current occupation: rt handed Current occupational exposures/hazards: No Cognitive needs: No Hearing needs: No Vision needs: Yes (reading glasses) Meds Allergies Allergy/AdvReac Type Severity Reaction Status Date / Time Iodinated Contrast Media Allergy Intermediate RASH AT IV Verified 01/30/23 11:24 [CONTRAST, IV] SITE. BENEDRYL GIVEN WITH GOOD EFFECT ibuprofen Allergy Rash Verified 01/30/23 11:24 adhesive tape AdvReac Rash Verified 01/30/23 11:24 Active Medications: Current Medications Acetaminophen (Acetaminophen 325 Mg Tablet) 650 mg PO Q6H PRN PRN Reason: Pain, Mild (Pain Scale 1-3) Last Admin: 01/30/23 21:41 Dose: 650 mg Albuterol Sulfate (Albuterol Sulfate (0.083%) 2.5 Mg/3 Ml Vial.Neb) 2.5 mg INHALE RBID [facility] Last Admin: 01/31/23 08:02 Dose: 2.5 mg Albuterol Sulfate (Albuterol Sulfate 90 Mcg 8 Gm Inhaler) 2 puff INHALE RQ6H PRN PRN Reason: shortness of breath or wheezing Atorvastatin Calcium (Atorvastatin Calcium 80 Mg Tablet) 80 mg PO BEDTIME [facility] Last Admin: 01/30/23 21:34 Dose: 80 mg Carbidopa/Levodopa (Carbidopa/Levodopa 25/100 Tablet) 1 tab PO TID@0800,1200,1700 [facility] Last Admin: 01/31/23 12:15 Dose: 1 tab Carbidopa/Levodopa (Carbidopa/Levodopa Cr 50/200 Tablet.Er) 1 tab PO BEDTIME [facility] Last Admin: 01/30/23 21:34 Dose: 1 tab Clopidogrel Bisulfate (Clopidogrel Bisulfate 75 Mg Tablet) 75 mg PO DAILY [facility] Last Admin: 01/31/23 08:53 Dose: 75 mg Dextrose (Dextrose 50 % 25 Gm/50 Ml Syringe) 25 gm IVPUSH Q15M PRN; Protocol PRN Reason: per Hypoglycemia Standing Ord. Enoxaparin Sodium (Enoxaparin Sodium 30 Mg/0.3 Ml Syringe) 30 mg SUBCUT Q24H [facility] Last Admin: 01/30/23 17:21 Dose: 30 mg Fluticasone Propionate (Fluticasone Propionate Nasal 16 Gm [place]) 2 spray NOSTRIL-B DAILY PRN PRN Reason: Allergic Symptoms Fluticasone/Vilanterol (Fluticasone/Vilanterol 100/25 Blst.W.Dev) 1 puff INHALE DAILY [facility] Last Admin: 01/31/23 08:02 Dose: 1 puff Gabapentin (Gabapentin 300 Mg Capsule) 300 mg PO TID [facility] Last Admin: 01/31/23 08:53 Dose: 300 mg Glucose (Glucose Gel 15 Gm Gel..Gram.) 15 gm PO Q15M PRN; Protocol PRN Reason: per Hypoglycemia Standing Ord. Insulin Human Lispro (Insulin Lispro 100 Unit/Ml 3 Ml Vial) 0 unit SUBCUT QIDACHS [facility]; Protocol Last Admin: 01/31/23 12:17 Dose: Not Given Levetiracetam (Levetiracetam 250 Mg Tablet) 250 mg PO BID [facility] Last Admin: 01/31/23 08:53 Dose: 250 mg Montelukast Sodium (Montelukast Sodium 10 Mg Tablet) 10 mg PO DAILY [facility] Last Admin: 01/31/23 08:53 Dose: 10 mg Multivitamins/Vitamin C (Multivitamin Tablet) 1 tab PO DAILY [facility] Last Admin: 01/31/23 08:53 Dose: 1 tab Nitroglycerin (Nitroglycerin 0.4 Mg Tab.Subl) 0.4 mg SUBLINGUAL Q5M PRN PRN Reason: chest pain Omeprazole (Omeprazole 20 Mg Capsule.Dr) 20 mg PO DAILY@0630 [facility] Last Admin: 01/31/23 07:59 Dose: 20 mg Ondansetron HCl (Ondansetron Hcl 4 Mg/2 Ml Vial) 4 mg IVPUSH Q8H PRN PRN Reason: Nausea and Vomiting Senna (Sennosides 8.6 Mg Tablet) 17.2 mg PO BEDTIME [facility] Last Admin: 01/30/23 21:35 Dose: 17.2 mg Sodium Chloride (0.9 % Sodium Chloride Flush 3 Ml Syringe) 3 ml IVFLUSH QSHIFT [facility] Last Admin: 01/31/23 11:28 Dose: Not Given Tolterodine Tartrate (Tolterodine Tartrate La 2 Mg Cap.Er.24h) 2 mg PO DAILY [facility] Last Admin: 01/31/23 08:53 Dose: 2 mg Trazodone HCl (Trazodone Hcl 50 Mg Tablet) 50 mg PO BEDTIME [facility] Last Admin: 01/30/23 21:35 Dose: 50 mg Home Medications Medication Instructions Recorded Confirmed Last Taken Type carbidopa 25 mg-levodopa 100 mg 1 tab PO TID@0800,1200,1700 06/23/20 01/30/23 01/26/23 History tablet vitamin B complex (B 1 tab PO DAILY 08/26/20 01/30/23 01/26/23 History Complex-Vitamin B12 tablet) blood sugar diagnostic (Alondra #10 ea 06/05/21 01/27/23 01/26/23 History Lite Strips) pramipexole 0.25 mg tablet 0.25 mg PO BID 09/08/21 01/30/23 01/26/23 History carbidopa ER 50 mg-levodopa 200 mg 1 tab PO BEDTIME 11/10/21 01/30/23 01/26/23 History tablet,extended release trazodone 50 mg tablet 50 mg PO BEDTIME 03/16/22 01/30/23 01/26/23 History nebulizers 11/22/22 01/27/23 01/26/23 History levetiracetam 250 mg tablet 250 mg PO BID 01/26/23 01/30/23 01/26/23 History fluticasone propionate 50 2 spray intranasal DAILY PRN 01/27/23 01/30/23 01/26/23 History mcg/actuation nasal Allergic Symptoms spray,suspension gabapentin 300 mg capsule 300 mg PO TID 01/27/23 01/30/23 01/26/23 History montelukast 10 mg tablet 10 mg PO DAILY 01/27/23 01/30/23 01/26/23 History omeprazole 20 mg capsule,delayed 20 mg PO DAILY@0630 01/30/23 01/30/23 Unknown History release Physical Exam Vital Signs: Vital Signs: Last Vital Signs Temp 97.0 F 01/31/23 13:44 Pulse 74 01/31/23 13:44 Resp 20 01/31/23 13:44 BP 185/91 H 01/31/23 13:44 Pulse Ox 96 01/31/23 13:44 O2 Del Method Room Air 01/31/23 13:44 BMI result Body Mass Index 25.1 Neuro: Other: Alert and awake try to eat his lunch but is having difficulty navigating with a spoon. Facial expression blinking her diminished. Generalized bradykinesia is noted. He is able to understand and answer questions appropriately Results Labs 01/31/23 05:39 01/31/23 05:39 Labs: Short CBC 01/31/23 Range/Units 05:39 WBC 5.7 (4.8-10.8) X10*3/uL Hgb 10.3 L D (14.0-18.0) g/dl Hct 31.0 L D (42.0-52.0) % Plt Count 189 (160-400) X10*3/uL BMP 01/31/23 05:39 Sodium 144 Potassium 2.9 L Chloride 111 H Carbon Dioxide 24 BUN 28 H Creatinine 2.00 H Calcium 8.7 D Urine 01/30/23 Range/Units 14:15 Urine Color Yellow Urine Appearance Clear Urine pH 7.0 (5.0-9.0) Ur Specific [place] 1.010 (1.005-1.025) Urine Protein 100 (2+) H (Neg-Trace) mg/dL Urine Glucose (UA) 100 H (Negative) mg/dL noncontrast MRI of brain did not reveal any acute abnormality. Moderate diffuse cerebral atrophy was noted. EEG revealed generalized slowing. Assessment and Plan (1) Syncope: Status: Acute 72 years old man with moderate to severe parkinsonism, slowly progressive degenerative dementia, labile blood pressure with tendency to hypotension, new onset of atrial flutter, and suspicion of seizure disorder. At least this EEG did not provide confirmation. It did suggest underlying dementia. Mainstay of management is adjustment of medications to avoid hypotension, scheduling an outpatient 24-48 hour EEG to catch 1 of the episodes he was frequently having, and appropriate treatment of atrial flutter if it is confirmed. There is no neurological contraindication to anticoagulation other than risk of falling, which probably can be managed. He should use a walker or regular basis. Time Spent With Patient Time: Total time managing care of this patient today ____ minutes. Procedures Date of Service Date of Service: 01/31/23
[2023-01-31] MEDS: Enoxaparin Sodium 30 MG/0.3 ML SYRINGE SUBCUT (17:36)
[2023-01-31] MEDS: 0.9 % Sodium Chloride Flush 3 ML SYRINGE IVFLUSH (20:20)
[2023-02-01] VITALS (10 sets, daily range): BP systolic 89–151; BP diastolic 43–88; PULSE 85–104; RESP 14–20; TEMP 36.1–36.4; O2SAT 94–97
--- NOTE | 2023-02-01 01:16 | PC.NURSE ---
Assumed care @ 1900 on 01/31. Patient A&Ox4, calm and cooperative. Pt requesting ativan for sleep , pt stating I got it to help me sleep here last night in addition to scheduled meds. Covering Dr. Fleming notified of pt request. NSR on tele. +pp/cms, -edema. Denies chest pain. LSCTA on room air. Breathing even and unlabored without distress. -n/v. Tolerating diabetic diet. Safety measures in place. Handoff report given to oncoming RN at 2305.
--- NOTE | 2023-02-01 12:07 | HO.PM.IMPN ---
Subjective Subjective Date of Service: 02/01/23 Interval History: dizzy/orthostatic with standing no seizure activity Review of Systems Review of Systems: Yes all other systems are reviewed and are negative Physical Exam Vital Signs: Vital Signs: Last Vital Signs Temp 97.4 F 02/01/23 11:22 Pulse 99 02/01/23 11:22 Resp 20 02/01/23 11:22 BP 102/63 02/01/23 11:22 Pulse Ox 97 02/01/23 11:22 O2 Del Method Room Air 02/01/23 11:22 BMI result Body Mass Index 25.1 Gen: in no acute distress HEENT: sclera anicteric, moist mucus membranes Neck: supple Lungs: clear to auscultation bilaterally Heart: regular rate and rhythm, no murmurs Abd: soft, non-tender, non-distended Ext: no edema Skin: warm/well-perfused Neuro: alert and oriented x3, no focal findings, mild rest tremor Psych: appropriate affect Objective Data Active Medications Acetaminophen (Acetaminophen 325 Mg Tablet) 650 mg PO Q6H PRN PRN Reason: Pain, Mild (Pain Scale 1-3) Last Admin: 01/31/23 20:19 Dose: 650 mg Documented By: NATHALIE Albuterol Sulfate (Albuterol Sulfate (0.083%) 2.5 Mg/3 Ml Vial.Neb) 2.5 mg INHALE RBID [facility] Last Admin: 02/01/23 08:21 Dose: 2.5 mg Documented By: ELVIN Albuterol Sulfate (Albuterol Sulfate 90 Mcg 8 Gm Inhaler) 2 puff INHALE RQ6H PRN PRN Reason: shortness of breath or wheezing Atorvastatin Calcium (Atorvastatin Calcium 80 Mg Tablet) 80 mg PO BEDTIME [facility] Last Admin: 01/31/23 20:19 Dose: 80 mg Documented By: NATHALIE Carbidopa/Levodopa (Carbidopa/Levodopa 25/100 Tablet) 1 tab PO TID@0800,1200,1700 [facility] Last Admin: 02/01/23 12:04 Dose: 1 tab Documented By: DESTINYFAChristopher Carbidopa/Levodopa (Carbidopa/Levodopa Cr 50/200 Tablet.Er) 1 tab PO BEDTIME [facility] Last Admin: 01/31/23 20:19 Dose: 1 tab Documented By: NATHALIE Clopidogrel Bisulfate (Clopidogrel Bisulfate 75 Mg Tablet) 75 mg PO DAILY [facility] Last Admin: 02/01/23 09:09 Dose: 75 mg Documented By: CHAI Dextrose (Dextrose 50 % 25 Gm/50 Ml Syringe) 25 gm IVPUSH Q15M PRN; Protocol PRN Reason: per Hypoglycemia Standing Ord. Enoxaparin Sodium (Enoxaparin Sodium 30 Mg/0.3 Ml Syringe) 30 mg SUBCUT Q24H [facility] Last Admin: 01/31/23 17:36 Dose: 30 mg Documented By: CHAI Fluticasone Propionate (Fluticasone Propionate Nasal 16 Gm [place]) 2 spray NOSTRIL-B DAILY PRN PRN Reason: Allergic Symptoms Fluticasone/Vilanterol (Fluticasone/Vilanterol 100/25 Blst.W.Dev) 1 puff INHALE DAILY [facility] Last Admin: 02/01/23 08:22 Dose: 1 puff Documented By: ELVIN Gabapentin (Gabapentin 300 Mg Capsule) 300 mg PO TID [facility] Last Admin: 02/01/23 09:10 Dose: 300 mg Documented By: CHAI Glucose (Glucose Gel 15 Gm Gel..Gram.) 15 gm PO Q15M PRN; Protocol PRN Reason: per Hypoglycemia Standing Ord. Insulin Human Lispro (Insulin Lispro 100 Unit/Ml 3 Ml Vial) 0 unit SUBCUT QIDACHS [facility]; Protocol Last Admin: 02/01/23 12:03 Dose: 2 unit Documented By: CHAI Levetiracetam (Levetiracetam 250 Mg Tablet) 250 mg PO BID [facility] Last Admin: 02/01/23 09:09 Dose: 250 mg Documented By: CHAI Montelukast Sodium (Montelukast Sodium 10 Mg Tablet) 10 mg PO DAILY [facility] Last Admin: 02/01/23 09:09 Dose: 10 mg Documented By: CHAI Multivitamins/Vitamin C (Multivitamin Tablet) 1 tab PO DAILY [facility] Last Admin: 02/01/23 09:09 Dose: 1 tab Documented By: CHAI Nitroglycerin (Nitroglycerin 0.4 Mg Tab.Subl) 0.4 mg SUBLINGUAL Q5M PRN PRN Reason: chest pain Omeprazole (Omeprazole 20 Mg Capsule.Dr) 20 mg PO DAILY@0630 [facility] Last Admin: 02/01/23 05:58 Dose: 20 mg Documented By: TARAH Ondansetron HCl (Ondansetron Hcl 4 Mg/2 Ml Vial) 4 mg IVPUSH Q8H PRN PRN Reason: Nausea and Vomiting Senna (Sennosides 8.6 Mg Tablet) 17.2 mg PO BEDTIME [facility] Last Admin: 01/31/23 20:19 Dose: 17.2 mg Documented By: NATHALIE Sodium Chloride (0.9 % Sodium Chloride Flush 3 Ml Syringe) 3 ml IVFLUSH QSHIFT [facility] Last Admin: 02/01/23 11:39 Dose: Not Given Documented By: CHAI Non-Admin Reason: See Note Tolterodine Tartrate (Tolterodine Tartrate La 2 Mg Cap.Er.24h) 2 mg PO DAILY [facility] Last Admin: 02/01/23 09:10 Dose: 2 mg Documented By: CHAI Trazodone HCl (Trazodone Hcl 50 Mg Tablet) 50 mg PO BEDTIME [facility] Last Admin: 01/31/23 20:19 Dose: 50 mg Documented By: NATHALIE Labs 01/31/23 05:39 02/01/23 06:40 Labs: Laboratory Results - last 24 hr 01/31/23 01/31/23 01/31/23 12:16 14:38 14:38 Anion Gap Estim Creat Clear Calc Estimated GFR POC Glucose 137 H Random Glucose Calcium Magnesium 1.7 Plasma Free Metaneph Cancelled Plasma Free Normeta Cancelled Plas Total Metaneph Cancelled 01/31/23 02/01/23 02/01/23 20:13 03:54 06:40 Anion Gap 13 Estim Creat Clear Calc 29.6 Estimated GFR 34 POC Glucose 88 98 Random Glucose 104 Calcium 9.6 D Magnesium Plasma Free Metaneph Plasma Free Normeta Plas Total Metaneph 02/01/23 02/01/23 07:28 11:26 Anion Gap Estim Creat Clear Calc Estimated GFR POC Glucose 100 192 H Random Glucose Calcium Magnesium Plasma Free Metaneph Plasma Free Normeta Plas Total Metaneph Microbiology Microbiology Results: Microbiology 01/30/23 12:48 Blood Culture - Preliminary Blood - Venous No growth after 24 hours. 01/30/23 12:24 Blood Culture - Preliminary Blood - Venous No growth after 24 hours. Assessment and Plan (1) Syncope: Status: Acute (2) Orthostatic hypotension: Status: Acute (3) HOMERO (acute kidney injury): Status: Acute (4) Seizures: Status: Acute Plan d#3 72yo M with normocytic anemia, CAD, Parkinson's, HFrEF, history of prostate cancer status post prostatectomy, diabetes, HTN, COPD, and urinary incontinence presenting with orthostatic hypotension and syncope # recurrent syncope - likely due to orthostasis which is from autonomic dysfunction from Parkinsonism - less likely seizure though Neuro recommends 24-48 hr ambulatory EEG as outpt # orthostatic hypotension/autonomic instability - hold tamsulosin + metoprolol + pramipexole - Nephrology consult # seizure disorder - continue levetiracetam, outpt 24-48 h EEG as above - EEG generalized slowing, MRI no abnormalities # HOMERO/CKD3 - IV NS, recheck BMP in AM, hold antihypertensive # atrial flutter, not - per Cardiology and telemetry review was not in atrial flutter # CAD - continue statin + clopidogrel, hold metoprolol # Parksinons - continue Sinemet # DM2 - correction-dose lispro, DM diet # VTE ppx: LMWH # dispo: TBD In my clinical judgment, the patient requires continued inpatient hospitalization for the following reasons: HOMERO, orthostasis Time Spent With Patient Time: Total time managing care of this patient today __35__ minutes. Quality Stroke Does the patient have a stroke diagnosis?: No VTE Prior VTE?: No VTE Risk Level:: Medical - moderate - high VTE Device Contraindication: Treatment Not Indicated VTE Drug Contraindication: N/A - Med Ordered
--- NOTE | 2023-02-01 15:04 | P.CONNP_ITS ---
History of Present Illness Reason for Consult Consult date: 02/01/23 Reason for consult: HOMERO and CKD with orthostatic hypotension Chief Complaint Chief complaint: Postural hypotension, syncope History of Present Illness Narrative: 72-year-old man with a l history of normocytic anemia, CAD, Parkinson's, HfrEF, history of prostate cancer status post prostatectomy, diabetes, HTN, and chronic kidney disease stage 3 with a baseline creatinine of around 1.5 mg/dL COPD, and urinary incontinence comes into the hospital complaints of low blood pressure and dizziness.?He is here today with his and daughter who assist with history. Per pt and family for last 3 weeks, has been experiencing lighthededness, primarily with change in position but occasionally at rest as well. He has been generally weak but notes marked BLE weakness that has been present for several months but worsens during periods of lightheadedness. His reports multiple episodes of syncope that occur even when patient is sitting. She has noted tremulous/shaking movements during these times. Tells me he was just seen by neurology (Luis Enrique) earlier last week and was margo Dubon for suspected seizure disorder though EEG and MRI have not been performed yet. Review of Systems Review of Systems No headache. No nausea vomiting. No abdominal pain. No shortness of breath. No cough. No dysuria urgency or hematuria. No edema. No rash. Has had lightheadedness and syncopal episodes. Family was at bedside who was able to give information PMFSH Past Medical History Medical History (Updated 01/31/23 @ 12:08 by Satnam Arenas MD) Anemia Bronchopneumonia CAD (coronary artery disease) Carotid artery disease COPD (chronic obstructive pulmonary disease) Diabetes type 2, uncontrolled (~1999) Diabetic nephropathy associated with type 2 diabetes mellitus Diabetic polyneuropathy associated with type 2 diabetes mellitus Dyslipidemia Dyspnea History of hepatitis C History of HI (myocardial infarction) History of prostate cancer (~2017) 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 care home (current) use of insulin Nocturnal hypoxia Overweight (BMI 25.0-29.9) Pulmonary nodule Stented coronary artery Family History Family History Father Sudden cardiac CVD (cardiovascular disease) Mother Hx of heart surgery CVD (cardiovascular disease) Surgical History Surgical History History of cataract surgery (~2019) History of colonoscopy History of cystoscopy (~2020) History of esophagogastroduodenoscopy (EGD) History of heart artery stent History of prostatectomy Hx of cardiac cath Social History Social History Household Members: Spouse Housing: House Do you presently have visiting nurse or other home services: No Alcohol intake: former Patient Tobacco Use Status: Former Tobacco user Tobacco use type: Cigarette Years Smoked: 15 Smoked in Last 30 Days: No e-Cigarette/Vaping Use: Never Used Patient Interested in Nicotine Replacement: No Patient Given Instructions on How to Stop Smoking: No Second Hand Smoke Exposure: No Use of substances other than those prescribed or required for medical reasons: No Currently Displaying Signs/Symptoms of Drug Intoxication Withdrawal: No Have you been hit, kicked, punched, or otherwise hurt by someone within the past year? If so, by whom?: No Do you feel safe in your current relationship?: Yes Is there a partner from a previous relationship who is making you feel unsafe now?: No Are you made to feel afraid or neglected: No Advance Directives: Yes Advance Directives on File: Yes Advance Directives Date on File: 03/31/21 Do you have thoughts of harming others: None Do you have a plan to hurt others: No Plan Recently lost weight without trying: Unsure service: No Current occupational status: retired Current occupation: rt handed Current occupational exposures/hazards: No Cognitive needs: No Hearing needs: No Vision needs: Yes (reading glasses) Meds Allergies Allergy/AdvReac Type Severity Reaction Status Date / Time Iodinated Contrast Media Allergy Intermediate RASH AT IV Verified 01/30/23 11:24 [CONTRAST, IV] SITE. BENEDRYL GIVEN WITH GOOD EFFECT ibuprofen Allergy Rash Verified 01/30/23 11:24 adhesive tape AdvReac Rash Verified 01/30/23 11:24 Active Medications: Current Medications Acetaminophen (Acetaminophen 325 Mg Tablet) 650 mg PO Q6H PRN PRN Reason: Pain, Mild (Pain Scale 1-3) Last Admin: 01/31/23 20:19 Dose: 650 mg Albuterol Sulfate (Albuterol Sulfate (0.083%) 2.5 Mg/3 Ml Vial.Neb) 2.5 mg INHALE RBID FANNY Last Admin: 02/01/23 08:21 Dose: 2.5 mg Albuterol Sulfate (Albuterol Sulfate 90 Mcg 8 Gm Inhaler) 2 puff INHALE RQ6H PRN PRN Reason: shortness of breath or wheezing Atorvastatin Calcium (Atorvastatin Calcium 80 Mg Tablet) 80 mg PO BEDTIME [facility] Last Admin: 01/31/23 20:19 Dose: 80 mg Carbidopa/Levodopa (Carbidopa/Levodopa 25/100 Tablet) 1 tab PO TID@0800,1200,1700 [facility] Last Admin: 02/01/23 12:04 Dose: 1 tab Carbidopa/Levodopa (Carbidopa/Levodopa Cr 50/200 Tablet.Er) 1 tab PO BEDTIME [facility] Last Admin: 01/31/23 20:19 Dose: 1 tab Clopidogrel Bisulfate (Clopidogrel Bisulfate 75 Mg Tablet) 75 mg PO DAILY [facility] Last Admin: 02/01/23 09:09 Dose: 75 mg Dextrose (Dextrose 50 % 25 Gm/50 Ml Syringe) 25 gm IVPUSH Q15M PRN; Protocol PRN Reason: per Hypoglycemia Standing Ord. Enoxaparin Sodium (Enoxaparin Sodium 30 Mg/0.3 Ml Syringe) 30 mg SUBCUT Q24H [facility] Last Admin: 01/31/23 17:36 Dose: 30 mg Fluticasone Propionate (Fluticasone Propionate Nasal 16 Gm [place]) 2 spray NOSTRIL-B DAILY PRN PRN Reason: Allergic Symptoms Fluticasone/Vilanterol (Fluticasone/Vilanterol 100/25 Blst.W.Dev) 1 puff INHALE DAILY [facility] Last Admin: 02/01/23 08:22 Dose: 1 puff Gabapentin (Gabapentin 300 Mg Capsule) 300 mg PO TID [facility] Last Admin: 02/01/23 14:09 Dose: 300 mg Glucose (Glucose Gel 15 Gm Gel..Gram.) 15 gm PO Q15M PRN; Protocol PRN Reason: per Hypoglycemia Standing Ord. Sodium Chloride (Ns) 1,000 mls @ 75 mls/hr IVCONT .[id number] [facility] Last Admin: 02/01/23 13:55 Dose: 75 mls/hr Insulin Human Lispro (Insulin Lispro 100 Unit/Ml 3 Ml Vial) 0 unit SUBCUT QIDACHS [facility]; Protocol Last Admin: 02/01/23 12:03 Dose: 2 unit Levetiracetam (Levetiracetam 250 Mg Tablet) 250 mg PO BID [facility] Last Admin: 02/01/23 09:09 Dose: 250 mg Montelukast Sodium (Montelukast Sodium 10 Mg Tablet) 10 mg PO DAILY [facility] Last Admin: 02/01/23 09:09 Dose: 10 mg Multivitamins/Vitamin C (Multivitamin Tablet) 1 tab PO DAILY [facility] Last Admin: 02/01/23 09:09 Dose: 1 tab Nitroglycerin (Nitroglycerin 0.4 Mg Tab.Subl) 0.4 mg SUBLINGUAL Q5M PRN PRN Reason: chest pain Omeprazole (Omeprazole 20 Mg Capsule.Dr) 20 mg PO DAILY@0630 [facility] Last Admin: 02/01/23 05:58 Dose: 20 mg Ondansetron HCl (Ondansetron Hcl 4 Mg/2 Ml Vial) 4 mg IVPUSH Q8H PRN PRN Reason: Nausea and Vomiting Senna (Sennosides 8.6 Mg Tablet) 17.2 mg PO BEDTIME [facility] Last Admin: 01/31/23 20:19 Dose: 17.2 mg Sodium Chloride (0.9 % Sodium Chloride Flush 3 Ml Syringe) 3 ml IVFLUSH QSHIFT [facility] Last Admin: 02/01/23 11:39 Dose: Not Given Tolterodine Tartrate (Tolterodine Tartrate La 2 Mg Cap.Er.24h) 2 mg PO DAILY [facility] Last Admin: 02/01/23 09:10 Dose: 2 mg Trazodone HCl (Trazodone Hcl 50 Mg Tablet) 50 mg PO BEDTIME [facility] Last Admin: 01/31/23 20:19 Dose: 50 mg Home Medications Medication Instructions Recorded Confirmed Last Taken Type carbidopa 25 mg-levodopa 100 mg 1 tab PO TID@0800,1200,1700 06/23/20 01/30/23 01/26/23 History tablet vitamin B complex (B 1 tab PO DAILY 08/26/20 01/30/23 01/26/23 History Complex-Vitamin B12 tablet) blood sugar diagnostic (Alondra #10 ea 06/05/21 01/27/23 01/26/23 History Lite Strips) pramipexole 0.25 mg tablet 0.25 mg PO BID 09/08/21 01/30/23 01/26/23 History carbidopa ER 50 mg-levodopa 200 mg 1 tab PO BEDTIME 11/10/21 01/30/23 01/26/23 History tablet,extended release trazodone 50 mg tablet 50 mg PO BEDTIME 03/16/22 01/30/23 01/26/23 History nebulizers 11/22/22 01/27/23 01/26/23 History levetiracetam 250 mg tablet 250 mg PO BID 01/26/23 01/30/23 01/26/23 History fluticasone propionate 50 2 spray intranasal DAILY PRN 01/27/23 01/30/23 01/26/23 History mcg/actuation nasal Allergic Symptoms spray,suspension gabapentin 300 mg capsule 300 mg PO TID 01/27/23 01/30/23 01/26/23 History montelukast 10 mg tablet 10 mg PO DAILY 01/27/23 01/30/23 01/26/23 History omeprazole 20 mg capsule,delayed 20 mg PO DAILY@0630 01/30/23 01/30/23 Unknown History release Physical Exam Vital Signs: Last Vital Signs Temp 97.4 F 02/01/23 11:22 Pulse 99 02/01/23 11:22 Resp 20 02/01/23 11:22 BP 102/63 02/01/23 11:22 Pulse Ox 97 02/01/23 11:22 O2 Del Method Room Air 02/01/23 11:22 BMI result Body Mass Index 25.1 Comfortable Neck is supple Lung: Air entry equal Heart: S1,S2, normal. No rub Abd: Soft. BS + NS : Alert.No asterexis Ext: No edema Results Lab Results 01/31/23 05:39 02/01/23 06:40 Lab results: Chemistry 01/30/23 01/31/23 02/01/23 12:24 05:39 06:40 Sodium 145 144 144 Potassium 3.6 2.9 L 3.3 Carbon Dioxide 25 24 24 BUN 30 H 28 H 22 H Creatinine 2.48 H 2.00 H 1.94 H Calcium 10.1 D 8.7 D 9.6 D Hematology 01/30/23 01/31/23 12:24 05:39 WBC 7.7 5.7 Hgb 13.0 L D 10.3 L D Plt Count 202 189 Urinalysis 01/30/23 14:15 Urine Color Yellow Urine Appearance Clear Urine pH 7.0 Ur Specific [place] 1.010 Urine Protein 100 (2+) H Urine Glucose (UA) 100 H Urine Ketones Negative Urine Blood Large (3+) H Urine Nitrite Negative Ur Leukocyte Esterase Negative Urine RBC 0-2 Urine WBC 0-5 Ur Squamous Epith Cells 0-2 Hyaline Casts 0-2 Assessment and Plan (1) Orthostatic hypotension: Status: Acute (2) HOMERO (acute kidney injury): Status: Acute Plan 72-year-old man with hypertension doctors metastatic current disease and Parkinson's disease has ultrasonic hypertension. He has sustained acute kidney injury mostly due to hypoperfusion. The creatinine was more than 2 on admission with some hydration creatinine is improved and close to baseline. The underlying chronic disease most likely due to hypercapnic and disease. His Parkinson's disease with also hypertension. Recommendations Check urine for sodium, creatinine, protein. He did have elevated light chains and therefore will check serum and urine electrophoresis. Keep intake more than output. Under number nephrotoxic agents. Use all precautions for orthostasis including head and elevation artery decrease and it stockings. He is on high dose of gabapentin which could also be a contributing factor. Consider tapering and discontinuing gabapentin if there is no compelling indication to use gabapentin Given the history of Parkinson's disease with assistance see me benefit from [facility] Time Spent With Patient Time: Total time managing care of this patient today ____ minutes. Procedures Date of Service Date of Service: 02/01/23
[2023-02-01] MEDS: Enoxaparin Sodium 30 MG/0.3 ML SYRINGE SUBCUT (17:17)
[2023-02-02] VITALS (9 sets, daily range): BP systolic 116–162; BP diastolic 60–78; PULSE 84–98; RESP 16–20; TEMP 36.2–36.7; O2SAT 92–97
--- NOTE | 2023-02-02 11:30 | MHC.CM.PN ---
Addendum entered by Cindi Leahy RN 02/02/23 11:44: CM RECEIVED TIGER TEXT FROM HOSPITALIST, PT WILL NOT BE CLEARED FOR D/C UNTIL TOMORROW 02/03, CM WILL CONT TO FOLLOW D/C NEEDS. Original Note: PER HOSPITALIST PT TO BE MEDICALLY CLEARED FOR D/C HOME W/NEW VNA, REFERRAL PLACED TO [facility]NA ACCEPTING [facility] DOES NOT TAKE [facility] PRODUCTS, FAMILY WILL TRANSPORT.
--- NOTE | 2023-02-02 11:34 | PM.PNNEP ---
Subjective Subjective Date of Service: 02/02/23 Interval history: dizzy/orthostatic with standing no seizure activity Family at the bed side Physical Exam Vital Signs: Vital Signs: Last Vital Signs Temp 97.2 F 02/02/23 11:17 Pulse 87 02/02/23 11:17 Resp 20 02/02/23 11:17 BP 116/68 02/02/23 11:17 Pulse Ox 96 02/02/23 11:17 O2 Del Method Room Air 02/02/23 11:17 BMI result Body Mass Index 25.1 Comfortable Neck is supple Lung: Air entry equal Heart: S1,S2, normal. No rub Abd: Soft. BS + NS : Alert.No asterexis Ext: No edema Objective Data Labs 02/02/23 06:03 02/02/23 06:03 Labs: Laboratory Results - last 24 hr 02/01/23 02/01/23 02/01/23 11:26 15:57 20:15 WBC RBC Hgb Hct MCV MCH MCHC RDW Plt Count MPV Absolute Nucleated RBC Nucleated RBC % (auto) Sodium Potassium Chloride Carbon Dioxide Anion Gap BUN Creatinine Estim Creat Clear Calc Estimated GFR POC Glucose 192 H 169 H 78 Random Glucose Calcium U Random Total Protein Ur Random Sodium Urine Creatinine 02/02/23 02/02/23 02/02/23 06:03 06:03 07:02 WBC 6.0 RBC 3.70 L Hgb 11.2 L Hct 34.5 L MCV 93.2 MCH 30.3 MCHC 32.5 RDW 15.6 Plt Count 184 MPV 11.0 Absolute Nucleated RBC 0.000 Nucleated RBC % (auto) 0.0 Sodium 144 Potassium 3.6 Chloride 110 H Carbon Dioxide 27 Anion Gap 11 L BUN 27 H Creatinine 2.41 H Estim Creat Clear Calc 23.8 Estimated GFR 27 POC Glucose 129 H Random Glucose 147 H Calcium 9.1 U Random Total Protein Ur Random Sodium Urine Creatinine 02/02/23 02/02/23 10:00 11:07 WBC RBC Hgb Hct MCV MCH MCHC RDW Plt Count MPV Absolute Nucleated RBC Nucleated RBC % (auto) Sodium Potassium Chloride Carbon Dioxide Anion Gap BUN Creatinine Estim Creat Clear Calc Estimated GFR POC Glucose 179 H Random Glucose Calcium U Random Total Protein 38 H Ur Random Sodium 62.0 Urine Creatinine 42.18 Microbiology Microbiology Results: Microbiology 01/30/23 12:48 Blood - Venous Blood Culture - Preliminary No growth after 48 hours. 01/30/23 12:24 Blood - Venous Blood Culture - Preliminary No growth after 48 hours. Procedures Date of Service Date of Service: 02/02/23 Assessment & Plan Assessment and plan (1) HOMERO (acute kidney injury): Status: Acute Plan 72-year-old man with hypertension doctors metastatic current disease and Parkinson's disease .? He has sustained acute kidney injury mostly due to hypoperfusion/ ? ATN now .? The creatinine now worse due to hypotensionm No [place] UA is bland The underlying chronic disease most likely due to hypertensive disease.? His Parkinson's disease with also cause fluctuating bP ? Recommendations Check urine for sodium, creatinine, protein.? Repeat UA He did have elevated light chains and therefore will follow urine electrophoresis.? Keep intake more than output.? Avoid nephrotoxic agents.? Use all precautions for orthostasis including head and elevation artery decrease and it stockings. He is on high dose of gabapentin which could also be a contributing factor.? Consider tapering and discontinuing gabapentin if there is no compelling indication to use gabapentin Given the history of Parkinson's disease with assistance see me benefit from [place] F/u metanephrin levels F/u renal func in AM Time Spent With Patient Time: Total time managing care of this patient today ____ minutes. Progress Note: Quality Stroke Does the patient have a stroke diagnosis?: No
--- NOTE | 2023-02-02 12:59 | HO.PM.IMPN ---
Subjective Subjective Date of Service: 02/02/23 Interval History: This history was taken in [place] from the patient. Dizziness improved SCr worse Review of Systems Review of Systems: Yes all other systems are reviewed and are negative Physical Exam Vital Signs: Vital Signs: Last Vital Signs Temp 97.2 F 02/02/23 11:17 Pulse 87 02/02/23 11:17 Resp 20 02/02/23 11:17 BP 116/68 02/02/23 11:17 Pulse Ox 96 02/02/23 11:17 O2 Del Method Room Air 02/02/23 11:17 BMI result Body Mass Index 25.1 Gen: in no acute distress HEENT: sclera anicteric, moist mucus membranes Neck: supple Lungs: clear to auscultation bilaterally Heart: regular rate and rhythm, no murmurs Abd: soft, non-tender, non-distended Ext: no edema Skin: warm/well-perfused Neuro: alert and oriented x3, no focal findings, mild rest tremor Psych: appropriate affect Objective Data Active Medications Acetaminophen (Acetaminophen 325 Mg Tablet) 650 mg PO Q6H PRN PRN Reason: Pain, Mild (Pain Scale 1-3) Last Admin: 01/31/23 20:19 Dose: 650 mg Documented By: NATHALIE Albuterol Sulfate (Albuterol Sulfate (0.083%) 2.5 Mg/3 Ml Vial.Neb) 2.5 mg INHALE RBID [facility] Last Admin: 02/02/23 07:46 Dose: 2.5 mg Documented By: ELVIN Albuterol Sulfate (Albuterol Sulfate 90 Mcg 8 Gm Inhaler) 2 puff INHALE RQ6H PRN PRN Reason: shortness of breath or wheezing Atorvastatin Calcium (Atorvastatin Calcium 80 Mg Tablet) 80 mg PO BEDTIME [facility] Last Admin: 02/01/23 19:41 Dose: 80 mg Documented By: JOAN Carbidopa/Levodopa (Carbidopa/Levodopa 25/100 Tablet) 1 tab PO TID@0800,1200,1700 [facility] Last Admin: 02/02/23 11:56 Dose: 1 tab Documented By: RICKIE Carbidopa/Levodopa (Carbidopa/Levodopa Cr 50/200 Tablet.Er) 1 tab PO BEDTIME [facility] Last Admin: 02/01/23 19:41 Dose: 1 tab Documented By: JOAN Clopidogrel Bisulfate (Clopidogrel Bisulfate 75 Mg Tablet) 75 mg PO DAILY [facility] Last Admin: 02/02/23 08:40 Dose: 75 mg Documented By: JEISON Dextrose (Dextrose 50 % 25 Gm/50 Ml Syringe) 25 gm IVPUSH Q15M PRN; Protocol PRN Reason: per Hypoglycemia Standing Ord. Enoxaparin Sodium (Enoxaparin Sodium 30 Mg/0.3 Ml Syringe) 30 mg SUBCUT Q24H [facility] Last Admin: 02/01/23 17:17 Dose: 30 mg Documented By: SOFFAChristopher Fluticasone Propionate (Fluticasone Propionate Nasal 16 Gm [place]) 2 spray NOSTRIL-B DAILY PRN PRN Reason: Allergic Symptoms Fluticasone/Vilanterol (Fluticasone/Vilanterol 100/25 Blst.W.Dev) 1 puff INHALE DAILY [facility] Last Admin: 02/02/23 07:47 Dose: 1 puff Documented By: ELVIN Gabapentin (Gabapentin 100 Mg Capsule) 200 mg PO TID [facility] Last Admin: 02/02/23 08:40 Dose: 200 mg Documented By: JEISON Glucose (Glucose Gel 15 Gm Gel..Gram.) 15 gm PO Q15M PRN; Protocol PRN Reason: per Hypoglycemia Standing Ord. Sodium Chloride (Ns) 1,000 mls @ 75 mls/hr IVCONT .[id number] [facility] Last Admin: 02/02/23 01:47 Dose: 75 mls/hr Documented By: JOAN Insulin Human Lispro (Insulin Lispro 100 Unit/Ml 3 Ml Vial) 0 unit SUBCUT QIDACHS [facility]; Protocol Last Admin: 02/02/23 11:55 Dose: 2 unit Documented By: RICKIE Levetiracetam (Levetiracetam 250 Mg Tablet) 250 mg PO BID [facility] Last Admin: 02/02/23 08:40 Dose: 250 mg Documented By: JEISON Lorazepam (Lorazepam 0.5 Mg Tablet) 0.5 mg PO Q8H PRN PRN Reason: anxioety Last Admin: 02/02/23 05:39 Dose: 0.5 mg Documented By: JOAN Montelukast Sodium (Montelukast Sodium 10 Mg Tablet) 10 mg PO DAILY [facility] Last Admin: 02/02/23 08:40 Dose: 10 mg Documented By: JEISON Multivitamins/Vitamin C (Multivitamin Tablet) 1 tab PO DAILY [facility] Last Admin: 02/02/23 08:40 Dose: 1 tab Documented By: JEISON Nitroglycerin (Nitroglycerin 0.4 Mg Tab.Subl) 0.4 mg SUBLINGUAL Q5M PRN PRN Reason: chest pain Omeprazole (Omeprazole 20 Mg Capsule.Dr) 20 mg PO DAILY@0630 [facility] Last Admin: 02/02/23 05:39 Dose: 20 mg Documented By: JOAN Ondansetron HCl (Ondansetron Hcl 4 Mg/2 Ml Vial) 4 mg IVPUSH Q8H PRN PRN Reason: Nausea and Vomiting Polyethylene Glycol (Polyethylene Glycol 3350 17 Gm Powd.Pack) 17 gm PO BID [facility] Last Admin: 02/02/23 08:40 Dose: 17 gm Documented By: JEISON Senna (Sennosides 8.6 Mg Tablet) 17.2 mg PO BEDTIME [facility] Last Admin: 02/01/23 19:41 Dose: 17.2 mg Documented By: JOAN Senna/Docusate Sodium (Sennosides/Docusate Sodium Tablet) 2 tab PO BID [facility] Last Admin: 02/02/23 08:40 Dose: 2 tab Documented By: JEISON Sodium Chloride (0.9 % Sodium Chloride Flush 3 Ml Syringe) 3 ml IVFLUSH QSHIFT [facility] Last Admin: 02/02/23 07:37 Dose: Not Given Documented By: JEISON Non-Admin Reason: IV Running Tolterodine Tartrate (Tolterodine Tartrate La 2 Mg Cap.Er.24h) 2 mg PO DAILY [facility] Last Admin: 02/02/23 08:40 Dose: 2 mg Documented By: JEISON Trazodone HCl (Trazodone Hcl 50 Mg Tablet) 50 mg PO BEDTIME [facility] Last Admin: 02/01/23 19:40 Dose: 50 mg Documented By: JOAN Labs 02/02/23 06:03 02/02/23 06:03 Labs: Laboratory Results - last 24 hr 02/01/23 02/01/23 02/02/23 15:57 20:15 06:03 MCV 93.2 MCH 30.3 MCHC 32.5 RDW 15.6 Plt Count 184 MPV 11.0 Absolute Nucleated RBC 0.000 Nucleated RBC % (auto) 0.0 Anion Gap Estim Creat Clear Calc Estimated GFR POC Glucose 169 H 78 Random Glucose Calcium U Random Total Protein Ur Random Sodium Urine Creatinine 02/02/23 02/02/23 02/02/23 06:03 07:02 10:00 MCV MCH MCHC RDW Plt Count MPV Absolute Nucleated RBC Nucleated RBC % (auto) Anion Gap 11 L Estim Creat Clear Calc 23.8 Estimated GFR 27 POC Glucose 129 H Random Glucose 147 H Calcium 9.1 U Random Total Protein 38 H Ur Random Sodium 62.0 Urine Creatinine 42.18 02/02/23 11:07 MCV MCH MCHC RDW Plt Count MPV Absolute Nucleated RBC Nucleated RBC % (auto) Anion Gap Estim Creat Clear Calc Estimated GFR POC Glucose 179 H Random Glucose Calcium U Random Total Protein Ur Random Sodium Urine Creatinine Microbiology Microbiology Results: Microbiology 01/30/23 12:48 Blood Culture - Preliminary Blood - Venous No growth after 48 hours. 01/30/23 12:24 Blood Culture - Preliminary Blood - Venous No growth after 48 hours. Assessment and Plan (1) Syncope: Status: Acute (2) Orthostatic hypotension: Status: Acute (3) HOMERO (acute kidney injury): Status: Acute (4) Seizures: Status: Acute Plan d#4 72yo M with normocytic anemia, CAD, Parkinson's, HFrEF, history of prostate cancer status post prostatectomy, diabetes, HTN, COPD, and urinary incontinence presenting with orthostatic hypotension and syncope # recurrent syncope - likely due to orthostasis which is from autonomic dysfunction from Parkinsonism - less likely seizure though Neuro recommends 24-48 hr ambulatory EEG as outpt # orthostatic hypotension/autonomic instability - hold tamsulosin + metoprolol + pramipexole - Nephrology consulted. To consider midodrine vs. norethindrone, will need outpt f/u # seizure disorder - continue levetiracetam, outpt 24-48 h EEG as above - EEG generalized slowing, MRI no abnormalities # HOMERO/CKD3 - continue IV NS, recheck BMP in AM, hold antihypertensive, send SPEP/UPEP # atrial flutter, not - per Cardiology and telemetry review was not in atrial flutter # CAD - continue statin + clopidogrel, hold metoprolol # Parksinons - continue Sinemet # DM2 - correction-dose lispro, DM diet # VTE ppx: LMWH # dispo: plan home with VNA In my clinical judgment, the patient requires continued inpatient hospitalization for the following reasons: HOMERO, Time Spent With Patient Time: Total time managing care of this patient today __35__ minutes. Quality Stroke Does the patient have a stroke diagnosis?: No VTE Prior VTE?: No VTE Risk Level:: Medical - moderate - high VTE Device Contraindication: Treatment Not Indicated VTE Drug Contraindication: N/A - Med Ordered
--- NOTE | 2023-02-02 15:30 | PC.NURSE ---
report received from overnight RN, medical van driver per MAR. No c/o pain, pt c/o anxiety - medical van driver per MAR with good effect. Pt updated on plan of care. Safety precautions in place, call escalante within reach. This RN reviewed all documentation / med administration of [facility] and approved before submission.
[2023-02-02] MEDS: Enoxaparin Sodium 30 MG/0.3 ML SYRINGE SUBCUT (16:49)
[2023-02-03] VITALS: BP 180/86; PULSE 90
[2023-02-03 00:30] VITALS: BP 185/87; PULSE 90; O2SAT 97
[2023-02-03 01:55] VITALS: BP 168/88; PULSE 90; RESP 18
--- NOTE | 2023-02-03 02:00 | PC.NURSE ---
Pt restless, anxious, hypertensive. Manual BP R-arm 180/86, L-arm 190/90 , HR 92. Pt has been anxious and gets prn Ativan for anxiety,which he already received. MD Fleming notified and ordered IV labetalol. See Mar. Pt was calm and asleep when BP rechecked and was 168/88.
[2023-02-03 04:00] VITALS: BP 164/82; PULSE 84; RESP 18; TEMP 36.8; O2SAT 98
[2023-02-03 06:37] LABS: Cortisol Random 15.2 ug/dL
[2023-02-03 06:41] LABS: Blood Urea Nitrogen 26 mg/dL (9-16); Calcium 9.1 mg/dL (8.4-10.2); Carbon Dioxide 25 mmol/L (22-29); Chloride 111 mmol/L (96-108); Creatinine Clr Calc Pharmacy 25.2; Estimated Glomerular Filt Rate 29; Glucose Random 187 mg/dL (60-115); Potassium 3.7 mmol/L (3.3-5.1); Sodium 142 mmol/L (135-145)
[2023-02-03 06:49] LABS: Anion Gap 10 (12-20)
[2023-02-03] MEDS: 0.9 % Sodium Chloride Flush 3 ML SYRINGE IVFLUSH (07:48)
[2023-02-03 07:52] VITALS: BP 164/80; PULSE 86; RESP 18; TEMP 36.4; O2SAT 97
[2023-02-03 08:03] VITALS: PULSE 68; RESP 16; O2SAT 98
--- NOTE | 2023-02-03 10:13 | W.MHC.F2F ---
Service Date Service Date: 02/03/23 Encounter Date of encounter: 02/03/23 Reasons for Services Signs and symptoms assessed: BP changes orthostasis parkinsonism, Reason for [facility]: other (labile BP) Reason for physical therapy: home safety and mobility, therapeutic exercises, gait/transfer training, assess need for DME, ADL training and energy conservation MD Overseeing Care: Deonte Claudio Homebound: Leaving the home is medically contraindicated at this time without the asist of a device and/or another person due th the listed conditions above and below. Reason homebound: unsteady gait / fall risk and fall risk related to blood pressure changes Certification: Based on the above findings, I certify that this patient is confined to the home and needs intermittent [facility] care, physical therapy and/or speech therapy, or continues to need occupational therapy. The patient is under my care, and I have initiated the establishment of the plan of care. The patient will be followed by a physician who will periodically review the plan of care. Time Spent With Patient Time: Total time managing care of this patient today ____ minutes.
--- NOTE | 2023-02-03 10:19 | PM.DS ---
DS: Providers Provider Date of Service: 02/03/23 Date of admission: 01/30/23 17:45 Date of discharge: 02/03/23 Primary care physician: Deonte Claudio MD Consults: 01/30/23 16:43 Consult to Nephrology Routine Consulting Provider: Malvin Gaines Reason for consultation: homero on ckd and ORTHOSTATIC HYPOTENSION Consult to Neurology Routine Consulting Provider: [facility] Reason for consultation: syncope, new onset seizures 01/30/23 17:20 Consult to Cardiology Routine Consulting Provider[place] [facility] Reason for consultation: new onset atrial flutter DS: Diagnosis Discharge Diagnosis (1) HOMERO (acute kidney injury): Status: Acute (2) CKD (chronic kidney disease) stage 3, GFR 30-59 ml/min: Status: Acute (3) Syncope: Status: Acute (4) Orthostatic hypotension: Status: Acute (5) Autonomic orthostatic hypotension: Status: Acute (6) Seizures: Status: Acute DS: Summary Hospital Course Hospital Course: from admission h+P by hospitalist JERMAINE Cline, 01/30/23: 72-year-old male past medical history of normocytic anemia, CAD, Parkinson's, HfrEF, history of prostate cancer status post prostatectomy, diabetes, HTN, COPD, and urinary incontinence comes into the hospital complaints of low blood pressure and dizziness.?He is here today with his and daughter who assist with history. Per pt and family for last 3 weeks, has been experiencing lighthededness, primarily with change in position but occasionally at rest as well. He has been generally weak but notes marked BLE weakness that has been present for several months but worsens during periods of lightheadedness. His reports multiple episodes of syncope that occur even when patient is sitting. She has noted tremulous/shaking movements during these times. Tells me he was just seen by neurology (Luis Enrique) earlier last week and was margo Dubon for suspected seizure disorder though EEG and MRI have not been performed yet. He has also noted decreased PO intake and isnt drinking much as well as occassional sob. NO chest pain, palpitations, visual changes, focal weakness or paresthesias. He did have a near syncopal episode this morning where he did fall and hhit the back of his head but did not lose consciousness. . Pt was recently discharged on 01/28 with orthostasis resolving with IVF and improvement in renal function. On arrival, patient is hypertensive to 166/82, vitals otherwise stable. He did not take any medications yet this morning. Orthostatics were positive with significant drop in BP to 97/50 upon standing. No leukocytosis. Improved normocytic anemia with H/H 13.0/40.2%. Creat 2.48, baseline appears to be around 1.62 (on dc 01/28, creat 2.03), BUN 30. Lytes WNL. Total bili 0.5, AST 157, ALT 52. Trop WNL x2. UA with 3+ blood, 2+ protein, +glucose. Neg covid-19, rsv, flu. EKG shows new atrial flutter, rate 81, no jenna or depressions. In the ED, given 1 L IV NS and 0.5mg lorazpem. 72yo M with normocytic anemia, CAD, Parkinson's, HFrEF, history of prostate cancer status post prostatectomy, diabetes, HTN, COPD, and urinary incontinence presented with orthostatic hypotension and syncope. Hospital course by problem: # recurrent syncope - Likely due to orthostasis from autonomic dysfunction from Parkinsonism - Less likely seizure though Neuro recommends 24-48 hr ambulatory EEG as outpt - Did not recur during admission. - Question of atrial flutter on telemetry but per Cardiology review was never in atrial flutter. # orthostatic hypotension/autonomic instability - DIscontinued tamsulosin + metoprolol + pramipexole - Nephrology consulted.? To consider midodrine vs. droxidopa as outpatient in 1-2 weeks. Orthostatic precautions reviewed. # seizure disorder - Continue levetiracetam. - EEG showed generalized slowing, MRI no abnormalities - Neurology consulted, recommended outpatient 24-48h ambulatory EEG study. # HOMREO/CKD3 - Given IV fluid hydration with improvement in BMP. Likely due to hypoperfusion from hypotensive episodes. Repeat BMP in 1 week. Pending studies at time of discharge: SPEP, UPEP, immunofixation electrophoresis, plasma metanephrines. Needs Nephrology follow up in 1-2 weeks for both renal insufficiency and orthostatic hypotension as above. He was discharged home with VNA services for home PT. Time Spent with Patient Time attestation: Total time managing care of this patient today __40__ minutes. Discharge coordination time: Greater than 30 minutes Quality: Safe Use of Opioids Does Pt have an Active Cancer Diagnosis on the Problem List?: No Quality: Stroke Does the patient have a stroke diagnosis?: No Physical Exam Vital Signs: Vital Signs: Last Vital Signs Temp 97.5 F 02/03/23 07:52 Pulse 68 02/03/23 08:03 Resp 16 02/03/23 08:03 BP 164/80 H 02/03/23 07:52 Pulse Ox 97 02/03/23 07:52 O2 Del Method Room Air 02/03/23 07:52 BMI result Body Mass Index 25.1 Gen: in no acute distress HEENT: sclera anicteric, moist mucus membranes Neck: supple Lungs: clear to auscultation bilaterally Heart: regular rate and rhythm, no murmurs Abd: soft, non-tender, non-distended Ext: no edema Skin: warm/well-perfused Neuro: alert and oriented x3, no focal findings, mild rest tremor Psych: appropriate affect DS: Data Data Completed and Pending Completed studies during hospitalization [Text1]: Laboratory Results WBC 6.0 X10*3/uL (4.8-10.8) 02/02/23 06:03 RBC 3.70 X10*6/uL (4.60-5.80) L 02/02/23 06:03 Hgb 11.2 g/dl (14.0-18.0) L 02/02/23 06:03 Hct 34.5 % (42.0-52.0) L 02/02/23 06:03 MCV 93.2 fL (80.0-98.0) 02/02/23 06:03 MCH 30.3 pg (27.0-33.0) 02/02/23 06:03 MCHC 32.5 g/dl (31.0-36.0) 02/02/23 06:03 RDW 15.6 % (11.0-16.0) 02/02/23 06:03 Plt Count 184 X10*3/uL (160-400) 02/02/23 06:03 MPV 11.0 fL (9.4-12.4) 02/02/23 06:03 Immature Gran % (Auto) 0.4 % (0.0-0.4) 01/31/23 05:39 Neut % (Auto) 63.6 % (45-73) 01/31/23 05:39 Lymph % (Auto) 20.6 % (20-40) 01/31/23 05:39 Forrest % (Auto) 10.8 % (2-11) 01/31/23 05:39 Eos % (Auto) 4.2 % (0-4) H 01/31/23 05:39 Baso % (Auto) 0.4 % (0-2) 01/31/23 05:39 Lymph # (Auto) 1.2 X10*3/uL (1.2-4.9) 01/31/23 05:39 Forrest # (Auto) 0.6 X10*3/uL (0.1-1.2) 01/31/23 05:39 Eos # (Auto) 0.2 X10*3/uL (0.0-0.4) 01/31/23 05:39 Baso # (Auto) 0.0 X10*3/uL (0.0-0.2) 01/31/23 05:39 Abs Immat Gran (auto) 0.02 X10*3/uL (0.00-0.03) 01/31/23 05:39 Absolute Neuts (auto) 3.6 x10*3/uL (2.0-8.3) 01/31/23 05:39 Absolute Nucleated RBC 0.000 X10*3/uL (0.0-0.012) 02/02/23 06:03 Nucleated RBC % (auto) 0.0 /100WBC (0.0-0.2) 02/02/23 06:03 PT 10.5 SEC (10.0-13.1) 01/30/23 12:24 INR 0.9 (0.9-1.1) 01/30/23 12:24 APTT 27.1 SEC (26.0-36.4) 01/30/23 12:24 Sodium 142 mmol/L (135-145) 02/03/23 05:47 Potassium 3.7 mmol/L (3.3-5.1) 02/03/23 05:47 Chloride 111 mmol/L (96-108) H 02/03/23 05:47 Carbon Dioxide 25 mmol/L (22-29) 02/03/23 05:47 Anion Gap 10 (12-20) L 02/03/23 05:47 BUN 26 mg/dL (9-16) H 02/03/23 05:47 Creatinine 2.28 mg/dL (0.5-1.4) H 02/03/23 05:47 Estim Creat Clear Calc 25.2 02/03/23 05:47 Estimated GFR 29 02/03/23 05:47 POC Glucose 148 mg/dL (60-115) H 02/03/23 07:17 Random Glucose 187 mg/dL (60-115) H 02/03/23 05:47 Lactic Acid 0.9 mmol/L (0.5-2.0) 01/30/23 12:24 Calcium 9.1 mg/dL (8.4-10.2) 02/03/23 05:47 Magnesium 1.7 mg/dL (1.6-2.6) 01/31/23 14:38 Total Bilirubin 0.5 mg/dL (0.0-1.0) 01/30/23 12:24 AST 157 U/L (5-37) H 01/30/23 12:24 ALT 52 U/L (0-40) H 01/30/23 12:24 Alkaline Phosphatase 105 U/L (39-117) 01/30/23 12:24 Troponin I High Sens 16.7 ng/L (<3.5-35.0) 01/30/23 16:26 Total Protein 7.1 g/dL (6.5-8.0) 01/30/23 12:24 Albumin 3.9 g/dL (3.5-5.0) 01/30/23 12:24 Random Cortisol 15.2 ug/dL 02/03/23 05:47 Plasma Free Metaneph Cancelled 01/31/23 14:38 Plasma Free Normeta Cancelled 01/31/23 14:38 Plas Total Metaneph Cancelled 01/31/23 14:38 Urine Color Yellow 01/30/23 14:15 Urine Appearance Clear 01/30/23 14:15 Urine pH 7.0 (5.0-9.0) 01/30/23 14:15 Ur Specific Ennice 1.010 (1.005-1.025) 01/30/23 14:15 Urine Protein 100 (2+) mg/dL (Neg-Trace) H 01/30/23 14:15 Urine Glucose (UA) 100 mg/dL (Negative) H 01/30/23 14:15 Urine Ketones Negative mg/dL (Negative) 01/30/23 14:15 Urine Blood Large (3+) (Negative) H 01/30/23 14:15 Urine Nitrite Negative (Negative) 01/30/23 14:15 Ur Leukocyte Esterase Negative (Negative) 01/30/23 14:15 Urine RBC 0-2 /HPF (0-2) 01/30/23 14:15 Urine WBC 0-5 /HPF (0-5) 01/30/23 14:15 Ur Squamous Epith Cells 0-2 /HPF (0-2) 01/30/23 14:15 Urine Bacteria None Seen (None Seen) 01/30/23 14:15 Hyaline Casts 0-2 /LPF (0-2) 01/30/23 14:15 U Random Total Protein 38 mg/dL (<12) H 02/02/23 10:00 Ur Random Sodium 62.0 mmol/L 02/02/23 10:00 Urine Creatinine 42.18 mg/dL 02/02/23 10:00 Influenza Type A (PCR) NEGATIVE (Negative) 01/30/23 12:30 Influenza Type B (PCR) NEGATIVE (Negative) 01/30/23 12:30 RSV RNA Qual (PCR) NEGATIVE (Negative) 01/30/23 12:30 SARS-CoV-2 RNA (RT-PCR) NEGATIVE (Negative) 01/30/23 12:30 Impressions Chest X-Ray 01/30/23 14:10 IMPRESSION: Unremarkable chest examination. Head CT 01/31/23 02:16 IMPRESSION: No acute intracranial pathology. Brain MRI 01/31/23 13:20 IMPRESSION: No acute intracranial abnormality. No structural abnormality to explain seizures is identified. TTE 01/31/23 - Normal left ventricular size, thickness, systolic function, and wall motion. The visually estimated ejection fraction is between 55-60%.? - Normal right ventricular cavity size and systolic function.? ? - The left atrium is mildly dilated. ? - The inferior vena cava is normal in size and collapses greater than 50% with inspiration. ? Discharge Plan Discharge Anticipated Discharge Date/Time: 02/03/23 10:15 Patient Disposition: Home Health Service Discharge Diagnosis: syncope due to orthostatic hypotension due to autonomic instability due to parkinsonism HOMERO/CKD3 seizure disorder Referrals: Deonte Claudio MD [Primary Care Provider] - 1 Week Oli Dudley MD [Physician] - 2 Weeks Malvin Gaines MD [Physician] - 2 Weeks Discharge Medications: Continued rosuvastatin 40 mg tablet 40 mg PO BEDTIME 90 Days Qty: 90 3RF clopidogrel 75 mg tablet 75 mg PO DAILY Qty: 90 3RF Trulicity 1.5 mg/0.5 mL pen injector 1.5 mg subcut SA Qty: 6 2RF solifenacin 10 mg tablet 10 mg PO DAILY 90 Days Qty: 90 1RF gabapentin 300 mg Capsule 300 mg PO TID fluticasone propionate 50 mcg/actuation Robbins,Suspension 2 spray INTRANASAL DAILY PRN (Reason: Allergic Symptoms) Rx Instructions: administer into each nostril montelukast 10 mg tablet 10 mg PO DAILY omeprazole 20 mg capsule,delayed release(DR/EC) 20 mg PO DAILY@0630 levetiracetam 250 mg tablet 250 mg PO BID (DME) pen needle, diabetic [BD Ultra-Fine Estefany Pen Needle] 32 gauge x 5/32 needle See Rx Instructions .ROUTE .MEDSUPPLY Qty: 100 4RF Rx Instructions: As directed once daily carbidopa-levodopa 25-100 mg tablet 1 tab PO TID@0800,1200,1700 vitamin B complex [B Complex-Vitamin B12] Tablet 1 tab PO DAILY (DME) FreeStyle Lite Strips Strip See Rx Instructions Not Applicable TID Qty: 10 Rx Instructions: As directed two times a day nitroglycerin 0.4 mg tablet, sublingual 0.4 mg sublingual Q5M PRN (Reason: chest pain) Qty: 20 1RF Rx Instructions: do not exceed 3 doses per episode albuterol sulfate 90 mcg/actuation HFA aerosol inhaler 2 inh inhalation Q6H PRN (Reason: shortness of breath or wheezing) 30 Days Qty: 18 12RF (DME) nebulizers Misc See Rx Instructions .ROUTE Rx Instructions: As directed carbidopa-levodopa 50-200 mg tablet extended release 1 tab PO BEDTIME trazodone 50 mg tablet 50 mg PO BEDTIME albuterol sulfate 2.5 mg /3 mL (0.083 %) solution for nebulization 2.5 mg inhalation BID Qty: 180 11RF fluticasone propion-salmeterol [Wixela Inhub] 250-50 mcg/dose blister with device 1 inh inhalation Q12H 30 Days Qty: 60 11RF Discontinued tamsulosin 0.4 mg capsule 0.4 mg PO BEDTIME 90 Days Qty: 90 3RF metoprolol succinate 25 mg tablet extended release 24 hr 12.5 mg PO DAILY Qty: 90 3RF pramipexole 0.25 mg tablet 0.25 mg PO BID Discharge Orders: Discharge Order (Routine); Ordered 02/03/23 Ordered By: Christos Bryan Diet: Advance to usual diet Activity on Discharge: As tolerated Stand Alone Forms: Patient Portal Discharge page Care Plan Goals: fall prevention renal health Health Concerns: syncope due to orthostatic hypotension due to autonomic instability due to parkinsonism HOMERO/CKD3 seizure disorder Plan of Treatment: Stop metoprolol succinate, pramipexole, and tamsulosin. Orthostatic precautions with sitting or standing. Follow up with Nephrology [Dr Gaines] in 1-2 weeks; consideration of droxidopa therapy. Recheck BMP in 1 week [non-fasting] Follow up with Neurology [Dr Dudley] in 2-3 weeks; 24-48 hour ambulatory EEG Please follow up with your primary care doctor within 1 week. Return to the hospital if you experience recurrent or worsening symptoms. Assessment: See Discharge Summary.
--- NOTE | 2023-02-03 10:44 | MHC.CM.PN ---
Addendum entered by Cindi Leahy RN 02/03/23 13:43: CM HAS NOT BEEN ABLE TO SECURE VNA SERVICES FOR PT D/T [employer] INSURANCE, CM AWAITING RESPONSE FROM [facility], HOME CARE WAS CONTACTED AT [phone] AND AWAITING CALL BACK FROM [facility]. Original Note: PT MEDICALLY CLEARED FOR D/C HOME W/NEW VNA, CM STILL ATTEMPTING TO SECURE VNA SERVICES FOR PT. FAMILY FOR TRANSPORT
--- NOTE | 2023-02-04 09:52 | MHC.CM.PN ---
POST D/C NOTE, NO VNA OFFERS, CM FAXED HARD COPY OF REFERRAL TO [facility] AT TIME OF THIS NOTE, CM AWAITING RESPONSE.
[2023-02-07 17:08] LABS: PEU-Protein Creat Ratio Rand 1.864 (0.025-0.148); PEU-Rand. Prot/Creat Ratio 1864 mg/g creat (25-148); PEU-Random Ur. Gamma Globulin 25 %; PEU-Random Urine A1 Globulin 10 %; PEU-Random Urine A2 Globulin 26 %; PEU-Random Urine Albumin 15 %; PEU-Random Urine Beta Globulin 24 %; PEU-Random Urine Creatinine 44 mg/dL (20-320); PEU-Random Urine Protein 82 mg/dL (5-25)
[2023-02-08 21:19] LABS: Metanephrine, Free 27 pg/mL (<=57); Normetanephrines, Free 42 pg/mL (<=148); Total Metanephrine, Free 69 pg/mL (<=205)
[2023-02-08 22:38] LABS: Prot Elec - Albumin 3.1 g/dL (3.8-4.8); Prot Elec - Alpha1 0.2 g/dL (0.2-0.3); Prot Elec - Alpha2 0.9 g/dL (0.5-0.9); Prot Elec - Beta 1 0.3 g/dL (0.4-0.6); Prot Elec - Beta 2 0.2 g/dL (0.2-0.5); Prot Elec - Gamma 0.6 g/dL (0.8-1.7); Prot Elec - Total Protein 5.4 g/dL (6.1-8.1)
[2023-02-12 14:37] LABS: Plasma Renin Activity 0.08 ng/mL/h (0.25-5.82)
== END 2023-02-03 12:24 | disposition home health service (06) | DRG 204 ==
LOC: HO.ED 15:50 → HO.EDOVER 17:04 → HO.IMC 17:40
PROVIDERS: Internal Medicine Nephrology; Student in an Organized Health Care Education/Training Program; Admitting Provider Physician Assistant; Emergency Provider Emergency Medicine Emergency Medical Services; PCP Family Medicine; Visit Provider Family Medicine
DX: I95.1 Orthostatic hypotension (principal); N17.9 Acute kidney failure, unspecified; G40.209 Localization-related (focal) (partial) symptomatic epilepsy and epileptic syndromes with complex partial seizures, not intractable, without status epilepticus; F02.80 Dementia in other diseases classified elsewhere, unspecified severity, without behavioral disturbance, psychotic disturbance, mood disturbance, and anxiety; E11.22 Type 2 diabetes mellitus with diabetic chronic kidney disease; I48.92 Unspecified atrial flutter; G20 Parkinson's disease; I25.10 Atherosclerotic heart disease of native coronary artery without angina pectoris; N18.30 Chronic kidney disease, stage 3 unspecified; J44.9 Chronic obstructive pulmonary disease, unspecified; I25.2 Old myocardial infarction; Z20.822 Contact with and (suspected) exposure to COVID-19; Z85.46 Personal history of malignant neoplasm of prostate; Z87.891 Personal history of nicotine dependence; Z79.51 Long term (current) use of inhaled steroids; Z79.02 Long term (current) use of antithrombotics/antiplatelets; Z79.899 Other long term (current) drug therapy
CPT/HCPCS: 0241U; 36415; 70450; 70551; 71045; 80048; 80053; 81001; 82088; 82533; 82570; 82947; 83605; 83735; 83835; 84156; 84165; 84166; 84300; 84484; 85025; 85027; 85610; 85730; 87040; 93005; 93306; 94640; 95816; 97116; 97161; 99285; J1650; J2060; Q9957

== ENCOUNTER 2023-02-05 12:39 | Emergency (ER) | payer OTHER, MEDICARE, SELFPAY ==
[2023-02-05] VITALS (7 sets, daily range): BP systolic 75–210; BP diastolic 48–82; PULSE 55–96; RESP 12–16; TEMP 36.8–37; O2SAT 95–98; BMI 22.6
--- NOTE | 2023-02-05 12:48 | ED_ITS ---
HPI - General Adult General Chief complaint: Weakness Stated complaint: confused/non verbal/groin pain/not eating Time Seen by Provider: 02/05/23 15:55 Source: family and old records reviewed Mode of arrival: EMS Limitations: altered mental status History of Present Illness HPI narrative: 72 yo male with history of CKD III, seizure disorder on Keppra, orthostatic hypotension, hx syncope, anxiety, cardiomyopathy, BRAYDEN, DM on insulin, Parkinsonism, HFrEF, CAD, COPD, with [place] [facility] [place] HOMERO on CKD, new onset seizures, and new diagnosis of dementia who presents back to the ER from home with his family for reports of worsening mental status since yesterday. Family reports he came home from the hospital on and yesterday he became nonverbal. He has not been eating or drinking, chewing food that is given to him but will not swallow it. He is weak but restless and pacing they think is due to anxiety. Family reports an overall decline in the last several months, can no longer drive or manage his finances. Family reports when patient was discharged on 02/03 he was verbal, conversational but confused at times. They state his best friend 02/01 and he has been very upset about it. Otherwise he has had no fever, chill, N/V, abdominal pain or known sick contacts at home. MD complaint: nonverbal x24 hours, restless, confused Onset (ago): day(s) (1) Severity: severe Relieving factors: none Exacerbating factors: none Associated symptoms: confusion, loss of appetite and weakness Treatments prior to arrival: none Related Data Home Medications Medication Instructions Recorded Confirmed carbidopa 25 mg-levodopa 100 mg 1 tab PO TID@0800,1200,1700 06/23/20 02/05/23 tablet vitamin B complex (B 1 tab PO DAILY 08/26/20 02/05/23 Complex-Vitamin B12 tablet) blood sugar diagnostic (FreeStyle #10 ea 06/05/21 01/27/23 Lite Strips) carbidopa ER 50 mg-levodopa 200 mg 1 tab PO BEDTIME 11/10/21 02/05/23 tablet,extended release trazodone 50 mg tablet 50 mg PO BEDTIME 03/16/22 02/05/23 nebulizers 11/22/22 01/27/23 levetiracetam 250 mg tablet 250 mg PO BID 01/26/23 02/05/23 fluticasone propionate 50 2 spray intranasal DAILY PRN 01/27/23 02/05/23 mcg/actuation nasal Allergic Symptoms spray,suspension gabapentin 300 mg capsule 300 mg PO TID 01/27/23 02/05/23 montelukast 10 mg tablet 10 mg PO DAILY 01/27/23 02/05/23 omeprazole 20 mg capsule,delayed 20 mg PO DAILY@0630 01/30/23 02/05/23 release Previous Rx's Medication Instructions Recorded nitroglycerin 0.4 mg sublingual 0.4 mg sublingual Q5M PRN chest 10/02/21 tablet pain #20 tabs rosuvastatin 40 mg tablet 40 mg PO BEDTIME 90 days #90 tabs 04/23/22 albuterol sulfate 90 mcg/actuation 2 inh inhalation Q6H PRN shortness 05/19/22 aerosol inhaler of breath or wheezing 30 days #18 grams pen needle, diabetic 32 gauge x #100 ea 07/19/22 (BD Ultra-Fine Estefany Pen Needle) clopidogrel 75 mg tablet 75 mg PO DAILY #90 tabs 08/03/22 albuterol sulfate 2.5 mg/3 mL 2.5 mg (3 mL) inhalation BID #180 08/30/22 (0.083 %) solution for nebulization mL fluticasone 250 mcg-salmeterol 50 1 inh inhalation Q12H 30 days #60 08/30/22 mcg/dose blistr powdr for ea inhalation (Wixela Inhub) dulaglutide 1.5 mg/0.5 mL 1.5 mg (0.5 mL) subcut SA #6 mL 11/15/22 subcutaneous pen injector (Trulicity) solifenacin 10 mg tablet 10 mg PO DAILY 90 days #90 tabs 12/20/22 Allergies Allergy/AdvReac Type Severity Reaction Status Date / Time Iodinated Contrast Media Allergy Intermediate RASH AT IV Verified 01/30/23 11:24 [CONTRAST, IV] SITE. BENEDRYL GIVEN WITH GOOD EFFECT ibuprofen Allergy Rash Verified 01/30/23 11:24 adhesive tape AdvReac Rash Verified 01/30/23 11:24 Review of Systems Review of Systems: Yes Unobtainable due to mental condition and Unobtainable due to mental status [facility] Past Medical History Medical History (Updated 02/06/23 @ 12:22 by Rosa Alexander NP) Anemia Bronchopneumonia CAD (coronary artery disease) Carotid artery disease COPD (chronic obstructive pulmonary disease) Diabetes type 2, uncontrolled (~1999) Diabetic nephropathy associated with type 2 diabetes mellitus Diabetic polyneuropathy associated with type 2 diabetes mellitus Dyslipidemia Dyspnea History of hepatitis C History of SD (myocardial infarction) History of prostate cancer (~2016) 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 FPC (current) use of insulin Nocturnal hypoxia Overweight (BMI 25.0-29.9) Pulmonary nodule Stented coronary artery Surgical History History of cataract surgery (~2019) History of colonoscopy History of cystoscopy (~2020) History of esophagogastroduodenoscopy (EGD) History of heart artery stent History of prostatectomy Hx of cardiac cath Family History Family History Father Sudden cardiac CVD (cardiovascular disease) Mother Hx of heart surgery CVD (cardiovascular disease) Social History Social History Household Members: Spouse Housing: House Do you presently have visiting nurse or other home services: No Alcohol intake: never Patient Tobacco Use Status: Former Tobacco user Tobacco use type: Cigarette Years Smoked: 15 Smoked in Last 30 Days: No e-Cigarette/Vaping Use: Never Used Second Hand Smoke Exposure: No Use of substances other than those prescribed or required for medical reasons: No Advance Directives: No Advance Directives Information Provided: Yes Advance Directives Date on File: 03/31/21 service: No Current occupational status: retired Current occupation: rt handed Current occupational exposures/hazards: No Cognitive needs: No Hearing needs: No Vision needs: Yes (reading glasses) Physical Exam ED Vital Signs: Vital Signs - 24 hr 02/05/23 15:58 02/05/23 17:59 02/05/23 18:00 Temperature 98.2 F 98.5 F 98.6 F Pulse Rate 91 93 Respiratory Rate 14 16 Blood Pressure 161/82 H 143/62 H Pulse Oximetry 98 98 Oxygen Delivery Method Room Air Room Air 02/05/23 19:27 02/05/23 20:44 02/05/23 22:00 Temperature 98.2 F Pulse Rate 79 96 Respiratory Rate 14 16 16 Blood Pressure 210/79 H 208/73 H Pulse Oximetry 95 95 Oxygen Delivery Method Room Air Room Air 02/06/23 05:58 02/06/23 08:20 02/06/23 10:58 Temperature 97.9 F Pulse Rate 77 96 103 H Respiratory Rate 15 16 22 H Blood Pressure 156/59 H 179/74 H Pulse Oximetry 100 100 Oxygen Delivery Method Room Air Room Air BMI result Body Mass Index 22.6 Appearance: Elderly male laying on the stretcher, awake. No acute distress. Head: normocephalic, atraumatic. Eyes: Pupils equal, round and reactive to light. ENT: Pharynx normal. No tonsillar swelling or exudate. Neck: Normal inspection. Neck supple. CVS: Normal heart rate and rhythm. Pulses normal. Respiratory: No respiratory distress. Breath sounds normal. Abdomen: Soft and nontender. +BS x4 Skin: Skin warm and dry. Normal skin color. Normal skin turgor. No rashes. Extremities: No lower extremity edema. No joint swelling. Neuro/psych: awake and alert, makes eye contact and tracks, nonverbal does not follow commands, somewhat rigid Course Course Course Narrative: [id number] male past medical history of normocytic anemia, CAD, Parkinson's, HfrEF, history of prostate cancer status post prostatectomy, diabetes, HTN, COPD, and urinary incontinence, presenting to the ED w/daughter & c/o AMS with low BPs, and not responding x yesterday around 5PM. Family admits at baseline, has dementia however conversational, now since yesterday not responding. Also report low BP. Family denies recent falls or injury BP 75/48 in triage, minimally responsive, intermittently following commands EKG, labs, UA, CXR, head CT ordered Full HPI, ROS and PE to be performed by primary ED provider. Reevaluation(s) Reevaluation #1: spoke at length with the family at the bedside incluing his and daughter. we discussed results and concerns. they expressed interest in transitioning goals of care to comfort only, hospice. they would like him to be placed at a facility as he is a risk of falls at home and there are safety concerns. Physician observation started at 19:15. Patient placed in physician observation because patient is awaiting Case managment consult for initation of hospice and palcement. At the time observation was started patient's vital signs showed HTN, hx autonomic dysfunction. Neuro: lethargic, nonverbal, does not follow commands. CV: RRR and lungs are clear. Will continue to monitor. Time: 19:14 Reevaluation #2: The patient's medications were continued. This is for comfort. Patient is going home on hospice at 17:00 tonight. Hospice will be doing the consultation tonight. Medications Administered Generic Name Dose Route Start Last Admin Trade Name Freq PRN Reason Stop Dose Admin Albuterol Sulfate 2.5 mg 02/06/23 08:00 02/06/23 08:19 Albuterol Sulfate (0.083%) 2.5 Mg/3 Ml Vial.Neb INHALE 2.5 mg RBID FANNY Administration Carbidopa/Levodopa 1 tab 02/06/23 08:00 02/06/23 12:24 Carbidopa/Levodopa 25/100 Tablet PO Not Given TID@0800,1200,1700 [facility] Clopidogrel Bisulfate 75 mg 02/06/23 09:00 02/06/23 11:26 Clopidogrel Bisulfate 75 Mg Tablet PO Not Given DAILY FANNY Fluticasone/Vilanterol 1 puff 02/06/23 08:00 02/06/23 10:51 Fluticasone/Vilanterol 100/25 Blst.W.Dev INHALE Not Given RDAILY [facility] Gabapentin 300 mg 02/06/23 09:00 02/06/23 11:26 Gabapentin 300 Mg Capsule PO Not Given TID [facility] Insulin Human Lispro 0 unit 02/06/23 11:30 02/06/23 12:23 Insulin Lispro 100 Unit/Ml 3 Ml Vial SUBCUT Not Given QIDACHS [facility] Protocol Levetiracetam 250 mg 02/06/23 09:00 02/06/23 11:26 Levetiracetam 250 Mg Tablet PO Not Given BID [facility] Multivitamins/Vitamin C 1 tab 02/06/23 09:00 02/06/23 11:27 Multivitamin Tablet PO Not Given DAILY FANNY Tolterodine Tartrate 2 mg 02/06/23 09:00 02/06/23 11:27 Tolterodine Tartrate La 2 Mg Cap.Er.24h PO Not Given DAILY FANNY Discontinued Medications Generic Name Dose Route Start Last Admin Trade Name Freq PRN Reason Stop Dose Admin Sodium Chloride 1,000 mls @ 999 mls/hr 02/05/23 16:30 02/05/23 20:30 Ns IVCONT 02/05/23 17:30 Infused .Q1H1M FANNY Infusion Medical Decision Making Medical Decision Making MDM Narrative: 72 yo male with history of CKD III, seizure disorder on Keppra, orthostatic hypotension, hx syncope, anxiety, cardiomyopathy, BRAYDEN, DM on insulin, Parkinsonism, HFrEF, CAD, COPD, with recent [place] [facility] [place] for HOMERO on CKD, new onset seizures, and new diagnosis of dementia who presents back to the ER from home with his family for reports of worsening mental status since yesterday. Nonverbal x24 hours. VS on arrival hypotensive, 75/48 w/ HR 55. Repeat BP 161.82 without intervention. HX orthostatic hypotension. Recently not eating or drinking last 24 hours. Concern for acute decline either due to worsening dementia vs possible acute delirium vs acute infection, stroke, or brain bleed. CT head and labs performed. Labs showing mild hypernatremia 146 with CKD at baseline. UA still pending - straight cath ordered. Lactic acid is normal, no leukocytosis. Patient not septic at this time, 17:00. Differential Diagnosis Differential Diagnoses: The differential diagnosis associated with the presentation includes worsening dementia, acute delirium, stroke, ICH, UTI, metabolic derrangement, metabolic encephalopathy, toxic encephalopathy, seizures, status epilepticus Admission/Observation Consideration of admission/observation: Escalation of care including admission/observation considered elderly male with acute mental status change, considered admission but had recent extensive workup, seems to be more consistent with worsening dementia and end of life Lab Data [facility] Lab Attestation statement: I reviewed the patient's lab results. stable anemia, stable CKD and mild hypernatremia 02/05/23 14:41 02/05/23 14:41 Labs: Lab Results 02/05/23 02/05/23 02/05/23 Range/Units 14:41 14:41 14:41 WBC 6.0 (4.8-10.8) X10*3/uL RBC 3.89 L (4.60-5.80) X10*6/uL Hgb 11.8 L (14.0-18.0) g/dl Hct 36.6 L (42.0-52.0) % MCV 94.1 (80.0-98.0) fL MCH 30.3 (27.0-33.0) pg MCHC 32.2 (31.0-36.0) g/dl RDW 15.8 (11.0-16.0) % Plt Count 205 (160-400) X10*3/uL MPV 10.6 (9.4-12.4) fL Immature Gran % (Auto) 0.5 H (0.0-0.4) % Neut % (Auto) 68.6 (45-73) % Lymph % (Auto) 17.0 L (20-40) % [place] % (Auto) 12.1 H (2-11) % Eos % (Auto) 1.5 (0-4) % Baso % (Auto) 0.3 (0-2) % Lymph # (Auto) 1.0 L (1.2-4.9) X10*3/uL [place] # (Auto) 0.7 (0.1-1.2) X10*3/uL Eos # (Auto) 0.1 (0.0-0.4) X10*3/uL Baso # (Auto) 0.0 (0.0-0.2) X10*3/uL Abs Immat Gran (auto) 0.03 (0.00-0.03) X10*3/uL Absolute Neuts (auto) 4.1 (2.0-8.3) x10*3/uL Absolute Nucleated RBC 0.000 (0.0-0.012) X10*3/uL Nucleated RBC % (auto) 0.0 (0.0-0.2) /100WBC PT 11.0 (10.0-13.1) SEC INR 1.0 (0.9-1.1) Sodium 146 H (135-145) mmol/L Potassium 3.9 (3.3-5.1) mmol/L Chloride 110 H (96-108) mmol/L Carbon Dioxide 24 (22-29) mmol/L Anion Gap 16 (12-20) BUN 33 H (9-16) mg/dL Creatinine 2.25 H (0.5-1.4) mg/dL Estim Creat Clear Calc 27.4 Estimated GFR 29 POC Glucose (60-115) mg/dL Random Glucose 143 H (60-115) mg/dL Lactic Acid (0.5-2.0) mmol/L Calcium 10.0 D (8.4-10.2) mg/dL Magnesium 1.9 (1.6-2.6) mg/dL Total Bilirubin 0.4 (0.0-1.0) mg/dL Direct Bilirubin 0.2 (0.0-0.5) mg/dL AST 51 H (5-37) U/L ALT 39 (0-40) U/L Alkaline Phosphatase 100 (39-117) U/L Ammonia (13-55) umol/L Troponin I High Sens (<3.5-35.0) ng/L B-Natriuretic Peptide (<100) pg/mL Total Protein 6.5 (6.5-8.0) g/dL Albumin 3.7 (3.5-5.0) g/dL Urine Color Urine Appearance Urine pH (5.0-9.0) Ur Specific [place] (1.005-1.025) Urine Protein (Neg-Trace) mg/dL Urine Glucose (UA) (Negative) mg/dL Urine Ketones (Negative) mg/dL Urine Blood (Negative) Urine Nitrite (Negative) Ur Leukocyte Esterase (Negative) Urine RBC (0-2) /HPF Urine WBC (0-5) /HPF Ur Squamous Epith Cells (0-2) /HPF Urine Bacteria (None Seen) Hyaline Casts (0-2) /LPF COVID-19 (SEMAJ) (Negative) COVID-19 Clin Com 02/05/23 02/05/23 02/05/23 Range/Units 14:41 14:41 14:41 WBC (4.8-10.8) X10*3/uL RBC (4.60-5.80) X10*6/uL Hgb (14.0-18.0) g/dl Hct (42.0-52.0) % MCV (80.0-98.0) fL MCH (27.0-33.0) pg MCHC (31.0-36.0) g/dl RDW (11.0-16.0) % Plt Count (160-400) X10*3/uL MPV (9.4-12.4) fL Immature Gran % (Auto) (0.0-0.4) % Neut % (Auto) (45-73) % Lymph % (Auto) (20-40) % [place] % (Auto) (2-11) % Eos % (Auto) (0-4) % Baso % (Auto) (0-2) % Lymph # (Auto) (1.2-4.9) X10*3/uL [place] # (Auto) (0.1-1.2) X10*3/uL Eos # (Auto) (0.0-0.4) X10*3/uL Baso # (Auto) (0.0-0.2) X10*3/uL Abs Immat Gran (auto) (0.00-0.03) X10*3/uL Absolute Neuts (auto) (2.0-8.3) x10*3/uL Absolute Nucleated RBC (0.0-0.012) X10*3/uL Nucleated RBC % (auto) (0.0-0.2) /100WBC PT (10.0-13.1) SEC INR (0.9-1.1) Sodium (135-145) mmol/L Potassium (3.3-5.1) mmol/L Chloride (96-108) mmol/L Carbon Dioxide (22-29) mmol/L Anion Gap (12-20) BUN (9-16) mg/dL Creatinine (0.5-1.4) mg/dL Estim Creat Clear Calc Estimated GFR POC Glucose (60-115) mg/dL Random Glucose (60-115) mg/dL Lactic Acid 1.1 (0.5-2.0) mmol/L Calcium (8.4-10.2) mg/dL Magnesium (1.6-2.6) mg/dL Total Bilirubin (0.0-1.0) mg/dL Direct Bilirubin (0.0-0.5) mg/dL AST (5-37) U/L ALT (0-40) U/L Alkaline Phosphatase (39-117) U/L Ammonia 35 (13-55) umol/L Troponin I High Sens 8.3 D (<3.5-35.0) ng/L B-Natriuretic Peptide (<100) pg/mL Total Protein (6.5-8.0) g/dL Albumin (3.5-5.0) g/dL Urine Color Urine Appearance Urine pH (5.0-9.0) Ur Specific [place] (1.005-1.025) Urine Protein (Neg-Trace) mg/dL Urine Glucose (UA) (Negative) mg/dL Urine Ketones (Negative) mg/dL Urine Blood (Negative) Urine Nitrite (Negative) Ur Leukocyte Esterase (Negative) Urine RBC (0-2) /HPF Urine WBC (0-5) /HPF Ur Squamous Epith Cells (0-2) /HPF Urine Bacteria (None Seen) Hyaline Casts (0-2) /LPF COVID-19 (SEMAJ) (Negative) COVID-19 Clin Com 02/05/23 02/05/23 02/05/23 Range/Units 14:41 14:41 18:19 WBC (4.8-10.8) X10*3/uL RBC (4.60-5.80) X10*6/uL Hgb (14.0-18.0) g/dl Hct (42.0-52.0) % MCV (80.0-98.0) fL MCH (27.0-33.0) pg MCHC (31.0-36.0) g/dl RDW (11.0-16.0) % Plt Count (160-400) X10*3/uL MPV (9.4-12.4) fL Immature Gran % (Auto) (0.0-0.4) % Neut % (Auto) (45-73) % Lymph % (Auto) (20-40) % [place] % (Auto) (2-11) % Eos % (Auto) (0-4) % Baso % (Auto) (0-2) % Lymph # (Auto) (1.2-4.9) X10*3/uL [place] # (Auto) (0.1-1.2) X10*3/uL Eos # (Auto) (0.0-0.4) X10*3/uL Baso # (Auto) (0.0-0.2) X10*3/uL Abs Immat Gran (auto) (0.00-0.03) X10*3/uL Absolute Neuts (auto) (2.0-8.3) x10*3/uL Absolute Nucleated RBC (0.0-0.012) X10*3/uL Nucleated RBC % (auto) (0.0-0.2) /100WBC PT (10.0-13.1) SEC INR (0.9-1.1) Sodium (135-145) mmol/L Potassium (3.3-5.1) mmol/L Chloride (96-108) mmol/L Carbon Dioxide (22-29) mmol/L Anion Gap (12-20) BUN (9-16) mg/dL Creatinine (0.5-1.4) mg/dL Estim Creat Clear Calc Estimated GFR POC Glucose (60-115) mg/dL Random Glucose (60-115) mg/dL Lactic Acid (0.5-2.0) mmol/L Calcium (8.4-10.2) mg/dL Magnesium (1.6-2.6) mg/dL Total Bilirubin (0.0-1.0) mg/dL Direct Bilirubin (0.0-0.5) mg/dL AST (5-37) U/L ALT (0-40) U/L Alkaline Phosphatase (39-117) U/L Ammonia (13-55) umol/L Troponin I High Sens (<3.5-35.0) ng/L B-Natriuretic Peptide 85 (<100) pg/mL Total Protein (6.5-8.0) g/dL Albumin (3.5-5.0) g/dL Urine Color Yellow Urine Appearance Clear Urine pH 6.5 (5.0-9.0) Ur Specific [place] 1.015 (1.005-1.025) Urine Protein 100 (2+) H (Neg-Trace) mg/dL Urine Glucose (UA) 100 H (Negative) mg/dL Urine Ketones Negative (Negative) mg/dL Urine Blood Moderate (2+) H (Negative) Urine Nitrite Negative (Negative) Ur Leukocyte Esterase Negative (Negative) Urine RBC 0-2 (0-2) /HPF Urine WBC 0-5 (0-5) /HPF Ur Squamous Epith Cells 0-2 (0-2) /HPF Urine Bacteria None Seen (None Seen) Hyaline Casts 3-5 (0-2) /LPF COVID-19 (SEMAJ) Negative (Negative) COVID-19 Clin Com See Note 02/06/23 Range/Units 12:21 WBC (4.8-10.8) X10*3/uL RBC (4.60-5.80) X10*6/uL Hgb (14.0-18.0) g/dl Hct (42.0-52.0) % MCV (80.0-98.0) fL MCH (27.0-33.0) pg MCHC (31.0-36.0) g/dl RDW (11.0-16.0) % Plt Count (160-400) X10*3/uL MPV (9.4-12.4) fL Immature Gran % (Auto) (0.0-0.4) % Neut % (Auto) (45-73) % Lymph % (Auto) (20-40) % [place] % (Auto) (2-11) % Eos % (Auto) (0-4) % Baso % (Auto) (0-2) % Lymph # (Auto) (1.2-4.9) X10*3/uL [place] # (Auto) (0.1-1.2) X10*3/uL Eos # (Auto) (0.0-0.4) X10*3/uL Baso # (Auto) (0.0-0.2) X10*3/uL Abs Immat Gran (auto) (0.00-0.03) X10*3/uL Absolute Neuts (auto) (2.0-8.3) x10*3/uL Absolute Nucleated RBC (0.0-0.012) X10*3/uL Nucleated RBC % (auto) (0.0-0.2) /100WBC PT (10.0-13.1) SEC INR (0.9-1.1) Sodium (135-145) mmol/L Potassium (3.3-5.1) mmol/L Chloride (96-108) mmol/L Carbon Dioxide (22-29) mmol/L Anion Gap (12-20) BUN (9-16) mg/dL Creatinine (0.5-1.4) mg/dL Estim Creat Clear Calc Estimated GFR POC Glucose 125 H (60-115) mg/dL Random Glucose (60-115) mg/dL Lactic Acid (0.5-2.0) mmol/L Calcium (8.4-10.2) mg/dL Magnesium (1.6-2.6) mg/dL Total Bilirubin (0.0-1.0) mg/dL Direct Bilirubin (0.0-0.5) mg/dL AST (5-37) U/L ALT (0-40) U/L Alkaline Phosphatase (39-117) U/L Ammonia (13-55) umol/L Troponin I High Sens (<3.5-35.0) ng/L B-Natriuretic Peptide (<100) pg/mL Total Protein (6.5-8.0) g/dL Albumin (3.5-5.0) g/dL Urine Color Urine Appearance Urine pH (5.0-9.0) Ur Specific [place] (1.005-1.025) Urine Protein (Neg-Trace) mg/dL Urine Glucose (UA) (Negative) mg/dL Urine Ketones (Negative) mg/dL Urine Blood (Negative) Urine Nitrite (Negative) Ur Leukocyte Esterase (Negative) Urine RBC (0-2) /HPF Urine WBC (0-5) /HPF Ur Squamous Epith Cells (0-2) /HPF Urine Bacteria (None Seen) Hyaline Casts (0-2) /LPF COVID-19 (SEMAJ) (Negative) COVID-19 Clin Com Independent Interpretation I performed an independent interpretation of an: Plain X-Ray and CT Scan Interpretation: CT head without edema or acute bleed, agree w/ radiology read cxr with clear lungs, no infiltrate Radiology Impression Discussion of test interpretation with radiology: I have reviewed the radiologist's reading. Radiologist Impression: CT/CT head/brain wo IV con IMPRESSION: No acute intracranial pathology. XR/XR chest 1V IMPRESSION: Unremarkable chest examination. Independent Historian Clinical information obtained from an independent historian. History obtained from or confirmed by: Spouse and Other (daughter) External Record Review External record reviewed: Inpatient record, Outpatient record, Prior outpatient labs and Prior outpatient radiology Prescription Management I considered prescription management with: Antibiotic Chronic Conditions Patient?s care impacted by: Diabetes and Other (dementia, parkinsons, orthostatic hypotension) Social Determinants Patient?s care significantly limited by Social Determinants of Health including: Other Social Determinant of Health (family unable to care for him at home due to clinical decline and safety concerns) Critical Care Time Critical Care Time Critical Care Time: Yes Total Critical Care Time: 46 Attestation: I have personally provided critical care time exclusive of time spent on separately billable procedures. Time includes review of lab data, radiology results, discussion with consultants, and monitoring for potential decompensation. Intervention performed as documented. Discharge Plan Discharge Clinical Impression: Dementia, Adult failure to thrive, Hospice care Patient Disposition: Home, Self-Care Instructions: Failure to Thrive in Older Adults (ED) Additional Instructions: [facility] will be coming to your home tonight to iniate hospice Prescriptions: No Action rosuvastatin 40 mg tablet 40 mg PO BEDTIME 90 Days Qty: 90 3RF clopidogrel 75 mg tablet 75 mg PO DAILY Qty: 90 3RF Trulicity 1.5 mg/0.5 mL pen injector 1.5 mg subcut SA Qty: 6 2RF solifenacin 10 mg tablet 10 mg PO DAILY 90 Days Qty: 90 1RF gabapentin 300 mg Capsule 300 mg PO TID fluticasone propionate 50 mcg/actuation [place],Suspension 2 spray INTRANASAL DAILY PRN (Reason: Allergic Symptoms) Rx Instructions: administer into each nostril montelukast 10 mg tablet 10 mg PO DAILY omeprazole 20 mg capsule,delayed release(DR/EC) 20 mg PO DAILY@0630 levetiracetam 250 mg tablet 250 mg PO BID (DME) pen needle, diabetic [BD Ultra-Fine Estefany Pen Needle] 32 gauge x 5/32 needle See Rx Instructions .ROUTE .MEDSUPPLY Qty: 100 4RF Rx Instructions: As directed once daily carbidopa-levodopa 25-100 mg tablet 1 tab PO TID@0800,1200,1700 vitamin B complex [B Complex-Vitamin B12] Tablet 1 tab PO DAILY (DME) FreeStyle Lite Strips Strip See Rx Instructions Not Applicable TID Qty: 10 Rx Instructions: As directed two times a day nitroglycerin 0.4 mg tablet, sublingual 0.4 mg sublingual Q5M PRN (Reason: chest pain) Qty: 20 1RF Rx Instructions: do not exceed 3 doses per episode albuterol sulfate 90 mcg/actuation HFA aerosol inhaler 2 inh inhalation Q6H PRN (Reason: shortness of breath or wheezing) 30 Days Qty: 18 12RF (DME) nebulizers Misc See Rx Instructions .ROUTE Rx Instructions: As directed carbidopa-levodopa 50-200 mg tablet extended release 1 tab PO BEDTIME trazodone 50 mg tablet 50 mg PO BEDTIME albuterol sulfate 2.5 mg /3 mL (0.083 %) solution for nebulization 2.5 mg inhalation BID Qty: 180 11RF fluticasone propion-salmeterol [Wixela Inhub] 250-50 mcg/dose blister with device 1 inh inhalation Q12H 30 Days Qty: 60 11RF
--- NOTE | 2023-02-05 13:43 | PHA.MEDREC ---
Pharmacy Consult ? Medication Reconciliation Pharmacy has completed the medication reconciliation. spoke with patient's family member. They confirmed that no changes have been made from last visit besides the medications that were discontinued. Used discharge papers from last visit. Trulicity was not given today.
[2023-02-05 15:09] LABS: Alanine Aminotransferase 39 U/L (0-40); Albumin Level 3.7 g/dL (3.5-5.0); Alkaline Phosphatase 100 U/L (39-117); Anion Gap 16 (12-20); Aspartate Amino Transferase 51 U/L (5-37); Bilirubin Direct 0.2 mg/dL (0.0-0.5); Bilirubin Total 0.4 mg/dL (0.0-1.0); Blood Urea Nitrogen 33 mg/dL (9-16); Carbon Dioxide 24 mmol/L (22-29); Chloride 110 mmol/L (96-108); Creatinine Clr Calc Pharmacy 27.4; Estimated Glomerular Filt Rate 29; Glucose Random 143 mg/dL (60-115); Magnesium 1.9 mg/dL (1.6-2.6); Potassium 3.9 mmol/L (3.3-5.1); Sodium 146 mmol/L (135-145); Total Protein 6.5 g/dL (6.5-8.0)
--- NOTE | 2023-02-05 17:56 | MHC.EDTECH ---
RN AWARE WE NOT ABLE TO DO ORTHOSTATICS VITALS PATIENT VERY WEAK .
--- NOTE | 2023-02-05 17:59 | PC.NURSE ---
pt incont. of urine, pt cleaned and changed, applied [place] cath to pt.
--- NOTE | 2023-02-05 19:00 | PC.NURSE ---
pt unable to follow direction or stand, sit up on own, unable to complete orthos. Naila jarquin
--- NOTE | 2023-02-05 20:48 | MHC.EDTECH ---
PATIENT WAS OFFER FOOD AND DRINKS ,BUT HE REFUSED .
--- NOTE | 2023-02-05 21:24 | PC.NURSE ---
pt b/o high sbp 200's, JERMAINE aware
--- NOTE | 2023-02-05 22:00 | MHC.EDTECH ---
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
--- NOTE | 2023-02-05 23:43 | PC.NURSE ---
pt will be transfer to Hospice care. Pt sleeping
--- NOTE | 2023-02-06 | MHC.EDTECH ---
0000 rounding done patient sleeping ,breath are even and unlabored .
[2023-02-06 05:58] VITALS: BP 156/59; PULSE 77; RESP 15; O2SAT 100
--- NOTE | 2023-02-06 06:18 | PC.NURSE ---
pt assessed, sleeping during the shift
--- NOTE | 2023-02-06 07:48 | PC.NURSE ---
patient sleeping in bed, equal chest rise and fall.
--- NOTE | 2023-02-06 08:07 | PC.NURSE ---
patient moved into a hospital bed, repositioned. condom catheter in place, pt cath bag emptied with 700 ml of urine.
[2023-02-06 08:20] VITALS: PULSE 96; RESP 16; O2SAT 97
--- NOTE | 2023-02-06 09:01 | PC.NURSE ---
mouthcare completed after updraft treatment, resp are shallow and non labored. he appears in no outward distress, he is nonverbal, spontaneous eye opening to verbal stim.
--- NOTE | 2023-02-06 09:35 | MHC.CM.ED ---
Addendum entered by Enedina Mace 02/06/23 13:02: Pt has been accepted onto [facility]. Call placed to Sherita and pt's dtr Gris who are in agreement with agency. [facility] can start service this evening. Family requesting 5pm so they can attend religion. Timur MAN arranged for a 5pm p/u. ED PA, RN aware of plan. ED CM to follow for any additional needs Original Note: Received consult for assessment of d/c needs: Attempted to meet w/pt who was sleeping: discussion w/ED care team notes pt is not a reliable historian. Call placed to pt's spouse Sherita: she is audibly upset: she states pt has been failing at home, increased depression, behaviors (wandering, anxious, confused) and refusing to eat or drink. No services at this time: pt uses a cane but no other DME in place. Family considering Hospice services with goals of care focused on keeping pt at home and comfortable. Sherita is receptive to broad agency referrals ([facility] not contracted w/[facility]) She states pt has family that would be able to assist w/end of life care and she would take a DAVIS from work to care for pt. HCP at home: Sherita to bring in. Will await Hospice determination for d/c planning needs.
[2023-02-06 10:58] VITALS: BP 179/74; PULSE 103; RESP 22; TEMP 36.6; O2SAT 100
--- NOTE | 2023-02-06 11:27 | PC.NURSE ---
pt remains nonverbal he is moving independently in the bed . at times he is requiring mouth care and is have difficulty handling secretions without any airway compromise. po meds are held. case management is involved in referral for hospice for home
--- NOTE | 2023-02-06 14:21 | PC.NURSE ---
patient sleeping in bed, appears comfortable. equa chest rise and fall, resp unlabored. 18 rr
[2023-02-06 14:28] VITALS: BP 186/79; PULSE 97; RESP 18; O2SAT 97
--- NOTE | 2023-02-06 15:10 | PC.NURSE ---
pt remains non verbal, opens eyes when you speak to him. pt seems to be resting comfortably. no outward distress.
--- NOTE | 2023-02-06 16:17 | MHC.EDTECH ---
300ml urin2 voided
== END 2023-02-06 17:01 | disposition home or self-care (01) ==
PROVIDERS: Physician Assistant; Emergency Provider Internal Medicine; PCP Family Medicine
DX: R53.1 Weakness (principal); F03.90 Unspecified dementia, unspecified severity, without behavioral disturbance, psychotic disturbance, mood disturbance, and anxiety; R62.7 Adult failure to thrive; Z68.22 Body mass index [BMI] 22.0-22.9, adult; Z20.822 Contact with and (suspected) exposure to COVID-19; E11.22 Type 2 diabetes mellitus with diabetic chronic kidney disease; I12.9 Hypertensive chronic kidney disease with stage 1 through stage 4 chronic kidney disease, or unspecified chronic kidney disease; N18.30 Chronic kidney disease, stage 3 unspecified; E78.5 Hyperlipidemia, unspecified; G20 Parkinson's disease; B19.20 Unspecified viral hepatitis C without hepatic coma; Z79.4 Long term (current) use of insulin
CPT/HCPCS: 70450; 71045; 80048; 80076; 81001; 82140; 82947; 83605; 83735; 83880; 84484; 85025; 85610; 87040; 87635; 93005; 94640; 96360; 96361; 99285